=== PATIENT | female | born 1945 | race Caucasian/White ===

== ENCOUNTER 2024-11-23 13:07 | Emergency (ER) | payer MEDICARE, OTHER, SELFPAY ==
--- NOTE | ~2024-11-23 | XR_ITS ---
EXAMINATION: XR CHEST CLINICAL INFORMATION: altered, r/o PNA COMPARISON: Altered mental status TECHNIQUE: 2 views of the chest were obtained. FINDINGS: No significant abnormality is noted involving the heart, lungs, mediastinum, bony thorax or soft tissues. XR/XR chest 2V IMPRESSION: Unremarkable chest examination. Electronically signed by: Yash Dueñas MD 11/23/2024 02:58 PM [facility]
--- NOTE | ~2024-11-23 | CT_ITS ---
EXAMINATION: CT HEAD WITHOUT CONTRAST CLINICAL INFORMATION: Altered mental status. COMPARISON: None available. TECHNIQUE: Contiguous axial imaging was performed from the skull base to vertex without intravenous administration of contrast. This CT examination was performed using dose optimization techniques as appropriate, variously including the following: *Automated exposure control *Adjustment of mA and/or kV according to patient size (this includes techniques or standardized protocols for targeted exams where dose is matched to indication/reason for exam; i.e. extremities or head) *Use of iterative reconstruction technique DLP: 627. 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 There is no acute intra-axial, extra-axial bleed, masses or midline shift. There is no acute infarction evolution. The lateral ventricles are enlarged especially the right lateral ventricle is asymmetrically enlarged likely from ex vacuo phenomena bone windows reveal no calvarial abnormality. There is no scalp soft tissue abnormality. Bilateral paranasal sinuses and mastoid air cells are well-aerated. There is benign hyperostosis frontalis interna. CT/CT head/brain wo IV con IMPRESSION: No acute infarct or bleed. 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 Dilated lateral ventricles likely from cerebral volume loss. Asymmetric enlargement right lateral ventricle from ex vacule phenomena. Electronically signed by: Yash Dueñas MD 11/24/2024 09:37 AM EST
[2024-11-23 13:28] VITALS: BP 147/61; BP 147/72; PULSE 68; RESP 16; TEMP 37; O2SAT 100; BMI 21.1
--- NOTE | 2024-11-23 13:35 | ED.GENADULT ---
HPI - General Adult General Chief complaint: Altered Mental Status Stated complaint: AGGRESIVE W/STAFF & RESIDENTS @ [facility] X5D PER EMS Time Seen by Provider: 11/23/24 13:15 Source: EMS Mode of arrival: EMS Limitations: other (dementia) History of Present Illness ED Provider: VERONICA NAVA PA-C HPI narrative: 79-year-old female with pmhx significant for Alzheimer's dementia, MDD, T2DM, chronic atrial fibrillation on Eliquis, HTN, CKD, GERD, Parkinson's presents to the ED today via EMS from [facility] due to increased verbal aggression towards staff. Per facility, patient has been yelling/ swearing at staff. Additionally has been urinating and defecating on the floor outside of the bathroom at the facility. This is not her baseline. no falls/ injuries per facility. Patient is pleasantly confused. She has no complaints at present. Related Data Home Medications ?Medication ?Instructions ?Recorded ?Confirmed acetaminophen 500 mg tablet 500 mg PO BID 11/24/24 11/24/24 apixaban 2.5 mg tablet (Eliquis) 2.5 mg PO BID 11/24/24 11/24/24 atorvastatin 40 mg tablet 40 mg PO BEDTIME 11/24/24 11/24/24 carbidopa 25 mg-levodopa 100 mg 1 tab PO TID 11/24/24 11/24/24 tablet (Sinemet) docusate sodium 100 mg capsule 100 mg PO DAILY 11/24/24 11/24/24 (Colace) fluticasone propionate 50 1 spray intranasal BID 11/24/24 11/24/24 mcg/actuation nasal spray,suspension gabapentin 100 mg capsule 100 mg PO BID 11/24/24 11/24/24 glipizide 5 mg tablet, extended 5 mg PO DAILY 11/24/24 11/24/24 release 24 hr loratadine 10 mg tablet 10 mg PO DAILY 11/24/24 11/24/24 metformin 500 mg tablet 500 mg PO BID 11/24/24 11/24/24 metoprolol succinate 25 mg 25 mg PO DAILY 11/24/24 11/24/24 tablet,extended release 24 hr mirtazapine 15 mg tablet 15 mg PO BEDTIME 11/24/24 11/24/24 omeprazole 20 mg capsule,delayed 20 mg PO BID@0630,1430 11/24/24 11/24/24 release trazodone 50 mg tablet 25 mg PO BID 11/24/24 11/24/24 Allergies Allergy/AdvReac Type Severity Reaction Status Date / Time atorvastatin [From Lipitor] Allergy Unknown Verified 11/23/24 13:33 divalproex sodium Allergy Unknown Verified 11/23/24 13:33 [From Depakote] Iodinated Contrast Media Allergy Unknown Verified 11/23/24 13:33 [IV Contrast Dye] mushroom Allergy Unknown Verified 11/23/24 13:33 neomycin Allergy Unknown Verified 11/23/24 13:33 peanut Allergy Unknown Verified 11/23/24 13:33 polymyxin B Allergy Unknown Verified 11/23/24 13:33 Review of Systems Review of Systems: Yes Unobtainable due to mental status (dementia) [facility] Past Medical History Attestation statement: The following information was validated with the patient. Source: old records reviewed and nursing notes reviewed Social History Social History Advance Directives: Yes Advance Directives on File: Yes Advance Directives Date on File: 11/23/24 Physical Exam ED Vital Signs: Vital Signs - 24 hr 11/23/24 21:56 11/23/24 21:57 11/24/24 05:38 Temperature 97.8 F 98.3 F Pulse Rate 79 95 61 Respiratory Rate 18 14 12 Blood Pressure 181/79 H 91/45 L 175/70 H Pulse Oximetry 99 95 100 Oxygen Delivery Method Room Air Room Air 11/24/24 08:22 11/24/24 16:24 Temperature 98.5 F Pulse Rate 66 78 Respiratory Rate 16 18 Blood Pressure 151/69 H 148/92 H Pulse Oximetry 100 100 Oxygen Delivery Method Room Air Room Air BMI result Body Mass Index 21.1 hypertensive, vitals are otherwise wnl General: well appearing, pleasantly confused Skin: Warm, dry, intact. No rashes or lesions. Head: Normocephalic, atraumatic. EENT: Hearing is intact b/l. Conjunctiva clear. PERRLA. EOM intact. Moist mucous membranes.? Cardiac: Chest wall symmetric. RRR Lungs: Normal respiratory effort without accessory muscle use. CTA bilaterally Abdomen: Soft, non-tender, non-distended. No rebound tenderness or guarding. Positive BS x4. no cvat. Ext: Upper and lower extremities atraumatic, without tenderness, deformity, swelling or erythema. No pitting edema. Neuro: alert, not oriented to place, time, person which is patient's baseline. Normal speech. No facial droop. 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 Sensation intact to light touch. NV intact distally. Course Course Course Narrative: 1644 -- CBC without leukocytosis. normocytic anemia, h&h above transfusion threshold. no priors to compare to. vbg qnl. chemistry without acute electrolyte abnormality requiring intervention. BUN 34, creatinine 1.47. Patient has history of CKD. I do not have any priors to compare to. Will treat with IV fluids. liver function at baseline. tsh wnl. ammonia wnl. negative covid, flu, rsv. cxr without infiltrate or consolidation to suggest pneumonia. > patient placed in physician observation pending UA 0801 11/24/24 -- urine without infection. psych consult pending for med recs. CM following. patient is hypertensive to 175/70 this morning. alert and responsive, denying any chest pain, sob, headache, vision changes. will have nursing/ pharmacy staff perform med rec. will continue monitoring vitals. no acute overnight events per nursing staff. physician observation continued. Medications Administered Generic Name Dose Route Start Last Admin Trade Name Freq PRN Reason Stop Dose Admin Carbidopa/Levodopa 1 tab 11/24/24 16:00 11/24/24 16:31 Carbidopa/Levodopa 25/100 Tablet PO 1 tab TID ISMAEL Administration Docusate Sodium 100 mg 11/24/24 16:00 11/24/24 16:31 Docusate Sodium 100 Mg Capsule PO 100 mg DAILY ISMAEL Administration Glipizide 5 mg 11/24/24 16:00 11/24/24 16:30 Glipizide Xl 5 Mg Tab.Er.24 PO 5 mg DAILY ISMAEL Administration Loratadine 10 mg 11/24/24 16:11/24/24 16:31 Loratadine 10 Mg Tablet PO 10 mg DAILY ISMAEL Administration Metoprolol Succinate 25 mg 11/24/24 16:00 11/24/24 16:30 Metoprolol Succinate Er 25 Mg Tab.Er.24h PO 25 mg DAILY ISMAEL Administration Protocol Discontinued Medications Generic Name Dose Route Start Last Admin Trade Name Freq PRN Reason Stop Dose Admin Sodium Chloride 1,000 mls @ 999 mls/hr 11/23/24 16:00 11/23/24 17:36 Ns IV 11/23/24 17:00 Infused .Q1H1M ISMAEL Infusion Medical Decision Making Medical Decision Making [facility] Narrative: 79-year-old female with pmhx significant for Alzheimer's dementia, MDD, T2DM, chronic atrial fibrillation on Eliquis, HTN, CKD, GERD, Parkinson's presents to the ED today via EMS from [facility] due to increased verbal aggression towards staff. hypertensive, vitals are otherwise wnl. she is nontoxic appearing and in NAD. she is pleasantly confused. exam is benign. Differential diagnosis includes anemia, electrolyte abnormality, dehydration, hypoglycemia, thyrotoxicosis, UTI, pneumonia, encephalopathy, acute intracranial bleed, dementia, delirium Plan for lab, ekg, viral swabs, CXR, CT head, re-evaluation. Differential Diagnosis Differential Diagnoses: The differential diagnosis associated with the presentation includes as above. Admission/Observation Consideration of admission/observation: Escalation of care including admission/observation considered Admission considered Lab Data [facility] Lab Attestation statement: I reviewed the patient's lab results. as above. 11/23/24 14:04 11/24/24 16:12 Labs: Lab Results 11/23/24 11/23/24 11/23/24 Range/Units 13:44 14:04 14:09 WBC 5.2 (4.8-10.8) X10*3/uL RBC 3.64 L (4.20-5.50) X10*6/uL Hgb 10.6 L (12.0-16.0) g/dl Hct 32.6 L (37.0-47.0) % MCV 89.6 (80.0-98.0) fL MCH 29.1 (27.0-33.0) pg MCHC 32.5 (31.0-35.0) g/dl RDW 13.4 (11.0-16.0) % Plt Count 144 L (160-400) X10*3/uL MPV 10.0 (9.4-12.3) fL Immature Gran % (Auto) 0.2 (0.0-0.4) % Neut % (Auto) 64.6 (45-73) % Lymph % (Auto) 24.3 (20-40) % Grayson % (Auto) 8.4 (2-11) % Eos % (Auto) 2.1 (0-4) % Baso % (Auto) 0.4 (0-2) % Lymph # (Auto) 1.3 (1.2-4.9) X10*3/uL Grayson # (Auto) 0.4 (0.1-1.2) X10*3/uL Eos # (Auto) 0.1 (0.0-0.4) X10*3/uL Baso # (Auto) 0.0 (0.0-0.2) X10*3/uL Abs Immat Gran (auto) 0.01 (0.00-0.03) X10*3/uL Absolute Neuts (auto) 3.4 (2.0-8.3) x10*3/uL Absolute Nucleated RBC 0.000 (0.0-0.012) X10*3/uL Nucleated RBC % (auto) 0.0 (0.0-0.2) /100WBC VBG pH 7.35 (7.32-7.43) VBG pCO2 40 mmHg VBG pO2 41 mmHg VBG HCO3 22 (22-26) mmol/L VBG O2 Saturation 65.0 % VBG Base Excess -2.7 mmol/L Sodium 142 (135-145) mmol/L Potassium 3.6 (3.3-5.1) mmol/L Chloride 109 H (96-108) mmol/L Carbon Dioxide 23 (22-29) mmol/L Anion Gap 14 (12-20) BUN 34 H (9-16) mg/dL Creatinine 1.47 H (0.5-1.4) mg/dL Estim Creat Clear Calc 21.5 Estimated GFR 34 POC Glucose 153 H (60-115) mg/dL Random Glucose 152 H (60-115) mg/dL Calcium 9.0 (8.4-10.2) mg/dL Magnesium 2.0 (1.6-2.6) mg/dL Total Bilirubin 0.3 (0.0-1.0) mg/dL AST 26 (5-31) U/L ALT 8 (0-31) U/L Alkaline Phosphatase 82 (39-117) U/L Ammonia 27 (13-55) umol/L Total Protein 7.0 (6.5-8.0) g/dL Albumin 3.4 L (3.5-5.0) g/dL Lipase 46 (8-78) U/L TSH 1.07 (0.32-4.0) uIU/mL Urine Color Urine Appearance Urine pH (5.0-9.0) Ur Specific Ogilvie (1.005-1.025) Urine Protein (Neg-Trace) mg/dL Urine Glucose (UA) (Negative) mg/dL Urine Ketones (Negative) mg/dL Urine Blood (Negative) Urine Nitrite (Negative) Ur Leukocyte Esterase (Negative) Urine RBC (0-2) /HPF Urine WBC (0-5) /HPF Ur Squamous Epith Cells (0-2) /HPF Urine Bacteria (None Seen) Hyaline Casts (0-2) /LPF Influenza Type A (PCR) NEGATIVE (Negative) Influenza Type B (PCR) NEGATIVE (Negative) RSV RNA Qual (PCR) NEGATIVE (Negative) SARS-CoV-2 RNA (RT-PCR) NEGATIVE (Negative) 11/23/24 11/24/24 Range/Units 16:38 16:12 WBC (4.8-10.8) X10*3/uL RBC (4.20-5.50) X10*6/uL Hgb (12.0-16.0) g/dl Hct (37.0-47.0) % MCV (80.0-98.0) fL MCH (27.0-33.0) pg MCHC (31.0-35.0) g/dl RDW (11.0-16.0) % Plt Count (160-400) X10*3/uL MPV (9.4-12.3) fL Immature Gran % (Auto) (0.0-0.4) % Neut % (Auto) (45-73) % Lymph % (Auto) (20-40) % Grayson % (Auto) (2-11) % Eos % (Auto) (0-4) % Baso % (Auto) (0-2) % Lymph # (Auto) (1.2-4.9) X10*3/uL Grayson # (Auto) (0.1-1.2) X10*3/uL Eos # (Auto) (0.0-0.4) X10*3/uL Baso # (Auto) (0.0-0.2) X10*3/uL Abs Immat Gran (auto) (0.00-0.03) X10*3/uL Absolute Neuts (auto) (2.0-8.3) x10*3/uL Absolute Nucleated RBC (0.0-0.012) X10*3/uL Nucleated RBC % (auto) (0.0-0.2) /100WBC VBG pH (7.32-7.43) VBG pCO2 mmHg VBG pO2 mmHg VBG HCO3 (22-26) mmol/L VBG O2 Saturation % VBG Base Excess mmol/L Sodium 145 (135-145) mmol/L Potassium 3.8 (3.3-5.1) mmol/L Chloride 109 H (96-108) mmol/L Carbon Dioxide 24 (22-29) mmol/L Anion Gap 16 (12-20) BUN 19 H (9-16) mg/dL Creatinine 1.21 (0.5-1.4) mg/dL Estim Creat Clear Calc 26.2 Estimated GFR 43 POC Glucose (60-115) mg/dL Random Glucose 220 H (60-115) mg/dL Calcium 10.1 D (8.4-10.2) mg/dL Magnesium (1.6-2.6) mg/dL Total Bilirubin 0.2 (0.0-1.0) mg/dL AST 31 (5-31) U/L ALT 32 H (0-31) U/L Alkaline Phosphatase 85 (39-117) U/L Ammonia (13-55) umol/L Total Protein 8.5 H (6.5-8.0) g/dL Albumin 3.9 (3.5-5.0) g/dL Lipase (8-78) U/L TSH (0.32-4.0) uIU/mL Urine Color Yellow Urine Appearance Clear Urine pH 6.5 (5.0-9.0) Ur Specific Ogilvie <= 1.005 (1.005-1.025) Urine Protein 30 (1+) H (Neg-Trace) mg/dL Urine Glucose (UA) Negative (Negative) mg/dL Urine Ketones Negative (Negative) mg/dL Urine Blood Negative (Negative) Urine Nitrite Negative (Negative) Ur Leukocyte Esterase Trace H (Negative) Urine RBC 0-2 (0-2) /HPF Urine WBC 0-5 (0-5) /HPF Ur Squamous Epith Cells 0-2 (0-2) /HPF Urine Bacteria None Seen (None Seen) Hyaline Casts 0-2 (0-2) /LPF Influenza Type A (PCR) (Negative) Influenza Type B (PCR) (Negative) RSV RNA Qual (PCR) (Negative) SARS-CoV-2 RNA (RT-PCR) (Negative) Independent Interpretation I performed an independent interpretation of an: EKG, Plain X-Ray and CT Scan Interpretation: EKG showing normal sinus rhythm, rate of 74 beats per minute, QT 4 6, QTC 450, no acute ischemic changes or ST elevations Chest xr without infiltrate or consolidation to suggest pneumonia CT head without acute bleed or mass Radiology Impression Discussion of test interpretation with radiology: I have reviewed the radiologist's reading. Radiologist Impression: Date of Service: 11/23/24 Procedure(s): XR chest 2V Accession Number(s): [id number] cc: GIGI MOROCHO MD; Veronica Nava~ EXAMINATION: XR CHEST CLINICAL INFORMATION: altered, r/o PNA COMPARISON: Altered mental status TECHNIQUE: 2 views of the chest were obtained. FINDINGS: No significant abnormality is noted involving the heart, lungs, mediastinum, bony thorax or soft tissues. XR/XR chest 2V IMPRESSION: Unremarkable chest examination. Electronically signed by: Yash Dueñas MD 11/23/2024 02:58 PM [facility] [place] [place] Date of Service: 11/24/24 Procedure(s): CT head/brain wo IV con Accession Number(s): [id number] cc: GIGI MOROCHO MD; Veronica Nava~ Report Number: [id number]: Total DLP = 627.00 mGy-cm EXAMINATION: CT HEAD WITHOUT CONTRAST CLINICAL INFORMATION: Altered mental status. COMPARISON: None available. TECHNIQUE: Contiguous axial imaging was performed from the skull base to vertex without intravenous administration of contrast. This CT examination was performed using dose optimization techniques as appropriate, variously including the following: *Automated exposure control *Adjustment of mA and/or kV according to patient size (this includes techniques or standardized protocols for targeted exams where dose is matched to indication/reason for exam; i.e. extremities or head) *Use of iterative reconstruction technique DLP: 627. 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 There is no acute intra-axial, extra-axial bleed, masses or midline shift. There is no acute infarction evolution. The lateral ventricles are enlarged especially the right lateral ventricle is asymmetrically enlarged likely from ex vacuo phenomena bone windows reveal no calvarial abnormality. There is no scalp soft tissue abnormality. Bilateral paranasal sinuses and mastoid air cells are well-aerated. There is benign hyperostosis frontalis interna. CT/CT head/brain wo IV con IMPRESSION: No acute infarct or bleed. 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 Dilated lateral ventricles likely from cerebral volume loss. Asymmetric enlargement right lateral ventricle from ex vacule phenomena. Electronically signed by: Yash Dueñas MD 11/24/2024 09:37 AM [facility] [place] [place] Independent Historian Clinical information obtained from an independent historian. History obtained from or confirmed by: EMS Chronic Conditions Patient?s care impacted by: Other (dementia) Social Determinants Patient?s care significantly limited by Social Determinants of Health including: Other Social Determinant of Health Critical Care Time Critical Care Time Critical Care Time: No Discharge Plan Discharge Clinical Impression: Dementia Patient Disposition: Still a Patient Prescriptions: No Action atorvastatin 40 mg Tablet 40 mg PO BEDTIME acetaminophen 500 mg Tablet 500 mg PO BID docusate sodium [Colace] 100 mg Capsule 100 mg PO DAILY gabapentin 100 mg Capsule 100 mg PO BID carbidopa-levodopa [Sinemet] 25-100 mg Tablet 1 tab PO TID fluticasone propionate [Flonase] 50 mcg/actuation Dike,Suspension 1 spray INTRANASAL BID Rx Instructions: administer into each nostril Eliquis 2.5 mg Tablet 2.5 mg PO BID metformin 500 mg Tablet 500 mg PO BID trazodone 50 mg Tablet 25 mg PO BID glipizide 5 mg Tablet Extended Release 24hr 5 mg PO DAILY omeprazole 20 mg Capsule,Delayed Release(Dr/Ec) 20 mg PO BID@0630,1430 mirtazapine 15 mg Tablet 15 mg PO BEDTIME metoprolol succinate 25 mg Tablet Extended Release 24 Hr 25 mg PO DAILY loratadine 10 mg Tablet 10 mg PO DAILY Print Language: Belarusian
--- NOTE | 2024-11-23 13:36 | ECG_ITS ---
Test Reason : ALTERED Blood Pressure : */* mmHG Vent. Rate : 74 BPM Atrial Rate : 74 BPM P-R Int : 164 ms QRS Dur : 82 ms QT Int : 406 ms P-R-T Axes : 92 43 61 degrees QTcB Int : 450 ms Normal sinus rhythm Normal ECG No previous ECGs available Referred By: Veronica Nava Electronically Signed By: CRUZ PORTILLO MD
[2024-11-23 13:48] LABS: Glucose, Whole Blood 153 mg/dL (60-115)
[2024-11-23 14:09] LABS: MANUAL DIFF FLAG NO
[2024-11-23 14:11] LABS: Basophils Percent Auto 0.4 % (0-2); Eosinophils Absolute Auto 0.1 X10*3/uL (0.0-0.4); Eosinophils Percent Auto 2.1 % (0-4); Hematocrit 32.6 % (37.0-47.0); Hemoglobin 10.6 g/dl (12.0-16.0); Imm Gran Abs Auto 0.01 X10*3/uL (0.00-0.03); Imm Gran Pct Auto 0.2 % (0.0-0.4); Lymphocytes Absolute Auto 1.3 X10*3/uL (1.2-4.9); Lymphocytes Percent Auto 24.3 % (20-40); Mean Corpuscular HGB Conc 32.5 g/dl (31.0-35.0); Mean Corpuscular Hemoglobin 29.1 pg (27.0-33.0); Mean Corpuscular Volume 89.6 fL (80.0-98.0); Monocytes Absolute Auto 0.4 X10*3/uL (0.1-1.2); Monocytes Percent Auto 8.4 % (2-11); Neutrophils Absolute Auto 3.4 x10*3/uL (2.0-8.3); Neutrophils Percent Auto 64.6 % (45-73); Platelet Count 144 X10*3/uL (160-400); Red Blood Count 3.64 X10*6/uL (4.20-5.50); Red Cell Distribution Width 13.4 % (11.0-16.0); White Blood Count 5.2 X10*3/uL (4.8-10.8)
[2024-11-23 14:12] LABS: Venous Blood Gas Refer to POC result
[2024-11-23 14:13] LABS: VBG Base Excess -2.7 mmol/L; VBG HCO3 22 mmol/L (22-26); VBG pCO2 40 mmHg; VBG pH 7.35 (7.32-7.43); VBG pO2 41 mmHg
[2024-11-23 14:27] LABS: Ammonia 27 umol/L (13-55)
[2024-11-23 14:33] LABS: Alanine Aminotransferase 8 U/L (0-31); Albumin Level 3.4 g/dL (3.5-5.0); Alkaline Phosphatase 82 U/L (39-117); Anion Gap 14 (12-20); Aspartate Amino Transferase 26 U/L (5-31); Bilirubin Total 0.3 mg/dL (0.0-1.0); Blood Urea Nitrogen 34 mg/dL (9-16); Carbon Dioxide 23 mmol/L (22-29); Chloride 109 mmol/L (96-108); Creatinine Clr Calc Pharmacy 21.5; Estimated Glomerular Filt Rate 34; Glucose Random 152 mg/dL (60-115); Lipase 46 U/L (8-78); Potassium 3.6 mmol/L (3.3-5.1); Sodium 142 mmol/L (135-145)
[2024-11-23 14:47] LABS: TSH reflex Free T4 1.07 uIU/mL (0.32-4.0)
[2024-11-23 14:59] LABS: Influenza A PCR NEGATIVE (Negative); Influenza B PCR NEGATIVE (Negative); Resp Syncy Virus RNA Qual PCR NEGATIVE (Negative); SARS COV2 PCR INHOUSE NEGATIVE (Negative)
--- OUTSIDE RECORDS SUMMARY | 2024-11-23 16:32 | XMS_ITS | Clinical Summary ---
Author Organization [facility] Address [address] [place] [address] Care Team Providers Care Sorter U[employer]olstery [employer] Name Role Phone Unavailable Primary Care Provider Unavailabl e Source Comments PLEASE NOTE, if this patient is a minor, it may be UNLAWFUL to discuss sensitive information that is contained in these records (such as FAMILY PLANNING, MENTAL HEALTH or SUBSTANCE ABUSE) with the minor patient's parent or other person without the patient's specific authorization.[facility] Medications amoxicillin (AMOXIL) 500 mg capsuleIndicatio ns:Tooth infection Take 1 Cap by mouth 3 (three) times daily 21 Cap 01/19/2020 Active acetaminophen (TYLENOL) 500 mg tabletIndication s:Tooth infection Take 1 Tab by mouth every 4 (four) hours as needed for pain 30 Tab 01/19/2020 Active Social History Tobacco Use Types Packs/Day Years Used Date Smoking Tobacco: Never Assessed Social Connections Answer Date Recorded Social Connections and Isolation 0 04/06/2020 Financial Resource Strain Answer Date R ecorded Financial Resource Strain 0 2019 Stress Answer Date Recorded Stress 0 04/06/2020 Physical Activity Answer Date Recorded Physical Activity 0 04/06/2020 Food Insecurity Answer Date Recorded Food 0 04/06/2020 Transportation Needs Answer Date Record ed Transportation 0 04/06/2020 Housing Stability Answer Date Recorded Housing 0 04/06/2020 Safety and Environment Answer Date Medardo rded Safety 0 04/06/2020 Utilities Answer Date Recorded Utilities 0 04/06/2020 Employment Answer Date Recorded Employment 0 04/06/2020 Comments Unknown Sex and Gender Information Value Date Recorded Sex Assigned at Not on file Legal Sex Female 8:38 AM PDT Gender Identity Not on file Sexual Orientation Not on file Plan of Treatment Not on file [place] [address]
--- OUTSIDE RECORDS SUMMARY | 2024-11-23 16:32 | XMS_ITS ---
Author Organization [facility] Address [address] [place] [address] Care Team Providers Care Therapy Tech Name Role Phone Michelle BATEMAN, [facility] Primary Care Provider U Aamir Saldivar Unavailable [phone] REASON FOR VISIT rs appt 08/17/24 Encounters Encounter Location Date Provider Diagnosis [address] [address] 08/06/2024 Aamir Shelley Plan Of Treatment Next Appt Details Provider Name:Aamir Shelley , 02/04/2025 09:00:00 AM, [facility], [address], [address], Progress Notes * MIHAIRojas OCONNELLpaulyDOB:1945 (78 yo F)Acc No.[id number]:08/06/2024 Patient:?Gillian HOLM :1945???Age:78 Y???Sex:Female Address:[address] [place] [address], [address] * true * Date:? Generated for Mooi ross/Siddharth/eTransmitting on:?11/23/2024 04:32 PM EST
--- OUTSIDE RECORDS SUMMARY | 2024-11-23 16:32 | XMS_ITS | Patient Health Record ---
[facility] Address [address] [place] [address] Care Team Providers Care Military Technology Specialist Name Role Phone Michelle BATEMAN, [facility] Primary Care Provider U priya PinedaunAamir christensen Unavailable [phone] Allergies Allergen (clinical drug ingredient) Drug/Non Drug Allergy documented on EMR Reaction Allergy Type Onset Date Status valproate Depakote Unknown Drug Allergy Active Iodinated contrast media (substance) Iodinated Diagnostic Agents Unknown Drug Allergy Active Results Component Value Reference Range Notes HEMOGLOBIN A1C (GLYCOHEMOGLO BIN) Reviewed date:11/05/2024 09:53:49 AM Interpretation: Performing Lab: Notes/Report: HEMOGLOBIN A1C % (HH) 6.1 HEMOGLOBIN A1C (GLYCOHEMOGLO BIN) Reviewed date:11/06/2024 10:44:59 AM Interpretation: Performing Lab: Notes/Report: HEMOGLOBIN A1C % (HH) 6.1 Reason For Referral No Information Medications Medication SIG (Take, Route, Frequency, Duration) Notes Start Date End Date Status Flonase 50 MCG/ACT 1 spray in each nost ril Nasally Once a day 05/27/2018 Not-Taking Colace 100 MG 1 capsule as needed Orally Once a day 05/27/2018 Not-Taking Extra Depth Orthopedic Shoes (1 Pair) with Customized Heat Molded Multidensity Innersoles (3 Pair) as directed Dx: IDDM/Polyneuropathy (E10.42), Hammertoe Foot Deformity (M20.41,M20.42), Preulcerative Skin Lesion(s) (L85.1) 05/21/2024 Active Ammonium Lactate 12 % 1 application to affected area Externally to feet Twice a day for 30 days Active Drysol 20 % 1 application to affected area at bedtime Externally qd hs to both feet for 30 days Active ZyrTEC Allergy Activ e Omeprazole 40 MG 1 capsule Orally Onc e a day 05/27/2018 Not-Taking MiraLax Not-Taking Losartan Potassium 50 MG 1 tablet Orally Once a day 05/27/2018 Not-Taking hydrOXYzine HCl 25 MG 1 tablet as needed Orally prn 05/27/2018 Not-Taking Eliquis 5 MG Orally 05/27/2018 Active Lancets 30G Not-Taki ng Coreg 12.5 MG Orally 05/27/2018 Activ e Freestyle Test Strips Not-Taking Atorvastatin Calcium 40 MG 1 tablet Orally Once a day 05/27/2018 Active Alcohol Pads Not-Moises ing Acetaminophen prn Active Loratadine Not-Takin g Chlorhexidine Gluconate Not-Taking PARoxetine HCl Not-T aking Triamcinolone Acetonide prn Not-Taking Carvedilol Active Melatonin 3 MG 1 tablet at bedtime as needed with food Orally Once a day 05/27/2018 Active Lantus Active HumaLOG KwikPen Acti ve Gabapentin 100 MG 1 capsule Orally Thr ee times a day 05/27/2018 Active PenTips Not-Taking Immunizations Vaccine Route Administration Date Status Comme nts Influenza Unknown 06/27/2020 Administered Social History Tobacco Use: Social History Observation Description Date Details (start date - stop date) Never Smoker NA - NA Tobacco use other than smoking: Question Answer Notes Are you an other tobacco user? No Tobacco Control (Standard) Question Answer Notes Tobacco use: Nonsmoker Additional Findings: Tobacco non-user Current no nsmoker AUDIT-C (Standard) Question Answer Notes Did you have a drink containing alcohol in the p ast year? No Points 0 Interpretation Negative Problems Problem Type SNOMED Code ICD Code Onset Dates Problem Status W/U Status Risk Notes Problem Acquired hammer toe of right foot (8535359725409563 ) Other hammer toe(s) (acquired), right foot (M20.41) Active confirmed Response to treatment, Improvemen t Problem Acquired hammer toe of left foot (6258947802194871 ) Other hammer toe(s) (acquired), left foot (M20.42) Active confirmed Response to treatment, Improvemen t Problem Polyneuropathy due to diabetes mellitus type I (080264172) Type 1 diabetes mellitus with diabetic polyneuropathy (E10.42) Active confirmed Vital Signs Height 4 ft 11 in in 11/05/2024 Weight 110 lbs 11/05/2024 BMI 22.21 kg/m2 11/05/2024 Procedures Procedure Date Ordered Date Performed Result Body Sit e 90474-NRIYBOE NAIL, 6 OR MORE 11/28/2023 N/A 50130-FAQV SKIN LESIONS, OVER 4 11/28/2023 N/A 74510-DLTDLXN NAIL, 6 OR MORE 05/21/2024 N/A 35639-ZLYG SKIN LESIONS, OVER 4 05/21/2024 N/A 52118-ESPUWTU NAIL, 6 OR MORE 11/05/2024 N/A 85929-DPHP SKIN LESIONS, 2 TO 4 11/05/2024 N/A 07244-Ptox. Subungual Hematoma 11/05/2024 N/A Encounters Encounter Location Date Provider Diagnosis [address] [address] 11/28/2023 Aamir Shelley Type 1 diabetes mellitus with diabetic polyneuropathy E10.42 and Tinea unguium B35.[address] [address] 05/21/2024 Aamir Daphney Type 1 diabetes mellitus with diabetic polyneuropathy E10.42 ; Tinea unguium B35.1 ; Other hammer toe(s) (acquired), right foot M20.41 and Other hammer toe(s) (acquired), left foot M20.[address] [address] 11/05/2024 Aamir Shelley Type 1 diabetes mellitus with diabetic polyneuropathy E10.42 ; Tinea unguium B35.1 ; Other hammer toe(s) (acquired), right foot M20.41 ; Other hammer toe(s) (acquired), left foot M20.42 and Subungual hematoma of left foot, initial encounter S90.222A [address] [address] 04/08/2024 Aamir Shelley [address] [address] 08/06/2024 Aamir Shelley Assessments Encounter Date Diagnosis (ICD Code) Assessment Notes Treatment Notes Treatment Clinical Notes Section Notes 11/28/2023 Type 1 diabetes mellitus with diabetic polyneuropathy (ICD-10 - E10.42) 11/28/2023 Tinea unguium (ICD-10 - B35.1) 05/21/2024 Type 1 diabetes mellitus with diabetic polyneuropathy (ICD-10 - E10.42) 05/21/2024 Tinea unguium (ICD-10 - B35.1) 11/05/2024 Type 1 diabetes mellitus with diabetic polyneuropathy (ICD-10 - E10.42) 11/05/2024 Tinea unguium (ICD-10 - B35.1) 11/05/2024 Other hammer toe(s) (acquired), right foot (ICD-10 - M20.41) Response to treatment,Impro vement 05/21/2024 Other hammer toe(s) (acquired), right foot (ICD-10 - M20.41) Patient Educated with: DIABETIC FOOT CARE INSTRUCTIONS. pdf (DIABETIC FOOT CARE INSTRUCTIONS. pdf) 11/05/2024 Other hammer toe(s) (acquired), left foot (ICD-10 - M20.42) Response to treatment,Impro vement 11/05/2024 Subungual hematoma of left foot, initial encounter (ICD-10 - S90.222A) 05/21/2024 Other hammer toe(s) (acquired), left foot (ICD-10 - M20.42) Plan Of Treatment Pending Test Test Name Order Date 41075-EAZTOCC NAIL, 6 OR MORE 08/26/2018 14430-ECQBQCQ NAIL, 6 OR MORE 05/27/2018 41894-UZIAINA NAIL, 6 OR MORE 04/18/2022 62911-RHMDCUD NAIL, 6 OR MORE 06/27/2022 50992-HIPOHKE NAIL, 6 OR MORE 09/10/2022 42427-KAGYEBX NAIL, 6 OR MORE 11/21/2022 83074-SFLUEVS NAIL, 6 OR MORE 02/20/2023 61002-TMODYPJ NAIL, 6 OR MORE 05/01/2023 70142-RTULWQL NAIL, 6 OR MORE 07/10/2023 85235-GUCZPHL NAIL, 6 OR MORE 09/11/2023 15256-ZNXYEEB NAIL, 6 OR MORE 11/28/2023 92659-QNWVPQH NAIL, 6 OR MORE 05/21/2024 32989-DHMHASR NAIL, 6 OR MORE 11/05/2024 06722-Kbvwqsfo Plate 08/26/2018 73043-Xxxzhxhn Plate 07/10/2023 06760-Phjxeion Plate 05/01/2023 90287-Gofkmkjo Plate 02/20/2023 17358-Wpjdotjz Plate 11/21/2022 31780-Ahtsoxth Plate 09/10/2022 74209-Hfmyhuny Plate 06/27/2022 80624-Hrghpavy Plate 04/18/2022 39650-Fijolkuh Plate 07/01/2018 34974-JLYU SKIN LESIONS, OVER 4 04/18/20 22 09079-ZQMC SKIN LESIONS, OVER 4 06/27/20 08285-FXOP SKIN LESIONS, OVER 4 12/31/19 19 94252-SXFW SKIN LESIONS, OVER 4 04/14/20 19 90958-ARIS SKIN LESIONS, OVER 4 06/23/20 19 12015-OEBY SKIN LESIONS, OVER 4 09/25/19 20 79046-ZTNP SKIN LESIONS, OVER 4 02/05/20 20 28018-FYZG SKIN LESIONS, OVER 4 06/17/20 20 03268-KVNE SKIN LESIONS, OVER 4 10/21/19 21 71637-UGKU SKIN LESIONS, OVER 4 02/18/20 21 88956-QKRY SKIN LESIONS, OVER 4 06/02/20 21 11567-CCYA SKIN LESIONS, OVER 4 09/29/19 22 16697-SBLD SKIN LESIONS, OVER 4 09/10/20 22 79085-CBZB SKIN LESIONS, OVER 4 11/22/19 23 31727-FDCU SKIN LESIONS, OVER 4 02/21/20 23 63768-USGM SKIN LESIONS, OVER 4 05/01/20 23 43801-CAZF SKIN LESIONS, OVER 4 07/10/20 23 83113-WGKW SKIN LESIONS, OVER 4 09/11/20 23 32497-QSZB SKIN LESIONS, OVER 4 05/21/20 24 00207-VBWL SKIN LESIONS, OVER 4 11/28/19 24 44872-ACLP SKIN LESIONS, 2 TO 4 08/26/20 18 68436-PQLX SKIN LESIONS, 2 TO 4 05/27/20 18 60736-VDJD SKIN LESIONS, 2 TO 4 11/05/19 25 11470-Xssi. Subungual Hematoma 5 76390- Nail Unit Biopsy 05/27/2018 Next Appt Details Provider Name:Aamir Shelley , 02/04/2025 09:00:00 AM, [address] [facility], [address], [place], [address], Insurance Providers Payer Name Payer Address Payer Phone Subscriber Number Group Number Insured Name Patient Relationship to Insured Coverage Start Date Coverage End Date [employer] [place] [address] [id number] Gillian Ash Self - patient is the insured Medical (General) History Medical History History ICD Code Alzheimers disease Angina Anxiety disorder Arthritis Back,Hip,and Knee pain Cholesterol Gout Heart disease Hypertension Kidney disease Neuropathy Osteoporosis Paralysis Poor circulation Psoriasis/eczema chronic sinusitis Stroke A fib Allergic rhinitis asthma Bipolar disorder chronic kidney disease stage 3 Constipation type II diabetes chronic renal failure Herpes Zoster Acute Otitis Media Alcohol abuse Sciatica Surgical History Surgery Date(Month/Year) appendectomy cataract surgery hysterectomy PRETTY thrombectomy Temporal artery biopsy removed of toe nails endoscopy Hospitalization History Reason Date(Month/Year) [facility]2022 [facility] difficulty 09[facility]2022 [facility]- high blood pressure hit head 05/2020 [facility] - HTN/Chest pain 08/2019 [facility] Heart issues/high blood pressure 03/24
--- OUTSIDE RECORDS SUMMARY | 2024-11-23 16:32 | XMS_ITS ---
Author Organization [facility] Address [address] [place] [address] Care Team Providers Care Radio Control Crane Operator Name Role Phone Michelle BATEMAN, [facility] Primary Care Provider U leannachrisAamir Banks Unavailable [phone] Allergies Allergen (clinical drug ingredient) Drug/Non Drug Allergy documented on EMR Reaction Allergy Type Onset Date Status valproate Depakote Unknown Drug Allergy Active Iodinated contrast media (substance) Iodinated Diagnostic Agents Unknown Drug Allergy Active REASON FOR VISIT At Risk Footcare, Toe Irritation, Painful Toe/Nail(s) Medications Medication SIG (Take, Route, Frequency, Duration) Notes Start Date End Date Status Lancets 30G Not-Taki ng Freestyle Test Strips Not-Taking Alcohol Pads Not-Moises ing Loratadine Not-Takin g PenTips Not-Taking Chlorhexidine Gluconate Not-Taking PARoxetine HCl Not-T aking Triamcinolone Acetonide prn Not-Taking Omeprazole 40 MG 1 capsule Orally Onc e a day 05/27/2018 Not-Taking MiraLax Not-Taking Flonase 50 MCG/ACT 1 spray in each nost ril Nasally Once a day 05/27/2018 Not-Taking Colace 100 MG 1 capsule as needed Orally Once a day 05/27/2018 Not-Taking Extra Depth Orthopedic Shoes (1 Pair) with Customized Heat Molded Multidensity Innersoles (3 Pair) as directed Dx: IDDM/Polyneuropathy (E10.42), Hammertoe Foot Deformity (M20.41,M20.42), Preulcerative Skin Lesion(s) (L85.1) 05/21/2024 Active Losartan Potassium 50 MG 1 tablet Orally Once a day 05/27/2018 Not-Taking hydrOXYzine HCl 25 MG 1 tablet as needed Orally prn 05/27/2018 Not-Taking Ammonium Lactate 12 % 1 application to affected area Externally to feet Twice a day for 30 days Active Drysol 20 % 1 application to affected area at bedtime Externally qd hs to both feet for 30 days Active ZyrTEC Allergy Activ e Carvedilol Active Melatonin 3 MG 1 tablet at bedtime as needed with food Orally Once a day 05/27/2018 Active Eliquis 5 MG Orally 05/27/2018 Active Coreg 12.5 MG Orally 05/27/2018 Activ e Lantus Active HumaLOG KwikPen Acti ve Gabapentin 100 MG 1 capsule Orally Thr ee times a day 05/27/2018 Active Atorvastatin Calcium 40 MG 1 tablet Orally Once a day 05/27/2018 Active Acetaminophen prn Active Social History Tobacco Use: Social History Observation [...] ast year? No Points 0 Interpretation Negative Vital Signs Height 4 ft 11 in in 11/05/2024 Weight 110 lbs 11/05/2024 BMI 22.21 kg/m2 11/05/2024 Procedures Procedure Date Ordered Date Performed Result Body Sit e 85482-IQDZUTK NAIL, 6 OR MORE 11/05/2024 N/A 51750-EHZW SKIN LESIONS, 2 TO 4 11/05/2024 N/A 91251-Dmcy. Subungual Hematoma 11/05/2024 N/A Encounters Encounter Location Date Provider Diagnosis [facility] [address] [place] [id number] 11/05/2024 Aamir Shelley Type 1 diabetes mellitus with diabetic polyneuropathy E10.42 ; Tinea unguium B35.1 ; Other hammer toe(s) (acquired), right foot M20.41 ; Other hammer toe(s) (acquired), left foot M20.42 and Subungual hematoma of left foot, initial encounter S90.222A Assessments Encounter Date Diagnosis (ICD Code) Assessment Notes Treatment Notes Treatment Clinical Notes Section Notes 11/05/2024 Type 1 diabetes mellitus with diabetic polyneuropathy (ICD-10 - E10.42) 11/05/2024 Tinea unguium (ICD-10 - B35.1) 11/05/2024 Other hammer toe(s) (acquired), right foot (ICD-10 - M20.41) Response to treatment,Impro vement 11/05/2024 Other hammer toe(s) (acquired), left foot (ICD-10 - M20.42) Response to treatment,Impro vement 11/05/2024 Subungual hematoma of left foot, initial encounter (ICD-10 - S90.222A) Plan Of Treatment Pending Test Test Name Order Date [id number] NAIL, 6 OR MORE 11/05/2024 52846-WXNA SKIN LESIONS, 2 TO 4 11/05/19 47131-Aesd. Subungual Hematoma Next Appt Details Follow Up: 3 Months, Reason: Provider Name:Aamir Pinedaunier , 02/04/2025 09:00:00 AM, [address] [facility], [address], [place], [address], Procedure Notes * Category Sub-Category Detail Notes Debride Nail 6-10 Nail debridement Due to the cl inical pathology outlined in the exam findings, performance of this nail treatment is medically necessary as its management by an unskilled/untrained nonprofessional would put this patients foot and overall health at risk. Therefore, debridement to affected nail(s), as described in exam ( TA, T1, T2, T3, T4, T5, T6, T7, T8, T9 ), was performed exclusively by the physician of record to reduce/remove overall nail length, girth, thickness, subungual debris, and necrotic tissue, by manual and/or electrical means through the use of a nail nipper and/or dremel-type grinder set up operator jig, to a more viable healthy nail plate or bed tissue 6-10 nails in total. Silver nitrate was used for any petechial bleeding as necessary. Definitive antifungal treatment options, both pharmaceutical and surgical, have been reviewed and discussed with the patient. The patient solely prefers the use of intermittent/as needed professional debridement services for their nail condition and understands the need for additional periodic treatments to maintain effectiveness in symptomatic relief - 03151 I&D subungual hematoma: Location T2, As p er exam Procedure: Performed incision a nd drainage of subungual hematoma with use of sterile power dontrell and/or nail nipper. Approximately ( 0.1 ) cc of hemorrhagic fluid material was drained. No underlying bone was visualized. An application of sterile Bacitracin dressing was performed. Local wound care instructions were discussed and dispensed , Pt was advised of the possibilty for nail auto-avulsion (08858), DIABETES: Pt was advised as to the risk of delayed or nonhealing due to diabetes. Pt is to call the office with any questions, concerns, or complications Anesthesia was deferred - NEURO COOPER: patient has medically documented neuropathic condition affecting sensation Keratoma Treatment Parring or Cutting o f Benign Hyperkeratotic Lesion(s) (-56) 2-4 Lesions - Due to the at risk nature of the patients medical condition as documented in the exam findings, performance of this keratoderma treatment is medically necessary as its management by an unskilled/untrained nonprofessional would put this patients foot and overall health at risk. Therefore, the benign hyperkeratotic lesions, ( 3 ) in total, locations as stated and described in the exam ( SUB MTH (s), 1, Left , Plantar, Heel(s), B/L ), were pared, and/or cut utilizing a sterile 15 blade, tissue nippers, and/or power dremel instrumentation by the physician of record - 01808 Progress Notes * Gillian HOLMDOB:1945 (78 yo F)Acc No.[id number]:11/05/2024 Progress Note Patient:?Gillian HOLM Provider:?Aamir Shelley DPM :1945???Age:78 Y???Sex:Female D ate:11/05/2024 Address:[address] [place] [address] Pcp:Bill Martinez MD Subjective: * Chief Complaints: * ???At Risk FootcareToe Irrit ationPainful Toe/Nail(s) * HPI: ???At Risk footcare:?Pt States Last PCP Visit:?Date?09/10/2024 ???Toe pain:?Treatments:?Rx shoes .?Painful Nails:?Duration:?States Possible Date Of Injury - 11/02/24,No fall( May have dropped something on it ).? * ROS:?General/Constitutional:?Nausea?denies.?Vomiting?denies.?Hunger Thirst?denies.?Loss appetite?denies.?Chills?denies.?Fatigue?denies.?Fever?denies.?Night Sweats?denies.?Unexplained weight loss?denies.?Unexplained weight gain?admits.?HEENTM:?Dentures?admits.?Dizziness?denies.?Glasses/contacts?denies.?Retinopathy?den ies.?Blurred/double vision?denies.?TMJ?denies.?Discharge/drainage?denies.?Implants?denies.?Sore throat?admits.?Dental implants?denies.?Hard of hearing ?admits.?Difficulty chewing/swallowing/speaking?denies.?Nose bleeds?denies.?Sore mouth?admits.?Respiratory:?On O xygen?denies.?Pneumonia/pleurisy?denies.?Bronchitis?denies.?Emphysema?denies.?Co ughing?denies.?Cough blood?denies.?Shortness of breath?admits.?Wheezing?denies.?Cardiovascular:?Pacemaker?denies.?MVP?denies.?WPW?denies.?CHF?denies.?Heart attack?denies.?Septal defect?denies.?Rapid beat?admits.?Chest pain ?admits.?Atrial Fib.?denies.?Murmur/Palpitations?denies.?Gastrointestinal:?Hemorrhoids?denies.?Stomach/Abdominal pain?admits.?Dark blood stool?denies.?Irritable bowel ?denies.?Constipation?admits.?Diarrhea?admits.?Hematology:?Swelling?denies.?Clots?denies.?Varicose Veins?denies.?Bruising?admits, on anticoagulants.?Bleeding problem?admits, on anticoagulants.?Genitourinary:?Blood urine?denies.?Frequent/Painfu/urination/bladder control?denies.?Kidney stones?denies.?Infection (UTI)?denies.?Nephropathy?admits.?sex trans dis (STD)?denies.?Prostate?denies.?Musculoskeletal:?Hammertoes?admits.?Bunions?admits.?Back Pain?admits.?Muscle Cramps/ Resting?admits.?Muscle cramps / walking?denies.?Generalized aches and pains?denies.?Weakness?denies.?Integ.:?Cespedes?denies.?Scars?denies.?Corns/calluses?admits.?Ingrown nails?admits.?Painful nails?denies.?Open Sores?denies.?Rashes?denies.?Neurologic:?Difficulty sleeping?denies.?Brain disorder?denies.?Numbness?admits.?Balance t rouble?denies.?Confusion?denies.?Fainting/blackouts?denies.?Tingling?admits.?Aidan mors?denies.? * Medical History:? * Surgical History:?appendecto my cataract surgery hysterectomy PRETTY thrombectomy Temporal artery biopsy removed of toe nails endoscopy * Hospitalization/Major Diagno stic Procedure:?[facility] Heart issues/high blood pressure 03/2019[facility] - HTN/Chest pain 08/2019[facility]- high blood pressure hit head 05/2020[facility]- breathing difficulty - fell 12/2022 * Family History:?Mother: dece ased, heart attack, diagnosed with Unspecified essential hypertension, Unspecified heart disease, Family history of arthritis, Diabetic - NIDDM.?Father: , heart attack, diagnosed with Unspecified essential hypertension, Unspecified heart disease.?Spouse: .?Maternal Grand Mother: diagnosed with Diabetic - NIDDM.?Siblings: diagnosed with Other malignant neoplasm of unspecified site.? * Social History:?Tobacco Use:?Tobacco use other than smoking?Are you an other tobacco user??No ?Tobacco Control (Standard)?Tobacco use:?Nonsmoker ?Additional Findings: Tobacco non-user?Current nonsmoker ???Drugs/Alcohol:?Drugs?Have you used drugs other than those for medical reasons in the past 12 months??No ???Miscellaneous:?Caffeine: no, none. ?Children: yes, 2. ?Exercise: yes, walking, yoga, exercise. ?Marital status: . ?Occupation: retired, Patient Access Manager. ???Drug/Alcohol:?AUDIT-C (Standard)?Did you have a drink containing alcohol in the past year??No ?Points?0 ?Interpretation?Negative * Medications:?TakingAcetamino phen prn Atorvastatin Calcium 40 MG Tablet 1 tablet Orally Once a day Coreg 12.5 MG Tablet Orally Eliquis 5 MG Tablet Orally Gabapentin 100 MG Capsule 1 capsule Orally Three times a day HumaLOG KwikPen Lantus Melatonin 3 MG Tablet 1 tablet at bedtime as needed with food Orally Once a day Carvedilol ZyrTEC Allergy Drysol 20 % Solution 1 application to affected area at bedtime Externally qd hs to both feet Ammonium Lactate 12 % Cream 1 application to affected area Externally to feet Twice a day Extra Depth Orthopedic Shoes (1 Pair) with Customized Heat Molded Multidensity Innersoles (3 Pair) as directed Dx: IDDM/Polyneuropathy (E10.42), Hammertoe Foot Deformity (M20.41,M20.42), Preulcerative Skin Lesion(s) (L85.1) Taking Acetaminophen prn Taking Atorvastatin Calcium 40 MG Tablet 1 tablet Orally Once a day Taking Coreg 12.5 MG Tablet Orally Taking Eliquis 5 MG Tablet Orally Taking Gabapentin 100 MG Capsule 1 capsule Orally Three times a day Taking HumaLOG KwikPen Taking Lantus Taking Melatonin 3 MG Tablet 1 tablet at bedtime as needed with food Orally Once a day Taking Carvedilol Taking ZyrTEC Allergy Taking Drysol 20 % Solution 1 application to affected area at bedtime Externally qd hs to both feet Taking Ammonium Lactate 12 % Cream 1 application to affected area Externally to feet Twice a day Taking Extra Depth Orthopedic Shoes (1 Pair) with Customized Heat Molded Multidensity Innersoles (3 Pair) as directed Dx: IDDM/Polyneuropathy (E10.42), Hammertoe Foot Deformity (M20.41,M20.42), Preulcerative Skin Lesion(s) (L85.1) Not-Taking/PRNColace 100 MG Capsule 1 capsule as needed Orally Once a day Flonase 50 MCG/ACT Suspension 1 spray in each nostril Nasally Once a day hydrOXYzine HCl 25 MG Tablet 1 tablet as needed Orally prn Losartan Potassium 50 MG Tablet 1 tablet Orally Once a day MiraLax Omeprazole 40 MG Capsule Delayed Release 1 capsule Orally Once a day Triamcinolone Acetonide prn PARoxetine HCl Chlorhexidine Gluconate Loratadine Alcohol Pads Freestyle Test Strips Lancets 30G PenTips Medication List reviewed and reconciled with the patientNot-Taking/PRN Colace 100 MG Capsule 1 capsule as needed Orally Once a day Not-Taking/PRN Flonase 50 MCG/ACT Suspension 1 spray in each nostril Nasally Once a day Not-Taking/PRN hydrOXYzine HCl 25 MG Tablet 1 tablet as needed Orally prn Not-Taking/PRN Losartan Potassium 50 MG Tablet 1 tablet Orally Once a day Not-Taking/PRN MiraLax Not-Taking/PRN Omeprazole 40 MG Capsule Delayed Release 1 capsule Orally Once a day Not-Taking/PRN Triamcinolone Acetonide prn Not- Taking/PRN PARoxetine HCl Not-Taking/PRN Chlorhexidine Gluconate Not-Taking/PRN Loratadine Not-Taking/PRN Alcohol Pads Not-Taking/PRN Freestyle Test Strips Not-Taking/PRN Lancets 30G Not-Taking/PRN PenTips Medication List reviewed and reconciled with the patient * Allergies:?DepakoteIodinated Diagnostic Agentsyes[Allergies Verified] Objective: * Vitals:?Ht: 4 ft 11 in, Wt:1 10, BMI: 22.21, Shoe size:7.5, BS:not taken, Wt-k.9 kg. * ???Past Orders: ???Lab:HEMOGLOBIN A1C (GLYCO HEMOGLOBIN) (Order Date - 08/24/2024) (Collection Date & Time - 11/05/2024 09:53 AM) ? Value Reference Range ?HEMOGLOBIN A1C % (HH) 6.1 * Examination: ???Ophthalmology Referral: ?DIABETES EYE EXAM?Procedure Performed:?Yes ?Date of Exam Performed?10/29/2024 ?Diabetic Retinopathy Screening:?Yes ?Retinal Screening Performed:?Yes ?Findings of Diabetic Eye Exam:?retinopathy?Neurological: ?SENSORY:?Neurological exam demonstrates, reduced light touch sensation, reduced sharp/dull pin prick discrimination , B/L, 5.07 monofilament test performed at plantar aspects of 5 varied sites per foot shows sensation, reduced , B/L.?Nails: ?NAILS are:?Elongated, overgrown, dystrophic, lytic, greater than 3mm thick, discolored and friable with crumbly malodorous subungual debris, TA, T1, T2, T3, T4, T5, T6, T7, T8, T9 , There is evidence of with dull to no pain on palpation due to neuropathy, and an area of SUBUNGUAL HEMORRHAGIC fluid with a pre-operative size measuring approximately ( 1-2 ) mm square, T2.?Dermatologic: ?SKIN FINDINGS:?Skin exam reveals Keratotic lesion(s) located at, SUB MTH (s), 1, Left , Plantar, Heel(s), B/L.?Orthopedic: ?DIGITAL DEFORMITIES:? Digital contracture, PIPJ, 2-5 B/L, incompl- reducible to push-up test, medial over lapping - T1, MPJ Contracture/Dorsal subluxation, 2-5 B/L, incompl-reducible with WB or to push-up test,no longer,?with evidence of shoe producing skin irritation.?FOOTWEAR:?good condition, exhibit proper fit and accommodation for pedal deformities. OT were inspected and noted to be worn, but in good condition giving proper support at the present time.?Vascular: ?DP PULSES (B):? 09/26, B/L.?PT PULSES (B):? 10/27, B/L.?CAPILLARY FILL TIME:? 3 secs. per digit, B/L.?TROPHIC CONDITION-TEXTURE/ELASTICITY/TURGOR/HAIR GROWTH (B):? decreased, B/L.?TEMPERTURE GRADIENT (C):? decreased, cool to cool, proximal to distal, B/L.?PIGMENTATION:?normal, B/L.?EDEMA (C):?absent, B/L.?General Examination: ?GENERAL APPEARANCE:?Reveals a pleasant, alert, well nourished, well- developed, well hydrated individual, who demonstrates proper attention to hygiene/body habitus, and is in no acute distress , Pt serves as own historian for office visit today , Pt accompanied by , Female , ELECTROCHEMIST , and/who is physically present in exam room at time of visit.?ORIENTED:?person, place, and time.?FOOT EXAM:?Lower Extremity Neurological Exam performed:?Yes ?Visual exam of foot performed:?Yes ?Date?11/05/2024 ?Footwear Evaluation?Footwear Evaluation performed:?Yes??? Assessment: * Assessment: 1.?Type 1 diabetes mellitus with diabetic polyneuropathy - E10.42 (Primary)???2.?Tinea unguium - B35.1???3.?Other hammer toe(s) (acquired), right foot - M20.41???Specify :Chronic problem, Stable (1=3,2=4)???Notes :Response to treatment,Improvement???4.?Other hammer toe(s) (acquired), left foot - M20.42???Specify :Chronic problem, Stable (1=3,2=4)???Notes :Response to treatment,Improvement???5.?Subungual hematoma of left foot, initial encounter - S90.222A??? Plan: * Treatment: 2.?Subungual hematoma of lef t foot, initial encounter?Procedure: 35410-Jszf. Subungual Hematoma * Procedures:?Debride Nail 6-10:?Nail debridement?Due to the clinical pathology outlined in the exam findings, performance of this nail treatment is medically necessary as its management by an unskilled/untrained nonprofessional would put this patients foot and overall health at risk. Therefore, debridement to affected nail(s), as described in exam ( TA, T1, T2, T3, T4, T5, T6, T7, T8, T9 ), was performed exclusively by the physician of record to reduce/remove overall nail length, girth, thickness, subungual debris, and necrotic tissue, by manual and/or electrical means through the use of a nail nipper and/or dremel-type grinder set up operator jig, to a more viable healthy nail plate or bed tissue 6- 10 nails in total. Silver nitrate was used for any petechial bleeding as necessary. Definitive antifungal treatment options, both pharmaceutical and surgical, have been reviewed and discussed with the patient. The patient solely prefers the use of intermittent/as needed professional debridement services for their nail condition and understands the need for additional periodic treatments to maintain effectiveness in symptomatic relief - 37098.?I&D subungual hematoma::?Location?T2, As per exam.?Anesthesia?was deferred - NEUROPATHY: patient has medically documented neuropathic condition affecting sensation.?Procedure:?Performed incision and drainage of subungual hematoma with use of sterile power dontrell and/or nail nipper. Approximately ( 0.1 ) cc of hemorrhagic fluid material was drained. No underlying bone was visualized. An application of sterile Bacitracin dressing was performed. Local wound care instructions were discussed and dispensed , Pt was advised of the possibilty for nail auto-avulsion (41833), DIABETES: Pt was advised as to the risk of delayed or nonhealing due to diabetes. Pt is to call the office with any questions, concerns, or complications.?Keratoma Treatment:?Parring or Cutting of Benign Hyperkeratotic Lesion(s)?(-56) 2-4 Lesions - Due to the at risk nature of the patients medical condition as documented in the exam findings, performance of this keratoderma treatment is medically necessary as its management by an unskilled/untrained nonprofessional would put this patients foot and overall health at risk. Therefore, the benign hyperkeratotic lesions, ( 3 ) in total, locations as stated and described in the exam (?SUB MTH (s),?1,?Left?,?Plantar,?Heel(s),?B/L?), were pared, and/or cut utilizing a sterile 15 blade, tissue nippers, and/or power dremel instrumentation by the physician of record - 68821.? * Procedure Codes:?29431 DEBRI DE NAIL, 6 OR MORE, Modifiers: XS 99530 DRAIN BLOOD FROM UNDER NAIL, Modifiers: XS , [id number] TRIM SKIN LESIONS, 2 TO 4, Modifiers: XS * Preventive Medicine:? ??Counseling:?Discussion:?-13: Office or other outpatient visit for the evaluation and management of an established patient, which required a medically appropriate history and/or examination and LOW level of DECISION MAKING for: 1 STABLE ACUTE UNCOMPLICATED PROBLEM, 2 OR MORE MINOR PROBLEMS, OR 1 STABLE CHRONIC PROBLEM, THAT POSE(S) A LOW RISK FOR MORBIDITY/MORTALITY. The visit on the day of the encounter encompassed interpreting the data and educating the patient as to the nature of their condition, treatment options available according to their individual PMH, meds, allergies, and overall health/living conditions, as well as any potential risks or complications that may occur from a failure to adhere to, and participate in, the recommended course of therapy. The discussion included a complete verbal, and/or written explanation of the examination results, any x-rays taken, the proposed diagnosis, and outline of the treatment plan. A schedule for future care needs was also explained. The patient verbalized an understanding of the instructions at this time and agreed to be an active participant in their treatment. If the patient should think of any questions or concerns after the visit, I have encouraged the patient to call the office.?Shoe Gear Counseling:?A thorough inspection of the patients Rxed shoegear and inserts was performed and findings communicated. We reviewed the many important medical advantages for adhering to regularly wearing these shoe and insert accomidative devices daily as well as reviewed the fact that a failure in accepting these recommedations may be deleterious, unable to prevent, and disadvantagely result in, many pedal complications such as skin irritation, skin ulceration, infection, and even loss of toe/foot/leg/or even their life. Time was also spent reviewing the proper footcare techniques including daily skin moisturization, daily foot inspection for any interruption in skin integrity, open lesions, or sign of infection such as redness/malodor/drainage/swelling as well as daily shoe inspection for the presence of internal foreign bodies and shoe as well as insert wear. Patient questions re: shoes, inserts, and self foot inspections were answered to their satisfaction as the patient verbally confirmed a full understanding of the above information.? ??Screening/Special Tests:?Fall Risk?Screening:?No falls in the past year ?FALLS: Screening for Future Fall Risk?Have you had any falls with injury in the past year??No * Follow Up:?3 Months * Images: * Sign off status: Completed true * Provider:?Aamir Shelley DPM Date:?2024 Generated for Severino hawkins/Siddharth/Noris on:?11/23/2024 04:32 PM EST History and Physical Notes * HPI (History of Present Illness) Category Sub-Category Detail Notes Category Not es Toe pain Treatments: Rx shoes Painful Nails Duration: States Possible Date Of Injury - 11/02/24, No fall ( May have dropped something on it ) At Risk footcare Pt States Last PCP Visit: Date: 4 Examination Category Sub-Category Detail Notes Category Not es Neurological SENSORY: Neurological exa m demonstrates, reduced light touch sensation, reduced sharp/dull pin prick discrimination , B/L, 5.07 monofilament test performed at plantar aspects of 5 varied sites per foot shows sensation, reduced , B/L Dermatologic SKIN FINDINGS: Skin exam reveal s Keratotic lesion(s) located at, SUB MTH (s), 1, Left , Plantar, Heel(s), B/L Orthopedic FOOTWEAR: good condition, exhibit proper fit and accommodation for pedal deformities. OT were inspected and noted to be worn, but in good condition giving proper support at the present time DIGITAL DEFORMITIES: Digital contracture , PIPJ, 2-5 B/L, incompl-reducible to push-up test, medial over lapping - T1, MPJ Contracture/Dorsal subluxation, 2-5 B/L, incompl-reducible with WB or to push-up test, no longer, with evidence of shoe producing skin irritation General Examination GENERAL APPEARANCE: Reveals a pleasant, alert, well nourished, well-developed, well hydrated individual, who demonstrates proper attention to hygiene/body habitus, and is in no acute distress , Pt serves as own historian for office visit today , Pt accompanied by , Female , ELECTROCHEMIST , and/who is physically present in exam room at time of visit FOOT EXAM: Lower Extremity Neurological Exa m performed:: Yes Visual exam of foot performed:: Yes Date: 11/05/2024 ORIENTED: person, place, and t keiry Footwear Evaluation Footwear Evaluation performe d:: Yes Ophthalmology Referral DIABETES EYE EXAM Procedure Perform ed:: Yes ?Date of Exam Performed: 10/29/2024 Diabetic Retinopathy Screening:: Yes Retinal Screening Performed:: Yes Findings of Diabetic Eye Exam:: retinopa thy Vascular DP PULSES (B): 1/4, B/L PT PULSES (B): 2/4, B/L CAPILLARY FILL TIME: 3 secs. per digit, B/L TEMPERTURE GRADIENT (C): decreased, cool to cool, proximal to distal, B/L TROPHIC CONDITION-TEXTURE/ELASTICITY/TURGOR/HAIR GROWTH (B): decreased, B/L EDEMA (C): absent, B/L PIGMENTATION: normal, B/L Nails NAILS are: Elongated, overg rown, dystrophic, lytic, greater than 3mm thick, discolored and friable with crumbly malodorous subungual debris, TA, T1, T2, T3, T4, T5, T6, T7, T8, T9 , There is evidence of with dull to no pain on palpation due to neuropathy, and an area of SUBUNGUAL HEMORRHAGIC fluid with a pre-operative size measuring approximately ( 1-2 ) mm square, T2
--- OUTSIDE RECORDS SUMMARY | 2024-11-23 16:32 | XMS_ITS | Encounter Summary ---
Author Organization [employer] Address [address] [place] [address] Care Team Providers Care Tracer Lathe Set Up Operator Name Role Phone Unavailable Primary Care Provider Unavailabl e Reason for Visit * Reason Comments Dentures Denture adjustment Encounter Details Date Type Department Care Team ([facility] st Contact Info) Description 11/17/2024 11:00 AM EST Office Visit [facility] [address] [place] [phone] Genaro Blakely, KJ [address] [place] [address] Social History Tobacco Use Types Packs/Day Years Used Date Smoking Tobacco: Never Smokeless Tobacco: Never Comments Unknown Sex and Gender Information Value Date Recorded Sex Assigned at Female 07/23/2022 10:24 AM EDT Legal Sex Female 10:24 AM EDT Gender Identity Female 08/30/2023 10:02 AM EST Sexual Orientation Straight 08/30/2023 10 :02 AM EST documented as of this encounter Last Filed Vital Signs Vital Sign Reading Time Taken Comments Blood Pressure 118/68 11/17/2024 11:09 AM EST Pulse 58 11/17/2024 11:09 AM EST Temperature - - Respiratory Rate - - Oxygen Saturation - - Inhaled Oxygen Concentration - - Weight - - Height - - Body Mass Index - - documented in this encounter Progress Notes * Genaro Blakely DMD - 11/17/2024 11:00 AM EST F/: shorten and thin the UR and UL premolar area of F/. Pt feels better /P: show pt how to insert the /P properly because she lives [place]: adjustment if needed Gem documented in this encounter Plan of Treatment Upcoming Encounters Date Type Department Care Team ([facility] st Contact Info) Description 12/08/2024 9:00 AM EDT Office Visit [facility] [address] [place] [phone] Genaro Blakely DMD [address] [place] [address] documented as of this encounter Procedures Procedure Name Priority Date/Time Associated Diagnosis Comments DENTURE ADJUSTMENT Routine 11/17/2024 11:00 AM EST documented in this encounter Visit Diagnoses Not on filedocumented in this encounter
--- OUTSIDE RECORDS SUMMARY | 2024-11-23 16:32 | XMS_ITS ---
Author Organization [facility] Address [address] [place] [id number] Care Team Providers Care Budget Controller Name Role Phone Michelle BATEMAN, Bill Primary Care Provider U Aamir Saldivar Unavailable [phone] Encounters Encounter Location Date Provider Diagnosis [address] [phone] 08/17/2024 Aamir Shelley Plan Of Treatment Next Appt Details Provider Name:Aamir Shelley , 02/04/2025 09:00:00 AM, [address] [place] [address], [phone], Progress Notes * Gillian HOLMDOB:1945 (79 yo F)Acc No.[id number]:08/17/2024 Progress Note Patient:?Gillian HOLM Provider:?Aamir Shelley DPM :1945???Age:78 Y???Sex:Female D ate:08/17/2024 Address:[address] [place] [address] Pcp:Bill Martinez MD Subjective: * Chief Complaints: * ??? * Medical History:? Objective: * Vitals:? Assessment: Plan: * Treatment: * Images: * The named appointment provid er may or may not be the originator of this progress note, and it is not deemed complete until electronically signed by the appointment provider. Sign off status: Pending * Provider:Ana Shelley DPM Date:?2023 Generated for Severino hawkins/Siddharth/Noris on:?11/23/2024 04:32 PM EST
--- OUTSIDE RECORDS SUMMARY | 2024-11-23 16:32 | XMS_ITS | Clinical Summary ---
Author Organization [employer] Address [address] [facility] [address] [place] [address] Care Team Providers Care Glaze Handler Name Role Phone Unavailable Primary Care Provider Unavailabl e Allergies Active Allergy Reactions Criticality Noted Date Comments Acetaminophen Other 01/30/2021 Atorvastatin Other 01/30/2021 Medications acetaminophen (Tylenol) 500 MG tablet Take by mouth. Activ e ammonium lactate (Amlactin) 12 % cream Apply topically if needed for dry skin. Active atorvastatin (Lipitor) 40 MG tablet Take 40 mg by mouth in the morning. Active carbidopa-levod opa (Sinemet) 25-100 MG tablet Take 1 tablet by mouth 3 times daily. Active apixaban (Eliquis) 5 MG tablet Take 5 mg by mouth 2 times daily. Active fluticasone (Flonase) 50 MCG/ACT nasal spray Administer 1 spray into each nostril in the morning. Shake gently. Before first use, prime pump. After use, clean tip and replace cap. Active gabapentin (Neurontin) 100 MG capsule Take by mouth. Acti ve glipiZIDE (Glucotrol) 5 MG tablet Take 5 mg by mouth before breakfast and before evening meal. Active losartan (Cozaar) 25 MG tablet Take by mouth. Activ e metoprolol succinate XL (Toprol-XL) 25 MG 24 hr tablet Take by mouth. Do not crush or chew. Active mirtazapine (Remeron) 15 MG tablet Take 15 mg by mouth at bedtime. Active omeprazole (PriLOSEC) [address] capsule Take 20 mg by mouth before breakfast. Do not crush or chew. Active dulaglutide (Trulicity) 1.5 MG/0.5ML solution pen-injector Inject 1.5 mg under the skin 1 (one) time per week. Active Active Problems No known active problems Encounters Date Type Department Care Team Description 11/17/2024 11:00 AM EST Office Visit [address] [address] Genaor Blakely DMD 10/15/2024 9:00 AM EST Office Visit [address] [address] Genaro Blakely DMD 10/06/2024 10:00 AM EST Office Visit [address] [address] Genaro Blakely DMD 09/29/2024 11:00 AM EST Office Visit [address] [address] Genaro Blakely DMD 09/01/2024 8:00 AM EST Office Visit [address] [address] Genaro Blakely DMD 08/27/[address] [address] Genaro Blakely DMD from Last 3 Months Social History Tobacco Use Types Packs/Day Years Used Date Smoking Tobacco: Never Smokeless Tobacco: Never Tobacco Cessation:Counseling Given: Not Answered Comments Unknown Sex and Gender Information Value Date Recorded Sex Assigned at Female 07/23/2022 10:24 AM EDT Legal Sex Female 10:24 AM EDT Gender Identity Female 08/30/2023 10:02 AM EST Sexual Orientation Straight 08/30/2023 10 :02 AM EST Last Filed Vital Signs Vital Sign Reading Time Taken Comments Blood Pressure 118/68 11/17/2024 11:09 AM EST Pulse 58 11/17/2024 11:09 AM EST Temperature - - Respiratory Rate - - Oxygen Saturation - - Inhaled Oxygen Concentration - - Weight - - Height - - Body Mass Index - - Plan of Treatment Upcoming Encounters Date Type Department Care Team (Late st Contact Info) Description 12/08/2024 9:00 AM EDT Office Visit [address] [phone] Genaro Blakely, DMD [address] [place], [place] [phone] Health Maintenance Due Date Last Done Comments Depression Screening 1945 Lipid Panel 1945 SDOH Screening 1945 Alcohol/Substance Use Screening 1955 Zoster Vaccines (1 of 2) 1993 Dental Oral Exam 03/27/2010 09/26/2009 Pneumococcal Vaccine: 50+ Years (2 of 2 - PPSV23) 06/21/2018 06/21/2017, 11/04/2015 RSV Patients and Patients Aged 60 years or older (1 - 1-dose 75+ series) 2018 COVID-19 Vaccine (4 - season) 2024 07/19/2021, 10/24/2020, 10/03/2020 Influenza Vaccine (#1) 2024 , 07/05/2021, 07/08/2020, Additional history exists Dental Prophylaxis 01/20/2025 07/21/2024, 1 10/20/2022, 05/09/2011, Additional history exists Dental X-Ray: Bitewings 06/17/2025 06/16/2024 Tobacco Screening 11/17/2025 11/17/2024 Dental X-Ray: Full Mouth 06/17/2027 024, 03/06/2023, 08/26/2009 DTaP/Tdap/Td Vaccines (2 - Td or Tdap) 05/13/2030 05/13/2020 HIB Vaccines Aged Out No longer eligi ble based on patient's age to complete this topic HPV Vaccines Aged Out No longer eligi ble based on patient's age to complete this topic Hepatitis A Vaccines Aged Out No long er eligible based on patient's age to complete this topic Hepatitis B Vaccines Aged Out No long er eligible based on patient's age to complete this topic IPV Vaccines Aged Out No longer eligi ble based on patient's age to complete this topic Meningococcal Vaccine Aged Out No therese juan antonio eligible based on patient's age to complete this topic RSV under 20 months Aged Out No longe r eligible based on patient's age to complete this topic Rotavirus Vaccines Aged Out No longer eligible based on patient's age to complete this topic Procedures Procedure Name Priority Date/Time Associated Diagnosis Comments DENTURE ADJUSTMENT Routine 11/17/2024 11 :00 AM EST 31,18,19 PARTIAL DENTURE - FLEXIBLE Routine 10/15/2024 9:00 AM EST Max COMPLETE DENTURE - MAXILLARY Routine 10/15/2024 9:00 AM EST WAX TRY IN Routine 10/06/2024 10:00 AM EST BITE REGISTRATION Routine 09/29/2024 11: 00 AM EST DENTURE IMPRESSION Routine 09/29/2024 11 :00 AM EST DENTURE IMPRESSION Routine 09/01/2024 8: 00 AM EST PROPHYLAXIS - ADULT Routine 07/21/2024 9 :00 AM EDT INTRAORAL - COMPLETE SERIES OF RADIOGRAPHIC IMAGES Routine 06/16/2024 2:00 PM EDT COMPREHENSIVE ORAL EVALUATION - NEW OR ESTABLISHED PATIENT Routine 09/26/2009 12:00 AM EST from Last 3 Months or Most Recently Relevant to Health Maintenance Insurance [place] [facility] [phone]
--- OUTSIDE RECORDS SUMMARY | 2024-11-23 16:33 | XMS_ITS | Encounter Summary ---
Author Organization [employer] Address [address] [place] [address] Care Team Providers Care Tire Maintenance Technician Name Role Phone Rhonda Naranjo MD Primary Care Provider [phone] Encounter Details Date Type Department Care Team (Latest Contact Info) Description 08/11/2024 Lab Requisition [facility] - Main Lab [address] [facility] [place] [phone] Simeon Ornelas MD [address] [place] [address] Type 2 diabetes mellitus without complications (CMS/HCC) Social History Tobacco Use Types Packs/Day Years Used Date Smoking Tobacco: Never Assessed Comments Unknown Sex and Gender Information Value Date Recorded Sex Assigned at Not on file Legal Sex Female 5:15 PM EST Gender Identity Not on file Sexual Orientation Not on file documented as of this encounter Plan of Treatment Not on file documented as of this encounter Procedures Procedure Name Priority Date/Time Associated Diagnosis Comments LIPID PANEL WITH REFLEX TO DIRECT LDL Routine 08/11/2024 4:42 AM EST Type 2 diabetes mellitus without complications (CMS/HCC) COMPLETE BLOOD COUNT Routine 08/11/2024 4:42 AM EST Type 2 diabetes mellitus without complications (CMS/HCC) HEMOGLOBIN A1C Routine 08/11/2024 4:42 AM EST Type 2 diabetes mellitus without complications (CMS/HCC) BASIC METABOLIC PANEL Routine 08/11/2024 4:42 AM EST Type 2 diabetes mellitus without complications (CMS/HCC) documented in this encounter Results * (ABNORMAL) Lipid panel with reflex to direct LDL (08/11/2024 4:42 AM EST) Cholesterol 127 0 - 200 mg/dL LAB CHEMISTRY METHOD 08/11/2024 10:22 AM EST [facility] Triglycerides 240(H) 0 - 150 mg/dL LAB CHEMISTRY METHOD 08/11/2024 10:22 AM EST [facility] HDL 44 >=40 mg/dL LAB CHEMISTRY METHOD 08/11/2024 10:22 AM EST [facility] LDL Calculated 35 0 - 100 mg/dL LAB CHEMISTRY METHOD 08/11/2024 10:22 AM [facility] VLDL Cholesterol Raghav 48 mg/dL LAB CHEMISTRY METHOD 08/11/2024 10:22 AM EST [facility] Non HDL Chol. (LDL+VLDL) 83 <145 mg/dL LAB CHEMISTRY METHOD 08/11/2024 10:22 AM [facility] Chol/HDL Ratio 2.9 0.0 - 4.4 LAB CHEMISTRY METHOD 08/11/2024 10:22 AM [facility] Blood Venous blood specimen / Unknown Venipuncture / Unknown 08/11/2024 4:42 AM EST 08/11/2024 8:36 AM EST us Simeon Ornelas MD LAB BLOOD ORDERABLES Final R esult [facility] [address] [place] [address], * Hemoglobin A1c (08/11/2024 4:42 AM EST) Hemoglobin A1C 6.1 <6.5 % LAB CHEMISTRY METHOD 08/11/2024 9:54 PM EST [facility] Mean Bld Glu Estim. 128 mg/dL LAB CHEMISTRY METHOD 08/11/2024 9:54 PM [facility] Blood Venous blood specimen / Unknown Venipuncture / Unknown 08/11/2024 4:42 AM EST 08/11/2024 8:36 AM EST us Simeon Ornelas MD LAB BLOOD ORDERABLES Final R esult [facility] [address] [place] [address], [place] [phone] * (ABNORMAL) Basic metabolic panel (08/11/2024 4:42 AM EST) Sodium 141 133 - 145 mmol/L LAB CHEMISTRY METHOD 08/11/2024 10:19 AM [facility] Potassium 3.8 3.5 - 5.5 mmol/L LAB CHEMISTRY METHOD 08/11/2024 10:19 AM [facility] Chloride 107 96 - 110 mmol/L LAB CHEMISTRY METHOD 08/11/2024 10:19 AM [facility] CO2 28 21 - 32 mmol/L LAB CHEMISTRY METHOD 08/11/2024 10:19 AM [facility] Anion Gap 6 3 - 11 LAB CHEMISTRY METHOD 08/11/2024 10:19 AM [facility] Glucose 224(H) 70 - 100 mg/dL LAB CHEMISTRY METHOD 08/11/2024 10:19 AM [facility] BUN 18 5 - 25 mg/dL LAB CHEMISTRY METHOD 08/11/2024 10:19 AM [facility] Creatinine 1.02 0.50 - 1.10 mg/dL LAB CHEMISTRY METHOD 08/11/2024 10:19 AM [facility] eGFR 56(L) >=60 mL/min/1. 73m2 LAB CHEMISTRY METHOD 08/11/2024 10:19 AM [facility] Comment:Calculation based on the??Chronic Kidney Disease Epidemiology Collaboration (CKD-EPI) equation refit??without adjustment for race. BUN/Creatinine Ratio 17.6 LAB CHEMISTRY METHOD 08/11/2024 10:19 AM [facility] Calcium 9.1 8.5 - 10.5 mg/dL LAB CHEMISTRY METHOD 08/11/2024 10:19 AM [facility] Blood Venous blood specimen / Unknown Venipuncture / Unknown 08/11/2024 4:42 AM EST 08/11/2024 8:36 AM EST us Simeon Ornelas MD LAB BLOOD ORDERABLES Final R esult [facility] [address] [place] [address], * (ABNORMAL) Complete blood count (08/11/2024 4:42 AM EST) WBC 4.8 4.8 - 10.8 K/mcL LAB HEMETOLOGY METHOD 08/11/2024 9:52 AM [facility] RBC 3.20(L) 3.80 - 4.80 M/[facility] LAB HEMETOLOGY METHOD 08/11/2024 9:52 AM [facility] Hemoglobin 9.7(L) 11.5 - 16.0 g/dL LAB HEMETOLOGY METHOD 08/11/2024 9:52 AM [facility] Hematocrit 31.1(L) 35.0 - 47.0 % LAB HEMETOLOGY METHOD 08/11/2024 9:52 AM [facility] MCV 96.6 79.0 - 98.0 FL LAB HEMETOLOGY METHOD 08/11/2024 9:52 AM [facility] MCH 30.1 27.0 - 32.0 pcg LAB HEMETOLOGY METHOD 08/11/2024 9:52 AM [facility] MCHC 31.2(L) 32.0 - 37.0 g/dL LAB HEMETOLOGY METHOD 08/11/2024 9:52 AM EST [facility] RDW 14.4 11.0 - 15.0 % LAB HEMETOLOGY METHOD 08/11/2024 9:52 AM [facility] Platelets 176 130 - 400 K/mcL LAB HEMETOLOGY METHOD 08/11/2024 9:52 AM [facility] MPV 10.7 7.0 - 11.0 FL LAB HEMETOLOGY METHOD 08/11/2024 9:52 AM [facility] NRBC 0.0 <1.0 % LAB HEMETOLOGY METHOD 08/11/2024 9:52 AM [facility] NRBC Absolute 0.00 <0.10 K/mcL LAB HEMETOLOGY METHOD 08/11/2024 9:52 AM [facility] Blood Venous blood specimen / Unknown Venipuncture / Unknown 08/11/2024 4:42 AM EST 08/11/2024 8:36 AM EST us Simeon Ornelas MD LAB BLOOD ORDERABLES Final R esult [facility] [address] [place] [address], documented in this encounter Visit Diagnoses Diagnosis Type 2 diabetes mellitus without complications (CMS/HCC) documented in this encounter Care Teams Tire Maintenance Technician Relationship Specialty Start Date End Date Rhonda Naranjo MD [address] [address] PCP - General 07/10/17 documented as of this encounter
--- OUTSIDE RECORDS SUMMARY | 2024-11-23 16:33 | XMS_ITS | Encounter Summary ---
Author Organization [employer] Address [address] [place] [address] [address] [address] Care Team Providers Care Pet Training Instructor Name Role Phone Unavailable Primary Care Provider Unavailabl e Encounter Details Date Type Department Care Team (Late st Contact Info) Description 08/09/2023 Abstract [facility] [address] [place] [address] Zack Marino BDS [address] [place] [address] Social History Tobacco Use Types Packs/Day Years Used Date Smoking Tobacco: Never Smokeless Tobacco: Never Comments Unknown Sex and Gender Information Value Date Recorded Sex Assigned at Female 07/23/2022 10:24 AM EDT Legal Sex Female 10:24 AM EDT Gender Identity Female 08/30/2023 10:02 AM EST Sexual Orientation Straight 08/30/2023 10 :02 AM EST documented as of this encounter Plan of Treatment Upcoming Encounters Date Type Department Care Team (Late st Contact Info) Description 12/08/2024 9:00 AM EDT Office Visit [facility] [address] [place], [place] [phone] Genaro Blakely DMD [address] [place] [address] documented as of this encounter Visit Diagnoses Not on filedocumented in this encounter
--- OUTSIDE RECORDS SUMMARY | 2024-11-23 16:33 | XMS_ITS | Encounter Summary ---
Author Organization [employer] Address [address] [place] [address] [address] [address] Care Team Providers Care Supervisor Fish Bait Processing Name Role Phone Unavailable Primary Care Provider Unavailabl e Encounter Details Date Type Department Care Team (Late st Contact Info) Description 08/09/2023 Abstract [facility] [address] [place] [address] Zack Marino BDS [address] [place] [address] Social History Tobacco Use Types Packs/Day Years [...] Description 12/08/2024 9:00 AM EDT Office Visit [facility] [address] [place], [place] [phone] Genaro Blakely DMD [address] [place] [address] documented as of this encounter Visit Diagnoses Not on filedocumented in this encounter
--- OUTSIDE RECORDS SUMMARY | 2024-11-23 16:33 | XMS_ITS | Encounter Summary ---
Author Organization [employer] Address [address] [place] [address] [address] [address] Care Team Providers Care Knitting Machine Operator Name Role Phone Unavailable Primary Care Provider Unavailabl e Encounter Details Date Type Department Care Team (Late st Contact Info) Description 08/29/2023 Abstract [facility] [address] [place] [address] Zack Marino BDS [address] [place] [address] Social History Tobacco Use Types Packs/Day Years [...] Description 12/08/2024 9:00 AM EDT Office Visit [facility] [address] [place], [place] [phone] Genaro Blakely DMD [address] [place] [address] documented as of this encounter Visit Diagnoses Not on filedocumented in this encounter
--- OUTSIDE RECORDS SUMMARY | 2024-11-23 16:33 | XMS_ITS | Clinical Summary ---
Author Organization [facility] Address [address] [place] [address] Phone Care Team Providers Care Perioperative Assistant Name Role Phone Rhonda Naranjo MD Primary Care Provider [phone] Allergies Active Allergy Reactions Criticality Noted Date Comments Acetaminophen Other 01/30/2021 Atorvastatin Other 01/30/2021 Iodinated Contrast Media 03/25/2023 Latex 03/25/2023 Mushroom Rash Low 03/25/2023 Peanut Oil Rash Low 03/25/2023 rash Valproic Acid Other 03/25/2023 Medications apixaban (Eliquis) 2.5 mg tablet Take 1 tablet (2.5 mg total) by mouth 2 (two) times a day. 4 Active gabapentin (NEURONTIN) 100 mg capsule Take 1 capsule (100 mg total) by mouth 2 (two) times a day. 4 Active carbidopa-levodopa (PARCOPA) 25-100 mg per disintegrating tablet Take 1 tablet by mouth 3 (three) times a day. Active loratadine (CLARITIN) 10 mg tablet Take 1 tablet (10 mg total) by mouth 1 (one) time each day. Active losartan (COZAAR) 25 mg tablet Take 1 tablet (25 mg total) by mouth 1 (one) time each day. 4 Active metFORMIN (GLUCOPHAGE) 500 mg tablet Take 1 tablet (500 mg total) by mouth 2 (two) times a day with meals. 4 Active metoprolol succinate (Toprol XL) 25 mg 24 hr tablet Take 1 tablet (25 mg total) by mouth 1 (one) time each day. 4 Active omeprazole (PriLOSEC) [address] capsule Take 1 capsule (20 mg total) by mouth 2 (two) times a day if needed (heartburn). 4 Active traZODone (DESYREL) 50 mg tablet Take 0.5 tablets (25 mg total) by mouth 2 (two) times a day if needed for sleep (agitation). 4 Active Social History Tobacco Use Types Packs/Day Years Used Date Smoking Tobacco: Never Assessed Comments Unknown Sex and Gender Information Value Date Recorded Sex Assigned at Not on file Legal Sex Female 5:15 PM EST Gender Identity Not on file Sexual Orientation Not on file Obstetrics History Last Filed Vital Signs Vital Sign Reading Time Taken Comments Blood Pressure 115/69 08/16/2024 2:19 PM EST Pulse 74 08/16/2024 2:19 PM EST Temperature 36.8 ??C (98.2 ??F) 08/16/2024 2:19 PM ES T Respiratory Rate 16 08/16/2024 2:19 PM EST Oxygen Saturation 100% 08/16/2024 2:19 PM EST Inhaled Oxygen Concentration - - Weight 56.7 kg (125 lb) 08/16/2024 7:27 AM EST Height 152.4 cm (5') 08/16/2024 7:27 AM EST Body Mass Index 24.41 08/16/2024 7:27 AM EST Plan of Treatment Health Maintenance Due Date Last Done Comments Diabetes: Annual Foot Exam 1955 Diabetes: Annual Retina Eye Exam 1955 Zoster Vaccines (1 of 2) 1993 Pneumococcal Vaccine: 50+ Years (2 of 2 - PPSV23) 12/30/2015 11/04/2015 RSV Immunization Patients 60 + Years Old (1 - 1-dose 75+ series) 2018 COVID-19 Vaccine (4 2023-2 5 season) 2024 07/19/2021, 10/24/2020, 10/03/2020 Influenza Vaccine (#1) 2024 2, 07/05/2021, 05/08/2017 Depression Screening 07/10/2024 Falls Risk Assessment 07/10/2024 Medicare Annual Wellness Visit 07/10/2024 Osteoporosis Screening (Bone Density Screening) 07/10/2024 Social Influencers of Health Screening 07/10/2024 Diabetes: Annual Urine Albumin-Creatinine Ratio (uACR) 08/06/2024 Diabetes: Blood Sugar Contro l Test (HGBA1C) 02/08/2025 08/11/2024 Diabetes: Annual GFR (Glomerular Filtration Rate) 08/16/2025 08/16/2024, 08/14/2024, 08/11/2024 Hypertension/CHF/CAD Annual BMP Blood Test 08/16/2025 08/16/2024, 08/14/2024, 08/11/2024 Cholesterol Screening (Lipid Panel) 08/11/2029 08/11/2024 DTaP,Tdap,and Td Vaccines (2 - Td or Tdap) 05/13/2030 [...] on patient's age to complete this topic MMR Vaccines Aged Out No longer eligi ble based on patient's age to complete this topic Meningococcal ACWY Vaccine Aged Out N o longer eligible based on patient's age to complete this topic Meningococcal B Vacine Aged Out No lo nger eligible based on patient's age to complete this topic RSV Immunization Patients Under 20 months Aged Out No longer eligible b ased on patient's age to complete this topic Varicella Vaccines Aged Out No longer eligible based on patient's age to complete this topic Procedures Procedure Name Priority Date/Time Associated Diagnosis Comments BASIC METABOLIC PANEL STAT 08/16/2024 8:09 AM EST HEMOGLOBIN A1C Routine 08/11/2024 4:42 AM EST Type 2 diabetes mellitus without complications (CMS/HCC) LIPID PANEL WITH REFLEX TO DIRECT LDL Routine 08/11/2024 4:42 AM EST Type 2 diabetes mellitus without complications (CMS/HCC) from Last 3 Months or Most Recently Relevant to Health Maintenance Results * (ABNORMAL) Basic metabolic panel (08/16/2024 8:09 AM EST) Sodium 142 133 - 145 mmol/L LAB CHEMISTRY METHOD 08/16/2024 8:51 AM [facility] Potassium 4.2 3.5 - 5.5 mmol/L LAB CHEMISTRY METHOD 08/16/2024 8:51 AM [facility] Chloride 106 96 - 110 mmol/L LAB CHEMISTRY METHOD 08/16/2024 8:51 AM [facility] CO2 28 21 - 32 mmol/L LAB CHEMISTRY METHOD 08/16/2024 8:51 AM [facility] Anion Gap 8 3 - 11 LAB CHEMISTRY METHOD 08/16/2024 8:51 AM [facility] Glucose 318(H) 70 - 100 mg/dL LAB CHEMISTRY METHOD 08/16/2024 8:51 AM [facility] BUN 19 5 - 25 mg/dL LAB CHEMISTRY METHOD 08/16/2024 8:51 AM [facility] Creatinine 1.09 0.50 - 1.10 mg/dL LAB CHEMISTRY METHOD 08/16/2024 8:51 AM [facility] eGFR 51(L) >=60 mL/min/1. 73m2 LAB CHEMISTRY METHOD 08/16/2024 8:51 AM [facility] Comment:Calculation based on the??Chronic Kidney Disease Epidemiology Collaboration (CKD-EPI) equation refit??without adjustment for race. BUN/Creatinine Ratio 17.4 LAB CHEMISTRY METHOD 08/16/2024 8:51 AM [facility] Calcium 9.1 8.5 - 10.5 mg/dL LAB CHEMISTRY METHOD 08/16/2024 8:51 AM [facility] Blood Venous blood specimen / Unknown Venipuncture / Unknown 08/16/2024 8:09 AM EST 08/16/2024 8:14 AM EST Osiel Darling MD LAB BLOOD ORDERABLES Final Res ult [facility] [address] [place] [address], [place] [phone] * (ABNORMAL) Lipid panel with reflex to direct LDL (08/11/2024 4:42 AM EST) Cholesterol 127 0 - 200 mg/dL LAB CHEMISTRY METHOD 08/11/2024 10:22 AM [facility] Triglycerides 240(H) 0 - 150 mg/dL LAB CHEMISTRY METHOD 08/11/2024 10:22 AM [facility] HDL 44 >=40 mg/dL LAB CHEMISTRY METHOD 08/11/2024 10:22 AM [facility] LDL Calculated 35 0 - 100 mg/dL LAB CHEMISTRY METHOD 08/11/2024 10:22 AM [facility] VLDL Cholesterol Raghav 48 mg/dL LAB CHEMISTRY METHOD 08/11/2024 10:22 AM [facility] Non HDL Chol. (LDL+VLDL) 83 <145 mg/dL LAB CHEMISTRY METHOD 08/11/2024 10:22 AM [facility] Chol/HDL Ratio 2.9 0.0 - 4.4 LAB CHEMISTRY METHOD 08/11/2024 10:22 AM [facility] Blood Venous blood specimen / Unknown Venipuncture / Unknown 08/11/2024 4:42 AM EST 08/11/2024 8:36 AM EST Simeon Ornelas MD LAB BLOOD ORDERABLES Final R esult Performing Organization Address City/[facility]/ZIP Co de Phone Number [facility] [address] [place] [address], [place] [phone] * Hemoglobin A1c (08/11/2024 4:42 AM EST) Hemoglobin A1C 6.1 <6.5 % LAB CHEMISTRY METHOD 08/11/2024 9:54 PM EST [facility] Mean Bld Glu Estim. 128 mg/dL LAB CHEMISTRY METHOD 08/11/2024 9:54 PM EST [facility] Blood Venous blood specimen / Unknown Venipuncture / Unknown 08/11/2024 4:42 AM EST 08/11/2024 8:36 AM EST us Simeon Ornelas MD LAB BLOOD ORDERABLES Final R esult [facility] [address] [place] [address], from Last 3 Months or Most Recently Relevant to Health Maintenance Insurance MEDICAID - [place] [facility] SE[place] HERNANDEZ [id number] Advance Directives Documents on File Type Date Recorded Patient Manager Of Financial Planning Expl anation Advance Directives and Living Will 08/17/2024 9:44 AM Health Care Proxy Advance Directives and Living Will 08/17/2024 9:31 AM Advance Directives and Living Will 08/17/2024 9:30 AM Health Care Decision (hx) 07/22/2024 HE ALTH CARE PROXY Health Care Decision (hx) 07/20/2024 AD RODRIGUEZ DIRECTIVE Health Care Decision (hx) 07/15/2024 AD RODRIGUEZ DIRECTIVE Health Care Decision (hx) 07/15/2024 HE ALTH CARE PROXY Care Teams Perioperative Assistant Relationship Specialty Start Date End Date Rhonda Naranjo MD [address] [place] [address] PCP - General 07/10/17
--- OUTSIDE RECORDS SUMMARY | 2024-11-23 16:33 | XMS_ITS | Encounter Summary ---
Author Organization [employer] Address [address] [place] [address] [address] [address] Care Team Providers Care Usability Strategist Name Role Phone Unavailable Primary Care Provider Unavailabl e Encounter Details Date Type Department Care Team (Late st Contact Info) Description 08/09/2023 Abstract [facility] [address] [place] [address] Zack Marino BDS [address] [place] [address] Social History Tobacco Use Types Packs/Day Years [...] Description 12/08/2024 9:00 AM EDT Office Visit [facility] [address] [place], [place] [id number] Genaro Blakely DMD [address] [place] [address] documented as of this encounter Visit Diagnoses Not on filedocumented in this encounter
[2024-11-23] MEDS: 0.9 % Sodium Chloride 1,000 ML 999 ML IV (16:36)
[2024-11-23 16:50] LABS: Appearance Urine Clear; Color Urine Yellow; Glucose Urine UA Negative (Negative); Leukocyte Esterase Urine Trace (Negative); Nitrite Urine Negative (Negative); PH 6.5 (5.0-9.0); Specific Gravity - Urine <= 1.005 (1.005-1.025); UMIC TRIGGER UACC YES; Urine Blood Negative (Negative); Urine Ketones Negative (Negative); Urine Protein 30 (1+) mg/dL (Neg-Trace)
--- NOTE | 2024-11-23 16:54 | MHC.CM.ED ---
Pt from [facility] dementia unit for increased verbal aggression and behaviors. U/A pending. Psych consult and CM consult placed together. Will follow and reach out when U/A and psych consult completed.
[2024-11-23 17:43] LABS: Bacteria Urine None Seen (None Seen); Hyaline Casts Urine 0-2 /LPF (0-2); RBC Urine 0-2 /HPF (0-2); Squamous Epithelial Cell Urine 0-2 /HPF (0-2); WBC Urine 0-5 /HPF (0-5)
[2024-11-23 17:45] VITALS: BP 181/79; PULSE 72; RESP 13; TEMP 36.4; O2SAT 100
[2024-11-23 21:56] VITALS: BP 181/79; PULSE 79; RESP 18; TEMP 36.6; O2SAT 99
[2024-11-23 21:57] VITALS: BP 91/45; PULSE 95; RESP 14; O2SAT 95
[2024-11-24 05:38] VITALS: BP 175/70; PULSE 61; RESP 12; TEMP 36.8; O2SAT 100
[2024-11-24 08:22] VITALS: BP 151/69; PULSE 66; RESP 16; TEMP 36.9; O2SAT 100
--- NOTE | 2024-11-24 13:57 | PC.NURSE ---
Pt alert/confused at times but pleasant. To bathroom via wheelchair when requested. Ate 100% of breakfast but declines lunch. Awaiting psych consult and case management consult. Able to make needs known to staff. Keith called from [facility] and updated on plan and additional imaging done, contact [phone] Med rec faxed over and faxed to pharmacy who will complete med rec when able however will be later d/t high volume
--- NOTE | 2024-11-24 14:41 | PHA.MEDREC ---
Pharmacy Consult ? Medication Reconciliation Pharmacy has completed the medication reconciliation. Utilized list from SNF.
[2024-11-24 16:24] VITALS: BP 148/92; PULSE 78; RESP 18; O2SAT 100
[2024-11-24] MEDS: Metoprolol Succinate ER 25 MG TAB.ER.24H PO (16:30)
[2024-11-24] MEDS: glipiZIDE XL 5 MG TAB.ER.24 PO (16:30)
[2024-11-24] MEDS: Docusate Sodium 100 MG CAPSULE PO (16:31)
[2024-11-24] MEDS: Carbidopa/Levodopa 25/100 TABLET 1 TAB PO ×2 (16:31→20:37)
[2024-11-24] MEDS: Loratadine 10 MG TABLET PO (16:31)
[2024-11-24 16:45] LABS: Alanine Aminotransferase 32 U/L (0-31); Albumin Level 3.9 g/dL (3.5-5.0); Alkaline Phosphatase 85 U/L (39-117); Anion Gap 16 (12-20); Aspartate Amino Transferase 31 U/L (5-31); Bilirubin Total 0.2 mg/dL (0.0-1.0); Blood Urea Nitrogen 19 mg/dL (9-16); Carbon Dioxide 24 mmol/L (22-29); Chloride 109 mmol/L (96-108); Creatinine Clr Calc Pharmacy 26.2; Estimated Glomerular Filt Rate 43; Glucose Random 220 mg/dL (60-115); Potassium 3.8 mmol/L (3.3-5.1); Sodium 145 mmol/L (135-145); Total Protein 8.5 g/dL (6.5-8.0)
--- NOTE | 2024-11-24 16:47 | PM.PSYCN ---
History of Present Illness Date of Service: 11/24/2024 Chief Complaint: AGGRESIVE W/STAFF & RESIDENTS @ [facility] X5D PER EMS Reason for Consult: med management Requesting physician: Veronica Nava Discussed with referring provider: Yes Sources of Information: patient interviewed, chart reviewed and crisis/core team assessment reviewed Additional Sources of Information: HCP, Rose Mary [phone] HPI Narrative: Ms. Ash is an 79 year-old woman with hx of Parkinson's, dementia, lives in [facility]/Memory Care unit. She was brought via EMS due to increase verbal altercation, unusual behavior such as defecating and urinating on the floor and putting self on the floor. Pertinent labs include: cbc with normocytic anemia, Hgb>7. Plts 144. CMP elevated BUN 34, Cr 1.47, Creatinine clearance 21.5, ammonia 27. UA with + protein, trace of leukocyte. Head CT showed large right MCA territory encephalomalacia. No acute changes. Pt seen in the ED. Pt presents as calm. She is able to tell that she is in the hospital but does not know why. She is able to tell that she lives at [facility]. She has been able to go to the bathroom when she is brought and has not had episodes of incontinence. She denies SI/HI. There is no overt evidence of psychosis. She does report she is taoist and God guides her. At some point, pt made commend about God working through her when she is having a bowel movement. When asked to explained, pt was not able to provide more information about it. Collateral information from her HCP, Rose Mary who reports pt has always been very taoist. He reports patient was recently assessed for same concern at [facility] and return back to [facility] last Saturday. Past Psychiatric History: OP: Steven Mike at [facility] medication trials include: trazodone, depakote Medical Evaluation Reviewed: Yes Diagnostics Vital Signs (24Hr): Vital Signs - 24 hr 11/23/24 17:45 11/23/24 21:56 11/23/24 21:57 Temperature 97.6 F 97.8 F Pulse Rate 72 79 95 Respiratory Rate 13 18 14 Blood Pressure 181/79 H 181/79 H 91/45 L Pulse Oximetry 100 99 95 Oxygen Delivery Method Room Air Room Air 11/24/24 05:38 11/24/24 08:22 11/24/24 16:24 Temperature 98.3 F 98.5 F Pulse Rate 61 66 78 Respiratory Rate 12 16 18 Blood Pressure 175/70 H 151/69 H 148/92 H Pulse Oximetry 100 100 100 Oxygen Delivery Method Room Air Room Air Room Air BMI result Body Mass Index 21.1 Labs 11/23/24 14:04 11/24/24 16:12 Labs: Laboratory Results - last 48 hr 11/23/24 11/23/24 11/23/24 13:44 14:04 14:09 WBC 5.2 RBC 3.64 L Hgb 10.6 L Hct 32.6 L MCV 89.6 MCH 29.1 MCHC 32.5 RDW 13.4 Plt Count 144 L MPV 10.0 Immature Gran % (Auto) 0.2 Neut % (Auto) 64.6 Lymph % (Auto) 24.3 [place] % (Auto) 8.4 Eos % (Auto) 2.1 Baso % (Auto) 0.4 Lymph # (Auto) 1.3 [place] # (Auto) 0.4 Eos # (Auto) 0.1 Baso # (Auto) 0.0 Abs Immat Gran (auto) 0.01 Absolute Neuts (auto) 3.4 Absolute Nucleated RBC 0.000 Nucleated RBC % (auto) 0.0 VBG pH 7.35 VBG pCO2 40 VBG pO2 41 VBG HCO3 22 VBG O2 Saturation 65.0 VBG Base Excess -2.7 Sodium 142 Potassium 3.6 Chloride 109 H Carbon Dioxide 23 Anion Gap 14 BUN 34 H Creatinine 1.47 H Estim Creat Clear Calc 21.5 Estimated GFR 34 POC Glucose 153 H Random Glucose 152 H Calcium 9.0 Magnesium 2.0 Total Bilirubin 0.3 AST 26 ALT 8 Alkaline Phosphatase 82 Ammonia 27 Total Protein 7.0 Albumin 3.4 L Lipase 46 TSH 1.07 Urine Color Urine Appearance Urine pH Ur Specific [place] Urine Protein Urine Glucose (UA) Urine Ketones Urine Blood Urine Nitrite Ur Leukocyte Esterase Urine RBC Urine WBC Ur Squamous Epith Cells Urine Bacteria Hyaline Casts Influenza Type A (PCR) NEGATIVE Influenza Type B (PCR) NEGATIVE RSV RNA Qual (PCR) NEGATIVE SARS-CoV-2 RNA (RT-PCR) NEGATIVE 11/23/24 11/24/24 16:38 16:12 WBC RBC Hgb Hct MCV MCH MCHC RDW Plt Count MPV Immature Gran % (Auto) Neut % (Auto) Lymph % (Auto) [place] % (Auto) Eos % (Auto) Baso % (Auto) Lymph # (Auto) [place] # (Auto) Eos # (Auto) Baso # (Auto) Abs Immat Gran (auto) Absolute Neuts (auto) Absolute Nucleated RBC Nucleated RBC % (auto) VBG pH VBG pCO2 VBG pO2 VBG HCO3 VBG O2 Saturation VBG Base Excess Sodium 145 Potassium 3.8 Chloride 109 H Carbon Dioxide 24 Anion Gap 16 BUN 19 H Creatinine 1.21 Estim Creat Clear Calc 26.2 Estimated GFR 43 POC Glucose Random Glucose 220 H Calcium Magnesium Total Bilirubin 0.2 AST 31 ALT 32 H Alkaline Phosphatase 85 Ammonia Total Protein 8.5 H Albumin 3.9 Lipase TSH Urine Color Yellow Urine Appearance Clear Urine pH 6.5 Ur Specific [place] <= 1.005 Urine Protein 30 (1+) H Urine Glucose (UA) Negative Urine Ketones Negative Urine Blood Negative Urine Nitrite Negative Ur Leukocyte Esterase Trace H Urine RBC 0-2 Urine WBC 0-5 Ur Squamous Epith Cells 0-2 Urine Bacteria None Seen Hyaline Casts 0-2 Influenza Type A (PCR) Influenza Type B (PCR) RSV RNA Qual (PCR) SARS-CoV-2 RNA (RT-PCR) Imaging Radiology Impressions: ITS Impressions Chest X-Ray 11/23/24 13:36 IMPRESSION: Unremarkable chest examination. Electronically signed by: Yash Dueñas MD 11/23/2024 02:58 PM EST RP Head CT 11/24/24 08:43 IMPRESSION: No acute infarct or bleed. 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 Dilated lateral ventricles likely from cerebral volume loss. Asymmetric enlargement right lateral ventricle from ex vacule phenomena. Electronically signed by: Yash Dueñas MD 11/24/2024 09:37 AM EST RP Mental Status Exam Mental Status Exam Narrative: Appearance: wearing hospital gown, in bed, in ED, in NAD Behavior: calm, cooperative Psychomotor: no agitation or retardation noted Speech: clear, regular rate/rhythm/volume, spontaneous TP: derailment and loose associations TC: wanting to go home Mood: good Affect: congruent SI: denies HI: none VH/AH: no overt signs specially if religiosity has been always there Delusions: no overt Insight/judgment: impaired x 2. Memory/cog: alert, oriented to idea that she is in the hospital, but does not know name/city, month or year. advanced dementia. Medications Medications Current Medications Apixaban (Apixaban 2.5 Mg Tablet) 2.5 mg PO BID [facility] Atorvastatin Calcium (Atorvastatin Calcium 40 Mg Tablet) 40 mg PO BEDTIME [facility] Carbidopa/Levodopa (Carbidopa/Levodopa 25/100 Tablet) 1 tab PO TID [facility] Last Admin: 11/24/24 16:31 Dose: 1 tab Docusate Sodium (Docusate Sodium 100 Mg Capsule) 100 mg PO DAILY [facility] Last Admin: 11/24/24 16:31 Dose: 100 mg Gabapentin (Gabapentin 100 Mg Capsule) 100 mg PO BID [facility] Glipizide (Glipizide Xl 5 Mg Tab.Er.24) 5 mg PO DAILY [facility] Last Admin: 11/24/24 16:30 Dose: 5 mg Loratadine (Loratadine 10 Mg Tablet) 10 mg PO DAILY [facility] Last Admin: 11/24/24 16:31 Dose: 10 mg Metformin HCl (Metformin Hcl 500 Mg Tablet) 500 mg PO BID [facility] Metoprolol Succinate (Metoprolol Succinate Er 25 Mg Tab.Er.24h) 25 mg PO DAILY [facility]; Protocol Last Admin: 11/24/24 16:30 Dose: 25 mg Mirtazapine (Mirtazapine 15 Mg Tablet) 15 mg PO BEDTIME [facility] Omeprazole (Omeprazole 20 Mg Capsule.Dr) 20 mg PO BID@0630,1430 [facility] Trazodone HCl (Trazodone Hcl 25 Mg Halftab) 25 mg PO BID [facility] Allergies Allergies Allergy/AdvReac Type Severity Reaction Status Date / Time atorvastatin [From Lipitor] Allergy Unknown Verified 11/23/24 13:33 divalproex sodium Allergy Unknown Verified 11/23/24 13:33 [From Depakote] Iodinated Contrast Media Allergy Unknown Verified 11/23/24 13:33 [IV Contrast Dye] mushroom Allergy Unknown Verified 11/23/24 13:33 neomycin Allergy Unknown Verified 11/23/24 13:33 peanut Allergy Unknown Verified 11/23/24 13:33 polymyxin B Allergy Unknown Verified 11/23/24 13:33 Assessment & Plan Assessment & Plan (1) Major neurocognitive disorder: Status: Acute Code(s): F03.90 - Unspecified dementia, unspecified severity, without behavioral disturbance, psychotic disturbance, mood disturbance, and anxiety Plan Ms. Ash is an 79 year-old woman with hx of dementia, who resides at [facility]. She was sent via EMS due to verbal aggression, putting self on floor, incontinent of urine and feces. Initially there was a report that incontinence was new, but copy sent from facility shows documentation of incidents of fecal and urine incontinence 08/19/24. there is no imminent safety concern to admit to psychiatric unit, but she continues to benefit to work closely with OP psych provider, Steven Mike. I would recommend addition of low potency antipsychotic, given hx of Parkinson's like rexulti, as it may help with behaviors. PLAN 1. No imminent safety concern to require inpt level of care to receive treatment. Pt can safely continue to receive psych treatement outpaitient with [facility] Steven Mike. This information was communicated with pt's HCP, who is in agreement with plan. Pt to return to facility. Total time managing care of this patient today ____ minutes.
[2024-11-24 17:13] LABS: Calcium 10.1 mg/dL (8.4-10.2)
--- NOTE | 2024-11-24 20:22 | PC.NURSE ---
1 assist to the bathroom, pt ambulated well
[2024-11-24] MEDS: Atorvastatin Calcium 40 MG TABLET PO (20:37)
[2024-11-24] MEDS: Gabapentin 100 MG CAPSULE PO (20:37)
[2024-11-24] MEDS: Mirtazapine 15 MG TABLET PO (20:37)
[2024-11-24] MEDS: metFORMIN HCl 500 MG TABLET PO (20:37)
[2024-11-24] MEDS: Apixaban 2.5 MG TABLET PO (20:37)
[2024-11-24 23:55] VITALS: BP 167/84; PULSE 73; RESP 16; TEMP 36.9; O2SAT 97
--- NOTE | 2024-11-25 05:42 | PC.NURSE ---
pt resting comfortably throughout the night with eyes closed, breathing even and unlabored. no apparent distress noted.
[2024-11-25] MEDS: Omeprazole 20 MG CAPSULE.DR PO ×2 (06:11→14:36)
[2024-11-25 06:44] VITALS: BP 148/68; PULSE 57; RESP 17; O2SAT 99
[2024-11-25 09:05] VITALS: BP 134/77; PULSE 75
[2024-11-25] MEDS: metFORMIN HCl 500 MG TABLET PO ×2 (09:05→21:25)
[2024-11-25] MEDS: Metoprolol Succinate ER 25 MG TAB.ER.24H PO (09:05)
[2024-11-25] MEDS: Gabapentin 100 MG CAPSULE PO ×2 (09:05→21:27)
[2024-11-25] MEDS: Loratadine 10 MG TABLET PO (09:05)
[2024-11-25] MEDS: Docusate Sodium 100 MG CAPSULE PO (09:05)
[2024-11-25] MEDS: Apixaban 2.5 MG TABLET PO ×2 (09:05→21:28)
[2024-11-25] MEDS: Carbidopa/Levodopa 25/100 TABLET 1 TAB PO ×3 (09:05→21:26)
[2024-11-25] MEDS: glipiZIDE XL 5 MG TAB.ER.24 PO (11:33)
--- NOTE | 2024-11-25 13:18 | MHC.CM.ED ---
Addendum entered by Joselyn Pompa 11/25/24 15:58: Received return telephone call from David. David aware and agreeable to d/c. Addendum entered by Joselyn Pompa 11/25/24 14:52: Psych consult completed. Not inpatient psych appropriate. Spoke with Keith at [facility]. Patient will return via BLS tomorrow 11/26 at 10am. Attempted to notify family, David, via telephone at [phone]. Left message requesting return telephone call. Attempted to reach nephew, Simeon, via telephone at [phone]. Left message requesting return telephone call. Original Note: Patient remains in ER. Waiting for psych consult for med recommendations to be completed. Continue to monitor for d/c needs.
[2024-11-25 16:17] VITALS: BP 151/74; PULSE 64; RESP 16
--- NOTE | 2024-11-25 16:21 | PC.NURSE ---
Pt will be proceeding to ED overflow unit. Call placed to [facility] for nurse to nurse report. Pt awaiting transport
--- NOTE | 2024-11-25 19:05 | PC.NURSE ---
Pt to ED overflow at approx 1700. Pt alert, oriented to self. Forgetful, requiring frequent redirection. Respirations even and unlabored. Call enriquez within reach. Bed alarm on. Pt requests frequent ambulation. Ambulated to bathroom with aid to void. Pt had episode of incontinence after returning to room. Pt ambulates with shuffled gait, states she uses a cane at baseline. L wrist/hand is contracted with very limited ROM and moderate weakness. Pt stated L arm is broken . Pt reports no pain to the area.
--- NOTE | 2024-11-25 19:46 | PC.NURSE ---
this rn assumed care of pt, pt noted to be getting out of bed and confused, pt has left sided deficits and is a high fall risk. bed alarm in place. requested sitter from chargeback analyst for safety.
--- NOTE | 2024-11-25 19:53 | PC.NURSE ---
pt placed in recliner for comfort at this time.
--- NOTE | 2024-11-25 20:05 | PC.NURSE ---
pt ambulatory to bathroom with steady gait with 1A.
[2024-11-25 20:22] VITALS: BP 193/88; PULSE 65; RESP 16; TEMP 36.3; O2SAT 100
--- NOTE | 2024-11-25 20:26 | MHC.EDTECH ---
This pct assumed care of Patient at 1915 pm ,Patient very restless ,climbing out of bed constantly ,Patient was assisted to walk to bathroom ,void and had a bowel movement ,care given ,Patient was assisted to sit in recliner with chair alarm on ,This pct stay with Patient until sitter came ,Patient was assisted into bed ,sitter at bedside .Vital taken ,Patient drank 120 ml water .
[2024-11-25] MEDS: Atorvastatin Calcium 40 MG TABLET PO (21:27)
--- NOTE | 2024-11-25 21:31 | PC.NURSE ---
pt medicated per mar, tolerated whole one at a time with water. 1:1 sitter placed at bedside for safety.
[2024-11-25] MEDS: Mirtazapine 15 MG TABLET PO (22:59)
--- NOTE | 2024-11-26 00:53 | PC.NURSE ---
pt moved to more open area of overflow for safety. pt noted to attempt to get out of bed without assistance once left alone. 1:[address]
[2024-11-26 05:45] VITALS: BP 138/76; PULSE 63; RESP 16; TEMP 36.2; O2SAT 96
[2024-11-26] MEDS: Omeprazole 20 MG CAPSULE.DR PO (06:09)
[2024-11-26 08:35] VITALS: BP 144/63; PULSE 71
[2024-11-26] MEDS: Metoprolol Succinate ER 25 MG TAB.ER.24H PO (08:35)
[2024-11-26 08:38] VITALS: BP 144/63; PULSE 72; RESP 16; TEMP 36.8; O2SAT 100
[2024-11-26] MEDS: Loratadine 10 MG TABLET PO (08:39)
[2024-11-26] MEDS: Gabapentin 100 MG CAPSULE PO (08:39)
[2024-11-26] MEDS: Docusate Sodium 100 MG CAPSULE PO (08:39)
[2024-11-26] MEDS: metFORMIN HCl 500 MG TABLET PO (08:40)
[2024-11-26] MEDS: Apixaban 2.5 MG TABLET PO (09:20)
[2024-11-26] MEDS: glipiZIDE XL 5 MG TAB.ER.24 PO (09:20)
[2024-11-26] MEDS: Carbidopa/Levodopa 25/100 TABLET 1 TAB PO (09:20)
--- NOTE | 2024-11-26 09:40 | PC.NURSE ---
Called [facility] to give report RN was in the middle of an emergency left telephone number and name for a call back.
[2024-11-26 09:42] VITALS: BP 144/63; PULSE 72; RESP 16; TEMP 36.8; O2SAT 100
--- NOTE | 2024-11-26 14:29 | MHC.CM.ED ---
Received notification from [employer] that patient is active with their agency. ER d/c summary faxed to agency at [phone].
== END 2024-11-26 10:45 | disposition skilled nursing facility (03) ==
PROVIDERS: Physician Assistant Medical; Social Worker; Emergency Provider Emergency Medicine; PCP Internal Medicine
DX: G30.9 Alzheimer's disease, unspecified (principal); F02.811 Dementia in other diseases classified elsewhere, unspecified severity, with agitation; I12.9 Hypertensive chronic kidney disease with stage 1 through stage 4 chronic kidney disease, or unspecified chronic kidney disease; E11.22 Type 2 diabetes mellitus with diabetic chronic kidney disease; N18.9 Chronic kidney disease, unspecified; I48.20 Chronic atrial fibrillation, unspecified; G20.A1 Parkinson's disease without dyskinesia, without mention of fluctuations; Z79.01 Long term (current) use of anticoagulants; Z79.84 Long term (current) use of oral hypoglycemic drugs; Z79.899 Other long term (current) drug therapy; Z03.818 Encounter for observation for suspected exposure to other biological agents ruled out
CPT/HCPCS: 0241U; 36415; 70450; 71046; 80053; 81001; 81003; 82140; 82803; 82947; 83690; 83735; 84443; 85025; 93005; 96360; 99284; 99285

== ENCOUNTER → 2024-11-23 13:36 | Outpatient (BNV) | payer MEDICARE, OTHER, SELFPAY | PROVIDERS: Emergency Provider Emergency Medicine; PCP Internal Medicine; Visit Provider Internal Medicine Cardiovascular Disease | DX: R41.82 Altered mental status, unspecified (principal) | CPT/HCPCS: 93010 ==

== ENCOUNTER → 2024-11-23 13:36 | Outpatient (BNV) | payer MEDICARE, OTHER, SELFPAY | PROVIDERS: Emergency Provider Emergency Medicine; PCP Internal Medicine; Visit Provider Radiology Diagnostic Radiology | DX: R41.82 Altered mental status, unspecified (principal) | CPT/HCPCS: 71046 ==

== ENCOUNTER → 2024-11-23 13:56 | Outpatient (BNV) | payer MEDICARE, OTHER, SELFPAY | PROVIDERS: Emergency Provider Emergency Medicine; PCP Internal Medicine; Visit Provider Social Worker | DX: F03.90 Unspecified dementia, unspecified severity, without behavioral disturbance, psychotic disturbance, mood disturbance, and anxiety (principal) | CPT/HCPCS: 99222 ==

== ENCOUNTER → 2024-11-24 08:05 | Outpatient (BNV) | payer MEDICARE, OTHER, SELFPAY | PROVIDERS: Emergency Provider Emergency Medicine; PCP Internal Medicine; Visit Provider Radiology Diagnostic Radiology | DX: R41.82 Altered mental status, unspecified (principal) | CPT/HCPCS: 70450 ==

== ENCOUNTER 2024-11-26 18:53 | Inpatient (IN) | payer MEDICARE, SELFPAY ==
--- NOTE | ~2024-11-26 | XR_ITS ---
CLINICAL HISTORY: fall, pain 3 view left shoulder Comparison: None Findings: Fracture and impaction of the proximal humerus is predominately of the humerus neck appears old/chronic. Moderate to severe osteoarthritis of the left glenohumeral joint without dislocation. Small effusion present. Moderate osteoarthritis of the left AC joint without dislocation. Mild atelectasis in the [id number] IMPRESSION: 1. Impacted humerus neck fracture; likely old. 2. Degenerative changes of the left glenohumeral joint and AC joint. This document has been electronically signed by: Dwight Billy MD on 11/26/2024 22:38:28
--- NOTE | ~2024-11-26 | XR_ITS ---
CLINICAL HISTORY: fall 1 view chest x-ray Comparison: Chest x-ray from 11/23/2024 Findings: Fracture of the proximal humerus is age indeterminate by chest x-ray and likely old. Degenerative changes include both shoulders and both AC joints. No consolidation, pneumothorax, or pleural effusion. Low lung volumes with mild elevation of the left hemidiaphragm with minimal atelectasis. Mild emphysematous changes. Mild cardiomegaly, accentuated by AP magnification. IMPRESSION: No consolidation. This document has been electronically signed by: Dwight Billy MD on 11/26/2024 22:41:58
--- NOTE | ~2024-11-26 | CT_ITS ---
CLINICAL HISTORY: fall, head injury CT head without contrast Comparison: Head CT from 11/24/2024. 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 No acute intracranial hemorrhage basal ganglia, vascular, and dural calcifications are redemonstrated. Mucosal thickening and fluid of the paranasal sinuses imaged mastoid air cells are well aerated. No acute skull fracture. Dermal calcifications are redemonstrated, including of the frontal convexity. Previous cataract procedure changes again noted. IMPRESSION: No acute intracranial abnormality by CT and no significant change compared to 11/24/2024. This document has been electronically signed by: Dwight Billy MD on 11/26/2024 21:17:40
--- NOTE | ~2024-11-26 | XR_ITS ---
CLINICAL HISTORY: fall, pain 5 view, pelvis and bilateral hips Comparison: None Findings: Multiple fragments about bilateral trochanters appear old/chronic with sclerosis. No acute displaced fracture or dislocation involving either hip. 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 Sclerosis and deformities involve both hips, left worse than right. Portions of the pelvis obscured including sacrum and SI joints. Severe stool burden in the [id number]. Phleboliths are present in the imaged pelvis. Degenerative changes include imaged spine. IMPRESSION: 1. Severe osteoarthritis of the both hips, left worse than right. 2. Small fragments about the trochanters appear old by radiographs This document has been electronically signed by: Dwight Billy MD on 11/26/2024 20:55:14
--- NOTE | ~2024-11-26 | CT_ITS ---
CLINICAL HISTORY: fall, head injury CT cervical spine without contrast Comparison: None Findings: Old accessory ossicle with sclerosis and dorsal margin of the left C3 facet process. No acute fracture of the cervical spine. Nutrient vessel channels, including of the imaged craniocervical junction. Ligament calcifications are multifocal including imaged craniocervical junction with moderate osteoarthritis. Mild reversal cervical lordosis. Mild anterolisthesis at C3-C4. Disc osteophyte complexes with mild spinal canal stenosis from C3-C4 to C6-C7. Multifocal moderate foraminal narrowing, including C4-C5, C5-C6, and C6-C7. No paraspinal hematoma. Scarring of the imaged lung apices. Vascular calcifications noted. IMPRESSION: No acute fracture of the cervical spine. This document has been electronically signed by: Dwight Billy MD on 11/26/2024 21:15:15
[2024-11-26 19:12] VITALS: BP 154/67; BP 164/76; PULSE 75; PULSE 78; RESP 20; TEMP 37.9; O2SAT 97; O2SAT 98; BMI 20.6
--- NOTE | 2024-11-26 19:25 | ED_ITS ---
HPI - Fall General Chief Complaint: Fall Stated Complaint: FALL IN SHOWER HEAD STRIKE Time Seen by Provider: 11/26/24 19:00 Source: patient and EMS Mode of arrival: EMS Limitations: altered mental status History of Present Illness ED Provider: Octavia Escobar NP HPI Narrative: Patient is an 79-year-old female who presents emergency department via EMS [facility] dementia unit, not a assisted facility. presents for an unwitnessed fall. When asked patient why she is here she states that she fell from a chair into the tub but can not provide any more meaningful history outside of this. When asked whether she was attempting to take a shower she states that she has a caregiver who helps her but denies the caregiver being there this evening. Related Data Home Medications ?Medication ?Instructions ?Recorded ?Confirmed acetaminophen 500 mg tablet 500 mg PO BID 11/24/24 11/26/24 apixaban 2.5 mg tablet (Eliquis) 2.5 mg PO BID 11/24/24 11/24/24 atorvastatin 40 mg tablet 40 mg PO BEDTIME 11/24/24 11/24/24 carbidopa 25 mg-levodopa 100 mg 1 tab PO TID 11/24/24 11/24/24 tablet (Sinemet) docusate sodium 100 mg capsule 100 mg PO DAILY 11/24/24 11/24/24 (Colace) fluticasone propionate 50 1 spray intranasal BID 11/24/24 11/24/24 mcg/actuation nasal spray,suspension gabapentin 100 mg capsule 100 mg PO BID 11/24/24 11/24/24 glipizide 5 mg tablet, extended 5 mg PO DAILY 11/24/24 11/24/24 release 24 hr loratadine 10 mg tablet 10 mg PO DAILY 11/24/24 11/24/24 metformin 500 mg tablet 500 mg PO BID 11/24/24 11/24/24 metoprolol succinate 25 mg 25 mg PO DAILY 11/24/24 11/24/24 tablet,extended release 24 hr mirtazapine 15 mg tablet 15 mg PO BEDTIME 11/24/24 11/24/24 omeprazole 20 mg capsule,delayed 20 mg PO BID@0630,1430 11/24/24 11/24/24 release trazodone 50 mg tablet 25 mg PO BID 11/24/24 11/24/24 Allergies Allergy/AdvReac Type Severity Reaction Status Date / Time atorvastatin [From Lipitor] Allergy Unknown Verified 11/26/24 19:18 divalproex sodium Allergy Unknown Verified 11/26/24 19:18 [From Depakote] Iodinated Contrast Media Allergy Unknown Verified 11/26/24 19:18 [IV Contrast Dye] mushroom Allergy Unknown Verified 11/26/24 19:18 neomycin Allergy Unknown Verified 11/26/24 19:18 peanut Allergy Unknown Verified 11/26/24 19:18 polymyxin B Allergy Unknown Verified 11/26/24 19:18 Review of Systems 2 Review of Systems: Yes all other systems are reviewed and are negative PMFSH Past Medical History Attestation statement: The following information was validated with the patient. Source: old records reviewed Social History Social History Unable to assess alcohol history related to: Unable to respond Smoked in Last 30 Days: No Use of substances other than those prescribed or required for medical reasons: No Advance Directives: Yes Advance Directives on File: Yes Advance Directives Date on File: 11/23/24 Do you have a plan to hurt others: No Plan Physical Exam 2 Vital Signs: Vital Signs: Last Vital Signs Temp 100.3 F 11/26/24 19:42 Pulse 76 11/26/24 20:30 Resp 20 11/26/24 20:30 BP 192/78 H 11/26/24 20:30 Pulse Ox 99 11/26/24 20:30 O2 Del Method Room Air 11/26/24 20:30 BMI result Body Mass Index 20.6 Appearance: Alert. Not oriented to person, place and time at baseline. No acute distress.?Normal affect. Head: Normocephalic Eyes: Pupils equal, round and reactive to light. EOMI. Conjunctiva and sclera normal? No Jacobo sign noted. No raccoon eyes noted ENT: No septal hematoma, nares patent bilaterally. External auditory canal normal tympanic membrane pearly carrillo and intact bilaterally. Dentition normal, no fractured teeth. No lesions or lacerations of oropharynx. Uvula midline. Moist mucous membranes. Neck: Normal inspection.? Neck supple.??No palpable tenderness, step-off, deformities. CVS: Heart sounds normal. Normal heart rate and rhythm.? Pulses normal.?? Respiratory: No respiratory distress.? Lung sounds clear to auscultation bilaterally?? Abdomen: Soft and non-tender. Normoactive bowel sounds. ?? coccyx: stage I pressure ulcer Skin: Skin Hot to touch and dry.? Normal skin color.? Normal skin turgor.?? Extremities /Neuro : extremity and bilateral lower extremities spontaneously. Sensation intact bilaterally. No lower extremity edema.? left upper extremity appears to have deficit felt at her side with forearm across her belly and apparent contracture of the hand, does not follow command to raise the arm such as she does on the right. There is a superficial abrasion over the left shoulder/ deltoid region. There is a erythematous linear marking along the posterior of the left thigh she appears consistent with likely a pressure point. Pain upon palpation of the left lateral hip, able to flex to 45 degrees but painful with external rotation. Course Reevaluation(s) Reevaluation #1: Sepsis alert called at this time, received critical lab values including lactic acidosis of 3.1, patient received sepsis fluid bolus, will cover with Rocephin at this time. Critical magnesium at 1.4, will receive magnesium sulfate 2 g IV. CBC is without leukocytosis she does however have a left shift, normocytic anemia not meeting transfusion criteria, no thrombocytopenia. No derangement. No ULISES. Non-anion gap hyperglycemia with random glucose of 324. high sensitive troponin is elevated at 18.1, EKG revealing normal sinus rhythm with ventricular rate of 68, QTC 416, no ST elevation, no ST depression, will obtain delta troponin for comparison, when asked she denies having chest pain at this time. Time: 20:47 Reevaluation #2: Urinalysis with microscopic hematuria, 1+ leukocyte esterase, 6-10 WBC with WC BC clumps present 4+ urine bacteria no squamous epithelial cells concerning for UTI. lactic his downtrending to 2.2. Will admit to hospitalist service for UTI sepsis. XR of the shoulder revealing an impacted humeral neck fracture per radiologist impression likely old, however she has abrasion over this area acute tenderness upon palpation, therefore I will place her in a sling. delta troponin resulting at 30.9, which is greater than 50% increased from prior 18.1, when asked he denies having chest pain at this time, will obtain repeat EKG to assure no changes. Suspect likely secondary to demand ischemia from sepsis rather than ACS. -- Repeat EKG is unchanged anticipate admission to hospitalist service. Time: 23:03 Medications Administered Discontinued Medications Generic Name Dose Route Start Last Admin Trade Name Mynor PRN Reason Stop Dose Admin Acetaminophen 975 mg 11/26/24 19:41 11/26/24 20:28 Acetaminophen 325 Mg Tablet PO 11/26/24 19:42 975 mg ONCE ONE Administration Ceftriaxone Sodium 1 gm 11/26/24 20:48 11/26/24 21:06 Ceftriaxone Sodium 1 Gm Vial IVPUSH 11/26/24 20:49 1 gm ONCE ONE Administration Sodium Chloride 1,341 mls @ 1,341 mls/hr 11/26/24 20:48 11/26/24 21:00 Ns 30 ml/kg infuse over 1 hr (1341 ml) 11/26/24 21:47 1,341 mls/hr IV Administration .Q1H STA Magnesium Sulfate 2 gm in 50 mls @ 25 mls/hr 11/26/24 20:48 11/26/24 23:21 Magnesium Sulfate/H2o IV 11/26/24 22:47 Infused ONCE ONE Infusion Medical Decision Making Medical Decision Making MDM Narrative: Patient is an 79-year-old femaleWith past medical history of Alzheimer's dementia, major depressive disorder, type 2 diabetes, chronic atrial fibrillation on Eliquis, hypertension, CKD, GERD, Parkinson's who presents emergency department for evaluation after an unwitnessed fall, per EMS report she has a left-sided deficit at baseline, typically uses a walker for ambulation. obtaining CT head and cervical spine to exclude ICH, SDH, fracture, subluxation, XR of the left shoulder to exclude fracture, XR bilateral hip and pelvis to exclude fracture/dislocation On evaluation she is hot to touch, has a rectal temp of 100.3 degrees, below SIRS criteria, not tachycardic, no hypoxia or tachypnea, no clear source of infection at this time. currently she does not meet sepsis measure however Obtaining blood cultures and lactic acid in addition Will obtain CBC to evaluate for leukocytosis/ anemia, CMP and lipase to evaluate for abnormal electrolytes /abnormal renal function/ abnormal hepatic/biliary function, EKG and troponin to evaluate for ischemia/ACS. Chest x-ray to evaluate for consolidation/ infiltrate/ mass/ pulmonary congestion and Urinalysis. she was discharged from [facility] this morning back to [facility] locked dementia unit with [employer] [facility] agency, she initially presented here on 11/23/2024 coming from facility as she had been verbally aggressive towards staff yelling and swearing as well as urinating and defecating on the floor outside of the bathroom at the facility. Differential Diagnosis Differential Diagnoses: The differential diagnosis associated with the presentation includes (See narrative above) Admission/Observation Consideration of admission/observation: Escalation of care including admission/observation considered (See narrative above) Consult Healthcare Provider Management of the patient was discussed with: Hospitalist Lab Data MDM Lab Attestation statement: I reviewed the patient's lab results. ( see course narrative) 11/26/24 20:12 11/26/24 20:13 Labs: Lab Results 11/26/24 11/26/24 11/26/24 Range/Units 20:12 20:13 21:46 WBC 9.1 (4.8-10.8) X10*3/uL RBC 4.01 L (4.20-5.50) X10*6/uL Hgb 11.6 L (12.0-16.0) g/dl Hct 34.5 L (37.0-47.0) % MCV 86.0 (80.0-98.0) fL MCH 28.9 (27.0-33.0) pg MCHC 33.6 (31.0-35.0) g/dl RDW 13.2 (11.0-16.0) % Plt Count 178 (160-400) X10*3/uL MPV 10.2 (9.4-12.3) fL Immature Gran % (Auto) 0.5 H (0.0-0.4) % Neut % (Auto) 89.0 H (45-73) % Lymph % (Auto) 5.6 L (20-40) % [place] % (Auto) 4.6 (2-11) % Eos % (Auto) 0.1 (0-4) % Baso % (Auto) 0.2 (0-2) % Lymph # (Auto) 0.5 L (1.2-4.9) X10*3/uL [place] # (Auto) 0.4 (0.1-1.2) X10*3/uL Eos # (Auto) 0.0 (0.0-0.4) X10*3/uL Baso # (Auto) 0.0 (0.0-0.2) X10*3/uL Abs Immat Gran (auto) 0.05 H (0.00-0.03) X10*3/uL Absolute Neuts (auto) 8.1 (2.0-8.3) x10*3/uL Absolute Nucleated RBC 0.000 (0.0-0.012) X10*3/uL Nucleated RBC % (auto) 0.0 (0.0-0.2) /100WBC Sodium 136 (135-145) mmol/L Potassium 3.6 (3.3-5.1) mmol/L Chloride 104 (96-108) mmol/L Carbon Dioxide 21 L (22-29) mmol/L Anion Gap 15 (12-20) BUN 20 H (9-16) mg/dL Creatinine 1.24 (0.5-1.4) mg/dL Estim Creat Clear Calc 23.0 Estimated GFR 42 Random Glucose 324 H (60-115) mg/dL Lactic Acid 3.1 H* (0.5-2.0) mmol/L Lactic Acid F/U @ 2Hr (0.5-2.0) mmol/L Calcium 9.2 D (8.4-10.2) mg/dL Magnesium 1.4 L* (1.6-2.6) mg/dL Total Bilirubin 0.4 (0.0-1.0) mg/dL AST 36 H (5-31) U/L ALT 19 (0-31) U/L Alkaline Phosphatase 81 (39-117) U/L Troponin I High Sens 18.1 H (<3.5-17.0) ng/L B-Natriuretic Peptide 72 (<100) pg/mL Total Protein 7.3 (6.5-8.0) g/dL Albumin 3.3 L (3.5-5.0) g/dL Lipase 34 (8-78) U/L Urine Color Yellow Urine Appearance Cloudy Urine pH 6.5 (5.0-9.0) Ur Specific Tie [place]iding 1.015 (1.005-1.025) Urine Protein 300 (3+) H (Neg-Trace) mg/dL Urine Glucose (UA) >=1000 H (Negative) mg/dL Urine Ketones Negative (Negative) mg/dL Urine Blood Moderate (2+) H (Negative) Urine Nitrite Negative (Negative) Ur Leukocyte Esterase Small (1+) H (Negative) Urine RBC 3-5 H (0-2) /HPF Urine WBC 6-10 H (0-5) /HPF Urine WBC Clumps Present Ur Squamous Epith Cells 0-2 (0-2) /HPF Urine Bacteria 4+ (None Seen) Hyaline Casts 0-2 (0-2) /LPF Influenza Type A (PCR) NEGATIVE (Negative) Influenza Type B (PCR) NEGATIVE (Negative) RSV RNA Qual (PCR) NEGATIVE (Negative) SARS-CoV-2 RNA (RT-PCR) NEGATIVE (Negative) 11/26/24 Range/Units 22:35 WBC (4.8-10.8) X10*3/uL RBC (4.20-5.50) X10*6/uL Hgb (12.0-16.0) g/dl Hct (37.0-47.0) % MCV (80.0-98.0) fL MCH (27.0-33.0) pg MCHC (31.0-35.0) g/dl RDW (11.0-16.0) % Plt Count (160-400) X10*3/uL MPV (9.4-12.3) fL Immature Gran % (Auto) (0.0-0.4) % Neut % (Auto) (45-73) % Lymph % (Auto) (20-40) % [place] % (Auto) (2-11) % Eos % (Auto) (0-4) % Baso % (Auto) (0-2) % Lymph # (Auto) (1.2-4.9) X10*3/uL [place] # (Auto) (0.1-1.2) X10*3/uL Eos # (Auto) (0.0-0.4) X10*3/uL Baso # (Auto) (0.0-0.2) X10*3/uL Abs Immat Gran (auto) (0.00-0.03) X10*3/uL Absolute Neuts (auto) (2.0-8.3) x10*3/uL Absolute Nucleated RBC (0.0-0.012) X10*3/uL Nucleated RBC % (auto) (0.0-0.2) /100WBC Sodium (135-145) mmol/L Potassium (3.3-5.1) mmol/L Chloride (96-108) mmol/L Carbon Dioxide (22-29) mmol/L Anion Gap (12-20) BUN (9-16) mg/dL Creatinine (0.5-1.4) mg/dL Estim Creat Clear Calc Estimated GFR Random Glucose (60-115) mg/dL Lactic Acid (0.5-2.0) mmol/L Lactic Acid F/U @ 2Hr 2.2 H* (0.5-2.0) mmol/L Calcium (8.4-10.2) mg/dL Magnesium (1.6-2.6) mg/dL Total Bilirubin (0.0-1.0) mg/dL AST (5-31) U/L ALT (0-31) U/L Alkaline Phosphatase (39-117) U/L Troponin I High Sens 30.9 H D (<3.5-17.0) ng/L B-Natriuretic Peptide (<100) pg/mL Total Protein (6.5-8.0) g/dL Albumin (3.5-5.0) g/dL Lipase (8-78) U/L Urine Color Urine Appearance Urine pH (5.0-9.0) Ur Specific T[place] (1.005-1.025) Urine Protein (Neg-Trace) mg/dL Urine Glucose (UA) (Negative) mg/dL Urine Ketones (Negative) mg/dL Urine Blood (Negative) Urine Nitrite (Negative) Ur Leukocyte Esterase (Negative) Urine RBC (0-2) /HPF Urine WBC (0-5) /HPF Urine WBC Clumps Ur Squamous Epith Cells (0-2) /HPF Urine Bacteria (None Seen) Hyaline Casts (0-2) /LPF Influenza Type A (PCR) (Negative) Influenza Type B (PCR) (Negative) RSV RNA Qual (PCR) (Negative) SARS-CoV-2 RNA (RT-PCR) (Negative) Independent Interpretation I performed an independent interpretation of an: Plain X-Ray ( no acute fracture of the bilateral hips) Radiology Impression Discussion of test interpretation with radiology: I have reviewed the radiologist's reading. Radiologist Impression: IMPRESSION: XR bilateral hips/pelvis 1. Severe osteoarthritis of the both hips, left worse than right. 2. Small fragments about the trochanters appear old by radiographs IMPRESSION: three-view XR shoulder 1. Impacted humerus neck fracture; likely old. 2. Degenerative changes of the left glenohumeral joint and AC joint. 1 view chest x-ray Comparison: Chest x-ray from 11/23/2024 Findings: Fracture of the proximal humerus is age indeterminate by chest x-ray and likely old. Degenerative changes include both shoulders and both AC joints. No consolidation, pneumothorax, or pleural effusion. Low lung volumes with mild elevation of the left hemidiaphragm with minimal atelectasis. Mild emphysematous changes. Mild cardiomegaly, accentuated by AP magnification. IMPRESSION: No consolidation. Discharge Plan Discharge Clinical Impression: Acute UTI, Sepsis, Fracture of head of humerus Prescriptions: No Action atorvastatin 40 mg Tablet 40 mg PO BEDTIME acetaminophen 500 mg Tablet 500 mg PO BID docusate sodium [Colace] 100 mg Capsule 100 mg PO DAILY gabapentin 100 mg Capsule 100 mg PO BID carbidopa-levodopa [Sinemet] 25-100 mg Tablet 1 tab PO TID fluticasone propionate [Flonase] 50 mcg/actuation Canones,Suspension 1 spray INTRANASAL BID Rx Instructions: administer into each nostril Eliquis 2.5 mg Tablet 2.5 mg PO BID metformin 500 mg Tablet 500 mg PO BID trazodone 50 mg Tablet 25 mg PO BID glipizide 5 mg Tablet Extended Release 24hr 5 mg PO DAILY omeprazole 20 mg Capsule,Delayed Release(Dr/Ec) 20 mg PO BID@0630,1430 mirtazapine 15 mg Tablet 15 mg PO BEDTIME metoprolol succinate 25 mg Tablet Extended Release 24 Hr 25 mg PO DAILY loratadine 10 mg Tablet 10 mg PO DAILY Print Language: Amharic
--- NOTE | 2024-11-26 19:31 | ECG_ITS ---
Test Reason : FALL Blood Pressure : */* mmHG Vent. Rate : 68 BPM Atrial Rate : 68 BPM P-R Int : 148 ms QRS Dur : 86 ms QT Int : 392 ms P-R-T Axes : 48 34 50 degrees QTcB Int : 416 ms Normal sinus rhythm with sinus arrhythmia Normal ECG When compared with ECG of 23-Nov-2024 17:35, No significant change was found Referred By: Octavia Escobar Electronically Signed By: CRUZ PORTILLO MD
[2024-11-26 19:42] VITALS: BP 164/76; PULSE 75; RESP 20; TEMP 37.9; O2SAT 95
[2024-11-26 20:22] LABS: MANUAL DIFF FLAG NO
[2024-11-26 20:24] LABS: Basophils Percent Auto 0.2 % (0-2); Eosinophils Percent Auto 0.1 % (0-4); Hematocrit 34.5 % (37.0-47.0); Hemoglobin 11.6 g/dl (12.0-16.0); Imm Gran Abs Auto 0.05 X10*3/uL (0.00-0.03); Imm Gran Pct Auto 0.5 % (0.0-0.4); Lymphocytes Absolute Auto 0.5 X10*3/uL (1.2-4.9); Lymphocytes Percent Auto 5.6 % (20-40); Mean Corpuscular HGB Conc 33.6 g/dl (31.0-35.0); Mean Corpuscular Hemoglobin 28.9 pg (27.0-33.0); Mean Platelet Volume 10.2 fL (9.4-12.3); Monocytes Absolute Auto 0.4 X10*3/uL (0.1-1.2); Monocytes Percent Auto 4.6 % (2-11); Neutrophils Absolute Auto 8.1 x10*3/uL (2.0-8.3); Platelet Count 178 X10*3/uL (160-400); Red Blood Count 4.01 X10*6/uL (4.20-5.50); Red Cell Distribution Width 13.2 % (11.0-16.0); White Blood Count 9.1 X10*3/uL (4.8-10.8)
[2024-11-26] MEDS: Acetaminophen 325 MG TABLET 975 MG PO (20:28)
[2024-11-26 20:30] VITALS: BP 192/78; PULSE 76; RESP 20; O2SAT 99
--- OUTSIDE RECORDS SUMMARY | 2024-11-26 20:45 | XMS_ITS | Encounter Summary ---
Author Organization [facility] Address [address] [place] [address] Care Team Providers Care Ordnance Engineering Technician Name Role Phone Rhonda Naranjo MD Primary Care Provider [phone] Encounter Details Date Type Department Care Team (Latest Contact Info) Description 08/11/[address] [facility] - Main Lab [address] [facility] [place] [id number] Simeon Ornelas MD [address] [place] [address] Type 2 diabetes mellitus without complications (CMS/HCC) [...] LAB CHEMISTRY METHOD 08/11/2024 10:22 AM EST [facility] Triglycerides 240(H) 0 - 150 mg/dL LAB CHEMISTRY METHOD 08/11/2024 10:22 AM EST [facility] HDL 44 >=40 mg/dL LAB CHEMISTRY METHOD 08/11/2024 10:22 AM EST [facility] LDL Calculated 35 0 - 100 mg/dL LAB CHEMISTRY METHOD 08/11/2024 10:22 AM [facility] VLDL Cholesterol Raghav 48 mg/dL LAB CHEMISTRY METHOD 08/11/2024 10:22 AM EST [facility] Non HDL Chol. (LDL+VLDL) 83 <145 mg/dL LAB CHEMISTRY METHOD 08/11/2024 10:22 AM [facility] Chol/HDL Ratio 2.9 0.0 - 4.4 LAB CHEMISTRY METHOD 08/11/2024 10:22 AM [facility] Blood Venous blood specimen / Unknown Venipuncture / Unknown 08/11/2024 4:42 AM EST 08/11/2024 8:36 AM EST us Simeon Ornelas MD LAB BLOOD ORDERABLES Final R esult [facility] [address] [place] [address], * Hemoglobin A1c (08/11/2024 4:42 AM EST) Hemoglobin A1C 6.1 <6.5 % LAB CHEMISTRY METHOD 08/11/2024 9:54 PM EST [facility] Mean Bld Glu Estim. 128 mg/dL LAB CHEMISTRY METHOD 08/11/2024 9:54 PM [facility] Blood Venous blood specimen / Unknown Venipuncture / Unknown 08/11/2024 4:42 AM EST 08/11/2024 8:36 AM EST us Simeon Ornelas MD LAB BLOOD ORDERABLES Final R esult [facility] [address] [place] [address], [place] [phone] * (ABNORMAL) Basic metabolic panel (08/11/2024 4:42 AM EST) Sodium 141 133 - 145 mmol/L LAB CHEMISTRY METHOD 08/11/2024 10:19 AM [facility] Potassium 3.8 3.5 - 5.5 mmol/L LAB CHEMISTRY METHOD 08/11/2024 10:19 AM [facility] Chloride 107 96 - 110 mmol/L LAB CHEMISTRY METHOD 08/11/2024 10:19 AM [facility] CO2 28 21 - 32 mmol/L LAB CHEMISTRY METHOD 08/11/2024 10:19 AM [facility] Anion Gap 6 3 - 11 LAB CHEMISTRY METHOD 08/11/2024 10:19 AM [facility] Glucose 224(H) 70 - 100 mg/dL LAB CHEMISTRY METHOD 08/11/2024 10:19 AM [facility] BUN 18 5 - 25 mg/dL LAB CHEMISTRY METHOD 08/11/2024 10:19 AM [facility] Creatinine 1.02 0.50 - 1.10 mg/dL LAB CHEMISTRY METHOD 08/11/2024 10:19 AM [facility] eGFR 56(L) >=60 mL/min/1. 73m2 LAB CHEMISTRY METHOD 08/11/2024 10:19 AM [facility] Comment:Calculation based on the??Chronic Kidney Disease Epidemiology Collaboration (CKD-EPI) equation refit??without adjustment for race. BUN/Creatinine Ratio 17.6 LAB CHEMISTRY METHOD 08/11/2024 10:19 AM [facility] Calcium 9.1 8.5 - 10.5 mg/dL LAB CHEMISTRY METHOD 08/11/2024 10:19 AM [facility] Blood Venous blood specimen / Unknown Venipuncture / Unknown 08/11/2024 4:42 AM EST 08/11/2024 8:36 AM EST us Simeon Ornelas MD LAB BLOOD ORDERABLES Final R esult [facility] [address] [place] [address], * (ABNORMAL) Complete blood count (08/11/2024 4:42 AM EST) WBC 4.8 4.8 - 10.8 K/mcL LAB HEMETOLOGY METHOD 08/11/2024 9:52 AM [facility] RBC 3.20(L) 3.80 - 4.80 M/[facility] LAB HEMETOLOGY METHOD 08/11/2024 9:52 AM [facility] Hemoglobin 9.7(L) 11.5 - 16.0 g/dL LAB HEMETOLOGY METHOD 08/11/2024 9:52 AM [facility] Hematocrit 31.1(L) 35.0 - 47.0 % LAB HEMETOLOGY METHOD 08/11/2024 9:52 AM [facility] MCV 96.6 79.0 - 98.0 FL LAB HEMETOLOGY METHOD 08/11/2024 9:52 AM [facility] MCH 30.1 27.0 - 32.0 pcg LAB HEMETOLOGY METHOD 08/11/2024 9:52 AM [facility] MCHC 31.2(L) 32.0 - 37.0 g/dL LAB HEMETOLOGY METHOD 08/11/2024 9:52 AM EST [facility] RDW 14.4 11.0 - 15.0 % LAB HEMETOLOGY METHOD 08/11/2024 9:52 AM [facility] Platelets 176 130 - 400 K/mcL LAB HEMETOLOGY METHOD 08/11/2024 9:52 AM [facility] MPV 10.7 7.0 - 11.0 FL LAB HEMETOLOGY METHOD 08/11/2024 9:52 AM [facility] NRBC 0.0 <1.0 % LAB HEMETOLOGY METHOD 08/11/2024 9:52 AM [facility] NRBC Absolute 0.00 <0.10 K/mcL LAB HEMETOLOGY METHOD 08/11/2024 9:52 AM [facility] Blood Venous blood specimen / Unknown Venipuncture / Unknown 08/11/2024 4:42 AM EST 08/11/2024 8:36 AM EST us Simeon Ornelas MD LAB BLOOD ORDERABLES Final R esult [facility] [address] [place] [address], documented in this encounter Visit Diagnoses Diagnosis Type 2 diabetes mellitus without complications (CMS/HCC) documented in this encounter Care Teams Ordnance Engineering Technician Relationship Specialty Start Date End Date Rhonda Naranjo MD [address] [id number] PCP - General 07/10/17 documented as of this encounter
--- OUTSIDE RECORDS SUMMARY | 2024-11-26 20:45 | XMS_ITS ---
Author Organization [facility] Address [address] [place] [id number] Care Team Providers Care Global President Name Role Phone Michelle BATEMAN, Bill Primary Care Provider U Aamir Saldivar Unavailable [phone] Encounters Encounter Location Date Provider Diagnosis [address] [phone] 08/17/2024 Aamir Shelley Plan Of Treatment Next Appt Details Provider Name:Aamir Shelley , 02/04/2025 09:00:00 AM, [address] [place] [address], [phone], Progress Notes * Gillian HOLMDOB:1945 (79 yo F)Acc No.[id number]:08/17/2024 Progress Note Patient:?Gillian HOLM Provider:?Aamir Shelley DPM :1945???Age:78 Y???Sex:Female D ate:08/17/2024 Address:[address] [place] [address] Pcp:Bill Martinez MD Subjective: * Chief Complaints: [...] Shelley DPM Date:?2023 Generated for Severino hawkins/Siddharth/Noris on:?11/26/2024 08:45 PM EST
[2024-11-26 20:46] LABS: Alanine Aminotransferase 19 U/L (0-31); Albumin Level 3.3 g/dL (3.5-5.0); Alkaline Phosphatase 81 U/L (39-117); Anion Gap 15 (12-20); Aspartate Amino Transferase 36 U/L (5-31); Bilirubin Total 0.4 mg/dL (0.0-1.0); Blood Urea Nitrogen 20 mg/dL (9-16); Calcium 9.2 mg/dL (8.4-10.2); Carbon Dioxide 21 mmol/L (22-29); Chloride 104 mmol/L (96-108); Estimated Glomerular Filt Rate 42; Glucose Random 324 mg/dL (60-115); Lactic Acid 3.1 mmol/L (0.5-2.0); Lipase 34 U/L (8-78); Magnesium 1.4 mg/dL (1.6-2.6); Potassium 3.6 mmol/L (3.3-5.1); Sodium 136 mmol/L (135-145); Total Protein 7.3 g/dL (6.5-8.0); Troponin-I High Sensitivity 18.1 ng/L (<3.5-17.0)
--- OUTSIDE RECORDS SUMMARY | 2024-11-26 20:46 | XMS_ITS | Patient Health Record ---
[facility] Address [address] [place] [address] Care Team Providers Care Millwright Apprentice Name Role Phone Michelle BATEMAN, [facility] Primary Care Provider U priya PinedaunAamir christensen Unavailable [phone] Allergies Allergen (clinical drug ingredient) Drug/Non Drug Allergy documented on EMR Reaction Allergy Type Onset Date Status valproate Depakote Unknown Drug Allergy Active Iodinated contrast media (substance) Iodinated Diagnostic Agents Unknown Drug Allergy Active Results Component Value Reference Range Notes HEMOGLOBIN A1C (GLYCOHEMOGLO BIN) Reviewed date:11/06/2024 10:44:59 AM Interpretation: Performing Lab: Notes/Report: HEMOGLOBIN A1C % (HH) 6.1 HEMOGLOBIN A1C (GLYCOHEMOGLO BIN) Reviewed date:11/05/2024 09:53:49 [...] Problem Acquired hammer toe of right foot (6229310346011038 ) Other hammer toe(s) (acquired), right foot (M20.41) Active confirmed Response to treatment, Improvemen t Problem Acquired hammer toe of left foot (2694896504290016 ) Other hammer toe(s) (acquired), left foot (M20.42) Active confirmed Response to treatment, Improvemen t Problem Polyneuropathy due to diabetes mellitus type I (864468570) Type 1 diabetes mellitus with diabetic polyneuropathy (E10.42) Active confirmed Vital Signs Height 4 ft 11 in in 11/05/2024 Weight 110 lbs 11/05/2024 BMI 22.21 kg/m2 11/05/2024 Procedures Procedure Date Ordered Date Performed Result Body Sit e 68799-RANKUJA NAIL, 6 OR MORE 11/28/2023 N/A 56294-PLUJ SKIN LESIONS, OVER 4 11/28/2023 N/A 26148-LCCRMBB NAIL, 6 OR MORE 05/21/2024 N/A 13512-ANGG SKIN LESIONS, OVER 4 05/21/2024 N/A 59441-YMQPHXV NAIL, 6 OR MORE 11/05/2024 N/A 35970-NGSK SKIN LESIONS, 2 TO 4 11/05/2024 N/A 47677-Gqys. Subungual Hematoma 11/05/2024 N/A Encounters Encounter Location Date Provider Diagnosis [address] [address] 11/28/2023 Aamir Shelley Type 1 diabetes mellitus with diabetic polyneuropathy E10.42 and Tinea unguium B35.[address] [address] 05/21/2024 Aamir Daphney Type 1 diabetes mellitus with diabetic polyneuropathy E10.42 ; Tinea unguium B35.1 ; Other hammer toe(s) (acquired), right foot M20.41 and Other hammer toe(s) (acquired), left foot M20.[address] [address] 11/05/2024 Aamir Shelley Type 1 diabetes mellitus with diabetic polyneuropathy E10.42 ; Tinea unguium B35.1 ; Other hammer toe(s) (acquired), right foot M20.41 ; Other hammer toe(s) (acquired), left foot M20.42 and Subungual hematoma of left foot, initial encounter S90.222A [address] [address] 04/08/2024 Aamir Shelley [address] [address] 08/06/2024 Aamir Shelley Assessments Encounter Date Diagnosis [...] Treatment Pending Test Test Name Order Date 63375-HSPNPNB NAIL, 6 OR MORE 08/26/2018 56942-TCUQUNS NAIL, 6 OR MORE 05/27/2018 78192-EJAIHZF NAIL, 6 OR MORE 04/18/2022 90900-LQNLAMH NAIL, 6 OR MORE 06/27/2022 57060-DNOYOEI NAIL, 6 OR MORE 09/10/2022 14485-VPJTZGW NAIL, 6 OR MORE 11/21/2022 01336-BHWIABU NAIL, 6 OR MORE 02/20/2023 73755-CRAGMAB NAIL, 6 OR MORE 05/01/2023 95962-IYLOXLS NAIL, 6 OR MORE 07/10/2023 43275-TKFLBBG NAIL, 6 OR MORE 09/11/2023 40725-IQFIOJD NAIL, 6 OR MORE 11/28/2023 36286-CRQGGDZ NAIL, 6 OR MORE 05/21/2024 26436-CZACPGT NAIL, 6 OR MORE 11/05/2024 76808-Mtouobay Plate 08/26/2018 69817-Vjxjwoyb Plate 07/10/2023 75067-Zjyfstvv Plate 05/01/2023 03571-Xizdasis Plate 02/20/2023 30864-Tugcubvj Plate 11/21/2022 72822-Waxxpxrz Plate 09/10/2022 18542-Pgpbstkw Plate 06/27/2022 34584-Aoigigcj Plate 04/18/2022 70033-Avawfhif Plate 07/01/2018 42387-JNPB SKIN LESIONS, OVER 4 04/18/20 22 96385-MNTY SKIN LESIONS, OVER 4 06/27/20 21785-AGSO SKIN LESIONS, OVER 4 12/31/19 19 95025-JREX SKIN LESIONS, OVER 4 04/14/20 19 41547-ILZX SKIN LESIONS, OVER 4 06/23/20 19 80837-FBKN SKIN LESIONS, OVER 4 09/25/19 20 51502-DSSC SKIN LESIONS, OVER 4 02/05/20 20 63276-MDWI SKIN LESIONS, OVER 4 06/17/20 20 42370-NTHS SKIN LESIONS, OVER 4 10/21/19 21 37393-ESWB SKIN LESIONS, OVER 4 02/18/20 21 35581-QBOT SKIN LESIONS, OVER 4 06/02/20 21 66847-BFQG SKIN LESIONS, OVER 4 09/29/19 22 89006-RSZN SKIN LESIONS, OVER 4 09/10/20 22 80174-FJES SKIN LESIONS, OVER 4 11/22/19 23 85524-WBJW SKIN LESIONS, OVER 4 02/21/20 23 35376-NMDA SKIN LESIONS, OVER 4 05/01/20 23 45793-FIGB SKIN LESIONS, OVER 4 07/10/20 23 72599-CMAD SKIN LESIONS, OVER 4 09/11/20 23 82955-FMPZ SKIN LESIONS, OVER 4 05/21/20 24 17021-OEWV SKIN LESIONS, OVER 4 11/28/19 24 97211-LUIH SKIN LESIONS, 2 TO 4 08/26/20 18 95299-LVBZ SKIN LESIONS, 2 TO 4 05/27/20 18 65395-BJVB SKIN LESIONS, 2 TO 4 11/05/19 25 63380-Axrf. Subungual Hematoma 5 06747- Nail Unit Biopsy 05/27/2018 Next Appt Details Provider Name:Aamir Shelley , 02/04/2025 09:00:00 AM, [address] [facility], [address], [place], [address], Insurance Providers Payer Name Payer Address Payer Phone Subscriber Number Group Number Insured Name Patient Relationship to Insured Coverage Start Date Coverage End Date [employer] [address] [place] [address] [id number] Gillian Ash Self - patient is the [...]
--- OUTSIDE RECORDS SUMMARY | 2024-11-26 20:46 | XMS_ITS ---
Author Organization [facility] Address [address] [place] [address] Care Team Providers Care Yarn Dumper Name Role Phone Michelle BATEMAN, [facility] Primary Care Provider U Aamir Saldivar Unavailable [phone] REASON FOR VISIT rs appt 08/17/24 Encounters Encounter Location Date Provider Diagnosis [address] [address] 08/06/2024 Aamir Shelley Plan Of Treatment Next Appt Details Provider Name:Aamir Shelley , 02/04/2025 09:00:00 AM, [address] [facility], [address], [address], Progress Notes * MIHAIRojas OCONNELLpaulyDOB:1945 (78 yo F)Acc No.[id number]:08/06/2024 Patient:?Gillian HOLM :1945???Age:78 Y???Sex:Female Address:[address] [place] [address], [address] * true * Date:? Generated for Mooi ross/Siddharth/eTransmitting on:?11/26/2024 08:45 PM EST
--- OUTSIDE RECORDS SUMMARY | 2024-11-26 20:46 | XMS_ITS | Clinical Summary ---
Author Organization [facility] Address [address] [place] [address] Phone Care Team Providers Care Chief Ii Dispatcher Name Role Phone Rhonda Naranjo MD Primary Care Provider [phone] Allergies Active Allergy Reactions Criticality Noted Date [...] mmol/L LAB CHEMISTRY METHOD 08/16/2024 8:51 AM [facility] Potassium 4.2 3.5 - 5.5 mmol/L LAB CHEMISTRY METHOD 08/16/2024 8:51 AM [facility] Chloride 106 96 - 110 mmol/L LAB CHEMISTRY METHOD 08/16/2024 8:51 AM [facility] CO2 28 21 - 32 mmol/L LAB CHEMISTRY METHOD 08/16/2024 8:51 AM [facility] Anion Gap 8 3 - 11 LAB CHEMISTRY METHOD 08/16/2024 8:51 AM [facility] Glucose 318(H) 70 - 100 mg/dL LAB CHEMISTRY METHOD 08/16/2024 8:51 AM [facility] BUN 19 5 - 25 mg/dL LAB CHEMISTRY METHOD 08/16/2024 8:51 AM [facility] Creatinine 1.09 0.50 - 1.10 mg/dL LAB CHEMISTRY METHOD 08/16/2024 8:51 AM [facility] eGFR 51(L) >=60 mL/min/1. 73m2 LAB CHEMISTRY METHOD 08/16/2024 8:51 AM [facility] Comment:Calculation based on the??Chronic Kidney Disease Epidemiology Collaboration (CKD-EPI) equation refit??without adjustment for race. BUN/Creatinine Ratio 17.4 LAB CHEMISTRY METHOD 08/16/2024 8:51 AM [facility] Calcium 9.1 8.5 - 10.5 mg/dL LAB CHEMISTRY METHOD 08/16/2024 8:51 AM [facility] Blood Venous blood specimen / Unknown Venipuncture / Unknown 08/16/2024 8:09 AM EST 08/16/2024 8:14 AM EST Osiel Darling MD LAB BLOOD ORDERABLES Final Res ult [facility] [address] [place] [address], [place] [phone] * (ABNORMAL) Lipid panel with reflex to direct LDL (08/11/2024 4:42 AM EST) Cholesterol 127 0 - 200 mg/dL LAB CHEMISTRY METHOD 08/11/2024 10:22 AM [facility] Triglycerides 240(H) 0 - 150 mg/dL LAB CHEMISTRY METHOD 08/11/2024 10:22 AM [facility] HDL 44 >=40 mg/dL LAB CHEMISTRY METHOD 08/11/2024 10:22 AM [facility] LDL Calculated 35 0 - 100 mg/dL LAB CHEMISTRY METHOD 08/11/2024 10:22 AM [facility] VLDL Cholesterol Raghav 48 mg/dL LAB CHEMISTRY METHOD 08/11/2024 10:22 AM [facility] Non HDL Chol. (LDL+VLDL) 83 <145 mg/dL LAB CHEMISTRY METHOD 08/11/2024 10:22 AM [facility] Chol/HDL Ratio 2.9 0.0 - 4.4 LAB CHEMISTRY METHOD 08/11/2024 10:22 AM [facility] Blood Venous blood specimen / Unknown Venipuncture / Unknown 08/11/2024 4:42 AM EST 08/11/2024 8:36 AM EST Simeon Ornelas MD LAB BLOOD ORDERABLES Final R esult Performing Organization Address City/[facility]/ZIP Co de Phone Number [facility] [address] [place] [address], [place] [phone] * Hemoglobin A1c (08/11/2024 4:42 AM EST) Hemoglobin A1C 6.1 <6.5 % LAB CHEMISTRY METHOD 08/11/2024 9:54 PM EST [facility] Mean Bld Glu Estim. 128 mg/dL LAB CHEMISTRY METHOD 08/11/2024 9:54 PM EST [facility] Blood Venous blood specimen / Unknown Venipuncture / Unknown 08/11/2024 4:42 AM EST 08/11/2024 8:36 AM EST us Simeon Ornelas MD LAB BLOOD ORDERABLES Final R esult [facility] [address] [place] [address], from Last 3 Months or Most Recently Relevant to Health Maintenance Insurance MEDICA[place] - [place] [facility] SEBAS HERNANDEZ [id number] Advance Directives Documents on File Type Date Recorded Patient Medical Records Specialist Expl anation Advance Directives and Living Will [...] 07/15/2024 [facility] Care Teams Chief Ii Dispatcher Relationship Specialty Start Date End Date Rhonda Naranjo MD [address] [place] [address] PCP - General 07/10/17
--- OUTSIDE RECORDS SUMMARY | 2024-11-26 20:46 | XMS_ITS | Clinical Summary ---
Author Organization [facility] Address [address] [place] [address] Care Team Providers Care Radioisotope Technician Name Role Phone Unavailable Primary Care Provider [...]
[2024-11-26] MEDS: SODIUM CHLORIDE 1341 ML IV (21:00)
[2024-11-26] MEDS: cefTRIAXone sodium 1 GM VIAL IVPUSH (21:06)
[2024-11-26 21:14] LABS: B Type Natriuretic Peptide 72 pg/mL (<100)
[2024-11-26] MEDS: Magnesium Sulfate/H2O 2 GM/50 ML PIGGYBACK IV (21:29)
[2024-11-26 21:33] LABS: Influenza A PCR NEGATIVE (Negative); Influenza B PCR NEGATIVE (Negative); Resp Syncy Virus RNA Qual PCR NEGATIVE (Negative); SARS COV2 PCR INHOUSE NEGATIVE (Negative)
[2024-11-26 21:59] LABS: Appearance Urine Cloudy; Color Urine Yellow; Glucose Urine UA >=1000 mg/dL (Negative); Leukocyte Esterase Urine Small (1+) (Negative); Nitrite Urine Negative (Negative); PH 6.5 (5.0-9.0); Specific Gravity - Urine 1.015 (1.005-1.025); UMIC TRIGGER UACC YES; Urine Blood Moderate (2+) (Negative); Urine Ketones Negative (Negative); Urine Protein 300 (3+) mg/dL (Neg-Trace)
[2024-11-26 22:20] LABS: Reflex Lactate? Lactic Acid Added
[2024-11-26 22:38] LABS: Bacteria Urine 4+ (None Seen); Hyaline Casts Urine 0-2 /LPF (0-2); Squamous Epithelial Cell Urine 0-2 /HPF (0-2); UACC Culture Trigger YES; WBC Clumps Urine Present
[2024-11-26 22:59] LABS: ~Lactic Acid-LAB USE ONLY 2.2 mmol/L (0.5-2.0)
[2024-11-26 23:04] LABS: Troponin-I High Sensitivity 30.9 ng/L (<3.5-17.0)
--- NOTE | 2024-11-26 23:09 | ECG_ITS ---
Test Reason : FALL Blood Pressure : */* mmHG Vent. Rate : 75 BPM Atrial Rate : 75 BPM P-R Int : 164 ms QRS Dur : 82 ms QT Int : 396 ms P-R-T Axes : 98 45 67 degrees QTcB Int : 442 ms Sinus rhythm with Premature atrial complexes Otherwise normal ECG When compared with ECG of 26-Nov-2024 19:49, Premature atrial complexes are now Present Referred By: Octavia Escobar Electronically Signed By: CRUZ PORTILLO MD
[2024-11-26 23:37] VITALS: BP 158/68; PULSE 73; RESP 12; TEMP 36.7; O2SAT 99
[2024-11-26 23:46] VITALS: BP 138/59; PULSE 67; RESP 13
--- NOTE | 2024-11-26 23:53 | P.HPHOSP_ITS ---
History of Present Illness Date of Service: 11/26/24 Attending physician on admission: Abe Srinivasan Chief Complaint: From SNF after suffering an unwitnessed fall 79-year-old female resident of [facility] with medical history of Alzheimer's dementia, depression, type 2 diabetes mellitus, atrial fibrillation (on Eliquis), essential hypertension, chronic kidney disease, GARY and Parkinson's disease who was brought to the emergency room from her SNF following an unwitnessed fall. She was reportedly found on the floor with her head on the bathroom floor and when asked stated that she fell from a chair into the tub but could not provide any meaningful history likely due to her underlying dementia. Initial blood work done was notable for elevated serum lactic acid (3.1), low magnesium (1.4), elevated high sensitivity troponin I (18.1 -> 30.9) and elevated blood sugars (324). Urinalysis was notable for glucosuria with a small leukocyte esterase, 6-10 WBCs/HPF and 4+ bacteria. Due to the fact that she suffered an unwitnessed fall, thus concern for possible syncope and so a decision was made to admit her for observation. She otherwise has no additional complaints. Review of Systems 2 Review of Systems: Twelve system review was attempted but was difficult to obtain any reliable information given underlying dementia. Yes Unobtainable due to mental condition [facility] Medical History (Updated 11/27/24 @ 03:26 by Abe Srinivasan MD) Fracture of head of humerus Dementia due to Alzheimer disease Essential hypertension Chronic kidney disease Parkinson disease GERD (gastroesophageal reflux disease) Atrial fibrillation Type 2 diabetes mellitus Depression Patient : No Pertinent family history: Unavailable at this time due to patient's dementia Social History Unable to assess alcohol history related to: Unable to respond Advance Directives Date on File: 11/23/24 Meds Allergies Allergy/AdvReac Type Severity Reaction Status Date / Time atorvastatin [From Lipitor] Allergy Unknown Verified 11/26/24 19:18 divalproex sodium Allergy Unknown Verified 11/26/24 19:18 [From Depakote] Iodinated Contrast Media Allergy Unknown Verified 11/26/24 19:18 [IV Contrast Dye] mushroom Allergy Unknown Verified 11/26/24 19:18 neomycin Allergy Unknown Verified 11/26/24 19:18 peanut Allergy Unknown Verified 11/26/24 19:18 polymyxin B Allergy Unknown Verified 11/26/24 19:18 Home Medications ?Medication ?Instructions ?Recorded ?Confirmed ?Last Taken ?Type acetaminophen 500 mg tablet 500 mg PO BID 11/24/24 11/26/24 Unknown History apixaban 2.5 mg tablet (Eliquis) 2.5 mg PO BID 11/24/24 11/24/24 Unknown History atorvastatin 40 mg tablet 40 mg PO BEDTIME 11/24/24 11/24/24 Unknown History carbidopa 25 mg-levodopa 100 mg 1 tab PO TID 11/24/24 11/24/24 Unknown History tablet (Sinemet) docusate sodium 100 mg capsule 100 mg PO DAILY 11/24/24 11/24/24 Unknown History (Colace) fluticasone propionate 50 1 spray intranasal BID 11/24/24 11/24/24 Unknown History mcg/actuation nasal spray,suspension gabapentin 100 mg capsule 100 mg PO BID 11/24/24 11/24/24 Unknown History glipizide 5 mg tablet, extended 5 mg PO DAILY 11/24/24 11/24/24 Unknown History release 24 hr loratadine 10 mg tablet 10 mg PO DAILY 11/24/24 11/24/24 Unknown History metformin 500 mg tablet 500 mg PO BID 11/24/24 11/24/24 Unknown History metoprolol succinate 25 mg 25 mg PO DAILY 11/24/24 11/24/24 Unknown History tablet,extended release 24 hr mirtazapine 15 mg tablet 15 mg PO BEDTIME 11/24/24 11/24/24 Unknown History omeprazole 20 mg capsule,delayed 20 mg PO BID@0630,1430 11/24/24 11/24/24 Unknown History release trazodone 50 mg tablet 25 mg PO BID 11/24/24 11/24/24 Unknown History Physical Exam 2 Vital Signs and Narrative: Vital Signs: Last Vital Signs Temp 98.1 F 11/26/24 23:37 Pulse 67 11/26/24 23:46 Resp 13 11/26/24 23:46 BP 138/59 L 11/26/24 23:46 Pulse Ox 99 11/26/24 23:37 O2 Del Method Room Air 11/26/24 23:37 BMI result Body Mass Index 20.6 General: Well nourished. Sleeping but easily awakened. Oriented to self only. In no apparent distress Eyes: No pallor or jaundice. PERRLA, EOMI HENT: Moist oral mucus membranes. No oropharyngeal lesions. Neck: Supple. No cervical adenopathy. No JVD Cardiovascular: Regular rate and rhythm. Normal heart sounds. No murmurs, rubs or gallops. No JVD. No peripheral edema. Respiratory: Normal respiratory effort with no accessory muscle use. CTAB. Gastrointestinal: Abdomen is soft, non-tender, non-distended. Normoactive bowel sounds in all quadrants. No hepatosplenomegaly Extremities: Left shoulder has an overlying bruise and is exquisitely tender to touch with limited ROM. Otherwise with no edema or calf tenderness. Good peripheral pulses Skin: Warm/Dry. No rashes. No mottling. Capillary refill is < 2 seconds Neurological: Awake & alert. Only oriented to self. Able to follow basic instructions. Gait & balance not assessed. CN II - XII grossly intact but not individually tested. No motor or sensory deficits Hematologic: No bleeding. No ecchymosis. No swollen or tender lymph nodes. Psychiatric: Cooperative. Appropriate mood and affect Results Labs 11/26/24 20:12 11/26/24 20:13 Labs: Laboratory Results - last 24 hr 11/26/24 11/26/24 11/26/24 20:12 20:13 21:46 MCV 86.0 MCH 28.9 MCHC 33.6 RDW 13.2 Plt Count 178 MPV 10.2 Immature Gran % (Auto) 0.5 H Neut % (Auto) 89.0 H Lymph % (Auto) 5.6 L Haakon % (Auto) 4.6 Eos % (Auto) 0.1 Baso % (Auto) 0.2 Lymph # (Auto) 0.5 L Haakon # (Auto) 0.4 Eos # (Auto) 0.0 Baso # (Auto) 0.0 Abs Immat Gran (auto) 0.05 H Absolute Neuts (auto) 8.1 Absolute Nucleated RBC 0.000 Nucleated RBC % (auto) 0.0 Anion Gap 15 Estim Creat Clear Calc 23.0 Estimated GFR 42 Random Glucose 324 H Lactic Acid 3.1 H* Lactic Acid F/U @ 2Hr Calcium 9.2 D Magnesium 1.4 L* Total Bilirubin 0.4 AST 36 H ALT 19 Alkaline Phosphatase 81 B-Natriuretic Peptide 72 Total Protein 7.3 Albumin 3.3 L Lipase 34 Urine Color Yellow Urine Appearance Cloudy Urine pH 6.5 Ur Specific [place] 1.015 Urine Protein 300 (3+) H Urine Glucose (UA) >=1000 H Urine Ketones Negative Urine Blood Moderate (2+) H Urine Nitrite Negative Ur Leukocyte Esterase Small (1+) H Urine RBC 3-5 H Urine WBC 6-10 H Urine WBC Clumps Present Ur Squamous Epith Cells 0-2 Urine Bacteria 4+ Hyaline Casts 0-2 Influenza Type A (PCR) NEGATIVE Influenza Type B (PCR) NEGATIVE RSV RNA Qual (PCR) NEGATIVE SARS-CoV-2 RNA (RT-PCR) NEGATIVE 11/26/24 22:35 MCV MCH MCHC RDW Plt Count MPV Immature Gran % (Auto) Neut % (Auto) Lymph % (Auto) Haakon % (Auto) Eos % (Auto) Baso % (Auto) Lymph # (Auto) Haakon # (Auto) Eos # (Auto) Baso # (Auto) Abs Immat Gran (auto) Absolute Neuts (auto) Absolute Nucleated RBC Nucleated RBC % (auto) Anion Gap Estim Creat Clear Calc Estimated GFR Random Glucose Lactic Acid Lactic Acid F/U @ 2Hr 2.2 H* Calcium Magnesium Total Bilirubin AST ALT Alkaline Phosphatase B-Natriuretic Peptide Total Protein Albumin Lipase Urine Color Urine Appearance Urine pH Ur Specific [place] Urine Protein Urine Glucose (UA) Urine Ketones Urine Blood Urine Nitrite Ur Leukocyte Esterase Urine RBC Urine WBC Urine WBC Clumps Ur Squamous Epith Cells Urine Bacteria Hyaline Casts Influenza Type A (PCR) Influenza Type B (PCR) RSV RNA Qual (PCR) SARS-CoV-2 RNA (RT-PCR) Imaging Radiologist's Impressions: Left shoulder x-ray 1. Impacted humerus neck fracture; likely old. 2. Degenerative changes of the left glenohumeral joint and AC joint. Bilateral Hip x-rays 1. Severe osteoarthritis of the both hips, left worse than right. 2. Small fragments about the trochanters appear old by radiographs Chest x-ray - No consolidation CT head - No acute pathology CT cervical spine - No acute pathology Assessment and Plan (1) Unwitnessed fall: Status: Acute (2) Acute UTI: Status: Acute (3) Fracture of neck of left humerus: Qualifiers: Encounter type: initial encounter Fracture type: closed Qualified Code(s): S42.212A - Unspecified displaced fracture of surgical neck of left humerus, initial encounter for closed fracture Status: Acute (4) Type 2 diabetes mellitus with hyperglycemia: Qualifiers: Diabetes mellitus terminal operations supervisor insulin use: without mcc use Q ualified Code(s): E11.65 - Type 2 diabetes mellitus with hyperglycemia Status: Acute (5) Hypomagnesemia: Status: Acute (6) Elevated lactic acid level: Status: Acute (7) Dementia due to Alzheimer disease: Status: Acute (8) Essential hypertension: Status: Acute (9) Atrial fibrillation: Qualifiers: Atrial fibrillation type: paroxysmal Qualified Code(s): I48.0 - Paroxysmal atrial fibrillation Status: Acute (10) Parkinson disease: Qualifiers: Dyskinesia presence: without dyskinesia Fluctuating manifestations: u nspecified whether manifestations fluctuate Qualified Code(s): G20.A1 - Parkinson's disease without dyskinesia, without mention of fluctuations Status: Acute (11) Chronic kidney disease: Qualifiers: Chronic kidney disease stage: unspecified stage Qualified Code(s): N 18.9 - Chronic kidney disease, unspecified Status: Acute Plan 79-year-old female resident of [facility] with medical history of Alzheimer's dementia, depression, type 2 diabetes mellitus, atrial fibrillation (on Eliquis), essential hypertension, chronic kidney disease, GARY and Parkinson's disease here with # unwitnessed fall -it is unclear how she fell but given her medical issues we will admit the and monitor for possible cardiac arrhythmias -admit to pvc monitor # urinary tract infection -urinalysis reveals glucosuria with small leukocyte esterase and 6-10 WBCs/HPF with a 4+ bacteria -she denies having any urinary symptoms -she was started on Rocephin while in the emergency department and I am going to continue this and follow up on the urine cultures. # fracture of the neck of the left humerus -likely due to a fall -continue p.r.n. analgesics -she will benefit from evaluation by Orthopedic surgery # type 2 diabetes mellitus with hyperglycemia -she has known history of type 2 diabetes mellitus and is on glipizide and metformin -when she was initially seen, her blood sugars were elevated at 324 mg/dL -we will admit and place on sliding scale insulin coverage -continue metformin and glipizide # hypomagnesemia -serum magnesium was low at 1.4 -she received IV magnesium replacement -we will recheck in the morning # elevated serum lactic acid -initial lactic acid was elevated at 3.1 but has normalized and is down to 1.6. -cause of this is unclear at this time -we will continue to closely monitor # elevated high sensitivity troponin I -her initial high sensitivity troponin I was 18.1 with a repeat of 30.9 -she however has no chest pain or shortness of breath -EKG does not show any acute ischemic changes -we will check 1 more troponin -in the meantime I would not start on Heparin but instead continue using Eliquis # atrial fibrillation -she is now in a normal sinus rhythm -we will continue oral metoprolol and Eliquis # Parkinson's disease -asymptomatic -resume Sinemet 1 tablet t.i.d. # Alzheimer's dementia -she appears to be at her baseline -closely monitor DVT: On Eliquis CODE STATUS: Full code Admission for at least 2 midnights for management of Unwitnessed fall with concern for Syncope This note is constructed using voice recognition software. While every effort has been made to ensure accuracy, chief clerk errors may have been included. Total time managing care of this patient today: 75 minutes. Quality Stroke Does the patient have a stroke diagnosis?: No VTE Prior VTE?: No VTE Risk Level:: Medical - moderate - high VTE Device Contraindication: Treatment Not Indicated VTE Drug Contraindication: Treatment Not Indicated
[2024-11-27] VITALS (9 sets, daily range): BP systolic 131–189; BP diastolic 53–86; PULSE 57–70; RESP 12–16; TEMP 36–37; O2SAT 98–100
[2024-11-27] MEDS: Dextrose 5 % and 0.45 % NaCl 1,000 ML 100 ML IVCONT (00:15)
[2024-11-27 00:39] LABS: Reflex Lactate? 2 Y
[2024-11-27 01:31] LABS: ~Lactic Acid-LAB USE ONLY 1.6 mmol/L (0.5-2.0)
[2024-11-27 04:57] LABS: MANUAL DIFF FLAG NO
[2024-11-27 05:06] LABS: Basophils Percent Auto 0.3 % (0-2); Eosinophils Percent Auto 0.6 % (0-4); Hematocrit 32.4 % (37.0-47.0); Hemoglobin 10.5 g/dl (12.0-16.0); Imm Gran Abs Auto 0.02 X10*3/uL (0.00-0.03); Imm Gran Pct Auto 0.3 % (0.0-0.4); Lymphocytes Absolute Auto 1.4 X10*3/uL (1.2-4.9); Lymphocytes Percent Auto 22.1 % (20-40); Mean Corpuscular HGB Conc 32.4 g/dl (31.0-35.0); Mean Corpuscular Hemoglobin 28.4 pg (27.0-33.0); Mean Corpuscular Volume 87.6 fL (80.0-98.0); Mean Platelet Volume 10.6 fL (9.4-12.3); Monocytes Absolute Auto 0.6 X10*3/uL (0.1-1.2); Monocytes Percent Auto 9.4 % (2-11); Neutrophils Absolute Auto 4.2 x10*3/uL (2.0-8.3); Neutrophils Percent Auto 67.3 % (45-73); Platelet Count 154 X10*3/uL (160-400); Red Cell Distribution Width 13.2 % (11.0-16.0); White Blood Count 6.3 X10*3/uL (4.8-10.8)
[2024-11-27 05:27] LABS: Alanine Aminotransferase 25 U/L (0-31); Anion Gap 10 (12-20); Aspartate Amino Transferase 63 U/L (5-31); Bilirubin Total 0.4 mg/dL (0.0-1.0); Blood Urea Nitrogen 16 mg/dL (9-16); Calcium 8.8 mg/dL (8.4-10.2); Carbon Dioxide 23 mmol/L (22-29); Chloride 111 mmol/L (96-108); Creatinine Clr Calc Pharmacy 33.1; Estimated Glomerular Filt Rate > 60; Glucose Random 169 mg/dL (60-115); Potassium 3.2 mmol/L (3.3-5.1); Sodium 141 mmol/L (135-145); Total Protein 6.5 g/dL (6.5-8.0)
[2024-11-27 05:37] LABS: Alkaline Phosphatase 67 U/L (39-117)
--- NOTE | 2024-11-27 08:53 | PC.NURSE ---
linens changed and patient repositioned in bed. patient continues to bend right arm preventing fluids from infusing.
--- NOTE | 2024-11-27 10:40 | PHA.MEDREC ---
Addendum entered by Ernestina Stacy RPh 11/27/24 11:08: reviewed by [facility]. Original Note: Pharmacy Consult ? Medication Reconciliation Pharmacy has completed the medication reconciliation. Utilized list from [facility] to confirm med list.
--- NOTE | 2024-11-27 11:41 | PM.EVENT ---
Event Note Date of Service: 11/27/24 Event Note: 79-year-old female admitted to the hospital after a fall Ecchymosis and significant tenderness to palpation of the left shoulder noted X-rays taken in the ED demonstrate age indeterminate fracture of the left proximal humerus Given patient's symptoms, should be treated like acute fracture Sling for comfort Can allow the arm to hang down while out of sling, no active range of motion away from the body at the left shoulder No acute orthopedic intervention indicated at this time Patient may follow-up in our office upon discharge for further management Time Spent With Patient Time: Total time managing care of this patient today ____ minutes.
[2024-11-27] MEDS: Potassium Chloride ER 20 MEQ TAB.ER.PRT 40 MEQ PO (11:45)
--- NOTE | 2024-11-27 12:03 | PC.NURSE ---
pure wick removed from patient, linens changed and pillow placed for patient comfort. repositioned onto side. patient educated on using call enriquez in order to use the bed pain. patient verbalizes understanding
--- NOTE | 2024-11-27 12:47 | MHC.CM.PN ---
SHELIA RECEIVED A CALL FROM TYRA AT [employer] [phone] SHE WAS REQUESTING AN UPDATE ON PTS DCP HOWEVER UNDERSTANDS THAT IT IS TOO EARLY TO DETERMINE SHE ASKS THAT THEY BE UPDATED ONCE THE DCP/DATE IS KNOWN IF PT IS READY TO DC OVER THE WEEKEND, SHIREEN CAN BE CONTACTED AT [phone]
--- NOTE | 2024-11-27 13:20 | HO.PM.IMPN ---
Subjective Subjective Date of Service: 11/27/24 Interval History: Pleasantly confused but able to provide some history, complaining of left shoulder and left knee pain, informed she fell down and no one could pick her up. Review of Systems Unable to obtain due to mental status. Physical Exam Vital Signs: Vital Signs: Last Vital Signs Temp 97.6 F 11/27/24 11:47 Pulse 68 11/27/24 11:47 Resp 14 11/27/24 11:47 BP 146/77 H 11/27/24 11:47 Pulse Ox 100 11/27/24 11:47 O2 Del Method Room Air 11/27/24 11:47 BMI result Body Mass Index 20.6 Const: Other: General in no acute distress. Neck no JVD. CVS regular rate rhythm, Respiratory lungs clear to auscultation, no respiratory distress Gastrointestinal abdomen soft, non tender, bowel sounds audible Extremities no edema. Left shoulder limited range of motion due to pain/ecchymosis Neuro speech clear. Skin left shoulder abrasion/ecchymosis Poor insight Objective Data Active Medications Acetaminophen (Acetaminophen 325 Mg Tablet) 650 mg PO Q6H PRN PRN Reason: Pain, Mild 1-3,fever,headache Al Hydroxide/Mg Hydroxide (Magnesium Hydrox/Alum Hydrox 30 Ml Oral.Susp) 30 ml PO Q4H PRN PRN Reason: Heartburn Calcium Carbonate (Calcium Carbonate 750 Mg Tab.Chew) 750 mg PO Q4H PRN PRN Reason: Heartburn Ceftriaxone Sodium (Ceftriaxone Sodium 1 Gm Vial) 1 gm IVPUSH Q24H ISMAEL Magnesium Hydroxide (Milk Of Magnesia 30 Ml Oral.Susp) 30 ml PO DAILY PRN PRN Reason: Constipation Melatonin (Melatonin 3 Mg Tablet) 6 mg PO BEDTIME PRN PRN Reason: Insomnia Morphine Sulfate (Morphine Sulfate 4 Mg/Ml Cartridge) 2 mg IVPUSH Q4H PRN; Protocol PRN Reason: Pain, Severe (Pain Scale 7-10) Nitroglycerin (Nitroglycerin 0.4 Mg Tab.Subl) 0.4 mg SUBLINGUAL Q5MX3 PRN PRN Reason: Chest Pain Ondansetron HCl (Ondansetron Hcl 4 Mg/2 Ml Vial) 4 mg IVPUSH Q8H PRN PRN Reason: Nausea and Vomiting Oxycodone HCl (Oxycodone Hcl Immed Release 5 Mg Tablet) 5 mg PO Q6H PRN PRN Reason: Pain, Moderate(Pain Scale 4-6) Senna (Sennosides 8.6 Mg Tablet) 17.2 mg PO BEDTIME PRN PRN Reason: Constipation Sodium Chloride (0.9 % Sodium Chloride Flush 3 Ml Syringe) 3 ml IVFLUSH QSHIFT ISMAEL Last Admin: 11/27/24 07:04 Dose: Not Given Documented By: CRYSTAL Non-Admin Reason: IV Running Labs 11/27/24 04:26 11/27/24 04:26 Labs: Laboratory Results - last 24 hr 11/26/24 11/26/24 11/26/24 20:12 20:13 21:46 MCV 86.0 MCH 28.9 MCHC 33.6 RDW 13.2 Plt Count 178 MPV 10.2 Immature Gran % (Auto) 0.5 H Neut % (Auto) 89.0 H Lymph % (Auto) 5.6 L [place] % (Auto) 4.6 Eos % (Auto) 0.1 Baso % (Auto) 0.2 Lymph # (Auto) 0.5 L [place] # (Auto) 0.4 Eos # (Auto) 0.0 Baso # (Auto) 0.0 Abs Immat Gran (auto) 0.05 H Absolute Neuts (auto) 8.1 Absolute Nucleated RBC 0.000 Nucleated RBC % (auto) 0.0 Anion Gap 15 Estim Creat Clear Calc 23.0 Estimated GFR 42 Random Glucose 324 H Lactic Acid 3.1 H* Lactic Acid F/U @ 2Hr Lactic Acid F/U @ 4Hr Calcium 9.2 D Magnesium 1.4 L* Total Bilirubin 0.4 AST 36 H ALT 19 Alkaline Phosphatase 81 B-Natriuretic Peptide 72 Total Protein 7.3 Albumin 3.3 L Lipase 34 Urine Color Yellow Urine Appearance Cloudy Urine pH 6.5 Ur Specific [place] 1.015 Urine Protein 300 (3+) H Urine Glucose (UA) >=1000 H Urine Ketones Negative Urine Blood Moderate (2+) H Urine Nitrite Negative Ur Leukocyte Esterase Small (1+) H Urine RBC 3-5 H Urine WBC 6-10 H Urine WBC Clumps Present Ur Squamous Epith Cells 0-2 Urine Bacteria 4+ Hyaline Casts 0-2 Influenza Type A (PCR) NEGATIVE Influenza Type B (PCR) NEGATIVE RSV RNA Qual (PCR) NEGATIVE SARS-CoV-2 RNA (RT-PCR) NEGATIVE 11/26/24 11/27/24 11/27/24 22:35 01:09 04:26 MCV 87.6 MCH 28.4 MCHC 32.4 RDW 13.2 Plt Count 154 L MPV 10.6 Immature Gran % (Auto) 0.3 Neut % (Auto) 67.3 Lymph % (Auto) 22.1 [place] % (Auto) 9.4 Eos % (Auto) 0.6 Baso % (Auto) 0.3 Lymph # (Auto) 1.4 [place] # (Auto) 0.6 Eos # (Auto) 0.0 Baso # (Auto) 0.0 Abs Immat Gran (auto) 0.02 Absolute Neuts (auto) 4.2 Absolute Nucleated RBC 0.000 Nucleated RBC % (auto) 0.0 Anion Gap 10 L Estim Creat Clear Calc 33.1 Estimated GFR > 60 Random Glucose 169 H Lactic Acid Lactic Acid F/U @ 2Hr 2.2 H* Lactic Acid F/U @ 4Hr 1.6 Calcium 8.8 Magnesium Total Bilirubin 0.4 AST 63 H ALT 25 Alkaline Phosphatase 67 B-Natriuretic Peptide Total Protein 6.5 Albumin 3.0 L Lipase Urine Color Urine Appearance Urine pH Ur Specific [place] Urine Protein Urine Glucose (UA) Urine Ketones Urine Blood Urine Nitrite Ur Leukocyte Esterase Urine RBC Urine WBC Urine WBC Clumps Ur Squamous Epith Cells Urine Bacteria Hyaline Casts Influenza Type A (PCR) Influenza Type B (PCR) RSV RNA Qual (PCR) SARS-CoV-2 RNA (RT-PCR) Microbiology Microbiology Results: Microbiology 11/26/24 Unknown Urine Culture - Preliminary Urine clean catch - Clean Catch Midstream Culture too young to evaluate. Assessment and Plan (1) Elevated lactic acid level: Status: Acute (2) Type 2 diabetes mellitus with hyperglycemia: Status: Acute (3) Fracture of neck of left humerus: Status: Acute (4) Hypomagnesemia: Status: Acute (5) Unwitnessed fall: Status: Acute Plan 79-year-old female resident of [facility] [place] with medical history of Alzheimer's dementia, depression, type 2 diabetes mellitus, atrial fibrillation (on Eliquis), essential hypertension, chronic kidney disease, GARY and Parkinson's disease here with # unwitnessed fall Tele monitor showing no arrhythmia, EKG showed no acute ischemic changes, stable blood pressure, likely mechanical fall. # elevated high sensitivity troponin I -her initial high sensitivity troponin I was 18.1 > 30.9 > 44, remains flat, no chest pain,EKG does not show any acute ischemic changes, continue Eliquis, metoprolol. # urinary tract infection -urinalysis reveals glucosuria with small leukocyte esterase and 6-10 WBCs/HPF with a 4+ bacteria Continue IV ceftriaxone started on 11/26 # fracture of the neck of the left humerus -likely due to a fall, x-ray showed question old humeral fracture, but due to pain and limited range of motion will obtain orthopedic consult -continue p.r.n. analgesics # type 2 diabetes mellitus with hyperglycemia -resume glipizide and hold metformin, continue insulin sliding scale and monitor point of care. # hypomagnesemia -serum magnesium was low at 1.4, IV magnesium given will follow labs # acute hypokalemia will replete and follow labs # elevated serum lactic acid -initial lactic acid was elevated at 3.1 but has normalized and is down to 1.6, likely due to metformin and dehydration. # atrial fibrillation -in normal sinus rhythm -continue oral metoprolol and Eliquis # Parkinson's disease -asymptomatic,resume Sinemet 1 tablet t.i.d. # Alzheimer's dementia appears to be at her baseline DVT: On Eliquis CODE STATUS: Full code Patient will require continued inpatient hospitalization for management of acute UTI/unwitnessed fall and monitoring of electrolytes. Quality Stroke Does the patient have a stroke diagnosis?: No VTE Prior VTE?: No VTE Risk Level:: Medical - moderate - high VTE Device Contraindication: Treatment Not Indicated VTE Drug Contraindication: Treatment Not Indicated
[2024-11-27] MEDS: Omeprazole 20 MG CAPSULE.DR PO (14:32)
[2024-11-27] MEDS: Carbidopa/Levodopa 25/100 TABLET 1 TAB PO ×2 (14:32→20:17)
[2024-11-27] MEDS: oxyCODONE HCl Immed Release 5 MG TABLET PO (14:33)
--- NOTE | 2024-11-27 15:08 | MHC.CM.PN ---
PT WITH DEMENTIA, CM CALLED HCP SAVANAH BLAS, HCP REPORTS PT LIVES IN [facility] IN [facility] HCP REPORTS PT USES [facility] HCP REPORTS AMBIKA ZAMARRIPA IS PTS PCP DCP- RETURN TO [facility]
[2024-11-27] MEDS: Gabapentin 100 MG CAPSULE PO (20:17)
[2024-11-27] MEDS: traZODone HCL 25 MG HALFTAB PO (20:17)
[2024-11-27] MEDS: Atorvastatin Calcium 40 MG TABLET PO (20:18)
[2024-11-27] MEDS: Apixaban 2.5 MG TABLET PO (20:18)
[2024-11-27] MEDS: cefTRIAXone sodium 1 GM VIAL IVPUSH (20:18)
[2024-11-27] MEDS: 0.9 % Sodium Chloride Flush 3 ML SYRINGE IVFLUSH (20:18)
[2024-11-27] MEDS: Mirtazapine 15 MG TABLET PO (20:18)
[2024-11-27] MEDS: OLANZapine 10 MG VIAL 5 MG IM (20:32)
[2024-11-28 03:41] VITALS: BP 147/80; PULSE 70; RESP 14; TEMP 35.9; O2SAT 98
[2024-11-28] MEDS: Omeprazole 20 MG CAPSULE.DR PO ×2 (06:18→14:37)
[2024-11-28 07:12] VITALS: BP 151/65; PULSE 72; RESP 16; TEMP 36.7; O2SAT 100
[2024-11-28 08:03] LABS: Anion Gap 12 (12-20); Blood Urea Nitrogen 13 mg/dL (9-16); Calcium 9.1 mg/dL (8.4-10.2); Carbon Dioxide 21 mmol/L (22-29); Chloride 111 mmol/L (96-108); Estimated Glomerular Filt Rate > 60; Glucose Random 160 mg/dL (60-115); Magnesium 1.7 mg/dL (1.6-2.6); Potassium 3.8 mmol/L (3.3-5.1); Sodium 140 mmol/L (135-145)
[2024-11-28] MEDS: Apixaban 2.5 MG TABLET PO ×2 (09:14→21:55)
[2024-11-28] MEDS: Loratadine 10 MG TABLET PO (09:14)
[2024-11-28] MEDS: traZODone HCL 25 MG HALFTAB PO ×2 (09:14→21:55)
[2024-11-28] MEDS: Gabapentin 100 MG CAPSULE PO ×2 (09:14→21:55)
[2024-11-28] MEDS: Docusate Sodium 100 MG CAPSULE PO (09:14)
[2024-11-28] MEDS: Carbidopa/Levodopa 25/100 TABLET 1 TAB PO ×3 (09:14→21:55)
[2024-11-28] MEDS: Metoprolol Succinate ER 25 MG TAB.ER.24H PO (09:14)
[2024-11-28] MEDS: glipiZIDE XL 5 MG TAB.ER.24 PO (09:20)
[2024-11-28] MEDS: 0.9 % Sodium Chloride Flush 3 ML SYRINGE IVFLUSH ×2 (09:25→21:55)
[2024-11-28 11:05] VITALS: BP 151/67; PULSE 71; RESP 16; TEMP 37.2; O2SAT 100
--- NOTE | 2024-11-28 12:40 | HO.PM.IMPN ---
Subjective Subjective Date of Service: 11/28/24 Interval History: Able to communicate, wishes to use bathroom, pain left shoulder with movement, no acute events overnight. Review of Systems Unable to obtain due to mental status Physical Exam Vital Signs: Vital Signs: Last Vital Signs Temp 98.9 F 11/28/24 11:05 Pulse 71 11/28/24 11:05 Resp 16 11/28/24 11:05 BP 151/67 H 11/28/24 11:05 Pulse Ox 100 11/28/24 11:05 O2 Del Method Room Air 11/28/24 11:05 BMI result Body Mass Index 20.6 Const: Other: General in no acute distress. Neck no JVD. CVS regular rate rhythm, Respiratory lungs clear to auscultation, no respiratory distress Gastrointestinal abdomen soft, non tender, bowel sounds audible Extremities no edema. Left shoulder limited range of motion due to pain/ecchymosis/left hand flexion deformity Neuro speech clear. Skin left shoulder abrasion/ecchymosis Poor insight Objective Data Active Medications Acetaminophen (Acetaminophen 325 Mg Tablet) 650 mg PO Q6H PRN PRN Reason: Pain, Mild 1-3,fever,headache Al Hydroxide/Mg Hydroxide (Magnesium Hydrox/Alum Hydrox 30 Ml Oral.Susp) 30 ml PO Q4H PRN PRN Reason: Heartburn Apixaban (Apixaban 2.5 Mg Tablet) 2.5 mg PO BID [facility] Last Admin: 11/28/24 09:14 Dose: 2.5 mg Documented By: LAZARO Atorvastatin Calcium (Atorvastatin Calcium 40 Mg Tablet) 40 mg PO BEDTIME [facility] Last Admin: 11/27/24 20:18 Dose: 40 mg Documented By: KAISER Calcium Carbonate (Calcium Carbonate 750 Mg Tab.Chew) 750 mg PO Q4H PRN PRN Reason: Heartburn Carbidopa/Levodopa (Carbidopa/Levodopa 25/100 Tablet) 1 tab PO TID [facility] Last Admin: 11/28/24 09:14 Dose: 1 tab Documented By: LAZARO Ceftriaxone Sodium (Ceftriaxone Sodium 1 Gm Vial) 1 gm IVPUSH Q24H [facility] Last Admin: 11/27/24 20:18 Dose: 1 gm Documented By: KAISER Docusate Sodium (Docusate Sodium 100 Mg Capsule) 100 mg PO DAILY [facility] Last Admin: 11/28/24 09:14 Dose: 100 mg Documented By: LAZARO Fluticasone Propionate (Fluticasone Propionate Nasal 16 Gm [place]) 1 spray NOSTRIL-B BID [facility] Last Admin: 11/28/24 09:53 Dose: Not Given Documented By: LAZARO Non-Admin Reason: Patient Refused Gabapentin (Gabapentin 100 Mg Capsule) 100 mg PO BID [facility] Last Admin: 11/28/24 09:14 Dose: 100 mg Documented By: LAZARO Glipizide (Glipizide Xl 5 Mg Tab.Er.24) 5 mg PO DAILY [facility] Last Admin: 11/28/24 09:20 Dose: 5 mg Documented By: LAZARO Loratadine (Loratadine 10 Mg Tablet) 10 mg PO DAILY [facility] Magnesium Hydroxide (Milk Of Magnesia 30 Ml Oral.Susp) 30 ml PO DAILY PRN PRN Reason: Constipation Melatonin (Melatonin 3 Mg Tablet) 6 mg PO BEDTIME PRN PRN Reason: Insomnia Metoprolol Succinate (Metoprolol Succinate Er 25 Mg Tab.Er.24h) 25 mg PO DAILY [facility]; Protocol Last Admin: 11/28/24 09:14 Dose: 25 mg Documented By: LAZARO Mirtazapine (Mirtazapine 15 Mg Tablet) 15 mg PO BEDTIME [facility] Last Admin: 11/27/24 20:18 Dose: 15 mg Documented By: KAISER Morphine Sulfate (Morphine Sulfate 4 Mg/Ml Cartridge) 2 mg IVPUSH Q4H PRN; Protocol PRN Reason: Pain, Severe (Pain Scale 7-10) Nitroglycerin (Nitroglycerin 0.4 Mg Tab.Subl) 0.4 mg SUBLINGUAL Q5MX3 PRN PRN Reason: Chest Pain Omeprazole (Omeprazole 20 Mg Capsule.Dr) 20 mg PO BID@0630,1430 [facility] Last Admin: 11/28/24 06:18 Dose: 20 mg Documented By: LURDES Ondansetron HCl (Ondansetron Hcl 4 Mg/2 Ml Vial) 4 mg IVPUSH Q8H PRN PRN Reason: Nausea and Vomiting Oxycodone HCl (Oxycodone Hcl Immed Release 5 Mg Tablet) 5 mg PO Q6H PRN PRN Reason: Pain, Moderate(Pain Scale 4-6) Last Admin: 11/27/24 14:33 Dose: 5 mg Documented By: CRYSTAL Senna (Sennosides 8.6 Mg Tablet) 17.2 mg PO BEDTIME PRN PRN Reason: Constipation Sodium Chloride (0.9 % Sodium Chloride Flush 3 Ml Syringe) 3 ml IVFLUSH QSHIFT [facility] Last Admin: 11/28/24 09:25 Dose: 3 ml Documented By: LAZARO Trazodone HCl (Trazodone Hcl 25 Mg Halftab) 25 mg PO BID [facility] Last Admin: 11/28/24 09:14 Dose: 25 mg Documented By: LAZARO Labs 11/27/24 04:26 11/28/24 07:02 Labs: Laboratory Results - last 24 hr 11/28/24 07:02 Hold Purple Top SEE NOTE Anion Gap 12 Estim Creat Clear Calc 32.0 Estimated GFR > 60 Random Glucose 160 H Calcium 9.1 Magnesium 1.7 Microbiology Microbiology Results: Microbiology 11/26/24 20:14 Blood Culture - Preliminary Blood - Venous No growth after 24 hours. 11/26/24 20:13 Blood Culture - Preliminary Blood - Venous No growth after 24 hours. 11/26/24 Unknown Urine Culture - Preliminary Urine clean catch - Clean Catch Midstream Culture too young to evaluate. Assessment and Plan (1) Elevated lactic acid level: Status: Acute (2) Type 2 diabetes mellitus with hyperglycemia: Status: Acute (3) Fracture of neck of left humerus: Status: Acute (4) Hypomagnesemia: Status: Acute (5) Unwitnessed fall: Status: Acute Plan 79-year-old female resident of [facility] [place] with medical history of Alzheimer's dementia, depression, type 2 diabetes mellitus, atrial fibrillation (on Eliquis), essential hypertension, chronic kidney disease, GARY and Parkinson's disease here with # unwitnessed fall Tele monitor showing no arrhythmia, EKG showed no acute ischemic changes, stable blood pressure, CT head showed no acute intracranial abnormality, likely mechanical fall. # elevated high sensitivity troponin I - initial high sensitivity troponin I was 18.1 > 30.9 > 44, remains flat, no chest pain,EKG does not show any acute ischemic changes, continue Eliquis, metoprolol. # urinary tract infection -urinalysis reveals glucosuria with small leukocyte esterase and 6-10 WBCs/HPF with a 4+ bacteria Continue IV ceftriaxone started on 3/6, urine culture and blood culture pending # likely acute fracture of the neck of the left humerus -likely due to a fall, x-ray showed question old humeral fracture, due to pain and limited range of motion will treat as acute fracture -seen by orthopedic they recommend sling and allow the arm to hang down while out of sling, no active range of motion away from body of the left shoulder, they recommend no acute orthopedic intervention, outpatient follow-up in office, continue p.r.n. analgesics # type 2 diabetes mellitus with hyperglycemia -stable blood sugar, continue glipizide and hold metformin, continue insulin sliding scale and monitor point of care. # hypomagnesemia -serum magnesium was low at 1.4, repleted and improved to 1.7 # acute hypokalemia repleted and improved to 3.8 # elevated serum lactic acid -initial lactic acid was elevated at 3.1 but has normalized and is down to 1.6, likely due to metformin and dehydration. # atrial fibrillation -in normal sinus rhythm -continue oral metoprolol and Eliquis # Parkinson's disease -asymptomatic,resume Sinemet 1 tablet t.i.d. # Alzheimer's dementia appears to be at her baseline/ambulates with a cane DVT: On Eliquis CODE STATUS: Full code Patient will require continued inpatient hospitalization for management of acute UTI/unwitnessed fall on IV antibiotics Quality Stroke Does the patient have a stroke diagnosis?: No VTE Prior VTE?: No VTE Risk Level:: Medical - moderate - high VTE Device Contraindication: Treatment Not Indicated VTE Drug Contraindication: Treatment Not Indicated
[2024-11-28 15:46] VITALS: BP 142/62; PULSE 81; RESP 18; TEMP 36.8; O2SAT 99
[2024-11-28] MEDS: Acetaminophen 325 MG TABLET 650 MG PO (17:56)
[2024-11-28 19:34] VITALS: BP 141/66; PULSE 83; RESP 18; TEMP 36.8; O2SAT 99
[2024-11-28] MEDS: Mirtazapine 15 MG TABLET PO (21:55)
[2024-11-28] MEDS: Atorvastatin Calcium 40 MG TABLET PO (21:55)
[2024-11-28] MEDS: cefTRIAXone sodium 1 GM VIAL IVPUSH (21:55)
[2024-11-29] VITALS: BP 149/82; PULSE 82; RESP 18; TEMP 36.8; O2SAT 96
[2024-11-29 04:00] VITALS: BP 158/62; PULSE 65; RESP 18; TEMP 36.6; O2SAT 97
[2024-11-29] MEDS: Omeprazole 20 MG CAPSULE.DR PO ×2 (07:30→14:51)
[2024-11-29] MEDS: 0.9 % Sodium Chloride Flush 3 ML SYRINGE IVFLUSH ×3 (07:31→20:35)
[2024-11-29 08:00] VITALS: BP 156/74; PULSE 79; RESP 16; TEMP 36.6; O2SAT 99
[2024-11-29] MEDS: Metoprolol Succinate ER 25 MG TAB.ER.24H PO (08:09)
[2024-11-29] MEDS: Docusate Sodium 100 MG CAPSULE PO (08:09)
[2024-11-29] MEDS: Apixaban 2.5 MG TABLET PO ×2 (08:09→20:36)
[2024-11-29] MEDS: Piperacillin Sodium/Tazobactam 2.25 GM in 0.9 % Sodium Chloride 50 ML IV ×2 (08:10→14:51)
[2024-11-29] MEDS: Gabapentin 100 MG CAPSULE PO ×2 (08:10→20:36)
[2024-11-29] MEDS: Carbidopa/Levodopa 25/100 TABLET 1 TAB PO ×3 (08:10→20:36)
[2024-11-29] MEDS: traZODone HCL 25 MG HALFTAB PO ×2 (08:10→20:36)
[2024-11-29] MEDS: glipiZIDE XL 5 MG TAB.ER.24 PO (08:10)
[2024-11-29] MEDS: Loratadine 10 MG TABLET PO (08:10)
[2024-11-29 11:41] VITALS: BP 138/65; PULSE 68; RESP 18; TEMP 36.8; O2SAT 100
[2024-11-29] MEDS: Acetaminophen 325 MG TABLET 650 MG PO ×2 (11:49→23:07)
--- NOTE | 2024-11-29 15:59 | HO.PM.IMPN ---
Subjective Subjective Date of Service: 11/29/24 Interval History: Resting comfortably resting comfortably complaining of feet burning, no other acute issues overnight, refusing to wear sling. Review of Systems Unable to obtain due to mental status Physical Exam Vital Signs: Vital Signs: Last Vital Signs Temp 98.3 F 11/29/24 11:41 Pulse 68 11/29/24 11:41 Resp 18 11/29/24 11:41 BP 138/65 11/29/24 11:41 Pulse Ox 100 11/29/24 11:41 O2 Del Method Room Air 11/29/24 11:41 BMI result Body Mass Index 20.6 Const: Other: General in no acute distress. Neck no JVD. CVS regular rate rhythm, Respiratory lungs clear to auscultation, no respiratory distress. Gastrointestinal abdomen soft, non tender, bowel sounds audible Extremities no edema. Left shoulder limited range of motion due to pain/ecchymosis/left hand flexion deformity Neuro speech clear. Skin left shoulder abrasion/ecchymosis Poor insight Objective Data Active Medications Acetaminophen (Acetaminophen 325 Mg Tablet) 650 mg PO Q6H PRN PRN Reason: Pain, Mild 1-3,fever,headache Last Admin: 11/29/24 11:49 Dose: 650 mg Documented By: LAZARO Al Hydroxide/Mg Hydroxide (Magnesium Hydrox/Alum Hydrox 30 Ml Oral.Susp) 30 ml PO Q4H PRN PRN Reason: Heartburn Apixaban (Apixaban 2.5 Mg Tablet) 2.5 mg PO BID [facility] Last Admin: 11/29/24 08:09 Dose: 2.5 mg Documented By: LAZARO Atorvastatin Calcium (Atorvastatin Calcium 40 Mg Tablet) 40 mg PO BEDTIME [facility] Last Admin: 11/28/24 21:55 Dose: 40 mg Documented By: LURDES Calcium Carbonate (Calcium Carbonate 750 Mg Tab.Chew) 750 mg PO Q4H PRN PRN Reason: Heartburn Carbidopa/Levodopa (Carbidopa/Levodopa 25/100 Tablet) 1 tab PO TID [facility] Last Admin: 11/29/24 14:51 Dose: 1 tab Documented By: LAZARO Ceftriaxone Sodium (Ceftriaxone Sodium 1 Gm Vial) 1 gm IVPUSH Q24H [facility] Last Admin: 11/28/24 21:55 Dose: 1 gm Documented By: LURDES Docusate Sodium (Docusate Sodium 100 Mg Capsule) 100 mg PO DAILY [facility] Last Admin: 11/29/24 08:09 Dose: 100 mg Documented By: LAZARO Fluticasone Propionate (Fluticasone Propionate Nasal 16 Gm [place]) 1 spray NOSTRIL-B BID [facility] Last Admin: 11/29/24 10:56 Dose: Not Given Documented By: LAZARO Non-Admin Reason: Patient Refused Gabapentin (Gabapentin 100 Mg Capsule) 100 mg PO BID [facility] Last Admin: 11/29/24 08:10 Dose: 100 mg Documented By: LAZARO Glipizide (Glipizide Xl 5 Mg Tab.Er.24) 5 mg PO DAILY [facility] Last Admin: 11/29/24 08:10 Dose: 5 mg Documented By: LAZARO Piperacillin Sod/Tazobactam (Sod 2.25 gm/ Sodium Chloride) 50 mls @ 100 mls/hr IV Q6H [facility] Last Infusion: 11/29/24 15:21 Dose: Infused Documented By: LAZARO Loratadine (Loratadine 10 Mg Tablet) 10 mg PO DAILY [facility] Last Admin: 11/29/24 08:10 Dose: 10 mg Documented By: LAZARO Magnesium Hydroxide (Milk Of Magnesia 30 Ml Oral.Susp) 30 ml PO DAILY PRN PRN Reason: Constipation Melatonin (Melatonin 3 Mg Tablet) 6 mg PO BEDTIME PRN PRN Reason: Insomnia Metoprolol Succinate (Metoprolol Succinate Er 25 Mg Tab.Er.24h) 25 mg PO DAILY [facility]; Protocol Last Admin: 11/29/24 08:09 Dose: 25 mg Documented By: LAZARO Mirtazapine (Mirtazapine 15 Mg Tablet) 15 mg PO BEDTIME [facility] Last Admin: 11/28/24 21:55 Dose: 15 mg Documented By: LURDES Morphine Sulfate (Morphine Sulfate 4 Mg/Ml Cartridge) 2 mg IVPUSH Q4H PRN; Protocol PRN Reason: Pain, Severe (Pain Scale 7-10) Nitroglycerin (Nitroglycerin 0.4 Mg Tab.Subl) 0.4 mg SUBLINGUAL Q5MX3 PRN PRN Reason: Chest Pain Omeprazole (Omeprazole 20 Mg Capsule.Dr) 20 mg PO BID@0630,1430 [facility] Last Admin: 11/29/24 14:51 Dose: 20 mg Documented By: LAZARO Ondansetron HCl (Ondansetron Hcl 4 Mg/2 Ml Vial) 4 mg IVPUSH Q8H PRN PRN Reason: Nausea and Vomiting Oxycodone HCl (Oxycodone Hcl Immed Release 5 Mg Tablet) 5 mg PO Q6H PRN PRN Reason: Pain, Moderate(Pain Scale 4-6) Last Admin: 11/27/24 14:33 Dose: 5 mg Documented By: ANAYELIMA Senna (Sennosides 8.6 Mg Tablet) 17.2 mg PO BEDTIME PRN PRN Reason: Constipation Sodium Chloride (0.9 % Sodium Chloride Flush 3 Ml Syringe) 3 ml IVFLUSH QSHIFT [facility] Last Admin: 11/29/24 14:52 Dose: 3 ml Documented By: LAZARO Trazodone HCl (Trazodone Hcl 25 Mg Halftab) 25 mg PO BID [facility] Last Admin: 11/29/24 08:10 Dose: 25 mg Documented By: LAZARO Labs 11/27/24 04:26 11/28/24 07:02 Microbiology Microbiology Results: Microbiology 11/26/24 Unknown Urine Culture - Final Urine clean catch - Clean Catch Midstream Aerococcus urinae 11/26/24 20:14 Blood Culture - Preliminary Blood - Venous No growth after 48 hours. 11/26/24 20:13 Blood Culture - Preliminary Blood - Venous No growth after 48 hours. Assessment and Plan (1) Elevated lactic acid level: Status: Acute (2) Type 2 diabetes mellitus with hyperglycemia: Status: Acute (3) Fracture of neck of left humerus: Status: Acute (4) Hypomagnesemia: Status: Acute (5) Unwitnessed fall: Status: Acute Plan 79-year-old female resident of [facility] with medical history of Alzheimer's dementia, depression, type 2 diabetes mellitus, atrial fibrillation (on Eliquis), essential hypertension, chronic kidney disease, GARY and Parkinson's disease here with # unwitnessed fall Tele monitor showing no arrhythmia, EKG showed no acute ischemic changes, stable blood pressure, CT head showed no acute intracranial abnormality, likely mechanical fall. # elevated high sensitivity troponin I - initial high sensitivity troponin I was 18.1 > 30.9 > 44, remains flat, no chest pain,EKG does not show any acute ischemic changes, continue Eliquis, metoprolol. # urinary tract infection -urinalysis reveals glucosuria with small leukocyte esterase and 6-10 WBCs/HPF with a 4+ bacteria Blood cultures x2 negative, urine culture grew aerococcus urinae Continue IV ceftriaxone started on 11/26, will transition to oral antibiotic for total 7-10 days, DC IV Zosyn started due to Gram-positive cocci in urine # likely acute fracture of the neck of the left humerus -likely due to a fall, x-ray showed question old humeral fracture, due to pain and limited range of motion will treat as acute fracture -seen by orthopedic they recommend sling and allow the arm to hang down while out of sling, no active range of motion away from body of the left shoulder, they recommend no acute orthopedic intervention, outpatient follow-up in office, continue p.r.n. analgesics # type 2 diabetes mellitus with hyperglycemia -stable blood sugar, continue glipizide and hold metformin, monitor blood sugar daily # hypomagnesemia -serum magnesium was low at 1.4, repleted and improved to 1.7 # acute hypokalemia repleted and improved to 3.8 # elevated serum lactic acid -initial lactic acid was elevated at 3.1 but has normalized and is down to 1.6, likely due to metformin and dehydration. # atrial fibrillation -in normal sinus rhythm -continue oral metoprolol and Eliquis # Parkinson's disease -asymptomatic,resume Sinemet 1 tablet t.i.d. # Alzheimer's dementia appears to be at her baseline/ambulates with a cane # bilateral foot burning likely due to neuropathy on gabapentin DVT: On Eliquis CODE STATUS: Full code Disposition resident [facility], will discuss with CM. regarding safe disposition Patient will require continued inpatient hospitalization for management of acute UTI/unwitnessed fall on IV antibiotics Quality Stroke Does the patient have a stroke diagnosis?: No VTE Prior VTE?: No VTE Risk Level:: Medical - moderate - high VTE Device Contraindication: Treatment Not Indicated VTE Drug Contraindication: Treatment Not Indicated
[2024-11-29 16:00] VITALS: BP 104/52; PULSE 75; RESP 19; TEMP 36.5; O2SAT 99
[2024-11-29 19:51] VITALS: BP 135/66; PULSE 76; RESP 20; TEMP 36.4; O2SAT 100
[2024-11-29] MEDS: cefTRIAXone sodium 1 GM VIAL IVPUSH (20:32)
[2024-11-29] MEDS: Atorvastatin Calcium 40 MG TABLET PO (20:36)
[2024-11-29] MEDS: Mirtazapine 15 MG TABLET PO (20:36)
[2024-11-29] MEDS: Melatonin 3 MG TABLET 6 MG PO (23:07)
[2024-11-30] VITALS (7 sets, daily range): BP systolic 121–149; BP diastolic 68–86; PULSE 85–128; RESP 17–20; TEMP 36.7–37; O2SAT 95–99
--- NOTE | 2024-11-30 05:37 | ECG_ITS ---
Test Reason : a flutter on monitor Blood Pressure : */* mmHG Vent. Rate : 105 BPM Atrial Rate : * BPM P-R Int : * ms QRS Dur : 88 ms QT Int : 288 ms P-R-T Axes : * 37 31 degrees QTcB Int : 380 ms Atrial fibrillation with rapid ventricular response Nonspecific ST abnormality Abnormal ECG When compared to the previous EKG of 26 november 2024, rhythm change Referred By: Lew Mcconnell Electronically Signed By: ORESTES GREGORY
[2024-11-30] MEDS: Omeprazole 20 MG CAPSULE.DR PO ×2 (05:53→14:10)
[2024-11-30] MEDS: Metoprolol Succinate ER 25 MG TAB.ER.24H PO ×2 (06:11→06:17)
[2024-11-30] MEDS: Gabapentin 100 MG CAPSULE PO ×2 (10:53→20:08)
[2024-11-30] MEDS: Carbidopa/Levodopa 25/100 TABLET 1 TAB PO ×3 (10:53→20:08)
[2024-11-30] MEDS: Loratadine 10 MG TABLET PO (10:54)
[2024-11-30] MEDS: Apixaban 2.5 MG TABLET PO ×2 (10:54→20:08)
[2024-11-30] MEDS: traZODone HCL 25 MG HALFTAB PO ×2 (10:55→20:08)
[2024-11-30] MEDS: glipiZIDE XL 5 MG TAB.ER.24 PO (10:55)
[2024-11-30] MEDS: Docusate Sodium 100 MG CAPSULE PO (10:55)
[2024-11-30] MEDS: 0.9 % Sodium Chloride Flush 3 ML SYRINGE IVFLUSH ×3 (11:04→20:08)
--- NOTE | 2024-11-30 14:22 | MHC.CM.PN ---
EMR REVIEWED, PT W/FALL AT [facility], CM CONTACTED ONI NURSE AT [facility], ONI REPORTS THAT PT USES A CANE W/LEFT HAND AND HAS RIGHT SIDED WEAKNESS FROM OLD STROKE, PT IS ABLE TO UNDRESS SELF AND SIT ON TOILET AT BASELINE HOWEVER DOES USE CANE W/LEFT SIDE, PT IS INCONTINENT AND DOES HAVE ASSISTANCE IN BR. PT DOES RECEIVE CARE FOR SHOWERS/ADLS HOWEVER ONI CONCERNED PT MAY NEED STR D/T NOT HAVING A GOOD ARM TO USE WHILE AMBULATING. CM AWAITING P.T. EVAL.
--- NOTE | 2024-11-30 15:47 | HO.PM.IMPN ---
Subjective Subjective Date of Service: 11/30/24 Interval History: Able to answer simple questions, complaining of left shoulder pain, lower extremity/foot pain, at times difficult to understand speech, refusing sling due to neck discomfort. Review of Systems All other system reviewed and negative although patient has underlying Alzheimer's dementia. Physical Exam Vital Signs: Vital Signs: Last Vital Signs Temp 98.2 F 11/30/24 11:52 Pulse 95 11/30/24 11:52 Resp 18 11/30/24 11:52 BP 128/70 11/30/24 11:52 Pulse Ox 96 11/30/24 11:52 O2 Del Method Room Air 11/30/24 11:52 BMI result Body Mass Index 20.6 Const: Other: General in no acute distress. Neck no JVD. CVS regular rate rhythm, Respiratory lungs clear to auscultation, no respiratory distress. Gastrointestinal abdomen soft, non tender, bowel sounds audible Extremities no edema. Left shoulder limited range of motion due to pain/ecchymosis/left hand flexion deformity Lower extremity no swelling, no redness Neuro speech clear. Skin left shoulder abrasion/ecchymosis Poor insight Objective Data Active Medications Acetaminophen (Acetaminophen 325 Mg Tablet) 650 mg PO Q6H PRN PRN Reason: Pain, Mild 1-3,fever,headache Last Admin: 11/29/24 23:07 Dose: 650 mg Documented By: DAGMAR Al Hydroxide/Mg Hydroxide (Magnesium Hydrox/Alum Hydrox 30 Ml Oral.Susp) 30 ml PO Q4H PRN PRN Reason: Heartburn Apixaban (Apixaban 2.5 Mg Tablet) 2.5 mg PO BID [facility] Last Admin: 11/30/24 10:54 Dose: 2.5 mg Documented By: MARY LOU Atorvastatin Calcium (Atorvastatin Calcium 40 Mg Tablet) 40 mg PO BEDTIME [facility] Last Admin: 11/29/24 20:36 Dose: 40 mg Documented By: DAGMAR Calcium Carbonate (Calcium Carbonate 750 Mg Tab.Chew) 750 mg PO Q4H PRN PRN Reason: Heartburn Carbidopa/Levodopa (Carbidopa/Levodopa 25/100 Tablet) 1 tab PO TID [facility] Last Admin: 11/30/24 14:10 Dose: 1 tab Documented By: MARY LOU Ceftriaxone Sodium (Ceftriaxone Sodium 1 Gm Vial) 1 gm IVPUSH Q24H [facility] Last Admin: 11/29/24 20:32 Dose: 1 gm Documented By: DAGMAR Docusate Sodium (Docusate Sodium 100 Mg Capsule) 100 mg PO DAILY [facility] Last Admin: 11/30/24 10:55 Dose: 100 mg Documented By: MARY LOU Fluticasone Propionate (Fluticasone Propionate Nasal 16 Gm [place]) 1 spray NOSTRIL-B BID [facility] Last Admin: 11/30/24 10:56 Dose: Not Given Documented By: MARY LOU Non-Admin Reason: Patient Refused Gabapentin (Gabapentin 100 Mg Capsule) 100 mg PO BID [facility] Last Admin: 11/30/24 10:53 Dose: 100 mg Documented By: MARY LOU Glipizide (Glipizide Xl 5 Mg Tab.Er.24) 5 mg PO DAILY [facility] Last Admin: 11/30/24 10:55 Dose: 5 mg Documented By: MARY LOU Loratadine (Loratadine 10 Mg Tablet) 10 mg PO DAILY [facility] Last Admin: 11/30/24 10:54 Dose: 10 mg Documented By: MARY LOU Magnesium Hydroxide (Milk Of Magnesia 30 Ml Oral.Susp) 30 ml PO DAILY PRN PRN Reason: Constipation Melatonin (Melatonin 3 Mg Tablet) 6 mg PO BEDTIME PRN PRN Reason: Insomnia Last Admin: 11/29/24 23:07 Dose: 6 mg Documented By: DAGMAR Metoprolol Succinate (Metoprolol Succinate Er 25 Mg Tab.Er.24h) 25 mg PO DAILY [facility]; Protocol Last Admin: 11/30/24 06:17 Dose: 25 mg Documented By: DAGMAR Comments: MD lin ok/d to give early Mirtazapine (Mirtazapine 15 Mg Tablet) 15 mg PO BEDTIME [facility] Last Admin: 11/29/24 20:36 Dose: 15 mg Documented By: DAGMAR Morphine Sulfate (Morphine Sulfate 4 Mg/Ml Cartridge) 2 mg IVPUSH Q4H PRN; Protocol PRN Reason: Pain, Severe (Pain Scale 7-10) Nitroglycerin (Nitroglycerin 0.4 Mg Tab.Subl) 0.4 mg SUBLINGUAL Q5MX3 PRN PRN Reason: Chest Pain Omeprazole (Omeprazole 20 Mg Capsule.) 20 mg PO BID@0630,1430 [facility] Last Admin: 11/30/24 14:10 Dose: 20 mg Documented By: MARY LOU Ondansetron HCl (Ondansetron Hcl 4 Mg/2 Ml Vial) 4 mg IVPUSH Q8H PRN PRN Reason: Nausea and Vomiting Oxycodone HCl (Oxycodone Hcl Immed Release 5 Mg Tablet) 5 mg PO Q6H PRN PRN Reason: Pain, Moderate(Pain Scale 4-6) Last Admin: 11/27/24 14:33 Dose: 5 mg Documented By: CRYSTAL Senna (Sennosides 8.6 Mg Tablet) 17.2 mg PO BEDTIME PRN PRN Reason: Constipation Sodium Chloride (0.9 % Sodium Chloride Flush 3 Ml Syringe) 3 ml IVFLUSH QSHIFT [facility] Last Admin: 11/30/24 11:04 Dose: 3 ml Documented By: MARY LOU Trazodone HCl (Trazodone Hcl 25 Mg Halftab) 25 mg PO BID [facility] Last Admin: 11/30/24 10:55 Dose: 25 mg Documented By: MARY LOU Labs 11/27/24 04:26 11/28/24 07:02 Assessment and Plan (1) Elevated lactic acid level: Status: Acute (2) Type 2 diabetes mellitus with hyperglycemia: Status: Acute (3) Fracture of neck of left humerus: Status: Acute (4) Hypomagnesemia: Status: Acute (5) Unwitnessed fall: Status: Acute Plan 79-year-old female resident of [facility] with medical history of Alzheimer's dementia, depression, type 2 diabetes mellitus, atrial fibrillation (on Eliquis), essential hypertension, chronic kidney disease, GARY and Parkinson's disease here with # unwitnessed fall Tele monitor no arrhythmia, EKG showed no acute ischemic changes, stable blood pressure, CT head showed no acute intracranial abnormality, likely mechanical fall. # elevated high sensitivity troponin I - initial high sensitivity troponin I was 18.1 > 30.9 > 44, remains flat, no chest pain,EKG does not show any acute ischemic changes, continue Eliquis, metoprolol. # urinary tract infection -urinalysis reveals glucosuria with small leukocyte esterase and 6-10 WBCs/HPF with a 4+ bacteria Blood cultures x2 negative, urine culture grew aerococcus urinae on IV ceftriaxone started on 11/26, will transition to po ceftin for total 7-10 days, # likely acute fracture of the neck of the left humerus -due to a fall, x-ray showed question old humeral fracture, due to pain and limited range of motion will treat as acute fracture -seen by orthopedic they recommend sling and allow the arm to hang down while out of sling, no active range of motion away from body of the left shoulder, they recommend no acute orthopedic intervention, outpatient follow-up in office, continue p.r.n. analgesics # type 2 diabetes mellitus with hyperglycemia -stable blood sugar, continue glipizide and hold metformin, monitor blood sugar daily, hold ISS # hypomagnesemia -serum magnesium was low at 1.4, repleted and improved to 1.7 # acute hypokalemia repleted and improved to 3.8 # elevated serum lactic acid -initial lactic acid was elevated at 3.1 but has normalized and is down to 1.6, likely due to metformin and dehydration. # atrial fibrillation -in normal sinus rhythm,continue oral metoprolol and Eliquis # Parkinson's disease -asymptomatic,resume Sinemet 1 tablet t.i.d. # Alzheimer's dementia appears to be at her baseline/ambulates with a cane, lives at [facility] # bilateral foot burning/pain likely due to neuropathy on gabapentin DVT: On Eliquis CODE STATUS: Full code Disposition resident of [facility], seen by Physical therapy they recommend short-term rehab patient unable to ambulate due to pain and rigidity Patient will require continued inpatient hospitalization for management of acute UTI/unwitnessed fall and safe disposition Quality Stroke Does the patient have a stroke diagnosis?: No VTE Prior VTE?: No VTE Risk Level:: Medical - moderate - high VTE Device Contraindication: Treatment Not Indicated VTE Drug Contraindication: Treatment Not Indicated
--- NOTE | 2024-11-30 16:23 | P.CDIM_ITS ---
PROVIDER RESPONSE TEXT: To clarify, the appropriate diagnosis supported by the clinical indicators: CKD stage 3 QUERY TEXT: PHYSICIAN'S DOCUMENTATION REQUEST Date of Query: 11/30/2024 01:10 PM EDT Patient Name: Gillian Ash Admit Date: 11/27/2024 Dear Laure Rojas MD, A review of the medical record indicates additional documentation may be needed. Please review below and update the documentation accordingly. Clinical Indicators: 11/28/24 Creatinine .89 11/26/24 GFR: 42.0 Per progress note 11/29/24: CKD Please clarify which of the following accurately represents the patient's renal status: CKD stage 1 CKD stage 2 CKD stage 3 CKD stage 4 CKD stage 5 ESRD - CKD V now requiring permanent dialysis and/or transplant Other (explain) Clinically unable to determine (explain) Thank you, Leslie Garza RN Use of terms such as suspected, likely, concern for, or probable (associated with a specific diagnosi s that is being evaluated, monitored, or treated as if it exists) are acceptable and can be coded in the inpatient se tting, when documented at the time of discharge. Please use your independent medical judgment in providing your response. THIS QUERY IS PART OF THE PERMANENT MEDICAL RECORD
[2024-11-30] MEDS: cefuroxime axetiL 250 MG TABLET PO (18:03)
[2024-11-30] MEDS: Mirtazapine 15 MG TABLET PO (20:08)
[2024-11-30] MEDS: Atorvastatin Calcium 40 MG TABLET PO (20:08)
[2024-12-01] VITALS: BP 129/71; PULSE 81; RESP 20; TEMP 37.4; O2SAT 99
[2024-12-01 04:00] VITALS: BP 133/67; PULSE 90; RESP 20; TEMP 37.1; O2SAT 99
[2024-12-01] MEDS: Omeprazole 20 MG CAPSULE.DR PO ×2 (06:24→17:16)
[2024-12-01] MEDS: cefuroxime axetiL 250 MG TABLET PO ×2 (06:24→17:16)
[2024-12-01 08:00] VITALS: BP 139/73; PULSE 98; RESP 16; TEMP 36.3; O2SAT 98
[2024-12-01 08:03] LABS: Glucose, Whole Blood 237 mg/dL (60-115)
[2024-12-01] MEDS: Apixaban 2.5 MG TABLET PO ×2 (09:02→22:05)
[2024-12-01] MEDS: glipiZIDE XL 5 MG TAB.ER.24 PO (09:02)
[2024-12-01] MEDS: Docusate Sodium 100 MG CAPSULE PO (09:02)
[2024-12-01] MEDS: traZODone HCL 25 MG HALFTAB PO ×2 (09:02→22:05)
[2024-12-01] MEDS: Carbidopa/Levodopa 25/100 TABLET 1 TAB PO ×3 (09:02→22:05)
[2024-12-01] MEDS: Loratadine 10 MG TABLET PO (09:02)
[2024-12-01] MEDS: Gabapentin 100 MG CAPSULE PO ×2 (09:02→22:05)
[2024-12-01] MEDS: Metoprolol Succinate ER 25 MG TAB.ER.24H PO (09:02)
--- NOTE | 2024-12-01 10:45 | HO.PM.IMPN ---
Subjective Subjective Date of Service: 12/01/24 Interval History: Able to answer simple questions, complaining of left shoulder pain, refusing sling due to neck discomfort. No acute events overnight Review of Systems All other system reviewed and negative although patient has underlying Alzheimer's dementia. Physical Exam Vital Signs: Vital Signs: Last Vital Signs Temp 97.3 F 12/01/24 08:00 Pulse 98 12/01/24 08:00 Resp 16 12/01/24 08:00 BP 139/73 12/01/24 08:00 Pulse Ox 98 12/01/24 08:00 O2 Del Method Room Air 12/01/24 08:00 BMI result Body Mass Index 20.6 Const: Other: General in no acute distress. Neck no JVD. CVS regular rate rhythm, Respiratory lungs clear to auscultation, no respiratory distress. Gastrointestinal abdomen soft, non tender, bowel sounds audible Extremities no edema. Left shoulder limited range of motion due to pain/ecchymosis/left hand flexion deformity Lower extremity no swelling, no redness Neuro speech clear. Skin left shoulder abrasion/ecchymosis Poor insight Objective Data Active Medications Acetaminophen (Acetaminophen 325 Mg Tablet) 650 mg PO Q6H PRN PRN Reason: Pain, Mild 1-3,fever,headache Last Admin: 11/29/24 23:07 Dose: 650 mg Documented By: DAGMAR Al Hydroxide/Mg Hydroxide (Magnesium Hydrox/Alum Hydrox 30 Ml Oral.Susp) 30 ml PO Q4H PRN PRN Reason: Heartburn Apixaban (Apixaban 2.5 Mg Tablet) 2.5 mg PO BID [facility] Last Admin: 12/01/24 09:02 Dose: 2.5 mg Documented By: RAMAKRISHNA Atorvastatin Calcium (Atorvastatin Calcium 40 Mg Tablet) 40 mg PO BEDTIME [facility] Last Admin: 11/30/24 20:08 Dose: 40 mg Documented By: DAGMAR Calcium Carbonate (Calcium Carbonate 750 Mg Tab.Chew) 750 mg PO Q4H PRN PRN Reason: Heartburn Carbidopa/Levodopa (Carbidopa/Levodopa 25/100 Tablet) 1 tab PO TID [facility] Last Admin: 12/01/24 09:02 Dose: 1 tab Documented By: RAMAKRISHNA Cefuroxime Axetil (Cefuroxime Axetil 250 Mg Tablet) 250 mg PO Q12H [facility] Last Admin: 12/01/24 06:24 Dose: 250 mg Documented By: DAGMAR Docusate Sodium (Docusate Sodium 100 Mg Capsule) 100 mg PO DAILY [facility] Last Admin: 12/01/24 09:02 Dose: 100 mg Documented By: RAMAKRISHNA Fluticasone Propionate (Fluticasone Propionate Nasal 16 Gm [place]) 1 spray NOSTRIL-B BID [facility] Last Admin: 12/01/24 10:25 Dose: Not Given Documented By: RAMAKRISHNA Non-Admin Reason: Patient Refused Gabapentin (Gabapentin 100 Mg Capsule) 100 mg PO BID [facility] Last Admin: 12/01/24 09:02 Dose: 100 mg Documented By: RAMAKRISHNA Glipizide (Glipizide Xl 5 Mg Tab.Er.24) 5 mg PO DAILY [facility] Last Admin: 12/01/24 09:02 Dose: 5 mg Documented By: RAMARKISHNA Loratadine (Loratadine 10 Mg Tablet) 10 mg PO DAILY [facility] Last Admin: 12/01/24 09:02 Dose: 10 mg Documented By: RAMAKRISHNA Magnesium Hydroxide (Milk Of Magnesia 30 Ml Oral.Susp) 30 ml PO DAILY PRN PRN Reason: Constipation Melatonin (Melatonin 3 Mg Tablet) 6 mg PO BEDTIME PRN PRN Reason: Insomnia Last Admin: 11/29/24 23:07 Dose: 6 mg Documented By: DAGMAR Metoprolol Succinate (Metoprolol Succinate Er 25 Mg Tab.Er.24h) 25 mg PO DAILY [facility]; Protocol Last Admin: 12/01/24 09:02 Dose: 25 mg Documented By: RAMAKRISHNA Mirtazapine (Mirtazapine 15 Mg Tablet) 15 mg PO BEDTIME [facility] Last Admin: 11/30/24 20:08 Dose: 15 mg Documented By: DAGMAR Morphine Sulfate (Morphine Sulfate 4 Mg/Ml Cartridge) 2 mg IVPUSH Q4H PRN; Protocol PRN Reason: Pain, Severe (Pain Scale 7-10) Nitroglycerin (Nitroglycerin 0.4 Mg Tab.Subl) 0.4 mg SUBLINGUAL Q5MX3 PRN PRN Reason: Chest Pain Omeprazole (Omeprazole 20 Mg Capsule.Dr) 20 mg PO BID@0630,1430 [facility] Last Admin: 12/01/24 06:24 Dose: 20 mg Documented By: DAGMAR Ondansetron HCl (Ondansetron Hcl 4 Mg/2 Ml Vial) 4 mg IVPUSH Q8H PRN PRN Reason: Nausea and Vomiting Oxycodone HCl (Oxycodone Hcl Immed Release 5 Mg Tablet) 5 mg PO Q6H PRN PRN Reason: Pain, Moderate(Pain Scale 4-6) Last Admin: 11/27/24 14:33 Dose: 5 mg Documented By: CRYSTAL Senna (Sennosides 8.6 Mg Tablet) 17.2 mg PO BEDTIME PRN PRN Reason: Constipation Sodium Chloride (0.9 % Sodium Chloride Flush 3 Ml Syringe) 3 ml IVFLUSH QSHIFT [facility] Last Admin: 12/01/24 10:25 Dose: Not Given Documented By: RAMAKRISHNA Non-Admin Reason: Previously Administered Trazodone HCl (Trazodone Hcl 25 Mg Halftab) 25 mg PO BID [facility] Last Admin: 12/01/24 09:02 Dose: 25 mg Documented By: RAMAKRISHNA Labs 11/27/24 04:26 11/28/24 07:02 Labs: Laboratory Results - last 24 hr 12/01/24 07:59 POC Glucose 237 H Assessment and Plan (1) Unwitnessed fall: Status: Acute Plan 79-year-old female resident of [facility] with medical history of Alzheimer's dementia, depression, type 2 diabetes mellitus, atrial fibrillation (on Eliquis), essential hypertension, chronic kidney disease, GARY and Parkinson's disease here with # unwitnessed fall Tele monitor no arrhythmia, EKG showed no acute ischemic changes, stable blood pressure, CT head showed no acute intracranial abnormality, likely mechanical fall. # elevated high sensitivity troponin I - initial high sensitivity troponin I was 18.1 > 30.9 > 44, remains flat, no chest pain,EKG does not show any acute ischemic changes, continue Eliquis, metoprolol. # urinary tract infection -urinalysis reveals glucosuria with small leukocyte esterase and 6-10 WBCs/HPF with a 4+ bacteria Blood cultures x2 negative, urine culture grew aerococcus urinae on IV ceftriaxone started on 11/26, will transition to po ceftin for total 7-10 days, # likely acute fracture of the neck of the left humerus -due to a fall, x-ray showed question old humeral fracture, due to pain and limited range of motion will treat as acute fracture -seen by orthopedic they recommend sling and allow the arm to hang down while out of sling, no active range of motion away from body of the left shoulder, they recommend no acute orthopedic intervention, outpatient follow-up in office, continue p.r.n. analgesics # type 2 diabetes mellitus with hyperglycemia -stable blood sugar, continue glipizide and hold metformin, monitor blood sugar daily, ISS # hypomagnesemia -serum magnesium was low at 1.4, repleted and improved to 1.7 # acute hypokalemia repleted and improved to 3.8 # elevated serum lactic acid -initial lactic acid was elevated at 3.1 but has normalized and is down to 1.6, likely due to metformin and dehydration. # atrial fibrillation -in normal sinus rhythm,continue oral metoprolol and Eliquis # Parkinson's disease -asymptomatic,resume Sinemet 1 tablet t.i.d. # Alzheimer's dementia appears to be at her baseline/ambulates with a cane, lives at [facility] # bilateral foot burning/pain likely due to neuropathy on gabapentin DVT: On Eliquis CODE STATUS: Full code Disposition resident [facility], seen by Physical therapy they recommend short-term rehab patient unable to ambulate due to pain and rigidity Patient will require continued inpatient hospitalization for management of unwitnessed fall and safe disposition Quality Stroke Does the patient have a stroke diagnosis?: No VTE Prior VTE?: No VTE Risk Level:: Medical - moderate - high VTE Device Contraindication: Treatment Not Indicated VTE Drug Contraindication: Treatment Not Indicated
[2024-12-01 11:55] VITALS: BP 126/59; PULSE 83; RESP 16; TEMP 37.1; O2SAT 100
[2024-12-01 11:58] LABS: Glucose, Whole Blood 389 mg/dL (60-115)
[2024-12-01] MEDS: Insulin Lispro 100 UNIT/ML 3 ML VIAL SUBCUT ×2 (12:06→17:16)
--- NOTE | 2024-12-01 13:36 | MHC.CM.PN ---
EMR REVIEWED, P.T. RECOMMENDING STR, CM RECEIVED CALL FROM [employer] FOR UPDATE AND THEY WERE ABLE TO GIVE CM 7 ADDITIONAL FACILITIES TO ADD TO REFERRAL PT HAS A FEW FACILITIES FOLLOWING HOWEVER NO BE OFFERS AT THIS TIME, CM ALSO CONTACTED PT'S HCP SAVANAH AT 1:30PM AT NUMBER ON FILE, SAVANAH AGREEABLE TO BROAD REFERRAL AND HAD NO PREFERENCES HOWEVER DOES NOT WANT PT TO GO BACK TO [facility] WHERE SHE WAS PRIOR TO GOING TO [facility], CM WILL CONT TO REFERRAL AND DC NEEDS.
[2024-12-01 15:17] VITALS: BP 130/62; PULSE 79; RESP 18; TEMP 36.7; O2SAT 99
[2024-12-01 16:50] LABS: Glucose, Whole Blood 247 mg/dL (60-115)
[2024-12-01] MEDS: 0.9 % Sodium Chloride Flush 3 ML SYRINGE IVFLUSH ×2 (17:17→22:06)
[2024-12-01 20:00] VITALS: BP 132/69; PULSE 87; RESP 20; TEMP 36.2; O2SAT 99
[2024-12-01 21:32] LABS: Glucose, Whole Blood 133 mg/dL (60-115)
[2024-12-01] MEDS: Acetaminophen 325 MG TABLET 650 MG PO (22:05)
[2024-12-01] MEDS: Mirtazapine 15 MG TABLET PO (22:05)
[2024-12-01] MEDS: Atorvastatin Calcium 40 MG TABLET PO (22:05)
[2024-12-01] MEDS: Fluticasone Propionate Nasal 16 GM SPRAY 1 SPRAY NOSTRIL-B (22:20)
[2024-12-02] VITALS: BP 126/60; PULSE 64; RESP 20; TEMP 36.6; O2SAT 98
[2024-12-02 03:43] VITALS: BP 156/72; PULSE 80; RESP 20; TEMP 36.2; O2SAT 100
[2024-12-02] MEDS: cefuroxime axetiL 250 MG TABLET PO ×2 (05:00→17:35)
[2024-12-02] MEDS: Omeprazole 20 MG CAPSULE.DR PO ×2 (05:00→17:35)
[2024-12-02] MEDS: Milk of Magnesia 30 ML ORAL.SUSP PO (05:20)
[2024-12-02 07:36] VITALS: BP 160/73; PULSE 72; RESP 16; TEMP 36.2; O2SAT 100
[2024-12-02 07:38] LABS: Glucose, Whole Blood 145 mg/dL (60-115)
[2024-12-02] MEDS: Carbidopa/Levodopa 25/100 TABLET 1 TAB PO ×3 (09:09→21:40)
[2024-12-02] MEDS: glipiZIDE XL 5 MG TAB.ER.24 PO (09:10)
[2024-12-02] MEDS: Loratadine 10 MG TABLET PO (09:10)
[2024-12-02] MEDS: Metoprolol Succinate ER 25 MG TAB.ER.24H PO (09:10)
[2024-12-02] MEDS: Docusate Sodium 100 MG CAPSULE PO (09:10)
[2024-12-02] MEDS: traZODone HCL 25 MG HALFTAB PO ×2 (09:10→21:40)
[2024-12-02] MEDS: Gabapentin 100 MG CAPSULE PO ×2 (09:10→21:40)
[2024-12-02] MEDS: Apixaban 2.5 MG TABLET PO ×2 (09:10→21:40)
[2024-12-02] MEDS: Fluticasone Propionate Nasal 16 GM SPRAY 1 SPRAY NOSTRIL-B (09:18)
--- NOTE | 2024-12-02 10:40 | MHC.CM.PN ---
EMR REVIEWED, PT COULD BE MEDICALLY CLEARED FOR DC TO [facility], PT HAS NO BED OFFERS, ESSIE LONDON REQUESTING ADDITIONAL PT NOTES, OTHER FACILITIES INTERESTED HOWEVER CONCERNED PT RESIDES IN LOCKED DEMENTIA UNIT AT [facility] AND THEY DO NOT HAVE APPROPRIATE BED, PT UNABLE TO RETURN TO [facility] PRIOR TO STR, CMW ILL CONT TO FOLLOW.
--- NOTE | 2024-12-02 10:54 | HO.PM.IMPN ---
Subjective Subjective Date of Service: 12/02/24 Interval History: Able to answer simple questions, complaining of left shoulder pain, refusing sling due to neck discomfort. No acute events overnight Review of Systems All other system reviewed and negative although patient has underlying Alzheimer's dementia Physical Exam Vital Signs: Vital Signs: Last Vital Signs Temp 97.2 F 12/02/24 07:36 Pulse 72 12/02/24 07:36 Resp 16 12/02/24 07:36 BP 160/73 H 12/02/24 07:36 Pulse Ox 100 12/02/24 07:36 O2 Del Method Room Air 12/02/24 07:36 BMI result Body Mass Index 20.6 Const: Other: General in no acute distress. Neck no JVD. CVS regular rate rhythm, Respiratory lungs clear to auscultation, no respiratory distress. Gastrointestinal abdomen soft, non tender, bowel sounds audible Extremities no edema. Left shoulder limited range of motion due to pain/ecchymosis/left hand flexion deformity Lower extremity no swelling, no redness Neuro speech clear. Skin left shoulder abrasion/ecchymosis Poor insight. Objective Data Active Medications Acetaminophen (Acetaminophen 325 Mg Tablet) 650 mg PO Q6H PRN PRN Reason: Pain, Mild 1-3,fever,headache Last Admin: 12/01/24 22:05 Dose: 650 mg Documented By: SHAHAB Al Hydroxide/Mg Hydroxide (Magnesium Hydrox/Alum Hydrox 30 Ml Oral.Susp) 30 ml PO Q4H PRN PRN Reason: Heartburn Apixaban (Apixaban 2.5 Mg Tablet) 2.5 mg PO BID [facility] Last Admin: 12/02/24 09:10 Dose: 2.5 mg Documented By: RAMAKRISHNA Atorvastatin Calcium (Atorvastatin Calcium 40 Mg Tablet) 40 mg PO BEDTIME [facility] Last Admin: 12/01/24 22:05 Dose: 40 mg Documented By: SHAHAB Calcium Carbonate (Calcium Carbonate 750 Mg Tab.Chew) 750 mg PO Q4H PRN PRN Reason: Heartburn Carbidopa/Levodopa (Carbidopa/Levodopa 25/100 Tablet) 1 tab PO TID [facility] Last Admin: 12/02/24 09:09 Dose: 1 tab Documented By: RAMAKRISHNA Cefuroxime Axetil (Cefuroxime Axetil 250 Mg Tablet) 250 mg PO Q12H [facility] Last Admin: 12/02/24 05:00 Dose: 250 mg Documented By: SHAHAB Dextrose (Dextrose 50 % 25 Gm/50 Ml Syringe) 25 gm IVPUSH Q15M PRN; Protocol PRN Reason: per Hypoglycemia Standing Ord. Docusate Sodium (Docusate Sodium 100 Mg Capsule) 100 mg PO DAILY [facility] Last Admin: 12/02/24 09:10 Dose: 100 mg Documented By: RAMAKRISHNA Fluticasone Propionate (Fluticasone Propionate Nasal 16 Gm [place]) 1 spray NOSTRIL-B BID [facility] Last Admin: 12/02/24 09:18 Dose: 1 spray Documented By: RAMAKRISHNA Gabapentin (Gabapentin 100 Mg Capsule) 100 mg PO BID [facility] Last Admin: 12/02/24 09:10 Dose: 100 mg Documented By: RAMAKRISHNA Glipizide (Glipizide Xl 5 Mg Tab.Er.24) 5 mg PO DAILY [facility] Last Admin: 12/02/24 09:10 Dose: 5 mg Documented By: RAAMKRISHNA Glucose (Glucose Gel 15 Gm Gel..Gram.) 15 gm PO Q15M PRN; Protocol PRN Reason: per Hypoglycemia Standing Ord. Insulin Human Lispro (Insulin Lispro 100 Unit/Ml 3 Ml Vial) 0 unit SUBCUT QIDACHS [facility]; Protocol Last Admin: 12/02/24 07:41 Dose: Not Given Documented By: RAMAKRISHNA Non-Admin Reason: No Insulin Coverage Loratadine (Loratadine 10 Mg Tablet) 10 mg PO DAILY [facility] Last Admin: 12/02/24 09:10 Dose: 10 mg Documented By: RAMAKRISHNA Magnesium Hydroxide (Milk Of Magnesia 30 Ml Oral.Susp) 30 ml PO DAILY PRN PRN Reason: Constipation Last Admin: 12/02/24 05:20 Dose: 30 ml Documented By: SHAHAB Melatonin (Melatonin 3 Mg Tablet) 6 mg PO BEDTIME PRN PRN Reason: Insomnia Last Admin: 11/29/24 23:07 Dose: 6 mg Documented By: DAGMAR Metoprolol Succinate (Metoprolol Succinate Er 25 Mg Tab.Er.24h) 25 mg PO DAILY [facility]; Protocol Last Admin: 12/02/24 09:10 Dose: 25 mg Documented By: RAMAKRISHNA Mirtazapine (Mirtazapine 15 Mg Tablet) 15 mg PO BEDTIME [facility] Last Admin: 12/01/24 22:05 Dose: 15 mg Documented By: SHAHAB Nitroglycerin (Nitroglycerin 0.4 Mg Tab.Subl) 0.4 mg SUBLINGUAL Q5MX3 PRN PRN Reason: Chest Pain Omeprazole (Omeprazole 20 Mg Capsule.Dr) 20 mg PO BID@0630,1430 [facility] Last Admin: 12/02/24 05:00 Dose: 20 mg Documented By: SHAHAB Ondansetron HCl (Ondansetron Hcl 4 Mg/2 Ml Vial) 4 mg IVPUSH Q8H PRN PRN Reason: Nausea and Vomiting Senna (Sennosides 8.6 Mg Tablet) 17.2 mg PO BEDTIME PRN PRN Reason: Constipation Sodium Chloride (0.9 % Sodium Chloride Flush 3 Ml Syringe) 3 ml IVFLUSH QSHIFT [facility] Last Admin: 12/01/24 22:06 Dose: 3 ml Documented By: SHAHAB Trazodone HCl (Trazodone Hcl 25 Mg Halftab) 25 mg PO BID [facility] Last Admin: 12/02/24 09:10 Dose: 25 mg Documented By: FOSTEKR Labs 11/27/24 04:26 11/28/24 07:02 Labs: Laboratory Results - last 24 hr 12/01/24 12/01/24 12/01/24 11:52 16:46 21:28 POC Glucose 389 H* 247 H 133 H 12/02/24 07:35 POC Glucose 145 H Microbiology Microbiology Results: Microbiology 11/26/24 20:14 Blood Culture - Final Blood - Venous No growth after 5 days. 11/26/24 20:13 Blood Culture - Final Blood - Venous No growth after 5 days. Assessment and Plan (1) Unwitnessed fall: Status: Acute Plan 79-year-old female resident of [facility] [place] with medical history of Alzheimer's dementia, depression, type 2 diabetes mellitus, atrial fibrillation (on Eliquis), essential hypertension, chronic kidney disease, GARY and Parkinson's disease here with # unwitnessed fall Tele monitor no arrhythmia, EKG showed no acute ischemic changes, stable blood pressure, CT head showed no acute intracranial abnormality, likely mechanical fall. # elevated high sensitivity troponin I - initial high sensitivity troponin I was 18.1 > 30.9 > 44, remains flat, no chest pain,EKG does not show any acute ischemic changes, continue Eliquis, metoprolol. # urinary tract infection -urinalysis reveals glucosuria with small leukocyte esterase and 6-10 WBCs/HPF with a 4+ bacteria Blood cultures x2 negative, urine culture grew aerococcus urinae on IV ceftriaxone started on 11/26, transitioned to po ceftin. Stop abx 12/03 # likely acute fracture of the neck of the left humerus -due to a fall, x-ray showed question old humeral fracture, due to pain and limited range of motion will treat as acute fracture -seen by orthopedic they recommend sling and allow the arm to hang down while out of sling, no active range of motion away from body of the left shoulder, they recommend no acute orthopedic intervention, outpatient follow-up in office, continue p.r.n. analgesics # type 2 diabetes mellitus with hyperglycemia -stable blood sugar, continue glipizide and hold metformin, monitor blood sugar daily, ISS # hypomagnesemia -serum magnesium was low at 1.4, repleted and improved to 1.7 # acute hypokalemia repleted and improved to 3.8 # elevated serum lactic acid -initial lactic acid was elevated at 3.1 but has normalized and is down to 1.6, likely due to metformin and dehydration. # atrial fibrillation -in normal sinus rhythm,continue oral metoprolol and Eliquis # Parkinson's disease -asymptomatic,resume Sinemet 1 tablet t.i.d. # Alzheimer's dementia appears to be at her baseline/ambulates with a cane, lives at [facility] # bilateral foot burning/pain likely due to neuropathy on gabapentin DVT: On Eliquis CODE STATUS: Full code Disposition resident of [facility], seen by Physical therapy they recommend short-term rehab patient unable to ambulate due to pain and rigidity Patient will require continued inpatient hospitalization for safe disposition Quality Stroke Does the patient have a stroke diagnosis?: No VTE Prior VTE?: No VTE Risk Level:: Medical - moderate - high VTE Device Contraindication: Treatment Not Indicated VTE Drug Contraindication: Treatment Not Indicated
[2024-12-02 11:00] VITALS: BP 136/85; PULSE 76; RESP 18; TEMP 36.8; O2SAT 100
[2024-12-02 11:11] LABS: Glucose, Whole Blood 380 mg/dL (60-115)
[2024-12-02] MEDS: Insulin Lispro 100 UNIT/ML 3 ML VIAL SUBCUT ×3 (11:29→21:41)
[2024-12-02] MEDS: 0.9 % Sodium Chloride Flush 3 ML SYRINGE IVFLUSH ×2 (11:29→21:45)
--- NOTE | 2024-12-02 15:01 | HO.WOUND ---
Wound Consult: Initial 79yr old female admitted to [facility] on 11/26/24 - See progress notes and H&P for detailed history.? Wound consult placed for Sacrum and Coccyx.? Patient agreeable to assessment and photo documentation.? Photo review and chart review completed. Sacrum / coccyx Etiology: ??Redness and hyperigmentation noted Present on Admission Wound Bed: intact pink hyperpigmented tissue blanchable Drainage / Odor: None Edges: ? irregular Radha wound: ?Intact scar tissue observed No Induration, Fluctuance or Warmth noted Pain: denies Goals of Treatment: ? Foam dressing to protect and aid in pressure redistribution Recommendations: 1. Turn and Reposition every 2 hours and as needed for patient comfort.? Use pillows or wedges to support off loading positions. 2. Off Load all bony prominences with use of pillows and heel boots if needed.? Apply Preventative foams where needed. ? 3. Monitor for incontinence and moisture control, use barrier creams when needed for prevention and treatment. 4. Provide adequate and supplemental nutrition.? 5. Order low air loss mattress. 6. When applicable maintain blood glucose levels per Providers order. 7. Sacrum and Coccyx - Off Load Pressure with Q2 hr turns and use of pillows - Cleanse with PH balance spray or wipes, pat dry. ?Apply skin prep allow to dry. Cover with foam dressing to aid in off loading and protection from friction. Change every 5 days and PRN. Use waffle cushion when up to recliner chair. Re-consult wound care Nurse for wound deterioration or wound changes.
[2024-12-02 16:00] VITALS: BP 160/74; PULSE 76; RESP 20; TEMP 35.8; O2SAT 99
[2024-12-02 16:04] LABS: Glucose, Whole Blood 345 mg/dL (60-115)
[2024-12-02] MEDS: metFORMIN HCl 500 MG TABLET PO (17:35)
[2024-12-02 19:32] VITALS: BP 150/75; PULSE 73; RESP 21; TEMP 36; O2SAT 99
[2024-12-02 20:00] LABS: Glucose, Whole Blood 153 mg/dL (60-115)
[2024-12-02] MEDS: Mirtazapine 15 MG TABLET PO (21:40)
[2024-12-03] VITALS (8 sets, daily range): BP systolic 127–178; BP diastolic 66–85; PULSE 75–81; RESP 18–20; TEMP 36.2–37.3; O2SAT 94–100
[2024-12-03] MEDS: Omeprazole 20 MG CAPSULE.DR PO ×2 (05:11→15:54)
[2024-12-03] MEDS: cefuroxime axetiL 250 MG TABLET PO ×2 (05:11→18:18)
[2024-12-03 07:15] LABS: Glucose, Whole Blood 127 mg/dL (60-115)
[2024-12-03] MEDS: Loratadine 10 MG TABLET PO (09:26)
[2024-12-03] MEDS: traZODone HCL 25 MG HALFTAB PO ×2 (09:26→21:25)
[2024-12-03] MEDS: Carbidopa/Levodopa 25/100 TABLET 1 TAB PO ×3 (09:26→21:25)
[2024-12-03] MEDS: Docusate Sodium 100 MG CAPSULE PO (09:26)
[2024-12-03] MEDS: Apixaban 2.5 MG TABLET PO ×2 (09:26→21:25)
[2024-12-03] MEDS: glipiZIDE XL 5 MG TAB.ER.24 PO (09:26)
[2024-12-03] MEDS: metFORMIN HCl 500 MG TABLET PO ×2 (09:27→15:54)
[2024-12-03] MEDS: Gabapentin 100 MG CAPSULE PO ×2 (09:27→21:25)
[2024-12-03] MEDS: 0.9 % Sodium Chloride Flush 3 ML SYRINGE IVFLUSH ×3 (09:29→21:32)
--- NOTE | 2024-12-03 11:08 | HO.PM.IMPN ---
Subjective Subjective Date of Service: 12/03/24 Interval History: Able to answer simple questions. No acute events overnight Review of Systems All other system reviewed and negative although patient has underlying Alzheimer's dementia Physical Exam Vital Signs: Vital Signs: Last Vital Signs Temp 98.4 F 12/03/24 07:03 Pulse 78 12/03/24 07:03 Resp 18 12/03/24 07:03 BP 139/81 12/03/24 07:03 Pulse Ox 99 12/03/24 07:03 O2 Del Method Room Air 12/03/24 07:03 BMI result Body Mass Index 20.6 Const: Other: General in no acute distress. Neck no JVD. CVS regular rate rhythm, Respiratory lungs clear to auscultation, no respiratory distress. Gastrointestinal abdomen soft, non tender, bowel sounds audible Extremities no edema. Left shoulder limited range of motion due to pain/ecchymosis/left hand flexion deformity Lower extremity no swelling, no redness Neuro speech clear. Skin left shoulder abrasion/ecchymosis Poor insight Objective Data Active Medications Acetaminophen (Acetaminophen 325 Mg Tablet) 650 mg PO Q6H PRN PRN Reason: Pain, Mild 1-3,fever,headache Last Admin: 12/01/24 22:05 Dose: 650 mg Documented By: SHAHAB Al Hydroxide/Mg Hydroxide (Magnesium Hydrox/Alum Hydrox 30 Ml Oral.Susp) 30 ml PO Q4H PRN PRN Reason: Heartburn Apixaban (Apixaban 2.5 Mg Tablet) 2.5 mg PO BID [facility] Last Admin: 12/03/24 09:26 Dose: 2.5 mg Documented By: CARMEN Atorvastatin Calcium (Atorvastatin Calcium 40 Mg Tablet) 40 mg PO BEDTIME [facility] Last Admin: 12/02/24 21:41 Dose: Not Given Documented By: SWAPNA Non-Admin Reason: per pt allergy list Calcium Carbonate (Calcium Carbonate 750 Mg Tab.Chew) 750 mg PO Q4H PRN PRN Reason: Heartburn Carbidopa/Levodopa (Carbidopa/Levodopa 25/100 Tablet) 1 tab PO TID [facility] Last Admin: 12/03/24 09:26 Dose: 1 tab Documented By: CARMEN Cefuroxime Axetil (Cefuroxime Axetil 250 Mg Tablet) 250 mg PO Q12H [facility] Last Admin: 12/03/24 05:11 Dose: 250 mg Documented By: SWAPNA Dextrose (Dextrose 50 % 25 Gm/50 Ml Syringe) 25 gm IVPUSH Q15M PRN; Protocol PRN Reason: per Hypoglycemia Standing Ord. Docusate Sodium (Docusate Sodium 100 Mg Capsule) 100 mg PO DAILY [facility] Last Admin: 12/03/24 09:26 Dose: 100 mg Documented By: CARMEN Fluticasone Propionate (Fluticasone Propionate Nasal 16 Gm [place]) 1 spray NOSTRIL-B BID [facility] Last Admin: 12/03/24 09:36 Dose: Not Given Documented By: CARMEN Non-Admin Reason: Patient Refused Gabapentin (Gabapentin 100 Mg Capsule) 100 mg PO BID [facility] Last Admin: 12/03/24 09:27 Dose: 100 mg Documented By: CARMEN Glipizide (Glipizide Xl 5 Mg Tab.Er.24) 5 mg PO DAILY [facility] Last Admin: 12/03/24 09:26 Dose: 5 mg Documented By: CARMEN Glucose (Glucose Gel 15 Gm Gel..Gram.) 15 gm PO Q15M PRN; Protocol PRN Reason: per Hypoglycemia Standing Ord. Insulin Human Lispro (Insulin Lispro 100 Unit/Ml 3 Ml Vial) 0 unit SUBCUT QIDACHS [facility]; Protocol Last Admin: 12/03/24 07:35 Dose: Not Given Documented By: CARMEN Non-Admin Reason: No Insulin Coverage Loratadine (Loratadine 10 Mg Tablet) 10 mg PO DAILY [facility] Last Admin: 12/03/24 09:26 Dose: 10 mg Documented By: CARMEN Magnesium Hydroxide (Milk Of Magnesia 30 Ml Oral.Susp) 30 ml PO DAILY PRN PRN Reason: Constipation Last Admin: 12/02/24 05:20 Dose: 30 ml Documented By: SHAHAB Melatonin (Melatonin 3 Mg Tablet) 6 mg PO BEDTIME PRN PRN Reason: Insomnia Last Admin: 11/29/24 23:07 Dose: 6 mg Documented By: DAGMAR Metformin HCl (Metformin Hcl 500 Mg Tablet) 500 mg PO BIDWM [facility] Last Admin: 12/03/24 09:27 Dose: 500 mg Documented By: CARMEN Metoprolol Succinate (Metoprolol Succinate Er 25 Mg Tab.Er.24h) 25 mg PO DAILY [facility]; Protocol Last Admin: 12/02/24 09:10 Dose: 25 mg Documented By: RAMAKRISHNA Mirtazapine (Mirtazapine 15 Mg Tablet) 15 mg PO BEDTIME [facility] Last Admin: 12/02/24 21:40 Dose: 15 mg Documented By: SWAPNA Nitroglycerin (Nitroglycerin 0.4 Mg Tab.Subl) 0.4 mg SUBLINGUAL Q5MX3 PRN PRN Reason: Chest Pain Omeprazole (Omeprazole 20 Mg Capsule.Dr) 20 mg PO BID@0630,1430 [facility] Last Admin: 12/03/24 05:11 Dose: 20 mg Documented By: SWAPNA Ondansetron HCl (Ondansetron Hcl 4 Mg/2 Ml Vial) 4 mg IVPUSH Q8H PRN PRN Reason: Nausea and Vomiting Senna (Sennosides 8.6 Mg Tablet) 17.2 mg PO BEDTIME PRN PRN Reason: Constipation Sodium Chloride (0.9 % Sodium Chloride Flush 3 Ml Syringe) 3 ml IVFLUSH QSHIFT [facility] Last Admin: 12/03/24 09:29 Dose: 3 ml Documented By: CARMEN Trazodone HCl (Trazodone Hcl 25 Mg Halftab) 25 mg PO BID [facility] Last Admin: 12/03/24 09:26 Dose: 25 mg Documented By: CARMEN Labs 11/27/24 04:26 11/28/24 07:02 Labs: Laboratory Results - last 24 hr 12/02/24 12/02/24 12/02/24 11:07 16:00 19:57 POC Glucose 380 H* 345 H 153 H 12/03/24 07:06 POC Glucose 127 H Assessment and Plan (1) Unwitnessed fall: Status: Acute Plan 79-year-old female resident of [facility] with medical history of Alzheimer's dementia, depression, type 2 diabetes mellitus, atrial fibrillation (on Eliquis), essential hypertension, chronic kidney disease, GARY and Parkinson's disease here with # unwitnessed fall Tele monitor no arrhythmia, EKG showed no acute ischemic changes, stable blood pressure, CT head showed no acute intracranial abnormality, likely mechanical fall. # elevated high sensitivity troponin I - initial high sensitivity troponin I was 18.1 > 30.9 > 44, remains flat, no chest pain,EKG does not show any acute ischemic changes, continue Eliquis, metoprolol. # urinary tract infection -urinalysis reveals glucosuria with small leukocyte esterase and 6-10 WBCs/HPF with a 4+ bacteria Blood cultures x2 negative, urine culture grew aerococcus urinae on IV ceftriaxone started on 11/26, transitioned to po ceftin. Stop abx 12/03 # likely acute fracture of the neck of the left humerus -due to a fall, x-ray showed question old humeral fracture, due to pain and limited range of motion will treat as acute fracture -seen by orthopedic they recommend sling and allow the arm to hang down while out of sling, no active range of motion away from body of the left shoulder, they recommend no acute orthopedic intervention, outpatient follow-up in office, continue p.r.n. analgesics # type 2 diabetes mellitus with hyperglycemia -stable blood sugar, continue glipizide and hold metformin, monitor blood sugar daily, ISS # hypomagnesemia -serum magnesium was low at 1.4, repleted and improved to 1.7 # acute hypokalemia repleted and improved to 3.8 # elevated serum lactic acid -initial lactic acid was elevated at 3.1 but has normalized and is down to 1.6, likely due to metformin and dehydration. # atrial fibrillation -in normal sinus rhythm,continue oral metoprolol and Eliquis # Parkinson's disease -asymptomatic,resume Sinemet 1 tablet t.i.d. # Alzheimer's dementia appears to be at her baseline/ambulates with a cane, lives at [facility] # bilateral foot burning/pain likely due to neuropathy on gabapentin DVT: On Eliquis CODE STATUS: Full code Disposition resident of [facility], seen by Physical therapy they recommend short-term rehab patient unable to ambulate due to pain and rigidity Patient will require continued inpatient hospitalization for safe disposition Quality Stroke Does the patient have a stroke diagnosis?: No VTE Prior VTE?: No VTE Risk Level:: Medical - moderate - high VTE Device Contraindication: Treatment Not Indicated VTE Drug Contraindication: Treatment Not Indicated
[2024-12-03 11:33] LABS: Glucose, Whole Blood 250 mg/dL (60-115)
[2024-12-03] MEDS: Insulin Lispro 100 UNIT/ML 3 ML VIAL SUBCUT ×2 (12:33→15:54)
--- NOTE | 2024-12-03 15:45 | MHC.CM.PN ---
Addendum entered by Elida Vang RN 12/03/24 16:04: [facility]. Original Note: EMR REVIEWED, PT STR BED SEARCH LIMITED TO FACILITIES CONTRACTED BY [facility] REQUESTING UPDATES, SNF REFERRAL UPDATED, PT'S HCP DID NOT WANT [facility], CM WILL CONT TO FOLLOW DC NEEDS.
[2024-12-03 16:04] LABS: Glucose, Whole Blood 260 mg/dL (60-115)
[2024-12-03 19:34] LABS: Glucose, Whole Blood 120 mg/dL (60-115)
[2024-12-03] MEDS: Mirtazapine 15 MG TABLET PO (21:25)
[2024-12-04] VITALS (7 sets, daily range): BP systolic 110–156; BP diastolic 57–91; PULSE 65–78; RESP 16–20; TEMP 36.3–36.8; O2SAT 94–99
[2024-12-04] MEDS: Acetaminophen 325 MG TABLET 650 MG PO (00:18)
[2024-12-04] MEDS: cefuroxime axetiL 250 MG TABLET PO (04:54)
[2024-12-04] MEDS: Omeprazole 20 MG CAPSULE.DR PO ×2 (04:54→15:06)
[2024-12-04 07:22] LABS: Glucose, Whole Blood 121 mg/dL (60-115)
[2024-12-04] MEDS: Metoprolol Succinate ER 25 MG TAB.ER.24H PO (09:03)
[2024-12-04] MEDS: glipiZIDE XL 5 MG TAB.ER.24 PO (09:03)
[2024-12-04] MEDS: Docusate Sodium 100 MG CAPSULE PO (09:03)
[2024-12-04] MEDS: Loratadine 10 MG TABLET PO (09:03)
[2024-12-04] MEDS: Gabapentin 100 MG CAPSULE PO ×2 (09:03→21:39)
[2024-12-04] MEDS: Apixaban 2.5 MG TABLET PO ×2 (09:03→21:39)
[2024-12-04] MEDS: traZODone HCL 25 MG HALFTAB PO ×2 (09:04→21:39)
[2024-12-04] MEDS: Carbidopa/Levodopa 25/100 TABLET 1 TAB PO ×3 (09:04→21:39)
[2024-12-04] MEDS: metFORMIN HCl 500 MG TABLET PO ×2 (09:04→16:32)
[2024-12-04] MEDS: Milk of Magnesia 30 ML ORAL.SUSP PO (09:04)
[2024-12-04] MEDS: Fluticasone Propionate Nasal 16 GM SPRAY 1 SPRAY NOSTRIL-B ×2 (10:25→21:43)
[2024-12-04] MEDS: 0.9 % Sodium Chloride Flush 3 ML SYRINGE IVFLUSH ×2 (10:26→16:35)
[2024-12-04] MEDS: polyethylene glycoL 3350 17 GM POWD.PACK PO (10:28)
[2024-12-04 11:03] LABS: Glucose, Whole Blood 252 mg/dL (60-115)
[2024-12-04] MEDS: Insulin Lispro 100 UNIT/ML 3 ML VIAL SUBCUT ×3 (11:41→21:40)
--- NOTE | 2024-12-04 13:48 | HO.PM.IMPN ---
Subjective Subjective Date of Service: 12/04/24 Interval History: no compliants but ROS limited by dementia Review of Systems Review of Systems: Yes Unobtainable due to mental status Physical Exam Vital Signs: Vital Signs: Last Vital Signs Temp 97.6 F 12/04/24 10:54 Pulse 73 12/04/24 10:54 Resp 16 12/04/24 10:54 BP 120/58 L 12/04/24 10:54 Pulse Ox 98 12/04/24 10:54 O2 Del Method Room Air 12/04/24 10:54 BMI result Body Mass Index 20.6 Gen: in no acute distress HEENT: sclera anicteric, moist mucus membranes Neck: supple Lungs: clear to auscultation bilaterally Heart: regular rate and rhythm, no murmurs Abd: soft, non-tender, non-distended Ext: no edema, LUE in sling Skin: warm/well-perfused Neuro: alert, unable to assess orientation Psych: impaired insight Objective Data Active Medications Acetaminophen (Acetaminophen 325 Mg Tablet) 650 mg PO Q6H PRN PRN Reason: Pain, Mild 1-3,fever,headache Last Admin: 12/04/24 00:18 Dose: 650 mg Documented By: SWAPNA Al Hydroxide/Mg Hydroxide (Magnesium Hydrox/Alum Hydrox 30 Ml Oral.Susp) 30 ml PO Q4H PRN PRN Reason: Heartburn Apixaban (Apixaban 2.5 Mg Tablet) 2.5 mg PO BID [facility] Last Admin: 12/04/24 09:03 Dose: 2.5 mg Documented By: WOLF Atorvastatin Calcium (Atorvastatin Calcium 40 Mg Tablet) 40 mg PO BEDTIME [facility] Last Admin: 12/03/24 21:26 Dose: Not Given Documented By: SWAPNA Non-Admin Reason: per med allergy list Calcium Carbonate (Calcium Carbonate 750 Mg Tab.Chew) 750 mg PO Q4H PRN PRN Reason: Heartburn Carbidopa/Levodopa (Carbidopa/Levodopa 25/100 Tablet) 1 tab PO TID [facility] Last Admin: 12/04/24 09:04 Dose: 1 tab Documented By: WOLF Cefuroxime Axetil (Cefuroxime Axetil 250 Mg Tablet) 250 mg PO Q12H [facility] Last Admin: 12/04/24 04:54 Dose: 250 mg Documented By: SWAPNA Dextrose (Dextrose 50 % 25 Gm/50 Ml Syringe) 25 gm IVPUSH Q15M PRN; Protocol PRN Reason: per Hypoglycemia Standing Ord. Docusate Sodium (Docusate Sodium 100 Mg Capsule) 100 mg PO DAILY [facility] Last Admin: 12/04/24 09:03 Dose: 100 mg Documented By: WOLF Fluticasone Propionate (Fluticasone Propionate Nasal 16 Gm [place]) 1 spray NOSTRIL-B BID [facility] Last Admin: 12/04/24 10:25 Dose: 1 spray Documented By: WOLF Gabapentin (Gabapentin 100 Mg Capsule) 100 mg PO BID [facility] Last Admin: 12/04/24 09:03 Dose: 100 mg Documented By: WOLF Glipizide (Glipizide Xl 5 Mg Tab.Er.24) 5 mg PO DAILY [facility] Last Admin: 12/04/24 09:03 Dose: 5 mg Documented By: WOLF Glucose (Glucose Gel 15 Gm Gel..Gram.) 15 gm PO Q15M PRN; Protocol PRN Reason: per Hypoglycemia Standing Ord. Insulin Human Lispro (Insulin Lispro 100 Unit/Ml 3 Ml Vial) 0 unit SUBCUT QIDACHS [facility]; Protocol Last Admin: 12/04/24 11:41 Dose: 6 unit Documented By: JOHANA Loratadine (Loratadine 10 Mg Tablet) 10 mg PO DAILY [facility] Last Admin: 12/04/24 09:03 Dose: 10 mg Documented By: WOLF Magnesium Hydroxide (Milk Of Magnesia 30 Ml Oral.Susp) 30 ml PO DAILY PRN PRN Reason: Constipation Last Admin: 12/04/24 09:04 Dose: 30 ml Documented By: WOLF Melatonin (Melatonin 3 Mg Tablet) 6 mg PO BEDTIME PRN PRN Reason: Insomnia Last Admin: 11/29/24 23:07 Dose: 6 mg Documented By: DAGMAR Metformin HCl (Metformin Hcl 500 Mg Tablet) 500 mg PO BIDWM [facility] Last Admin: 12/04/24 09:04 Dose: 500 mg Documented By: WOLF Metoprolol Succinate (Metoprolol Succinate Er 25 Mg Tab.Er.24h) 25 mg PO DAILY [facility]; Protocol Last Admin: 12/04/24 09:03 Dose: 25 mg Documented By: WOLF Mirtazapine (Mirtazapine 15 Mg Tablet) 15 mg PO BEDTIME [facility] Last Admin: 12/03/24 21:25 Dose: 15 mg Documented By: SWAPNA Nitroglycerin (Nitroglycerin 0.4 Mg Tab.Subl) 0.4 mg SUBLINGUAL Q5MX3 PRN PRN Reason: Chest Pain Omeprazole (Omeprazole 20 Mg Capsule.Dr) 20 mg PO BID@0630,1430 [facility] Last Admin: 12/04/24 04:54 Dose: 20 mg Documented By: SWAPNA Ondansetron HCl (Ondansetron Hcl 4 Mg/2 Ml Vial) 4 mg IVPUSH Q8H PRN PRN Reason: Nausea and Vomiting Polyethylene Glycol (Polyethylene Glycol 3350 17 Gm Powd.Pack) 17 gm PO DAILY [facility] Last Admin: 12/04/24 10:28 Dose: 17 gm Documented By: WOLF Senna (Sennosides 8.6 Mg Tablet) 17.2 mg PO BEDTIME PRN PRN Reason: Constipation Sodium Chloride (0.9 % Sodium Chloride Flush 3 Ml Syringe) 3 ml IVFLUSH QSHIFT [facility] Last Admin: 12/04/24 10:26 Dose: 3 ml Documented By: WOLF Trazodone HCl (Trazodone Hcl 25 Mg Halftab) 25 mg PO BID [facility] Last Admin: 12/04/24 09:04 Dose: 25 mg Documented By: WOLF Labs 11/27/24 04:26 11/28/24 07:02 Labs: Laboratory Results - last 24 hr 12/03/24 12/03/24 12/04/24 15:55 19:29 07:18 POC Glucose 260 H 120 H 121 H 12/04/24 10:58 POC Glucose 252 H Assessment and Plan (1) Unwitnessed fall: Status: Acute Plan d9 for 79yo F resident of [facility] with Alzheimer dementia, depression, DM2, AF on apixaban, HTN, CKD, GARY, and Parkinsonism admitted after unwitnessed fall, found to have lactic acidosis, hypomagnesemia, elevated troponin, UTI, and left humeral neck fracture unwitnessed fall - no arrhythmia on telemetry [will d/c], EKG without ischemic changes, stable BP, CT with no acute intracranial abnormality; likely mechanical fall troponin elevation - went from 18.1 to 30.9 to 44; remains flat; no reported chest pain and no ischemic EKG changes Aerococcus urinae UTI - ceftriaxone 11/26-11/30, cefuroxime 11/30-12/03 likely acute fracture of neck of L humerus - X-ray showed question of old humeral fracture; due to pain and limited ROM will treat as acute fx. Seen by Orthopedics and recommended sling; allow arm to hang down when out of sling; no active ROM away from body of L shoulder; no acute intervention indicated; outpt f/u in office and prn analgesics in meanwhile paroxysmal AF - continue apixaban + metoprolol succinate DM2 with hyperglycemia - continue MTF + GPZ + kenji-dose lispro hypoMg hypoK - repleted acute lactic acidosis -initial lactic acid was elevated at 3.1 but has normalized and is down to 1.6; was likely due to metformin and dehydration. Parkinsons disaese - continue Sinemet Alzheimer dementia - appears to be at baseline; ambulates with cane - continue trazodone + mirtazapine neuropathy - gabapentin VTE ppx - apixaban dispo - PT recommends STR due to inbility to ambulate due to pain and rigidity In my clinical judgment, the patient requires continued inpatient hospitalization for the following reasons: placement Total time managing care of this patient today: 35 minutes. Quality Stroke Does the patient have a stroke diagnosis?: No VTE Prior VTE?: No VTE Risk Level:: Medical - moderate - high VTE Device Contraindication: Treatment Not Indicated VTE Drug Contraindication: Treatment Not Indicated
--- NOTE | 2024-12-04 15:20 | MHC.CM.PN ---
Addendum entered by Lis Baezerland 12/04/24 16:18: [facility], they provided additional contracted SNF's, referral updated, awaiting bed offer. Addendum entered by Lis Baezerland 12/04/24 15:31: This CM placed call to pts [facility], message left with director, re: attempting to inquire about additional contracted facilities with her. Original Note: EMR reviewed and per MD rounds, pt is medically cleared pending STR placement. Bed offer received from [facility] today. This CM called and spoke with pts [facility] to discuss discharge plans. Per [facility] was the one facility that he did not want her going to. IMM given 12/04, and [facility] has decided to appeal the discharge. After the appeal was filed this CM received notification from [facility] liaison Jaqueline, that they can no longer accept the pt due to an investigation taking place from the previous time the pt was there. Per Jaqueline she was not made aware of this sooner. STR referral expanded, awaiting bed offer. This CM placed a call to pts [facility] to attempt discussion of her returning there, message left with the nursing department, awaiting return call. May have to plan for pt to return to [facility] with [facility] services.
[2024-12-04 16:07] LABS: Glucose, Whole Blood 179 mg/dL (60-115)
[2024-12-04 21:06] LABS: Glucose, Whole Blood 156 mg/dL (60-115)
[2024-12-04] MEDS: Atorvastatin Calcium 40 MG TABLET PO (21:39)
[2024-12-04] MEDS: Mirtazapine 15 MG TABLET PO (21:39)
[2024-12-04] MEDS: Melatonin 3 MG TABLET 6 MG PO (22:36)
[2024-12-05 04:00] VITALS: BP 145/65; PULSE 60; RESP 20; TEMP 36.1; O2SAT 98
[2024-12-05] MEDS: Omeprazole 20 MG CAPSULE.DR PO ×2 (05:09→15:34)
[2024-12-05 07:40] VITALS: BP 159/68; PULSE 68; RESP 10; TEMP 36.5; O2SAT 98
[2024-12-05 07:49] LABS: Glucose, Whole Blood 141 mg/dL (60-115)
[2024-12-05] MEDS: polyethylene glycoL 3350 17 GM POWD.PACK PO (08:15)
[2024-12-05] MEDS: Carbidopa/Levodopa 25/100 TABLET 1 TAB PO ×3 (08:15→20:00)
[2024-12-05] MEDS: Metoprolol Succinate ER 25 MG TAB.ER.24H PO (08:15)
[2024-12-05] MEDS: Docusate Sodium 100 MG CAPSULE PO (08:15)
[2024-12-05] MEDS: Loratadine 10 MG TABLET PO (08:15)
[2024-12-05] MEDS: Apixaban 2.5 MG TABLET PO ×2 (08:15→20:00)
[2024-12-05] MEDS: Gabapentin 100 MG CAPSULE PO ×2 (08:15→20:00)
[2024-12-05] MEDS: glipiZIDE XL 5 MG TAB.ER.24 PO (08:15)
[2024-12-05] MEDS: metFORMIN HCl 500 MG TABLET PO ×2 (08:15→15:33)
[2024-12-05] MEDS: traZODone HCL 25 MG HALFTAB PO ×2 (08:15→20:00)
[2024-12-05] MEDS: Fluticasone Propionate Nasal 16 GM SPRAY 1 SPRAY NOSTRIL-B ×2 (08:24→21:56)
[2024-12-05] MEDS: 0.9 % Sodium Chloride Flush 3 ML SYRINGE IVFLUSH ×2 (08:30→15:34)
[2024-12-05 08:47] LABS: Creatinine Clr Calc Pharmacy 34.3; Estimated Glomerular Filt Rate > 60
[2024-12-05 11:36] LABS: Glucose, Whole Blood 223 mg/dL (60-115)
[2024-12-05 11:43] VITALS: BP 153/67; PULSE 69; RESP 12; TEMP 36.2; O2SAT 92
--- NOTE | 2024-12-05 11:48 | MHC.CM.PN ---
PER CM NOTES, REFERRALS ARE OUT FOR STR, HOWEVER THERE ARE NO BED OFFERS CM LEFT A MESSAGE FOR PTS [facility] DIRECTOR YESTERDAY TO DISCUSS PTS RETURN WITH [facility] CM REQUESTED PT BE SEEN BY PHYSICAL THERAPY TODAY TO DETERMINE IF SHE WAS NEAR BL PER PT, PT WAS MAX ASSIST X 2 TO GET TO CHAIR CM WILL CONTINUE TO UPDATE STR REFERRALS, HOWEVER PLAN MAY NEED TO BE DEVELOPED FOR INCREASED PT HERE TO GET HER BACK TO [facility]
[2024-12-05] MEDS: Insulin Lispro 100 UNIT/ML 3 ML VIAL SUBCUT ×2 (11:49→20:01)
--- NOTE | 2024-12-05 14:03 | P.PNIM_ITS ---
Subjective Subjective Date of Service: 12/05/24 Interval History: Complaining of heart pain and pointing towards left shoulder, no acute events overnight, tolerating diet no nausea, no vomiting or diarrhea. Review of Systems Limited review of system due to mental status. Physical Exam 2 Vital Signs: Vital Signs: Last Vital Signs Temp 97.1 F 12/05/24 11:43 Pulse 69 12/05/24 11:43 Resp 12 12/05/24 11:43 BP 153/67 H 12/05/24 11:43 Pulse Ox 92 12/05/24 11:43 O2 Del Method Room Air 12/05/24 11:43 BMI result Body Mass Index 20.6 Const: Other: General in no acute distress. Neck no JVD. CVS regular rate rhythm, Respiratory lungs clear to auscultation, no respiratory distress. Gastrointestinal abdomen soft, non tender, bowel sounds audible Extremities no edema. Left shoulder limited range of motion due to pain/in sling Lower extremity no swelling, no redness Neuro speech clear. Poor insight Objective Data Active Medications Acetaminophen (Acetaminophen 325 Mg Tablet) 650 mg PO Q6H PRN PRN Reason: Pain, Mild 1-3,fever,headache Last Admin: 12/04/24 00:18 Dose: 650 mg Documented By: SWAPNA Al Hydroxide/Mg Hydroxide (Magnesium Hydrox/Alum Hydrox 30 Ml Oral.Susp) 30 ml PO Q4H PRN PRN Reason: Heartburn Apixaban (Apixaban 2.5 Mg Tablet) 2.5 mg PO BID [facility] Last Admin: 12/05/24 08:15 Dose: 2.5 mg Documented By: SHREYAS Atorvastatin Calcium (Atorvastatin Calcium 40 Mg Tablet) 40 mg PO BEDTIME [facility] Last Admin: 12/04/24 21:39 Dose: 40 mg Documented By: STEVE Calcium Carbonate (Calcium Carbonate 750 Mg Tab.Chew) 750 mg PO Q4H PRN PRN Reason: Heartburn Carbidopa/Levodopa (Carbidopa/Levodopa 25/100 Tablet) 1 tab PO TID [facility] Last Admin: 12/05/24 08:15 Dose: 1 tab Documented By: SHREYAS Dextrose (Dextrose 50 % 25 Gm/50 Ml Syringe) 25 gm IVPUSH Q15M PRN; Protocol PRN Reason: per Hypoglycemia Standing Ord. Docusate Sodium (Docusate Sodium 100 Mg Capsule) 100 mg PO DAILY [facility] Last Admin: 12/05/24 08:15 Dose: 100 mg Documented By: SHREYAS Fluticasone Propionate (Fluticasone Propionate Nasal 16 Gm [place]) 1 spray NOSTRIL-B BID [facility] Last Admin: 12/05/24 08:24 Dose: 1 spray Documented By: SHREYAS Gabapentin (Gabapentin 100 Mg Capsule) 100 mg PO BID [facility] Last Admin: 12/05/24 08:15 Dose: 100 mg Documented By: SHREYAS Glipizide (Glipizide Xl 5 Mg Tab.Er.24) 5 mg PO DAILY [facility] Last Admin: 12/05/24 08:15 Dose: 5 mg Documented By: SHREYAS Glucose (Glucose Gel 15 Gm Gel..Gram.) 15 gm PO Q15M PRN; Protocol PRN Reason: per Hypoglycemia Standing Ord. Insulin Human Lispro (Insulin Lispro 100 Unit/Ml 3 Ml Vial) 0 unit SUBCUT QIDACHS [facility]; Protocol Last Admin: 12/05/24 11:49 Dose: 4 unit Documented By: SHREYAS Loratadine (Loratadine 10 Mg Tablet) 10 mg PO DAILY [facility] Last Admin: 12/05/24 08:15 Dose: 10 mg Documented By: SHREYAS Magnesium Hydroxide (Milk Of Magnesia 30 Ml Oral.Susp) 30 ml PO DAILY PRN PRN Reason: Constipation Last Admin: 12/04/24 09:04 Dose: 30 ml Documented By: WOLF Melatonin (Melatonin 3 Mg Tablet) 6 mg PO BEDTIME PRN PRN Reason: Insomnia Last Admin: 12/04/24 22:36 Dose: 6 mg Documented By: STEVE Metformin HCl (Metformin Hcl 500 Mg Tablet) 500 mg PO BIDWM [facility] Last Admin: 12/05/24 08:15 Dose: 500 mg Documented By: SHREYAS Metoprolol Succinate (Metoprolol Succinate Er 25 Mg Tab.Er.24h) 25 mg PO DAILY [facility]; Protocol Last Admin: 12/05/24 08:15 Dose: 25 mg Documented By: SHREYAS Mirtazapine (Mirtazapine 15 Mg Tablet) 15 mg PO BEDTIME [facility] Last Admin: 12/04/24 21:39 Dose: 15 mg Documented By: STEVE Nitroglycerin (Nitroglycerin 0.4 Mg Tab.Subl) 0.4 mg SUBLINGUAL Q5MX3 PRN PRN Reason: Chest Pain Omeprazole (Omeprazole 20 Mg Capsule.Dr) 20 mg PO BID@0630,1430 [facility] Last Admin: 12/05/24 05:09 Dose: 20 mg Documented By: STEVE Ondansetron HCl (Ondansetron Hcl 4 Mg/2 Ml Vial) 4 mg IVPUSH Q8H PRN PRN Reason: Nausea and Vomiting Polyethylene Glycol (Polyethylene Glycol 3350 17 Gm Powd.Pack) 17 gm PO DAILY [facility] Last Admin: 12/05/24 08:15 Dose: 17 gm Documented By: SHREYAS Senna (Sennosides 8.6 Mg Tablet) 17.2 mg PO BEDTIME PRN PRN Reason: Constipation Sodium Chloride (0.9 % Sodium Chloride Flush 3 Ml Syringe) 3 ml IVFLUSH QSHIFT [facility] Last Admin: 12/05/24 08:30 Dose: 3 ml Documented By: SHREYAS Trazodone HCl (Trazodone Hcl 25 Mg Halftab) 25 mg PO BID [facility] Last Admin: 12/05/24 08:15 Dose: 25 mg Documented By: SHREYAS Labs 11/27/24 04:26 12/05/24 07:30 Labs: Laboratory Results - last 24 hr 12/04/24 12/04/24 12/05/24 15:54 21:02 07:30 Estim Creat Clear Calc 34.3 Estimated GFR > 60 POC Glucose 179 H 156 H 12/05/24 12/05/24 07:38 11:32 Estim Creat Clear Calc Estimated GFR POC Glucose 141 H 223 H Assessment and Plan (1) Type 2 diabetes mellitus with hyperglycemia: Status: Acute (2) Fracture of neck of left humerus: Status: Acute Plan 79yo F resident of [facility] with Alzheimer dementia, depression, DM2, AF on apixaban, HTN, CKD, GARY, and Parkinsonism admitted after unwitnessed fall, found to have lactic acidosis, hypomagnesemia, elevated troponin, UTI, and left humeral neck fracture unwitnessed fall - no arrhythmia on telemetry , EKG without ischemic changes, stable BP, CT with no acute intracranial abnormality; likely mechanical fall troponin elevation - went from 18.1 to 30.9 to 44; remains flat; no reported chest pain and no ischemic EKG changes Aerococcus urinae UTI - finished course of antibiotic with ceftriaxone 11/26-11/30, cefuroxime 11/30-12/03 likely acute fracture of neck of L humerus X-ray showed question of old humeral fracture; due to pain and limited ROM will treat as acute fx. Seen by Orthopedics and recommended sling; allow arm to hang down when out of sling; no active ROM away from body of L shoulder; no acute intervention indicated; Will place on scheduled pain medication Ultram 25 mg and Tylenol 650 t.i.d. outpt f/u in office and prn analgesics in meanwhile paroxysmal AF - continue apixaban + metoprolol succinate DM2 with hyperglycemia - continue MTF + GPZ + kenji-dose lispro hypoMg hypoK - repleted acute lactic acidosis -initial lactic acid was elevated at 3.1 but has normalized and is down to 1.6; was likely due to metformin and dehydration. Parkinsons disaese - continue Sinemet Alzheimer dementia - appears to be at baseline; ambulates with cane - continue trazodone + mirtazapine neuropathy - gabapentin VTE ppx - apixaban dispo - PT recommends STR due to inbility to ambulate due to pain and rigidity In my clinical judgment, the patient requires continued inpatient hospitalization for the following reasons: placement Quality Stroke Does the patient have a stroke diagnosis?: No VTE Prior VTE?: No VTE Risk Level:: Medical - moderate - high VTE Device Contraindication: Treatment Not Indicated VTE Drug Contraindication: Treatment Not Indicated
[2024-12-05 15:03] VITALS: BP 119/54; PULSE 78; RESP 20; O2SAT 99
[2024-12-05] MEDS: traMADoL HCL 50 MG TABLET 25 MG PO ×2 (15:32→20:00)
[2024-12-05] MEDS: Acetaminophen 325 MG TABLET 650 MG PO ×2 (15:33→19:58)
[2024-12-05 17:04] LABS: Glucose, Whole Blood 140 mg/dL (60-115)
[2024-12-05 19:12] VITALS: BP 121/56; PULSE 68; RESP 18; TEMP 37; O2SAT 99
[2024-12-05 19:50] LABS: Glucose, Whole Blood 170 mg/dL (60-115)
[2024-12-05] MEDS: Atorvastatin Calcium 40 MG TABLET PO (19:58)
[2024-12-05] MEDS: Mirtazapine 15 MG TABLET PO (20:00)
[2024-12-05] MEDS: Melatonin 3 MG TABLET 6 MG PO (21:57)
[2024-12-05 23:11] VITALS: BP 109/56; PULSE 56; RESP 18; TEMP 36.4; O2SAT 97
[2024-12-06 03:14] VITALS: BP 150/67; PULSE 69; RESP 18; TEMP 35.9; O2SAT 99
[2024-12-06] MEDS: Omeprazole 20 MG CAPSULE.DR PO ×2 (05:12→14:30)
[2024-12-06] MEDS: Acetaminophen 325 MG TABLET 650 MG PO ×3 (05:38→20:03)
[2024-12-06 07:13] VITALS: BP 131/65; PULSE 64; RESP 18; TEMP 36.1; O2SAT 100
[2024-12-06 07:36] LABS: Glucose, Whole Blood 151 mg/dL (60-115)
[2024-12-06] MEDS: Insulin Lispro 100 UNIT/ML 3 ML VIAL SUBCUT ×3 (08:13→16:54)
[2024-12-06] MEDS: Fluticasone Propionate Nasal 16 GM SPRAY 1 SPRAY NOSTRIL-B ×2 (08:13→20:06)
[2024-12-06] MEDS: traMADoL HCL 50 MG TABLET 25 MG PO ×3 (08:14→20:02)
[2024-12-06] MEDS: Docusate Sodium 100 MG CAPSULE PO (08:16)
[2024-12-06] MEDS: Metoprolol Succinate ER 25 MG TAB.ER.24H PO (08:16)
[2024-12-06] MEDS: Gabapentin 100 MG CAPSULE PO ×2 (08:16→20:02)
[2024-12-06] MEDS: traZODone HCL 25 MG HALFTAB PO ×2 (08:16→20:03)
[2024-12-06] MEDS: Loratadine 10 MG TABLET PO (08:16)
[2024-12-06] MEDS: glipiZIDE XL 5 MG TAB.ER.24 PO (08:16)
[2024-12-06] MEDS: 0.9 % Sodium Chloride Flush 3 ML SYRINGE IVFLUSH ×2 (08:17→14:41)
[2024-12-06] MEDS: polyethylene glycoL 3350 17 GM POWD.PACK PO (08:17)
[2024-12-06] MEDS: Carbidopa/Levodopa 25/100 TABLET 1 TAB PO ×3 (08:17→20:04)
[2024-12-06] MEDS: Apixaban 2.5 MG TABLET PO ×2 (08:17→20:04)
[2024-12-06] MEDS: metFORMIN HCl 500 MG TABLET PO ×2 (08:17→16:54)
[2024-12-06 11:21] VITALS: BP 115/65; PULSE 61; RESP 20; TEMP 36.4; O2SAT 100
[2024-12-06 11:32] LABS: Glucose, Whole Blood 180 mg/dL (60-115)
--- NOTE | 2024-12-06 11:34 | HO.PM.IMPN ---
Subjective Subjective Date of Service: 12/06/24 Interval History: Being followed fall/left humeral fracture. Resident of [facility] and memory Care dementia facility Eating breakfast , offers no acute complaints. Review of Systems Limited ros due to dementia. Physical Exam Vital Signs: Vital Signs: Last Vital Signs Temp 97.5 F 12/06/24 11:21 Pulse 61 12/06/24 11:21 Resp 20 12/06/24 11:21 BP 115/65 12/06/24 11:21 Pulse Ox 100 12/06/24 11:21 O2 Del Method Room Air 12/06/24 11:21 BMI result Body Mass Index 20.6 Const: Other: General in no acute distress. Neck no JVD. CVS regular rate rhythm, Respiratory lungs clear to auscultation, no respiratory distress. Gastrointestinal abdomen soft, non tender, bowel sounds audible Extremities no edema. Left shoulder limited range of motion due to pain Lower extremity no swelling, no redness Neuro speech clear. Poor insight Objective Data Active Medications Acetaminophen (Acetaminophen 325 Mg Tablet) 650 mg PO Q6H PRN PRN Reason: Pain, Mild 1-3,fever,headache Last Admin: 12/04/24 00:18 Dose: 650 mg Documented By: SWAPNA Acetaminophen (Acetaminophen 325 Mg Tablet) 650 mg PO TID [facility] Last Admin: 12/06/24 05:38 Dose: 650 mg Documented By: STEVE Al Hydroxide/Mg Hydroxide (Magnesium Hydrox/Alum Hydrox 30 Ml Oral.Susp) 30 ml PO Q4H PRN PRN Reason: Heartburn Apixaban (Apixaban 2.5 Mg Tablet) 2.5 mg PO BID [facility] Last Admin: 12/06/24 08:17 Dose: 2.5 mg Documented By: SHREYAS Atorvastatin Calcium (Atorvastatin Calcium 40 Mg Tablet) 40 mg PO BEDTIME [facility] Last Admin: 12/05/24 19:58 Dose: 40 mg Documented By: STEVE Calcium Carbonate (Calcium Carbonate 750 Mg Tab.Chew) 750 mg PO Q4H PRN PRN Reason: Heartburn Carbidopa/Levodopa (Carbidopa/Levodopa 25/100 Tablet) 1 tab PO TID [facility] Last Admin: 12/06/24 08:17 Dose: 1 tab Documented By: SHREYAS Dextrose (Dextrose 50 % 25 Gm/50 Ml Syringe) 25 gm IVPUSH Q15M PRN; Protocol PRN Reason: per Hypoglycemia Standing Ord. Docusate Sodium (Docusate Sodium 100 Mg Capsule) 100 mg PO DAILY [facility] Last Admin: 12/06/24 08:16 Dose: 100 mg Documented By: SHREYAS Fluticasone Propionate (Fluticasone Propionate Nasal 16 Gm [place]) 1 spray NOSTRIL-B BID [facility] Last Admin: 12/06/24 08:13 Dose: 1 spray Documented By: SHREYAS Gabapentin (Gabapentin 100 Mg Capsule) 100 mg PO BID [facility] Last Admin: 12/06/24 08:16 Dose: 100 mg Documented By: SHREYAS Glipizide (Glipizide Xl 5 Mg Tab.Er.24) 5 mg PO DAILY [facility] Last Admin: 12/06/24 08:16 Dose: 5 mg Documented By: SHREYAS Glucose (Glucose Gel 15 Gm Gel..Gram.) 15 gm PO Q15M PRN; Protocol PRN Reason: per Hypoglycemia Standing Ord. Insulin Human Lispro (Insulin Lispro 100 Unit/Ml 3 Ml Vial) 0 unit SUBCUT QIDACHS [facility]; Protocol Last Admin: 12/06/24 08:13 Dose: 2 unit Documented By: SHREYAS Loratadine (Loratadine 10 Mg Tablet) 10 mg PO DAILY [facility] Last Admin: 12/06/24 08:16 Dose: 10 mg Documented By: SHREYAS Magnesium Hydroxide (Milk Of Magnesia 30 Ml Oral.Susp) 30 ml PO DAILY PRN PRN Reason: Constipation Last Admin: 12/04/24 09:04 Dose: 30 ml Documented By: WOLF Melatonin (Melatonin 3 Mg Tablet) 6 mg PO BEDTIME PRN PRN Reason: Insomnia Last Admin: 12/05/24 21:57 Dose: 6 mg Documented By: STEVE Metformin HCl (Metformin Hcl 500 Mg Tablet) 500 mg PO BIDWM [facility] Last Admin: 12/06/24 08:17 Dose: 500 mg Documented By: SHREYAS Metoprolol Succinate (Metoprolol Succinate Er 25 Mg Tab.Er.24h) 25 mg PO DAILY [facility]; Protocol Last Admin: 12/06/24 08:16 Dose: 25 mg Documented By: SHREYAS Mirtazapine (Mirtazapine 15 Mg Tablet) 15 mg PO BEDTIME [facility] Last Admin: 12/05/24 20:00 Dose: 15 mg Documented By: STEVE Nitroglycerin (Nitroglycerin 0.4 Mg Tab.Subl) 0.4 mg SUBLINGUAL Q5MX3 PRN PRN Reason: Chest Pain Omeprazole (Omeprazole 20 Mg Capsule.Dr) 20 mg PO BID@0630,1430 [facility] Last Admin: 12/06/24 05:12 Dose: 20 mg Documented By: STEVE Ondansetron HCl (Ondansetron Hcl 4 Mg/2 Ml Vial) 4 mg IVPUSH Q8H PRN PRN Reason: Nausea and Vomiting Polyethylene Glycol (Polyethylene Glycol 3350 17 Gm Powd.Pack) 17 gm PO DAILY [facility] Last Admin: 12/06/24 08:17 Dose: 17 gm Documented By: SHREYAS Senna (Sennosides 8.6 Mg Tablet) 17.2 mg PO BEDTIME PRN PRN Reason: Constipation Sodium Chloride (0.9 % Sodium Chloride Flush 3 Ml Syringe) 3 ml IVFLUSH QSHIFT [facility] Last Admin: 12/06/24 08:17 Dose: 3 ml Documented By: SHREYAS Tramadol HCl (Tramadol Hcl 50 Mg Tablet) 25 mg PO TID [facility] Last Admin: 12/06/24 08:14 Dose: 25 mg Documented By: SHREYAS Trazodone HCl (Trazodone Hcl 25 Mg Halftab) 25 mg PO BID [facility] Last Admin: 12/06/24 08:16 Dose: 25 mg Documented By: SHREYAS Labs 11/27/24 04:26 12/05/24 07:30 Labs: Laboratory Results - last 24 hr 12/05/24 12/05/24 12/05/24 11:32 16:59 19:42 POC Glucose 223 H 140 H 170 H 12/06/24 12/06/24 07:12 11:20 POC Glucose 151 H 180 H Assessment and Plan (1) Fracture of neck of left humerus: Status: Acute (2) Type 2 diabetes mellitus with hyperglycemia: Status: Acute (3) Elevated lactic acid level: Status: Acute (4) Hypomagnesemia: Status: Acute (5) Unwitnessed fall: Status: Acute Plan 79yo F resident of [facility] with Alzheimer dementia, depression, DM2, AF on apixaban, HTN, CKD, GARY, and Parkinsonism admitted after unwitnessed fall, found to have lactic acidosis, hypomagnesemia, elevated troponin, UTI, and left humeral neck fracture unwitnessed fall - no arrhythmia on telemetry , EKG without ischemic changes, stable BP, CT with no acute intracranial abnormality; likely mechanical fall, limited history by patient troponin elevation - went from 18.1 to 30.9 to 44; remains flat; no reported chest pain and no ischemic EKG changes Aerococcus urinae UTI - finished course of antibiotic with ceftriaxone 11/26-11/30, cefuroxime 11/30-12/03 likely acute fracture of neck of L humerus X-ray showed question of old humeral fracture; due to pain and limited ROM will treat as acute fx. Seen by Orthopedics 11/27 and recommended sling; allow arm to hang down when out of sling; no active ROM away from body of L shoulder; no acute intervention indicated; added scheduled pain medication Ultram 25 mg and Tylenol 650 t.i.d.on 12/05 outpt f/u with ortho paroxysmal AF - continue apixaban + metoprolol succinate DM2 with hyperglycemia - continue MTF + GPZ + kenji-dose lispro hypoMg hypoK - repleted acute lactic acidosis -initial lactic acid was elevated at 3.1 but has normalized and is down to 1.6; was likely due to metformin and dehydration. Parkinsons disaese - continue Sinemet Alzheimer dementia - appears to be at baseline; ambulates with cane - continue trazodone + mirtazapine neuropathy - gabapentin VTE ppx - apixaban dispo - PT recommends STR due to inbility to ambulate due to pain and rigidity In my clinical judgment, the patient requires continued inpatient hospitalization for the following reasons: placement Quality Stroke Does the patient have a stroke diagnosis?: No VTE Prior VTE?: No VTE Risk Level:: Medical - moderate - high VTE Device Contraindication: Treatment Not Indicated VTE Drug Contraindication: Treatment Not Indicated
[2024-12-06 15:03] VITALS: BP 126/70; PULSE 76; RESP 18; TEMP 36.6; O2SAT 99
[2024-12-06 16:07] LABS: Glucose, Whole Blood 153 mg/dL (60-115)
[2024-12-06 20:00] VITALS: BP 143/67; PULSE 76; RESP 16; TEMP 36.6; O2SAT 98
[2024-12-06] MEDS: Melatonin 3 MG TABLET 6 MG PO (20:02)
[2024-12-06] MEDS: Atorvastatin Calcium 40 MG TABLET PO (20:04)
[2024-12-06] MEDS: Mirtazapine 15 MG TABLET PO (20:04)
[2024-12-07] VITALS (7 sets, daily range): BP systolic 123–178; BP diastolic 57–88; PULSE 59–80; RESP 16–20; TEMP 36.1–36.6; O2SAT 94–100
[2024-12-07] MEDS: Acetaminophen 325 MG TABLET 650 MG PO ×3 (04:01→22:07)
[2024-12-07] MEDS: Omeprazole 20 MG CAPSULE.DR PO ×2 (05:50→16:00)
[2024-12-07 07:40] LABS: Glucose, Whole Blood 138 mg/dL (60-115)
[2024-12-07] MEDS: 0.9 % Sodium Chloride Flush 3 ML SYRINGE IVFLUSH ×2 (08:11→16:01)
[2024-12-07] MEDS: polyethylene glycoL 3350 17 GM POWD.PACK PO (08:12)
[2024-12-07] MEDS: Metoprolol Succinate ER 25 MG TAB.ER.24H PO (08:12)
[2024-12-07] MEDS: Carbidopa/Levodopa 25/100 TABLET 1 TAB PO ×3 (08:12→22:06)
[2024-12-07] MEDS: Gabapentin 100 MG CAPSULE PO ×2 (08:12→22:06)
[2024-12-07] MEDS: traZODone HCL 25 MG HALFTAB PO ×2 (08:12→22:06)
[2024-12-07] MEDS: metFORMIN HCl 500 MG TABLET PO ×2 (08:12→15:59)
[2024-12-07] MEDS: Docusate Sodium 100 MG CAPSULE PO (08:12)
[2024-12-07] MEDS: Loratadine 10 MG TABLET PO (08:13)
[2024-12-07] MEDS: traMADoL HCL 50 MG TABLET 25 MG PO ×3 (08:13→22:06)
[2024-12-07] MEDS: Apixaban 2.5 MG TABLET PO ×2 (08:13→22:07)
[2024-12-07] MEDS: glipiZIDE XL 5 MG TAB.ER.24 PO (08:13)
[2024-12-07] MEDS: Fluticasone Propionate Nasal 16 GM SPRAY 1 SPRAY NOSTRIL-B (08:14)
--- NOTE | 2024-12-07 09:35 | MHC.CM.PN ---
Addendum entered by Lis Mancilla 12/07/24 13:07: This CM placed another call to [facility], and spoke to their nurse Nate. Per Carin, pt was a 2 assist for weeks prior to being hospitalized, she states she believes this is the pts new baseline. Per Carin, the pt needs to be independent, able to make needs known/participate in care in order to return. Carin states she is not safe to return to their facility at this time, but if she improved with STR and returned to a more independent baseline she would be able to return there. There are currently 43 STR referrals out, with no bed offers. This CM received a call back from Dawson at [facility] Dawson was provided an update and is aware that finding a STR bed has not been successful for this pt. Dawson states he will try to work on things on his end . Original Note: This CM placed a call to pts insurance [facility], message left, awaiting return call. This CM placed a call to pts nurse Demarco at [facility], voicemail left, awaiting return call.
--- NOTE | 2024-12-07 10:22 | P.PNIM_ITS ---
Subjective Subjective Date of Service: 12/07/24 Interval History: no complaints per PT requires 2 person max assist Review of Systems Review of Systems: Yes all other systems are reviewed and are negative Physical Exam 2 Vital Signs: Vital Signs: Last Vital Signs Temp 97.0 F 12/07/24 07:44 Pulse 59 12/07/24 08:12 Resp 18 12/07/24 07:44 BP 135/64 12/07/24 08:12 Pulse Ox 100 12/07/24 07:44 O2 Del Method Room Air 12/07/24 07:44 BMI result Body Mass Index 20.6 Gen: in no acute distress HEENT: sclera anicteric, moist mucus membranes Neck: supple Lungs: clear to auscultation bilaterally Heart: regular rate and rhythm, no murmurs Abd: soft, non-tender, non-distended Ext: no edema, LUE in sling Skin: warm/well-perfused Neuro: alert, unable to assess orientation Psych: impaired insight Objective Data Active Medications Acetaminophen (Acetaminophen 325 Mg Tablet) 650 mg PO Q6H PRN PRN Reason: Pain, Mild 1-3,fever,headache Last Admin: 12/04/24 00:18 Dose: 650 mg Documented By: SWAPNA Acetaminophen (Acetaminophen 325 Mg Tablet) 650 mg PO TID [facility] Last Admin: 12/07/24 04:01 Dose: 650 mg Documented By: STEVE Al Hydroxide/Mg Hydroxide (Magnesium Hydrox/Alum Hydrox 30 Ml Oral.Susp) 30 ml PO Q4H PRN PRN Reason: Heartburn Apixaban (Apixaban 2.5 Mg Tablet) 2.5 mg PO BID [facility] Last Admin: 12/07/24 08:13 Dose: 2.5 mg Documented By: CARMEN Atorvastatin Calcium (Atorvastatin Calcium 40 Mg Tablet) 40 mg PO BEDTIME [facility] Last Admin: 12/06/24 20:04 Dose: 40 mg Documented By: STEVE Calcium Carbonate (Calcium Carbonate 750 Mg Tab.Chew) 750 mg PO Q4H PRN PRN Reason: Heartburn Carbidopa/Levodopa (Carbidopa/Levodopa 25/100 Tablet) 1 tab PO TID [facility] Last Admin: 12/07/24 08:12 Dose: 1 tab Documented By: CARMEN Dextrose (Dextrose 50 % 25 Gm/50 Ml Syringe) 25 gm IVPUSH Q15M PRN; Protocol PRN Reason: per Hypoglycemia Standing Ord. Docusate Sodium (Docusate Sodium 100 Mg Capsule) 100 mg PO DAILY [facility] Last Admin: 12/07/24 08:12 Dose: 100 mg Documented By: CARMEN Fluticasone Propionate (Fluticasone Propionate Nasal 16 Gm [place]) 1 spray NOSTRIL-B BID [facility] Last Admin: 12/07/24 08:14 Dose: 1 spray Documented By: CARMEN Gabapentin (Gabapentin 100 Mg Capsule) 100 mg PO BID [facility] Last Admin: 12/07/24 08:12 Dose: 100 mg Documented By: CARMEN Glipizide (Glipizide Xl 5 Mg Tab.Er.24) 5 mg PO DAILY [facility] Last Admin: 12/07/24 08:13 Dose: 5 mg Documented By: CARMEN Glucose (Glucose Gel 15 Gm Gel..Gram.) 15 gm PO Q15M PRN; Protocol PRN Reason: per Hypoglycemia Standing Ord. Insulin Human Lispro (Insulin Lispro 100 Unit/Ml 3 Ml Vial) 0 unit SUBCUT QIDACHS [facility]; Protocol Last Admin: 12/07/24 08:06 Dose: Not Given Documented By: CARMEN Non-Admin Reason: No Insulin Coverage Loratadine (Loratadine 10 Mg Tablet) 10 mg PO DAILY [facility] Last Admin: 12/07/24 08:13 Dose: 10 mg Documented By: CARMEN Magnesium Hydroxide (Milk Of Magnesia 30 Ml Oral.Susp) 30 ml PO DAILY PRN PRN Reason: Constipation Last Admin: 12/04/24 09:04 Dose: 30 ml Documented By: WOLF Melatonin (Melatonin 3 Mg Tablet) 6 mg PO BEDTIME PRN PRN Reason: Insomnia Last Admin: 12/06/24 20:02 Dose: 6 mg Documented By: STEVE Metformin HCl (Metformin Hcl 500 Mg Tablet) 500 mg PO BIDWM [facility] Last Admin: 12/07/24 08:12 Dose: 500 mg Documented By: CARMEN Metoprolol Succinate (Metoprolol Succinate Er 25 Mg Tab.Er.24h) 25 mg PO DAILY [facility]; Protocol Last Admin: 12/07/24 08:12 Dose: 25 mg Documented By: CARMEN Mirtazapine (Mirtazapine 15 Mg Tablet) 15 mg PO BEDTIME [facility] Last Admin: 12/06/24 20:04 Dose: 15 mg Documented By: STEVE Nitroglycerin (Nitroglycerin 0.4 Mg Tab.Subl) 0.4 mg SUBLINGUAL Q5MX3 PRN PRN Reason: Chest Pain Omeprazole (Omeprazole 20 Mg Capsule.Dr) 20 mg PO BID@0630,1430 [facility] Last Admin: 12/07/24 05:50 Dose: 20 mg Documented By: STEVE Ondansetron HCl (Ondansetron Hcl 4 Mg/2 Ml Vial) 4 mg IVPUSH Q8H PRN PRN Reason: Nausea and Vomiting Polyethylene Glycol (Polyethylene Glycol 3350 17 Gm Powd.Pack) 17 gm PO DAILY [facility] Last Admin: 12/07/24 08:12 Dose: 17 gm Documented By: CARMEN Senna (Sennosides 8.6 Mg Tablet) 17.2 mg PO BEDTIME PRN PRN Reason: Constipation Sodium Chloride (0.9 % Sodium Chloride Flush 3 Ml Syringe) 3 ml IVFLUSH QSHIFT [facility] Last Admin: 12/07/24 08:11 Dose: 3 ml Documented By: CARMEN Tramadol HCl (Tramadol Hcl 50 Mg Tablet) 25 mg PO TID [facility] Last Admin: 12/07/24 08:13 Dose: 25 mg Documented By: CARMEN Trazodone HCl (Trazodone Hcl 25 Mg Halftab) 25 mg PO BID [facility] Last Admin: 12/07/24 08:12 Dose: 25 mg Documented By: CARMEN Labs 11/27/24 04:26 12/05/24 07:30 Labs: Laboratory Results - last 24 hr 12/06/24 12/06/24 12/07/24 11:20 16:03 07:36 POC Glucose 180 H 153 H 138 H Assessment and Plan (1) Fracture of neck of left humerus: Status: Acute (2) Type 2 diabetes mellitus with hyperglycemia: Status: Acute (3) Elevated lactic acid level: Status: Acute (4) Hypomagnesemia: Status: Acute (5) Unwitnessed fall: Status: Acute Plan d12 for 79yo F resident of [facility] center with Alzheimer dementia, depression, DM2, AF on apixaban, HTN, CKD, GARY, and Parkinsonism admitted after unwitnessed fall, found to have lactic acidosis, hypomagnesemia, elevated troponin, UTI, and left humeral neck fracture unwitnessed fall - no arrhythmia on telemetry , EKG without ischemic changes, stable BP, CT with no acute intracranial abnormality; likely mechanical fall, limited history by patient troponin elevation - went from 18.1 to 30.9 to 44; remains flat; no reported chest pain and no ischemic EKG changes Aerococcus urinae UTI - finished course of antibiotic with ceftriaxone 11/26-11/30, cefuroxime 11/30-12/03 likely acute fracture of neck of L humerus - X-ray showed question of old humeral fracture; due to pain and limited ROM will treat as acute fx. Seen by Orthopedics 11/27 and recommended sling; allow arm to hang down when out of sling; no active ROM away from body of L shoulder; no acute intervention indicated; - added scheduled pain medication Ultram 25 mg and Tylenol 650 tid on 12/05 - outpt f/u with ortho paroxysmal AF - continue apixaban + metoprolol succinate DM2 with hyperglycemia - continue MTF + GPZ + kenji-dose lispro hypoMg hypoK - repleted acute lactic acidosis -initial lactic acid was elevated at 3.1 but has normalized and is down to 1.6; was likely due to metformin and dehydration. Parkinsons disaese - continue Sinemet Alzheimer dementia - appears to be at baseline; ambulates with cane - continue trazodone + mirtazapine neuropathy - gabapentin VTE ppx - apixaban dispo - PT recommends STR due to inability to ambulate due to pain and rigidity In my clinical judgment, the patient requires continued inpatient hospitalization for the following reasons: placement Total time managing care of this patient today: 35 minutes. Quality Stroke Does the patient have a stroke diagnosis?: No VTE Prior VTE?: No VTE Risk Level:: Medical - moderate - high VTE Device Contraindication: Treatment Not Indicated VTE Drug Contraindication: Treatment Not Indicated
[2024-12-07 11:10] LABS: Glucose, Whole Blood 152 mg/dL (60-115)
[2024-12-07] MEDS: Insulin Lispro 100 UNIT/ML 3 ML VIAL SUBCUT ×3 (11:27→22:07)
[2024-12-07 12:00] LABS: Glucose, Whole Blood 148 mg/dL (60-115)
[2024-12-07 16:03] LABS: Glucose, Whole Blood 168 mg/dL (60-115)
[2024-12-07 20:04] LABS: Glucose, Whole Blood 168 mg/dL (60-115)
[2024-12-07] MEDS: Atorvastatin Calcium 40 MG TABLET PO (22:06)
[2024-12-07] MEDS: Mirtazapine 15 MG TABLET PO (22:06)
[2024-12-07] MEDS: Melatonin 3 MG TABLET 6 MG PO (22:06)
[2024-12-08] MEDS: LORazepam 2 MG/ML VIAL 1 MG IVPUSH (01:06)
[2024-12-08] MEDS: 0.9 % Sodium Chloride Flush 3 ML SYRINGE IVFLUSH ×2 (01:07→09:00)
[2024-12-08 03:18] VITALS: BP 157/80; PULSE 60; RESP 18; TEMP 36.5; O2SAT 97
[2024-12-08 07:55] LABS: Glucose, Whole Blood 83 mg/dL (60-115)
[2024-12-08 08:00] VITALS: BP 143/70; PULSE 67; RESP 18; TEMP 36; O2SAT 99
[2024-12-08] MEDS: metFORMIN HCl 500 MG TABLET PO (08:28)
[2024-12-08] MEDS: glipiZIDE XL 5 MG TAB.ER.24 PO (08:28)
[2024-12-08] MEDS: Apixaban 2.5 MG TABLET PO (08:29)
[2024-12-08] MEDS: Loratadine 10 MG TABLET PO (08:29)
[2024-12-08] MEDS: traZODone HCL 25 MG HALFTAB PO (08:29)
[2024-12-08] MEDS: Carbidopa/Levodopa 25/100 TABLET 1 TAB PO ×2 (08:29→15:35)
[2024-12-08] MEDS: Metoprolol Succinate ER 25 MG TAB.ER.24H PO (08:30)
[2024-12-08] MEDS: Gabapentin 100 MG CAPSULE PO (08:30)
[2024-12-08] MEDS: Docusate Sodium 100 MG CAPSULE PO (08:30)
[2024-12-08] MEDS: Acetaminophen 325 MG TABLET 650 MG PO ×2 (08:36→15:35)
[2024-12-08] MEDS: traMADoL HCL 50 MG TABLET 25 MG PO ×2 (08:37→15:35)
[2024-12-08] MEDS: polyethylene glycoL 3350 17 GM POWD.PACK PO (09:01)
--- NOTE | 2024-12-08 11:15 | MHC.CM.PN ---
Addendum entered by Elida Vang RN 12/08/24 12:25: [facility] OFFERING PT A BED, CM CONTACTED PT'S BROTHER/HCP SAVANAH AT NUMBER ON FILE, SAVANAH AGREEABLE TO [facility] AND TRANSFER TODAY IF AUTH GRANTED. Original Note: EMR REVIEWED, PT STILL AWAITING STR BED OFFER, SNF REFERRAL UPDATED AND REBROADCASTED, PT IS LIMITED D/T NEEDING STR CONTRACTED W/[facility], CM WILL CONTACT [facility] TO DISCUSS ONE TIME CONTRACT IF NO BEDS ARE OFFERED, CM WILL CONT TO FOLLOW DC NEEDS.
[2024-12-08 11:40] LABS: Glucose, Whole Blood 125 mg/dL (60-115)
[2024-12-08 11:43] VITALS: BP 135/63; PULSE 63; RESP 16; TEMP 36.3; O2SAT 99
--- NOTE | 2024-12-08 11:51 | HO.PM.IMPN ---
Subjective Subjective Date of Service: 12/08/24 Interval History: no new complaints Review of Systems Review of Systems: Yes all other systems are reviewed and are negative Physical Exam Vital Signs: Vital Signs: Last Vital Signs Temp 97.3 F 12/08/24 11:43 Pulse 63 12/08/24 11:43 Resp 16 12/08/24 11:43 BP 135/63 12/08/24 11:43 Pulse Ox 99 12/08/24 11:43 O2 Del Method Room Air 12/08/24 11:43 BMI result Body Mass Index 20.6 Gen: in no acute distress HEENT: sclera anicteric, moist mucus membranes Neck: supple Lungs: clear to auscultation bilaterally Heart: regular rate and rhythm, no murmurs Abd: soft, non-tender, non-distended Ext: no edema, LUE in sling Skin: warm/well-perfused Neuro: alert, unable to assess orientation Psych: impaired insight Objective Data Active Medications Acetaminophen (Acetaminophen 325 Mg Tablet) 650 mg PO Q6H PRN PRN Reason: Pain, Mild 1-3,fever,headache Last Admin: 12/04/24 00:18 Dose: 650 mg Documented By: SWAPNA Acetaminophen (Acetaminophen 325 Mg Tablet) 650 mg PO TID [facility] Last Admin: 12/08/24 08:36 Dose: 650 mg Documented By: ASHA Al Hydroxide/Mg Hydroxide (Magnesium Hydrox/Alum Hydrox 30 Ml Oral.Susp) 30 ml PO Q4H PRN PRN Reason: Heartburn Apixaban (Apixaban 2.5 Mg Tablet) 2.5 mg PO BID [facility] Last Admin: 12/08/24 08:29 Dose: 2.5 mg Documented By: ASHA Atorvastatin Calcium (Atorvastatin Calcium 40 Mg Tablet) 40 mg PO BEDTIME [facility] Last Admin: 12/07/24 22:06 Dose: 40 mg Documented By: SINDHU Calcium Carbonate (Calcium Carbonate 750 Mg Tab.Chew) 750 mg PO Q4H PRN PRN Reason: Heartburn Carbidopa/Levodopa (Carbidopa/Levodopa 25/100 Tablet) 1 tab PO TID [facility] Last Admin: 12/08/24 08:29 Dose: 1 tab Documented By: ASHA Dextrose (Dextrose 50 % 25 Gm/50 Ml Syringe) 25 gm IVPUSH Q15M PRN; Protocol PRN Reason: per Hypoglycemia Standing Ord. Docusate Sodium (Docusate Sodium 100 Mg Capsule) 100 mg PO DAILY [facility] Last Admin: 12/08/24 08:30 Dose: 100 mg Documented By: ASHA Fluticasone Propionate (Fluticasone Propionate Nasal 16 Gm [place]) 1 spray NOSTRIL-B BID [facility] Last Admin: 12/08/24 09:00 Dose: Not Given Documented By: ASHA Non-Admin Reason: Patient Refused Gabapentin (Gabapentin 100 Mg Capsule) 100 mg PO BID [facility] Last Admin: 12/08/24 08:30 Dose: 100 mg Documented By: ASHA Glipizide (Glipizide Xl 5 Mg Tab.Er.24) 5 mg PO DAILY [facility] Last Admin: 12/08/24 08:28 Dose: 5 mg Documented By: ASHA Glucose (Glucose Gel 15 Gm Gel..Gram.) 15 gm PO Q15M PRN; Protocol PRN Reason: per Hypoglycemia Standing Ord. Insulin Human Lispro (Insulin Lispro 100 Unit/Ml 3 Ml Vial) 0 unit SUBCUT QIDACHS [facility]; Protocol Last Admin: 12/08/24 11:41 Dose: Not Given Documented By: ASHA Non-Admin Reason: No Insulin Coverage Loratadine (Loratadine 10 Mg Tablet) 10 mg PO DAILY [facility] Last Admin: 12/08/24 08:29 Dose: 10 mg Documented By: ASHA Magnesium Hydroxide (Milk Of Magnesia 30 Ml Oral.Susp) 30 ml PO DAILY PRN PRN Reason: Constipation Last Admin: 12/04/24 09:04 Dose: 30 ml Documented By: WOLF Melatonin (Melatonin 3 Mg Tablet) 6 mg PO BEDTIME PRN PRN Reason: Insomnia Last Admin: 12/07/24 22:06 Dose: 6 mg Documented By: BERNADETTE-MARVA Metformin HCl (Metformin Hcl 500 Mg Tablet) 500 mg PO BIDWM [facility] Last Admin: 12/08/24 08:28 Dose: 500 mg Documented By: ASHA Metoprolol Succinate (Metoprolol Succinate Er 25 Mg Tab.Er.24h) 25 mg PO DAILY [facility]; Protocol Last Admin: 12/08/24 08:30 Dose: 25 mg Documented By: ASHA Mirtazapine (Mirtazapine 15 Mg Tablet) 15 mg PO BEDTIME [facility] Last Admin: 12/07/24 22:06 Dose: 15 mg Documented By: DEBRAZEBraxton Nitroglycerin (Nitroglycerin 0.4 Mg Tab.Subl) 0.4 mg SUBLINGUAL Q5MX3 PRN PRN Reason: Chest Pain Omeprazole (Omeprazole 20 Mg Capsule.Dr) 20 mg PO BID@0630,1430 [facility] Last Admin: 12/08/24 05:56 Dose: Not Given Documented By: SINDHU Non-Admin Reason: Patient Asleep Ondansetron HCl (Ondansetron Hcl 4 Mg/2 Ml Vial) 4 mg IVPUSH Q8H PRN PRN Reason: Nausea and Vomiting Polyethylene Glycol (Polyethylene Glycol 3350 17 Gm Powd.Pack) 17 gm PO DAILY [facility] Last Admin: 12/08/24 09:01 Dose: 17 gm Documented By: ASHA Senna (Sennosides 8.6 Mg Tablet) 17.2 mg PO BEDTIME PRN PRN Reason: Constipation Sodium Chloride (0.9 % Sodium Chloride Flush 3 Ml Syringe) 3 ml IVFLUSH QSHIFT [facility] Last Admin: 12/08/24 09:00 Dose: 3 ml Documented By: ASHA Tramadol HCl (Tramadol Hcl 50 Mg Tablet) 25 mg PO TID [facility] Last Admin: 12/08/24 08:37 Dose: 25 mg Documented By: ASHA Trazodone HCl (Trazodone Hcl 25 Mg Halftab) 25 mg PO BID [facility] Last Admin: 12/08/24 08:29 Dose: 25 mg Documented By: ASHA Labs 11/27/24 04:26 12/05/24 07:30 Labs: Laboratory Results - last 24 hr 12/06/24 12/07/24 12/07/24 21:16 15:54 20:00 POC Glucose 148 H 168 H 168 H 12/08/24 12/08/24 07:50 11:37 POC Glucose 83 125 H Assessment and Plan (1) Fracture of neck of left humerus: Status: Acute (2) Type 2 diabetes mellitus with hyperglycemia: Status: Acute (3) Elevated lactic acid level: Status: Acute (4) Hypomagnesemia: Status: Acute (5) Unwitnessed fall: Status: Acute Plan d13 for 79yo F resident of [facility] with Alzheimer dementia, depression, DM2, AF on apixaban, HTN, CKD, GARY, and Parkinsonism admitted after unwitnessed fall, found to have lactic acidosis, hypomagnesemia, elevated troponin, UTI, and left humeral neck fracture unwitnessed fall - no arrhythmia on telemetry , EKG without ischemic changes, stable BP, CT with no acute intracranial abnormality; likely mechanical fall, limited history by patient's dementia troponin elevation - went from 18.1 to 30.9 to 44; remains flat; no reported chest pain and no ischemic EKG changes Aerococcus urinae UTI - finished course of antibiotic with ceftriaxone 11/26-11/30, cefuroxime 11/30-12/03 likely acute fracture of neck of L humerus - X-ray showed question of old humeral fracture; due to pain and limited ROM will treat as acute fx. Seen by Orthopedics 11/27 and recommended sling; allow arm to hang down when out of sling; no active ROM away from body of L shoulder; no acute intervention indicated; - added scheduled pain medication Ultram 25 mg and Tylenol 650 tid on 12/05 - outpt f/u with [facility] Ortho paroxysmal AF - continue apixaban + metoprolol succinate DM2 with hyperglycemia - continue MTF + GPZ + kenji-dose lispro hypoMg hypoK - repleted acute lactic acidosis -initial lactic acid was elevated at 3.1 but has normalized and is down to 1.6; was likely due to metformin and dehydration. Parkinsons disaese - continue Sinemet Alzheimer dementia - appears to be at baseline; ambulates with cane - continue trazodone + mirtazapine neuropathy - gabapentin VTE ppx - apixaban dispo - PT recommends STR due to inability to ambulate due to pain and rigidity + requiring 2-person max assist In my clinical judgment, the patient requires continued inpatient hospitalization for the following reasons: placement Total time managing care of this patient today: 35 minutes. Quality Stroke Does the patient have a stroke diagnosis?: No VTE Prior VTE?: No VTE Risk Level:: Medical - moderate - high VTE Device Contraindication: Treatment Not Indicated VTE Drug Contraindication: Treatment Not Indicated
--- NOTE | 2024-12-08 12:48 | P.DS_ITS ---
DS: Providers Provider Date of Service: 12/08/24 Date of admission: 11/26/24 23:55 Date of discharge: 12/08/24 Primary care physician: Unknown Physician Consults: 11/27/24 10:23 Consult to Orthopedics Routine Consulting Provider: [facility] Sur[facility] Reason for consultation: left shoulder fx ? new vs old pt in pain/limited ROM Has provider been notified: No DS: Diagnosis Discharge Diagnosis (1) Fracture of neck of left humerus: Status: Acute (2) Elevated lactic acid level: Status: Acute (3) Hypomagnesemia: Status: Acute (4) Unwitnessed fall: Status: Acute (5) Acute UTI: Status: Acute (6) Hypokalemia: Status: Acute DS: Summary Hospital Course Hospital Course: From the history and physical by the admitting hospitalist, Abe Srinivasan MD, 11/26/24: 79-year-old female resident of [facility] with medical history of Alzheimer's dementia, depression, type 2 diabetes mellitus, atrial fibrillation (on Eliquis), essential hypertension, chronic kidney disease, GARY and Parkinson's disease who was brought to the emergency room from her SNF following an unwitnessed fall. She was reportedly found on the floor with her head on the bathroom floor and when asked stated that she fell from a chair into the tub but could not provide any meaningful history likely due to her underlying dementia. Initial blood work done was notable for elevated serum lactic acid (3.1), low magnesium (1.4), elevated high sensitivity troponin I (18.1 -> 30.9) and elevated blood sugars (324). Urinalysis was notable for glucosuria with a small leukocyte esterase, 6-10 WBCs/HPF and 4+ bacteria. Due to the fact that she suffered an unwitnessed fall, thus concern for possible syncope and so a decision was made to admit her for observation. She otherwise has no additional complaints. 79yo F resident of [facility] with Alzheimer dementia, depression, DM2, AF on apixaban, HTN, CKD, GARY, and Parkinsonism admitted after unwitnessed fall, found to have lactic acidosis, hypomagnesemia, elevated troponin, UTI, and left humeral neck fracture. Hospital course by problem: unwitnessed fall - no arrhythmia on telemetry, EKG without ischemic changes, stable BP, CT with no acute intracranial abnormality; likely mechanical fall, limited history by patient's dementia troponin elevation - went from 18.1 to 30.9 to 44; remains flat; no reported chest pain and no ischemic EKG changes; not suspected to have acute coronary syndrome Aerococcus urinae UTI - finished 7-day of course of antibiotic with ceftriaxone 11/26-11/30, cefuroxime 11/30-12/03 likely acute fracture of neck of L humerus - X-ray showed question of old humeral fracture; due to pain and limited ROM will treat as acute fx. Seen by Orthopedics 11/27 and recommended sling; allow arm to hang down when out of sling; no active ROM away from body of L shoulder; no acute intervention indicated; added scheduled pain medication Ultram 25 mg and Tylenol 650 tid on 12/05; outpt f/u with [facility] Ortho in 2 weeks hypoMg hypoK - repleted acute lactic acidosis -initial lactic acid was elevated at 3.1 but has normalized and is down to 1.6; was likely due to metformin and dehydration. She was discharged to short-term rehabilitation due to the need for 2-person max assist. Time Attestation Discharge Coordination Time (in mins): 40 Quality: Safe Use of Opioids Does Pt have an Active Cancer Diagnosis on the Problem List?: No Quality: Stroke Does the patient have a stroke diagnosis?: No Physical Exam Vital Signs: Vital Signs: Last Vital Signs Temp 97.3 F 12/08/24 11:43 Pulse 63 12/08/24 11:43 Resp 16 12/08/24 11:43 BP 135/63 12/08/24 11:43 Pulse Ox 99 12/08/24 11:43 O2 Del Method Room Air 12/08/24 11:43 BMI result Body Mass Index 20.6 Gen: in no acute distress HEENT: sclera anicteric, moist mucus membranes Neck: supple Lungs: clear to auscultation bilaterally Heart: regular rate and rhythm, no murmurs Abd: soft, non-tender, non-distended Ext: no edema, LUE in sling Skin: warm/well-perfused Neuro: alert, unable to assess orientation Psych: impaired insight DS: Data Data Completed and Pending Completed studies during hospitalization [Text1]: Laboratory Results WBC 6.3 X10*3/uL (4.8-10.8) 11/27/24 04:26 RBC 3.70 X10*6/uL (4.20-5.50) L 11/27/24 04:26 Hgb 10.5 g/dl (12.0-16.0) L 11/27/24 04:26 Hct 32.4 % (37.0-47.0) L 11/27/24 04:26 MCV 87.6 fL (80.0-98.0) 11/27/24 04:26 MCH 28.4 pg (27.0-33.0) 11/27/24 04:26 MCHC 32.4 g/dl (31.0-35.0) 11/27/24 04:26 RDW 13.2 % (11.0-16.0) 11/27/24 04:26 Plt Count 154 X10*3/uL (160-400) L 11/27/24 04:26 MPV 10.6 fL (9.4-12.3) 11/27/24 04:26 Immature Gran % (Auto) 0.3 % (0.0-0.4) 11/27/24 04:26 Neut % (Auto) 67.3 % (45-73) 11/27/24 04:26 Lymph % (Auto) 22.1 % (20-40) 11/27/24 04:26 Henry % (Auto) 9.4 % (2-11) 11/27/24 04:26 Eos % (Auto) 0.6 % (0-4) 11/27/24 04:26 Baso % (Auto) 0.3 % (0-2) 11/27/24 04:26 Lymph # (Auto) 1.4 X10*3/uL (1.2-4.9) 11/27/24 04:26 Henry # (Auto) 0.6 X10*3/uL (0.1-1.2) 11/27/24 04:26 Eos # (Auto) 0.0 X10*3/uL (0.0-0.4) 11/27/24 04:26 Baso # (Auto) 0.0 X10*3/uL (0.0-0.2) 11/27/24 04:26 Abs Immat Gran (auto) 0.02 X10*3/uL (0.00-0.03) 11/27/24 04:26 Absolute Neuts (auto) 4.2 x10*3/uL (2.0-8.3) 11/27/24 04:26 Absolute Nucleated RBC 0.000 X10*3/uL (0.0-0.012) 11/27/24 04:26 Nucleated RBC % (auto) 0.0 /100WBC (0.0-0.2) 11/27/24 04:26 Hold Purple Top SEE NOTE 11/28/24 07:02 Sodium 140 mmol/L (135-145) 11/28/24 07:02 Potassium 3.8 mmol/L (3.3-5.1) 11/28/24 07:02 Chloride 111 mmol/L (96-108) H 11/28/24 07:02 Carbon Dioxide 21 mmol/L (22-29) L 11/28/24 07:02 Anion Gap 12 (12-20) 11/28/24 07:02 BUN 13 mg/dL (9-16) 11/28/24 07:02 Creatinine 0.83 mg/dL (0.5-1.4) 12/05/24 07:30 Estim Creat Clear Calc 34.3 12/05/24 07:30 Estimated GFR > 60 12/05/24 07:30 POC Glucose 125 mg/dL (60-115) H 12/08/24 11:37 Random Glucose 160 mg/dL (60-115) H 11/28/24 07:02 Lactic Acid 3.1 mmol/L (0.5-2.0) H* 11/26/24 20:13 Lactic Acid F/U @ 2Hr 2.2 mmol/L (0.5-2.0) H* 11/26/24 22:35 Lactic Acid F/U @ 4Hr 1.6 mmol/L (0.5-2.0) 11/27/24 01:09 Calcium 9.1 mg/dL (8.4-10.2) 11/28/24 07:02 Magnesium 1.7 mg/dL (1.6-2.6) 11/28/24 07:02 Total Bilirubin 0.4 mg/dL (0.0-1.0) 11/27/24 04:26 AST 63 U/L (5-31) H 11/27/24 04:26 ALT 25 U/L (0-31) 11/27/24 04:26 Alkaline Phosphatase 67 U/L (39-117) 11/27/24 04:26 Troponin I High Sens 44.0 ng/L (<3.5-17.0) H 11/27/24 04:26 B-Natriuretic Peptide 72 pg/mL (<100) 11/26/24 20:13 Total Protein 6.5 g/dL (6.5-8.0) 11/27/24 04:26 Albumin 3.0 g/dL (3.5-5.0) L 11/27/24 04:26 Lipase 34 U/L (8-78) 11/26/24 20:13 Urine Color Yellow 11/26/24 21:46 Urine Appearance Cloudy 11/26/24 21:46 Urine pH 6.5 (5.0-9.0) 11/26/24 21:46 Ur Specific [place] 1.015 (1.005-1.025) 11/26/24 21:46 Urine Protein 300 (3+) mg/dL (Neg-Trace) H 11/26/24 21:46 Urine Glucose (UA) >=1000 mg/dL (Negative) H 11/26/24 21:46 Urine Ketones Negative mg/dL (Negative) 11/26/24 21:46 Urine Blood Moderate (2+) (Negative) H 11/26/24 21:46 Urine Nitrite Negative (Negative) 11/26/24 21:46 Ur Leukocyte Esterase Small (1+) (Negative) H 11/26/24 21:46 Urine RBC 3-5 /HPF (0-2) H 11/26/24 21:46 Urine WBC 6-10 /HPF (0-5) H 11/26/24 21:46 Urine WBC Clumps Present 11/26/24 21:46 Ur Squamous Epith Cells 0-2 /HPF (0-2) 11/26/24 21:46 Urine Bacteria 4+ (None Seen) 11/26/24 21:46 Hyaline Casts 0-2 /LPF (0-2) 11/26/24 21:46 Influenza Type A (PCR) NEGATIVE (Negative) 11/26/24 20:12 Influenza Type B (PCR) NEGATIVE (Negative) 11/26/24 20:12 RSV RNA Qual (PCR) NEGATIVE (Negative) 11/26/24 20:12 SARS-CoV-2 RNA (RT-PCR) NEGATIVE (Negative) 11/26/24 20:12 Discharge Plan Discharge Anticipated Discharge Date/Time: 12/08/24 12:44 Patient Disposition: Xfer SNF Discharge Diagnosis: unwitnessed fall Aerococcus urinae UTI fracture of neck of L humerus hypomagnesemia and hypokalemia Referrals: [facility] [Other] - 1 Day (SHORT TERM REHAB) Dawson Campbell PA [Physician Physical Science Professor] - 2 Weeks Physician,Carla Skinner [Primary Care Provider] - 1 Week Discharge Medications: New tramadol 50 mg Tablet 25 mg PO TID Qty: 1 0RF Continued Glucerna Shake Liquid 1 ea PO DAILY Rx Instructions: 240 ML atorvastatin 40 mg Tablet 40 mg PO BEDTIME acetaminophen 500 mg Tablet 500 mg PO BID docusate sodium [Colace] 100 mg Capsule 100 mg PO DAILY gabapentin 100 mg Capsule 100 mg PO BID carbidopa-levodopa [Sinemet] 25-100 mg Tablet 1 tab PO TID fluticasone propionate 50 mcg/actuation [place],Suspension 1 spray INTRANASAL BID Rx Instructions: administer into each nostril Eliquis 2.5 mg Tablet 2.5 mg PO BID metformin 500 mg Tablet 500 mg PO BID trazodone 50 mg Tablet 25 mg PO BID glipizide 5 mg Tablet Extended Release 24hr 5 mg PO DAILY omeprazole 20 mg Capsule,Delayed Release(Dr/Ec) 20 mg PO BID@0630,1430 mirtazapine 15 mg Tablet 15 mg PO BEDTIME metoprolol succinate 25 mg Tablet Extended Release 24 Hr 25 mg PO DAILY loratadine 10 mg Tablet 10 mg PO DAILY Discharge Orders: Discharge Order (Routine); Ordered 12/08/24 Ordered By: Yolanda Orta Diet: Advance to usual diet Activity on Discharge: As tolerated Stand Alone Forms: Patient Portal Discharge page Print Language: Nepali Care Plan Goals: recovery from fracture + infection Health Concerns: unwitnessed fall Aerococcus urinae UTI fracture of neck of L humerus hypomagnesemia and hypokalemia Plan of Treatment: completed antibiotics physical therapy at rehab follow up with [facility] Orthopedics in 2 weeks Please follow up with your primary care doctor within 1 week of discharge from rehab. Return to the hospital if you experience recurrent or worsening symptoms. Assessment: See Discharge Summary.
[2024-12-08 15:24] VITALS: BP 142/60; PULSE 78; RESP 18; TEMP 37.2; O2SAT 97
[2024-12-08 15:59] LABS: Glucose, Whole Blood 136 mg/dL (60-115)
== END 2024-12-08 16:56 | disposition skilled nursing facility (03) | DRG 690 ==
LOC: HO.ED 23:43 → HO.EDOVER 11-27 00:02 → HO.IMC 11-27 16:05
PROVIDERS: Hospitalist; Nurse Practitioner Family; Student in an Organized Health Care Education/Training Program; Admitting Provider Internal Medicine; Emergency Provider Emergency Medicine; Visit Provider Family Medicine
DX: N39.0 Urinary tract infection, site not specified (principal); S42.212A Unspecified displaced fracture of surgical neck of left humerus, initial encounter for closed fracture; E87.21 Acute metabolic acidosis; G30.9 Alzheimer's disease, unspecified; F02.80 Dementia in other diseases classified elsewhere, unspecified severity, without behavioral disturbance, psychotic disturbance, mood disturbance, and anxiety; G20.A1 Parkinson's disease without dyskinesia, without mention of fluctuations; E83.42 Hypomagnesemia; W19.XXXA Unspecified fall, initial encounter; E11.65 Type 2 diabetes mellitus with hyperglycemia; I12.9 Hypertensive chronic kidney disease with stage 1 through stage 4 chronic kidney disease, or unspecified chronic kidney disease; N18.30 Chronic kidney disease, stage 3 unspecified; E87.6 Hypokalemia; E11.40 Type 2 diabetes mellitus with diabetic neuropathy, unspecified; E86.0 Dehydration; I48.0 Paroxysmal atrial fibrillation; B96.89 Other specified bacterial agents as the cause of diseases classified elsewhere; E11.22 Type 2 diabetes mellitus with diabetic chronic kidney disease; D63.1 Anemia in chronic kidney disease; Z20.822 Contact with and (suspected) exposure to COVID-19; Z79.01 Long term (current) use of anticoagulants; Z79.84 Long term (current) use of oral hypoglycemic drugs; Z79.899 Other long term (current) drug therapy
CPT/HCPCS: 0241U; 36415; 70450; 71045; 72125; 73030; 73521; 80048; 80053; 81001; 81003; 82565; 82947; 83605; 83690; 83735; 83880; 84484; 85025; 87040; 87086; 87088; 93005; 97162; 97530; 97535; 99285; J0696; J2060; J2359; J2543; J3475

== ENCOUNTER → 2024-11-26 19:31 | Outpatient (BNV) | payer MEDICARE, SELFPAY | PROVIDERS: Admitting Provider Internal Medicine; Emergency Provider Emergency Medicine; Visit Provider Internal Medicine Cardiovascular Disease | DX: I49.1 Atrial premature depolarization (principal); W19.XXXA Unspecified fall, initial encounter | CPT/HCPCS: 93010 ==

== ENCOUNTER → 2024-11-26 19:33 | Outpatient (BNV) | payer MEDICARE, OTHER, SELFPAY | PROVIDERS: Emergency Provider Emergency Medicine; Visit Provider Radiology Neuroradiology | DX: M19.012 Primary osteoarthritis, left shoulder (principal); S09.90XA Unspecified injury of head, initial encounter; W19.XXXA Unspecified fall, initial encounter | CPT/HCPCS: 70450; 71045; 72125; 73030; 73521 ==

== ENCOUNTER 2024-11-26 23:55 | Outpatient (BNV) | payer MEDICARE, SELFPAY | END 2024-11-30 05:37 | PROVIDERS: Admitting Provider Internal Medicine; Emergency Provider Emergency Medicine; Visit Provider Internal Medicine | DX: I48.91 Unspecified atrial fibrillation (principal) | CPT/HCPCS: 93010 ==

== ENCOUNTER → 2024-11-26 23:55 | Outpatient (BNV) | payer MEDICARE, OTHER, SELFPAY | PROVIDERS: Admitting Provider Internal Medicine; Emergency Provider Emergency Medicine; Visit Provider Internal Medicine | DX: S42.212A Unspecified displaced fracture of surgical neck of left humerus, initial encounter for closed fracture (principal); W19.XXXA Unspecified fall, initial encounter; N39.0 Urinary tract infection, site not specified; R79.89 Other specified abnormal findings of blood chemistry | CPT/HCPCS: 99223; 99231; 99232; 99233 ==

== ENCOUNTER 2025-09-11 17:28 | Inpatient (IN) | payer MEDICARE, SELFPAY ==
--- OUTSIDE RECORDS SUMMARY | 2024-04-08 05:00 | XMS_ITS ---
Author Organization [facility] Address [address] [place] [address] Care Team Providers Care Professor Of Sociology Name Role Phone Michelle BATEMAN, Bill Primary Care Provider U leannachrisAamir Banks Unavailable [phone] [facility]counters En[facility] [address] [facility] Aamir Shelley Plan Of Treatment No Information Progress Notes * Gillian HOLMDOB:1945 (79 yo F)Acc No.[id number]:04/08/2024 Progress Note Patient: Gillian YEBOAH Provider: Pedro Shelley DPM :1945 A ge:78 Y S ex:Female Date:04/08/2024 Address:[address] [place], [place] [id number] Pcp:Bill Martinez MD Subjective: * Chief Complaints: * * Medical History: Objective: * Vitals: Assessment: Plan: * Treatment: * Images: * The named appointment provid er may or may not be the originator of this progress note, and it is not deemed complete until electronically signed by the appointment provider. Sign off status: Pending * Provider: Pedro Shelley DPM Date: 0 04/08/2024 Generated for Mooi ng/Faaminahg/eTransmitting on: 1 11/12/2024 09:27 PM EST
--- OUTSIDE RECORDS SUMMARY | 2024-08-17 04:45 | XMS_ITS ---
Author Organization [facility] Address [address] [place] [address] Care Team Providers Care Rn Call Center Name Role Phone Michelle BATEMAN, Bill Primary Care Provider U leannachrisAamir Banks Unavailable [phone] Encounters En[facility] [address] [facility]/17[facility] Aamir Shelley Plan Of Treatment No Information Progress Notes * Gillian HOLMDOB:1945 (79 yo F)Acc No.[id number]:08/17/2024 Progress Note Patient: Gillian YEBOAH Provider: Pedro Shelley DPM :1945 A ge:78 Y S ex:Female Date:08/17/2024 Address:[address] [place], [place] [id number] Pcp:Bill Martinez MD Subjective: * Chief Complaints: * * Medical History: Objective: * Vitals: Assessment: Plan: * Treatment: * Images: * The named appointment provid er may or may not be the originator of this progress note, and it is not deemed complete until electronically signed by the appointment provider. Sign off status: Pending * Provider: Pedro Shelley DPM Date: 10/17/2023 Generated for Mooi ng/Faaminahg/eTransmitting on: 11/12/2024 09:26 PM EST
--- OUTSIDE RECORDS SUMMARY | 2025-02-04 04:00 | XMS_ITS ---
Author Organization [facility] Address [address] [place] [address] Care Team Providers Care Cipher Expert Name Role Phone Michelle BATEMAN, Bill Primary Care Provider U leannachrisAamir Banks Unavailable [phone] Encounters Encounter Location Date Provider Diagnosis [facility] [address] 02/04/2025 Aamir Shelley Plan Of Treatment No Information Progress Notes * Gillian HOLMDOB:1945 (79 yo F)Acc No.[id number]:02/04/2025 Progress Note Patient: Gillian YEBOAH Provider: Pedro Shelley DPM :1945 A ge:79 Y S ex:Female Date:02/04/2025 Address:[address] [place], [place] [id number] Pcp:Bill Martinez MD Subjective: * Chief Complaints: * * Medical History: Objective: * Vitals: Assessment: Plan: * Treatment: * Images: * The named appointment provid er may or may not be the originator of this progress note, and it is not deemed complete until electronically signed by the appointment provider. Sign off status: Pending * Provider: Pedro Shelley DPM Date: 0 02/04/2025 Generated for Mooi ng/Faaminahg/eTransmitting on: 1 11/12/2024 09:26 PM EST
--- OUTSIDE RECORDS SUMMARY | 2025-03-25 10:15 | XMS_ITS ---
Author Organization [facility] Address [address] [place] [address] Care Team Providers Care Stain Wiper Name Role Phone Michelle BATEMAN, Bill Primary Care Provider U leannachrisAamir Banks Unavailable [phone] Encounters Encounter [facility] Date [facility] [address] [facility]/25/[facility] Aamir Shelley Plan Of Treatment No Information Progress Notes * Gillian HOLMDOB:1945 (79 yo F)Acc No.[id number]:03/25/2025 Progress Note Patient: Gillian YEBOAH Provider: Pedro Shelley DPM :1945 A ge:79 Y S ex:Female Date:03/25/2025 Address:[address] [place], [place] [id number] Pcp:Bill Martinez MD Subjective: * Chief Complaints: * * Medical History: Objective: * Vitals: Assessment: Plan: * Treatment: * Images: * The named appointment provid er may or may not be the originator of this progress note, and it is not deemed complete until electronically signed by the appointment provider. Sign off status: Pending * Provider: Pedro Shelley DPM Date: 0 03/25/2025 Generated for Mooi ng/Faaminahg/eTransmitting on: 1 11/12/2024 09:26 PM EST
--- OUTSIDE RECORDS SUMMARY | 2025-06-16 06:15 | XMS_ITS ---
Author Organization [facility] Address [address] [place] [address] Care Team Providers Care Electrical Systems Designer Name Role Phone Michelle BATEMAN, Bill Primary Care Provider U leannachrisAamir Banks Unavailable [phone] [facility]counters En[facility] [address] [facility]/16/[facility] Aamir Shelley Plan Of Treatment No Information Progress Notes * Gillian HOLMDOB:1945 (79 yo F)Acc No.[id number]:06/16/2025 Progress Note Patient: Gillian YEBOAH Provider: Pedro Shelley DPM :1945 A ge:79 Y S ex:Female Date:06/16/2025 Address:[address] [place], [place] [id number] Pcp:Bill Martinez MD Subjective: * Chief Complaints: * * Medical History: Objective: * Vitals: Assessment: Plan: * Treatment: * Images: * The named appointment provid er may or may not be the originator of this progress note, and it is not deemed complete until electronically signed by the appointment provider. Sign off status: Pending * Provider: Pedro Shelley DPM Date: 0 06/16/2025 Generated for Printi ng/Faaminahg/eTransmitting on: 1 11/12/2024 09:26 PM EST
--- NOTE | ~2025-09-11 | CT_ITS ---
CLINICAL HISTORY: fall head injury CT Head without contrast Comparison: CT/SR - CT HEAD/BRAIN WO IV CON - 11/26/24 20:11 EST Findings: Limited evaluation due to motion artifact. Chronic right SHITAL/MCA territory infarct. Ex vacuo dilation of the right lateral ventricle. No acute intracranial hemorrhage. No mass effect, midline shift, or herniation. The pituitary gland and sella are unremarkable. The cerebellar tonsils are appropriately positioned. The mastoid air cells are well aerated. The soft tissues are unremarkable. Impression: Limited evaluation due to motion artifact. Within this limitation: No acute intracranial abnormality. Chronic right SHITAL/MCA territory infarct. This document has been electronically signed by: Brianne Yanez MD on 09/11/2025 21:23:39
--- NOTE | ~2025-09-11 | CT_ITS ---
CLINICAL HISTORY: fall trauma CT chest without contrast: Comparison: None provided Please note the lack of IV contrast limits evaluation of the vasculature and solid organs. Findings: No lymphadenopathy. Mediastinum and Heart: No cardiomegaly. Significant coronary artery calcifications. Severe atherosclerotic calcifications of the thoracic aorta. Lungs: No consolidation, pleural effusion, or pneumothorax. No suspicious lung nodule. Bones and soft tissues: Multilevel degenerative changes. No acute fracture. Impression: No acute CT findings of the chest. This document has been electronically signed by: Brianne Yanez MD on 09/11/2025 21:08:35
--- NOTE | ~2025-09-11 | CT_ITS ---
CLINICAL HISTORY: fall CT abdomen and pelvis without contrast Comparison: None provided Absence of IV contrast limits evaluation of the organs and vasculature. Findings: Liver: No focal lesions. No biliary ductal dilatation. Gallbladder: Noninflamed gallbladder. Spleen: Normal. Pancreas: Unremarkable. Adrenal glands: Thickening of the left adrenal gland. Normal right adrenal gland. Kidneys: No hydronephrosis. Punctate nonobstructing right renal stones. Pelvic organs: 1.3 cm hyperintensity adjacent to the vaginal cuff is nonspecific. Peritoneum and Gastrointestinal: No bowel obstruction, pneumoperitoneum, or ascites. Lymph nodes: No lymphadenopathy. Vessels: Severe calcified atherosclerotic disease. Bones and soft tissues: Severe multilevel degenerative changes. Erosive changes at the endplates of L4-L5 disc space. No prevertebral or epidural space collection. Sacral decubitus wound. No drainable fluid collection. IMPRESSION: Erosive changes at L4-L5. Differential includes erosive degenerative disc disease. Discitis osteomyelitis is also a consideration in the appropriate clinical setting. If there is clinical concern, a lumbar spine MRI is recommended. Sacral decubitus wound without extension to the bone or drainable fluid collection. 1.3 cm nonspecific hyperdensity adjacent to the vaginal cuff. Recommend pelvic nonurgent ultrasound. This document has been electronically signed by: Brianne Yanez MD on 09/11/2025 21:19:03
--- NOTE | ~2025-09-11 | CT_ITS ---
CLINICAL HISTORY: fall CT cervical spine without contrast Comparison: CT/SR - CT CERVICAL SPINE WO IV CON - 11/26/24 20:11 EST Findings: There is reversal of the cervical lordosis. Significant multilevel degenerative changes of the cervical spine characterized by large osteophyte formations, uncovertebral hypertrophy, and endplate sclerosis. Grade 1 anterolisthesis of C3 on C4. Multilevel mild spinal canal narrowing. Moderate osteoarthritis of the craniocervical junction. No acute fractures or dislocations. No cervical fluid collections or masses. IMPRESSION: No acute fracture or traumatic subluxation of the cervical spine. This document has been electronically signed by: Brianne Yanez MD on 09/11/2025 21:20:09
--- NOTE | ~2025-09-11 | CT_ITS ---
EXAMINATION: CT HEAD WITHOUT CONTRAST CLINICAL INFORMATION: Head trauma, altered mental status COMPARISON: 09/11/2025 TECHNIQUE: Contiguous axial imaging was performed from the skull base to vertex without intravenous administration of contrast. This CT examination was performed using dose optimization techniques as appropriate, variously including the following: *Automated exposure control *Adjustment of mA and/or kV according to patient size (this includes techniques or standardized protocols for targeted exams where dose is matched to indication/reason for exam; i.e. extremities or head) *Use of iterative reconstruction technique FINDINGS: There is no acute ischemic change. Again noted is encephalomalacia from a remote large right MCA/SHITAL territory infarct. There is no intracranial hemorrhage. There is no mass-effect or midline shift. There is moderate left temporal lobe atrophy. Basal cisterns and ventricles are within normal limits for age/cerebral volume. Orbits are symmetrical and unremarkable. Paranasal sinuses and mastoid air cells are pneumatized. There are no bony abnormalities. CT/CT head/brain wo IV con IMPRESSION: No acute intracranial abnormality. Chronic right MCA/SHITAL territory infarct. Electronically signed by: Chele Simmons MD 09/14/2025 03:22 PM GAGANDEEP
[2025-09-11 17:36] VITALS: BP 137/57; BP 150/82; PULSE 74; PULSE 78; RESP 16; TEMP 36.6; O2SAT 100; BMI 15.7
[2025-09-11 17:46] VITALS: BP 140/76; PULSE 75; RESP 16; O2SAT 100
--- NOTE | 2025-09-11 19:01 | ECG_ITS ---
Test Reason : FALL Blood Pressure : */* mmHG Vent. Rate : 72 BPM Atrial Rate : 72 BPM P-R Int : 148 ms QRS Dur : 78 ms QT Int : 402 ms P-R-T Axes : 55 41 70 degrees QTcB Int : 440 ms Normal sinus rhythm with sinus arrhythmia Normal ECG When compared with ECG of 30-Nov-2024 05:18, Sinus rhythm has replaced Atrial fibrillation ST no longer depressed in Inferior leads QT has lengthened Referred By: Nicki Strong Electronically Signed By: Brijesh Aguiar
--- NOTE | 2025-09-11 19:11 | ED.FALL ---
HPI - Fall General Chief Complaint: Fall Stated Complaint: unwitnessed fall, hematoma on head, +thinners Time Seen by Provider: 09/11/25 18:13 Related Data Home Medications ?Medication ?Instructions ?Recorded ?Confirmed acetaminophen 500 mg tablet 500 mg PO BID 11/24/24 11/27/24 apixaban 2.5 mg tablet (Eliquis) 2.5 mg PO BID 11/24/24 11/27/24 atorvastatin 40 mg tablet 40 mg PO BEDTIME 11/24/24 11/27/24 carbidopa 25 mg-levodopa 100 mg 1 tab PO TID 11/24/24 11/27/24 tablet (Sinemet) docusate sodium 100 mg capsule 100 mg PO DAILY 11/24/24 11/27/24 (Colace) fluticasone propionate 50 1 spray intranasal BID 11/24/24 11/27/24 mcg/actuation nasal spray,suspension gabapentin 100 mg capsule 100 mg PO BID 11/24/24 11/27/24 glipizide 5 mg tablet, extended 5 mg PO DAILY 11/24/24 11/27/24 release 24 hr loratadine 10 mg tablet 10 mg PO DAILY 11/24/24 11/27/24 metformin 500 mg tablet 500 mg PO BID 11/24/24 11/27/24 metoprolol succinate 25 mg 25 mg PO DAILY 11/24/24 11/27/24 tablet,extended release 24 hr mirtazapine 15 mg tablet 15 mg PO BEDTIME 11/24/24 11/27/24 omeprazole 20 mg capsule,delayed 20 mg PO BID@0630,1430 11/24/24 11/27/24 release trazodone 50 mg tablet 25 mg PO BID 11/24/24 11/27/24 nut.tx.gluc.intol,lac-free,soy 1 ea PO DAILY 11/27/24 11/27/24 (Glucerna Shake oral liquid) Previous Rx's ?Medication ?Instructions ?Recorded tramadol 50 mg tablet 25 mg (1/2 x 50 mg) PO TID #1 tab 12/08/24 Allergies Allergy/AdvReac Type Severity Reaction Status Date / Time atorvastatin (From Lipitor) Allergy Unknown Verified 09/11/25 17:39 divalproex sodium (From Allergy Unknown Verified 09/11/25 17:39 Depakote) Iodinated Contrast Media (IV Allergy Unknown Verified 09/11/25 17:39 Contrast Dye) mushroom Allergy Unknown Verified 09/11/25 17:39 neomycin Allergy Unknown Verified 09/11/25 17:39 peanut Allergy Unknown Verified 09/11/25 17:39 polymyxin B Allergy Unknown Verified 09/11/25 17:39 [facility] Past Medical History Medical History (Updated 09/11/25 @ 23:05 by Nicki Strong MD) Type 2 diabetes mellitus with hyperglycemia Unwitnessed fall Sepsis Acute UTI Fracture of head of humerus Dementia due to Alzheimer disease Essential hypertension Chronic kidney disease Parkinson disease GERD (gastroesophageal reflux disease) Atrial fibrillation Type 2 diabetes mellitus Depression Social History Social History Household Members: None Housing: Apartment Do you presently have visiting nurse or other home services: No Patient Tobacco Use Status: Never used Tobacco Second Hand Smoke Exposure: No Advance Directives: Yes Advance Directives on File: Yes Advance Directives Date on File: 11/23/24 service: No Physical Exam Vital Signs: Vital Signs: Last Vital Signs Temp 98.3 F 09/11/25 22:56 Pulse 64 09/11/25 22:56 Resp 12 09/11/25 22:56 BP 140/57 H 09/11/25 22:56 Pulse Ox 100 09/11/25 22:56 O2 Del Method Room Air 09/11/25 22:56 BMI result Body Mass Index 15.7 Medications Administered Generic Name Dose Route Start Last Admin Trade Name Freq PRN Reason Stop Dose Admin Sodium Chloride 1,000 mls @ 999 mls/hr 09/11/25 22:30 09/11/25 22:39 Ns IV 09/11/25 23:30 999 mls/hr .Q1H1M ISMAEL Administration Ceftriaxone Sodium 1 gm/ 50 mls @ 100 mls/hr 09/11/25 22:37 09/11/25 22:55 Sodium Chloride IV 09/11/25 23:06 100 mls/hr ONCE ONE Administration Discontinued Medications Generic Name Dose Route Start Last Admin Trade Name Freq PRN Reason Stop Dose Admin Sodium Chloride 500 mls @ 999 mls/hr 09/11/25 19:00 09/11/25 19:15 Ns IV 09/11/25 19:30 999 mls/hr .Q31M ISMAEL Administration Medical Decision Making Medical Decision Making MDM Narrative: patient has significant altered mental status. Discussed with patient's next of kin patient's baseline awake alert able to ambulate. Has a history of paroxysmal AFib is on blood thinners. CT scan of the head CT scan C-spine were grossly negative for fracture. No bleed. Patient's CT scan of the chest was grossly negative. CT scan of the abdomen pelvis showed a question diskitis versus just really bad degenerative joint disease. Sed rate CRP was elevated. Attempted to order a MRI but MRI is not available tonight. Patient's urine however was infected. Will start antibiotics. I reviewed patient's previous culture. Currently in stable condition. Differential Diagnosis Differential Diagnoses: The differential diagnosis associated with the presentation includes Diskitis, intracranial bleed, fracture, malalignment, traumatic injury, UTI, electrolyte disturbance Admission/Observation Consideration of admission/observation: Escalation of care including admission/observation considered Consult Healthcare Provider Management of the patient was discussed with: Hospitalist Lab Data [facility] Lab Attestation statement: I reviewed the patient's lab results. 09/11/25 19:14 09/11/25 19:14 Labs: Lab Results 09/11/25 09/11/25 09/11/25 Range/Units 19:14 19:20 22:24 WBC 6.8 (4.8-10.8) X10*3/uL RBC 3.90 L (4.20-5.50) X10*6/uL Hgb 11.1 L (12.0-16.0) g/dl Hct 34.3 L (37.0-47.0) % MCV 87.9 (80.0-98.0) fL MCH 28.5 (27.0-33.0) pg MCHC 32.4 (31.0-35.0) g/dl RDW 13.5 (11.0-16.0) % Plt Count 248 D (160-400) X10*3/uL MPV 9.9 (9.4-12.3) fL Immature Gran % (Auto) 0.3 (0.0-0.4) % Neut % (Auto) 72.6 (45-73) % Lymph % (Auto) 19.2 L (20-40) % [place] % (Auto) 5.1 (2-11) % Eos % (Auto) 2.5 (0-4) % Baso % (Auto) 0.3 (0-2) % Lymph # (Auto) 1.3 (1.2-4.9) X10*3/uL [place] # (Auto) 0.4 (0.1-1.2) X10*3/uL Eos # (Auto) 0.2 (0.0-0.4) X10*3/uL Baso # (Auto) 0.0 (0.0-0.2) X10*3/uL Abs Immat Gran (auto) 0.02 (0.00-0.03) X10*3/uL Absolute Neuts (auto) 5.0 (2.0-8.3) x10*3/uL Absolute Nucleated RBC 0.000 (0.0-0.012) X10*3/uL Nucleated RBC % (auto) 0.0 (0.0-0.2) /100WBC ESR 71 H (1-30) MM/HR Sodium 140 (135-145) mmol/L Potassium 3.7 (3.3-5.1) mmol/L Chloride 106 (96-108) mmol/L Carbon Dioxide 22 (22-29) mmol/L Anion Gap 16 (12-20) BUN 18 H (9-16) mg/dL Creatinine 1.02 (0.5-1.4) mg/dL Estim Creat Clear Calc 25.7 Estimated GFR 52 POC Glucose 200 H (60-115) mg/dL Random Glucose 201 H (60-115) mg/dL Calcium 9.7 D (8.4-10.2) mg/dL Total Creatine Kinase 67 (26-140) U/L Troponin I High Sens 20.2 H D (<3.5-17.0) ng/L C-Reactive Protein 2.39 H (< or = 0.50) mg/dL Urine Color Yellow Urine Appearance Turbid Urine pH 7.0 (5.0-9.0) Ur Specific [place] 1.020 (1.005-1.025) Urine Protein 300 (3+) H (Neg-Trace) mg/dL Urine Glucose (UA) Negative (Negative) mg/dL Urine Ketones Negative (Negative) mg/dL Urine Blood Small (1+) H (Negative) Urine Nitrite Negative (Negative) Ur Leukocyte Esterase Large (3+) H (Negative) Urine RBC 11-20 H (0-2) /HPF Urine WBC >50 H (0-5) /HPF Ur Squamous Epith Cells 0-2 (0-2) /HPF Urine Bacteria 2+ (None Seen) Hyaline Casts 0-2 (0-2) /LPF Independent Interpretation I performed an independent interpretation of an: CT Scan ( CT head was negative) Radiology Impression Discussion of test interpretation with radiology: I have reviewed the radiologist's reading. External Record Review External record reviewed: Outpatient record fdc record reviewed Chronic Conditions dementia, Parkinson, AFib on Eliquis Discharge Plan Discharge Clinical Impression: Urinary tract infection Patient Disposition: Admitted As Inpatient
[2025-09-11 19:21] LABS: MANUAL DIFF FLAG NO
[2025-09-11 19:23] LABS: Hematocrit 34.3 % (37.0-47.0); Hemoglobin 11.1 g/dl (12.0-16.0); Imm Gran Abs Auto 0.02 X10*3/uL (0.00-0.03); Imm Gran Pct Auto 0.3 % (0.0-0.4); Lymphocytes Absolute Auto 1.3 X10*3/uL (1.2-4.9); Mean Corpuscular HGB Conc 32.4 g/dl (31.0-35.0); Mean Corpuscular Hemoglobin 28.5 pg (27.0-33.0); Mean Corpuscular Volume 87.9 fL (80.0-98.0); NRBC Abs Auto 0.000 X10*3/uL (0.0-0.012); NRBC Pct Auto 0.0 /100WBC (0.0-0.2); Platelet Count 248 X10*3/uL (160-400); Red Blood Count 3.90 X10*6/uL (4.20-5.50); White Blood Count 6.8 X10*3/uL (4.8-10.8)
[2025-09-11 19:37] LABS: Anion Gap 16 (12-20); Blood Urea Nitrogen 18 mg/dL (9-16); Calcium 9.7 mg/dL (8.4-10.2); Carbon Dioxide 22 mmol/L (22-29); Chloride 106 mmol/L (96-108); Creatinine Clr Calc Pharmacy 25.7; Estimated Glomerular Filt Rate 52; Potassium 3.7 mmol/L (3.3-5.1); Sodium 140 mmol/L (135-145)
[2025-09-11 19:45] LABS: Troponin-I High Sensitivity 20.2 ng/L (<3.5-17.0)
[2025-09-11 19:45] LABS: Glucose, Whole Blood 200 mg/dL (60-115)
--- OUTSIDE RECORDS SUMMARY | 2025-09-11 21:26 | XMS_ITS | Clinical Summary ---
Author Organization [employer] Address [address] [place] [address] Care Team Providers Care Black Off Worker Name Role Phone Unavailable Primary Care Provider [...] (one) time per week. Active Active Problems Problem Noted Date Diagnosed Date Chronic GERD 02/09/2025 Non-toxic nodular goiter 02/09/2025 Cerebrovascular accident ([facility]) 03/25/2023 Type 2 diabetes mellitus 03/25/2023 Pruritus 03/25/2023 Chronic kidney disease, stage 2 (mild) Hypertensive renal disease 01/30/2021 Polyuria 01/30/2021 Proteinuria 01/30/2021 Shoulder joint pain 12/31/2017 Atrial fibrillation ([facility]) 07/05/2017 Acute kidney injury 07/05/2017 Oropharyngeal dysphagia 07/05/2017 Encounters Date Type Department Care Team Description 09/10/2025 Telephone [facility] ADULT D[facility] [address] [place] [address] Shaw Bee rs appt [facility] Patient ; rs appt [facility] patient from Last 3 Months Social History Tobacco [...] Sign Reading Time Taken Comments Blood Pressure 160/86 03/02/2025 2:17 PM EDT Pulse 76 03/02/2025 2:17 PM EDT Temperature - - Respiratory Rate - - Oxygen Saturation - - Inhaled Oxygen Concentration - - Weight - - Height - - Body Mass Index - - Plan of Treatment Upcoming Encounters Date Type Department Care Team (Late st Contact Info) Description 12/28/2025 12:45 PM EDT Office Visit [facility]ULT [facility] [address] [place] [address] Shaw Bee Health Maintenance Due Date Last Done Comments Depression Screening 1943 Lipid Panel 1943 SDOH Screening 1943 Diabetes: Foot Exam 1953 Eye Exam 1953 Alcohol/Substance Use Screening 1955 Diabetes: Urine Protein Screening 1962 Zoster Vaccines (1 of 2) 1993 Pneumococcal Vaccine: 50+ Years (2 of 2 - PPSV23, PCV20, or PCV21) 08/16/2017 06/21/2017, 11/04/2015 RSV Patients and Patients Aged 60 years or older (1 - 1-dose 75+ series) 2018 COVID-19 Vaccine ( - season) 2025 07/19/2021, 10/24/2020, 10/03/2020 Influenza Vaccine (#1) 2025 , 07/05/2021, 07/08/2020, Additional history exists Dental X-Ray: Bitewings 06/17/2025 06/16/2024 Dental Oral Exam 09/02/2025 03/02/2025, 09/26/2009 Dental Prophylaxis 09/02/2025 03/02/2025, 1 , 08/20/2023, Additional history exists Diabetes: Hemoglobin A1C 09/10/2025 025, 12/09/2024, 08/11/2024 Tobacco Screening 03/23/2026 03/23/2025 Dental X-Ray: Full Mouth 06/17/2027 024, 03/06/2023, [...] age to complete this topic Meningococcal B Vaccine Aged Out No l onger eligible based on patient's age to complete this topic Meningococcal Vaccine Aged Out No therese juan antonio eligible based on patient's age to complete this topic RSV under 20 months Aged Out No longe r eligible based on patient's age to complete this topic Rotavirus Vaccines Aged Out No longer eligible based on patient's age to complete this topic Goals Goal Patient Goal Type Associated Problems Recent Progress Patient-Stated? Author Help patients manage their type 2 diabetes Care Plan Help patients manage their type 2 diabetes No CrenshawTeofiloEwelina Weekly blood pressure task Care Plan Weekly blood pressure task No Crenshaw, Ewelina Help patients manage their type 2 diabetes Care Plan Help patients manage their type 2 diabetes No Crenshaw, Ewelina Patient has chronic kidney disease Care Plan Patient has chronic kidney disease No Crenshaw, Ewelina Weekly blood pressure task Care Plan Weekly blood pressure task No Crenshaw, Ewelina Patient has chronic kidney disease Care Plan Patient has chronic kidney disease No Crenshaw, Ewelina Procedures Procedure Name Priority Date/Time Associated Diagnosis Comments PROPHYLAXIS - ADULT Routine 03/02/2025 2 :00 PM EDT PERIODIC ORAL EVALUATION - ESTABLISHED PATIENT Routine 03/02/2025 2:00 PM EDT INTRAORAL - COMPLETE SERIES OF RADIOGRAPHIC IMAGES Routine 06/16/2024 2:00 PM EDT from Last 3 Months or Most Recently Relevant to Health Maintenance Additional Health Concerns Active Problems Noted Date Diagnosed Date Help patients manage their type 2 diabetes 09/10 Weekly blood pressure task 09/10/2025 Help patients manage their type 2 diabetes 09/10 Patient has chronic kidney disease 09/10/2025 Weekly blood pressure task 09/10/2025 Patient has chronic kidney disease 09/10/2025 Insurance [address] [place] [address] [facility] - [facility] SEBAS HERNANDEZ [phone]
--- OUTSIDE RECORDS SUMMARY | 2025-09-11 21:27 | XMS_ITS | Patient Health Record ---
Author Organization [facility] Address [address] [place] [address] Care Team Providers Care Surgical Coordinator Name Role Phone Michelle BATEMAN, [facility] Primary Care Provider U priya Aamir Shelley Unavailable [phone] Allergies Allergen (clinical drug ingredient) Drug/Non Drug [...] affected area Externally to feet Twice a day; Duration: 30 days Active Drysol 20 % 1 application to affected area at bedtime Externally qd hs to both feet; Duration: 30 days Active ZyrTEC Allergy Activ e [...] Problem Acquired hammer toe of right foot (2020173565078085 ) Other hammer toe(s) (acquired), right foot (M20.41) Active confirmed Response to treatment, Improvemen t Problem Acquired hammer toe of left foot (0236783890877670 ) Other hammer toe(s) (acquired), left foot (M20.42) Active confirmed Response to treatment, Improvemen t Problem Polyneuropathy due to diabetes mellitus type I (932883898) Type 1 diabetes mellitus with diabetic polyneuropathy (E10.42) Active confirmed Vital Signs Height 4 ft 11 in in 11/05/2024 Weight 110 lbs 11/05/2024 BMI 22.21 kg/m2 11/05/2024 Procedures Procedure Date Ordered Date Performed Result Body Sit e 74712-UOTSWSI NAIL, 6 OR MORE 11/05/2024 N/A 20070-GCOK SKIN LESIONS, 2 TO 4 11/05/2024 N/A 54191-Vdgq. Subungual Hematoma 11/05/2024 N/A Encounters Encounter Location Date Provider Diagnosis [address] [address] 11/05/2024 Aamir Shelley Type 1 diabetes mellitus with diabetic polyneuropathy E10.42 ; Tinea unguium B35.1 ; Other hammer toe(s) (acquired), right foot M20.41 ; Other hammer toe(s) (acquired), left foot M20.42 and Subungual hematoma of left foot, initial encounter S90.222A [address] [address] 12/30/2024 [facility] [place] [address] [address] 03/24/2025 Aamir Daphney [address] [address] 03/25/2025 [facility] [address] [address] 05/27/2025 Aamir Shelley Assessments Encounter Date Diagnosis (ICD [...] Treatment Pending Test Test Name Order Date 92260-JEUWDMI NAIL, 6 OR MORE 08/26/2018 22199-IZJVLIG NAIL, 6 OR MORE 05/27/2018 00118-FPOZZPK NAIL, 6 OR MORE 04/18/2022 31170-WGLYOTW NAIL, 6 OR MORE 06/27/2022 48283-SKZZPSB NAIL, 6 OR MORE 09/10/2022 67014-OYRCLUB NAIL, 6 OR MORE 11/21/2022 39649-FASUGYV NAIL, 6 OR MORE 02/20/2023 94803-KQVWWJH NAIL, 6 OR MORE 05/01/2023 63144-JKFZMOS NAIL, 6 OR MORE 07/10/2023 74177-PLALBFX NAIL, 6 OR MORE 09/11/2023 18321-HBQVTWB NAIL, 6 OR MORE 11/28/2023 39934-TLXTBIP NAIL, 6 OR MORE 05/21/2024 17303-QYTIAAM NAIL, 6 OR MORE 11/05/2024 04628-Kofhsowu Plate 08/26/2018 57374-Viliortp Plate 07/10/2023 30322-Fqehdbpp Plate 05/01/2023 30395-Rturqpib Plate 02/20/2023 16223-Scsyerot Plate 11/21/2022 57865-Ezjphukj Plate 09/10/2022 14208-Pcjbbeoa Plate 06/27/2022 48709-Etmdqrni Plate 04/18/2022 22551-Ndbpekfp Plate 07/01/2018 64038-AJMY SKIN LESIONS, OVER 4 04/18/20 50202-ZQAP SKIN LESIONS, OVER 4 06/27/20 92102-HROK SKIN LESIONS, OVER 4 12/31/19 19 18058-OQCS SKIN LESIONS, OVER 4 04/14/20 19 34879-XEIS SKIN LESIONS, OVER 4 06/23/20 19 55909-CZMS SKIN LESIONS, OVER 4 09/25/19 20 77764-NVRT SKIN LESIONS, OVER 4 02/05/20 20 35579-GRTK SKIN LESIONS, OVER 4 06/17/20 20 11607-RDCF SKIN LESIONS, OVER 4 10/21/19 21 61856-USLO SKIN LESIONS, OVER 4 02/18/20 21 97346-CAWB SKIN LESIONS, OVER 4 06/02/20 21 91673-UXCD SKIN LESIONS, OVER 4 09/29/19 22 29882-WSRL SKIN LESIONS, OVER 4 12/19/20 22 92545-PKYC SKIN LESIONS, OVER 4 11/22/19 23 30039-JTPR SKIN LESIONS, OVER 4 02/21/20 23 78198-DLOQ SKIN LESIONS, OVER 4 05/01/20 23 02580-GNKL SKIN LESIONS, OVER 4 07/10/20 23 39867-FUVY SKIN LESIONS, OVER 4 09/11/20 23 88742-YXWY SKIN LESIONS, OVER 4 05/21/20 24 57012-AOVT SKIN LESIONS, OVER 4 11/28/19 24 51782-SZTS SKIN LESIONS, 2 TO 4 08/26/20 18 54154-ETDZ SKIN LESIONS, 2 TO 4 05/27/20 18 50156-MRQF SKIN LESIONS, 2 TO 4 11/05/19 25 47488-Lfbr. Subungual Hematoma 5 17203- Nail Unit Biopsy 05/27/2018 Insurance Providers Payer Name Payer Address Payer Phone Subscriber Number Group Number Insured Name Patient Relationship to Insured Coverage Start Date Coverage End Date [facility] [employer] [address] [address] [place] [address] [phone] [id number] Gillian Ash Self - patient is the [...]
--- OUTSIDE RECORDS SUMMARY | 2025-09-11 21:27 | XMS_ITS | Encounter Summary ---
Author Organization [employer] Address [address] [place] [address] [address] [place] [address] Care Team Providers Care Supervisor Rework Name Role Phone Unavailable Primary Care Provider Unavailabl e Encounter Details Date Type Department Care Team (Late st Contact Info) Description 08/09/2023 Abstract [facility] [address] [place] [address] Zack Marino BDS [address] [place] [address] Social History Tobacco Use Types Packs/Day Years [...] Description 12/28/2025 12:45 PM EDT Office Visit [facility] ADULT [facility] [address] [place] [address] Shaw Bee documented as of this encounter Visit Diagnoses Not on filedocumented in this encounter
--- OUTSIDE RECORDS SUMMARY | 2025-09-11 21:27 | XMS_ITS | Encounter Summary ---
Author Organization [employer] Address [address] [place] [address] [address] [place] [address] Care Team Providers Care Ship Laborer Name Role Phone Unavailable Primary Care Provider Unavailabl e Encounter Details Date Type Department Care Team (Late st Contact Info) Description 08/29/2023 Abstract [facility] [address] [place] [address] Zack Marino BDS [address] [place] [address] Social History Tobacco Use Types Packs/Day Years [...] Description 12/28/2025 12:45 PM EDT Office Visit [facility] ADULT DENT[facility] [address] [place] [address] Shaw Bee documented as of this encounter Visit Diagnoses Not on filedocumented in this encounter
--- OUTSIDE RECORDS SUMMARY | 2025-09-11 21:27 | XMS_ITS | Patient Health Record ---
[facility] Organization [facility] Address [address] [place] [id number] Support Name Relationship Address Phone CHELSEY HOLM Guarantor Unknown [phone] Reason For Referral No Information Plan Of Treatment No Information
--- OUTSIDE RECORDS SUMMARY | 2025-09-11 21:27 | XMS_ITS | Encounter Summary ---
Author Organization [employer] Address [address] [place] [address] [address] [address] Care Team Providers Care Chief Business Officer Name Role Phone Unavailable Primary Care Provider Unavailabl e Encounter Details Date Type Department Care Team (Late st Contact Info) Description 08/09/2023 Abstract [facility] [address] [place] [address] Zack Marino BDS [address] [place] [address] Social History Tobacco Use Types Packs/Day Years [...] Description 12/28/2025 12:45 PM EDT Office Visit [facility] ADULT D[facility] [address] [place] [address] Shaw Bee documented as of this encounter Visit Diagnoses Not on filedocumented in this encounter
--- OUTSIDE RECORDS SUMMARY | 2025-09-11 21:27 | XMS_ITS | Encounter Summary ---
Author Organization [employer] Address [address] [place] [address] [address] [place] [address] Care Team Providers Care Senior Label Specialist Name Role Phone Unavailable Primary Care Provider Unavailabl e Encounter Details Date Type Department Care Team (Late st Contact Info) Description 08/09/2023 Abstract [facility] [address] [place] [address] Zack Marino BDS [address] [place] [address] Social History Tobacco Use Types Packs/Day Years [...] 12:45 PM EDT Office Visit [facility]ULT [facility] [address] [place] [address] Shaw Bee documented as of this encounter Visit Diagnoses Not on filedocumented in this encounter
--- OUTSIDE RECORDS SUMMARY | 2025-09-11 21:27 | XMS_ITS | Encounter Summary ---
Author Organization [employer] Address [address] [place] [address] [address] [place] [address] Care Team Providers Care Marketing Systems Analyst Name Role Phone Unavailable Primary Care Provider Unavailabl e Reason for Visit * Reason Onset Date Comments rs appt [facility] Patient 09/10/2025 rs appt [facility] patient 09/10/2025 Encounter Details Date Type Department Care Team ([facility] st Contact Info) Description 09/10/2025 Telephone [facility] ADULT D[facility] [address] [place] [phone] Shaw Bee rs appt [facility] Patient ; rs appt [facility] patient Social History Tobacco Use Types Packs/Day Years Used Date Smoking Tobacco: Never Smokeless Tobacco: Never Comments Unknown Sex and Gender Information Value Date Recorded Sex Assigned at Female 07/23/2022 10:24 AM EDT Legal Sex Female 10:24 AM EDT Gender Identity Female 08/30/2023 10:02 AM EST Sexual Orientation Straight 08/30/2023 10 :02 AM EST documented as of this encounter Miscellaneous Notes * Telephone Encounter - Ewelina Crenshaw - 09/10/2025 11:59 AM EST Appointment rescheduled again for warmer weather. [facility] patient DR * Telephone Encounter - Ewelina Crenshaw - 09/10/2025 10:11 AM EST Appointment was rescheduled for a Saturday seeing that relative of patient is coming in with estee toappointment and coming in from [place]. Patient is [facility] Patient DR documented in this encounter Plan of Treatment Upcoming Encounters Date Type Department Care Team (Late st Contact Info) Description 12/28/2025 12:45 PM EDT Office Visit [facility] [address] [place] [address] Shaw Bee documented as of this encounter Goals Goal Patient Goal Type Associated Problems Recent Progress Patient-Stated? Author Help patients manage their type 2 diabetes Care Plan Help patients manage their type 2 diabetes Ewelina Jaime Weekly blood pressure task Care Plan Weekly blood pressure task Ewelina Jaime Help patients manage their type 2 diabetes Care Plan Help patients manage their type 2 diabetes Ewelina Jaime Patient has chronic kidney disease Care Plan Patient has chronic kidney disease Ewelina Jaime Weekly blood pressure task Care Plan Weekly blood pressure task No Ewelina Crenshaw Patient has chronic kidney disease Care Plan Patient has chronic kidney disease Ewelina Jaime documented as of this encounter Visit Diagnoses Not on filedocumented in this encounter Additional Health Concerns Active Problems Noted Date Diagnosed Date Help patients manage their type 2 diabetes 09/10 Weekly blood pressure task 09/10/2025 Help patients manage their type 2 diabetes 09/10 Patient has chronic kidney disease 09/10/2025 Weekly blood pressure task 09/10/2025 Patient has chronic kidney disease 09/10/2025 documented as of this encounter
--- NOTE | 2025-09-11 22:06 | MHC.EDTECH ---
If can't get in contact with Emergency contact, Sister Mamie said she can be reached at [phone]
--- NOTE | 2025-09-11 22:26 | PC.NURSE ---
UA collected and sent Plan of care ongoing.
[2025-09-11 22:32] LABS: Appearance Urine Turbid; Glucose Urine UA Negative (Negative); PH 7.0 (5.0-9.0); Specific Gravity - Urine 1.020 (1.005-1.025); UMIC TRIGGER UACC YES
[2025-09-11 22:36] LABS: UACC Culture Trigger YES
--- NOTE | 2025-09-11 22:55 | PC.NURSE ---
1st set of cultures sent Pt medicated per mar Collar removed per provider ROGERS Plan of care ongoing
[2025-09-11 22:56] VITALS: BP 140/57; PULSE 64; RESP 12; TEMP 36.8; O2SAT 100
--- NOTE | 2025-09-11 23:23 | PC.NURSE ---
multiple attempts bu RN, explosive operator bomb and phelbotomy for second set of cultures and lactic acid. unable to obtain.
--- NOTE | 2025-09-11 23:55 | PM.IMHP ---
History of Present Illness Date of Service: 09/11/25 Chief Complaint: unwitnessed fall from bed 79 year old female with comorbid conditions significant for major neurocognitive disorder due to Alzheimer's disease, depression, anxiety, oral phase dysphagia, gait disorder, paroxysmal atrial fibrillation on apixaban, Parkinson's disease, chronic kidney disease, diabetes, and hypertension The patient was transferred to the emergency department from [facility] for further evaluation following an unwitnessed fall from bed with head trauma, including a scalp hematoma and laceration. She was reportedly found on the floor by facility staff. The patient is unable to provide a history due to underlying neurocognitive disorder. Treatment in the ED included IV fluids and IV ceftriaxone. Vitals: BP 140/57, HR 64, RR 12, Temp 98.3F, O2 100% RA. BMI 15.7. DIAGNOSTIC STUDIES: CT head and C-spine (09/11/25): no acute bleed or fracture. CT chest (09/11/25): no acute findings. CT abdomen/pelvis (09/11/25): Severe multilevel degenerative changes. Erosive changes at the endplates of L4-L5 disc space. No prevertebral or epidural space collection. Discitis osteomyelitis is also a consideration in the appropriate clinical setting. Sacral decubitus wound. No drainable fluid collection. Labs (09/11/25): Hgb 11.1, ESR 71, CRP 2.39, troponin I 20.2, glucose 200, UA abnormal with turbid urine, protein 3+, blood 1+, leukocyte esterase 3+, WBC >50/hpf, bacteria 2+. WBC count normal. ECG: sinus at 72 bpm, no acute ischemic changes History obtained from records and from [facility] and the electronic medical records. The patient is unable to provide history secondary to neurocognitive disorder. [facility] Medical History (Updated 09/11/25 @ 23:05 by Nicki Strong MD) Type 2 diabetes mellitus with hyperglycemia Unwitnessed fall Sepsis Acute UTI Fracture of head of humerus Dementia due to Alzheimer disease Essential hypertension Chronic kidney disease Parkinson disease GERD (gastroesophageal reflux disease) Atrial fibrillation Type 2 diabetes mellitus Depression Social History Household Members: Unknown / Unable to assess Housing: Unknown / Unable to assess Do you presently have visiting nurse or other home services: No Patient Tobacco Use Status: Never used Tobacco Second Hand Smoke Exposure: No Advance Directives: Yes Advance Directives on File: Yes Advance Directives Date on File: 11/23/24 Recently lost weight without trying: Unsure Nutrition Risks: Poor intake 0-25% >4 days Patient : No service: No Meds Allergies Allergy/AdvReac Type Severity Reaction Status Date / Time atorvastatin (From Lipitor) Allergy Unknown Verified 09/11/25 17:39 divalproex sodium (From Allergy Unknown Verified 09/11/25 17:39 Depakote) Iodinated Contrast Media (IV Allergy Unknown Verified 09/11/25 17:39 Contrast Dye) mushroom Allergy Unknown Verified 09/11/25 17:39 neomycin Allergy Unknown Verified 09/11/25 17:39 peanut Allergy Unknown Verified 09/11/25 17:39 polymyxin B Allergy Unknown Verified 09/11/25 17:39 Home Medications ?Medication ?Instructions ?Recorded ?Confirmed ?Last Taken ?Type acetaminophen 500 mg tablet 500 mg PO BID 11/24/24 11/27/24 Unknown History apixaban 2.5 mg tablet (Eliquis) 2.5 mg PO BID 11/24/24 11/27/24 Unknown History atorvastatin 40 mg tablet 40 mg PO BEDTIME 11/24/24 11/27/24 Unknown History carbidopa 25 mg-levodopa 100 mg 1 tab PO TID 11/24/24 11/27/24 Unknown History tablet (Sinemet) docusate sodium 100 mg capsule 100 mg PO DAILY 11/24/24 11/27/24 Unknown History (Colace) fluticasone propionate 50 1 spray intranasal BID 11/24/24 11/27/24 Unknown History mcg/actuation nasal spray,suspension gabapentin 100 mg capsule 100 mg PO BID 11/24/24 11/27/24 Unknown History glipizide 5 mg tablet, extended 5 mg PO DAILY 11/24/24 11/27/24 Unknown History release 24 hr loratadine 10 mg tablet 10 mg PO DAILY 11/24/24 11/27/24 Unknown History metformin 500 mg tablet 500 mg PO BID 11/24/24 11/27/24 Unknown History metoprolol succinate 25 mg 25 mg PO DAILY 11/24/24 11/27/24 Unknown History tablet,extended release 24 hr mirtazapine 15 mg tablet 15 mg PO BEDTIME 11/24/24 11/27/24 Unknown History omeprazole 20 mg capsule,delayed 20 mg PO BID@0630,1430 11/24/24 11/27/24 Unknown History release trazodone 50 mg tablet 25 mg PO BID 11/24/24 11/27/24 Unknown History nut.tx.gluc.intol,lac-free,soy 1 ea PO DAILY 11/27/24 11/27/24 Unknown History (Glucerna Shake oral liquid) Physical Exam Vital Signs and Narrative: Vital Signs: Last Vital Signs Temp 98.3 F 09/11/25 22:56 Pulse 64 09/11/25 22:56 Resp 12 09/11/25 22:56 BP 140/57 H 09/11/25 22:56 Pulse Ox 100 09/11/25 22:56 O2 Del Method Room Air 09/11/25 22:56 BMI result Body Mass Index 15.7 General: No acute distress Head: Laceration and hematoma Cardiovascular: ?RRR, no murmurs, rubbing, gallops Respiratory: CTABL, no wheeze, rales, rhonchi Gastrointestinal: Soft, non distended, non tender, non guarding Extremities: No edema, upper and lower extremities contractures Neuro: Moves all extremities spontaneously, no dysarthria, speech is nonsensical Skin: Sacral decubitus wound. Results Labs 09/11/25 19:14 09/11/25 19:14 Labs: Laboratory Results - last 24 hr 09/11/25 09/11/25 09/11/25 19:14 19:20 22:24 MCV 87.9 MCH 28.5 MCHC 32.4 RDW 13.5 Plt Count 248 D MPV 9.9 Immature Gran % (Auto) 0.3 Neut % (Auto) 72.6 Lymph % (Auto) 19.2 L [place] % (Auto) 5.1 Eos % (Auto) 2.5 Baso % (Auto) 0.3 Lymph # (Auto) 1.3 [place] # (Auto) 0.4 Eos # (Auto) 0.2 Baso # (Auto) 0.0 Abs Immat Gran (auto) 0.02 Absolute Neuts (auto) 5.0 Absolute Nucleated RBC 0.000 Nucleated RBC % (auto) 0.0 ESR 71 H Anion Gap 16 Estim Creat Clear Calc 25.7 Estimated GFR 52 POC Glucose 200 H Random Glucose 201 H Calcium 9.7 D Total Creatine Kinase 67 Troponin I High Sens 20.2 H D C-Reactive Protein 2.39 H Urine Color Yellow Urine Appearance Turbid Urine pH 7.0 Ur Specific [place] 1.020 Urine Protein 300 (3+) H Urine Glucose (UA) Negative Urine Ketones Negative Urine Blood Small (1+) H Urine Nitrite Negative Ur Leukocyte Esterase Large (3+) H Urine RBC 11-20 H Urine WBC >50 H Ur Squamous Epith Cells 0-2 Urine Bacteria 2+ Hyaline Casts 0-2 Assessment and Plan (1) Major neurocognitive disorder: Status: Acute Plan Unwitnessed fall out of bed resulting in a head laceration and hematoma on anticoagulation likely multifactorial -Admit to: Observation -neuro checks -standard for precaution -acetaminophen IV for pain -reassess anticoagulation risk/benefit -consider obtaining therapy evaluation Possible urinary tract infection, sepsis criteria not met on admission -continue ceftriaxone, dual antibiotics accordingly -urine culture pending -blood cultures x1 (informed by primary RN, multiple attempts to obtain 2nd set of blood cultures and lactic acid unsuccessful-see Nursing documented report) Severe multilevel degenerative changes of the lumbar spine with low clinical suspicion for discitis or osteomyelitis, as the patient is afebrile, no observed behaviors suggestive of discomfort when palpating the vertebra. -If clinical concern persists, MRI of the lumbar spine may be considered -Inflammatory markers show ESR 71 mm/hr, which is only mildly elevated when age-adjusted (expected ?45.5), and CRP 2.39 mg/L, which is well below levels typically associated with bacterial infection in older adults; studies suggest CRP >=0 mg/L is a more reasonable threshold for bacterial infection in this population, Major neurocognitive disorder due to Alzheimer's disease Chronic oral phase dysphagia -please obtain pre-hospital cognition from the patient's care partners to establish a baseline -aspiration precaution -NPO, pending a speech and language pathologist evaluation. Reassess the need for continuing fingersticks q.6 hours with the initiation of a diet -supportive care -IV fluids Chronic medical conditions: atrial fibrillation, chronic kidney disease, Parkinson disease, hypertension, GERD, depression -Medication reconciliation pending Incidental finds on imagin.3 cm nonspecific hyperdensity adjacent to the vaginal cuff, pelvic nonurgent ultrasound was recommend. Kidneys: No hydronephrosis. Punctate nonobstructing right renal stones. Goals of Care Healthcare proxy/inside technical sales representative: Piotr Barros paul Life sustaining treatment preference: DNR, invasive intubation and ventilation Advanced directives: [facility] order of life-sustaining treatment-copy obtained if detention Quality Metrics VTE prophylaxis: Mechanical: SCD Chemoprophylaxis: Holding Eliquis secondary to unwitnessed fall with a head trauma resulting in a head laceration and hematoma Quality Stroke Does the patient have a stroke diagnosis?: No VTE Prior VTE?: No VTE Risk Level:: Medical - moderate - high VTE Device Contraindication: N/A - Device Ordered VTE Drug Contraindication: Treatment Not Tolerated
[2025-09-12] VITALS (7 sets, daily range): BP systolic 134–169; BP diastolic 72–87; PULSE 66–100; RESP 16–18; TEMP 36.4–37.1; O2SAT 95–100
[2025-09-12] MEDS: Lactated Ringers 1,000 ML 75 ML IVCONT (01:44)
[2025-09-12 06:45] LABS: Glucose, Whole Blood 145 mg/dL (60-115)
[2025-09-12 06:53] LABS: MANUAL DIFF FLAG NO
[2025-09-12 07:09] LABS: Hematocrit 33.9 % (37.0-47.0); Hemoglobin 11.1 g/dl (12.0-16.0); Imm Gran Abs Auto 0.02 X10*3/uL (0.00-0.03); Imm Gran Pct Auto 0.4 % (0.0-0.4); Lymphocytes Absolute Auto 0.8 X10*3/uL (1.2-4.9); Mean Corpuscular HGB Conc 32.7 g/dl (31.0-35.0); Mean Corpuscular Hemoglobin 28.9 pg (27.0-33.0); Mean Corpuscular Volume 88.3 fL (80.0-98.0); NRBC Abs Auto 0.000 X10*3/uL (0.0-0.012); NRBC Pct Auto 0.0 /100WBC (0.0-0.2); Platelet Count 220 X10*3/uL (160-400); Red Blood Count 3.84 X10*6/uL (4.20-5.50); White Blood Count 5.4 X10*3/uL (4.8-10.8)
[2025-09-12 07:31] LABS: Anion Gap 12 (12-20); Blood Urea Nitrogen 12 mg/dL (9-16); Calcium 8.8 mg/dL (8.4-10.2); Carbon Dioxide 22 mmol/L (22-29); Chloride 110 mmol/L (96-108); Creatinine Clr Calc Pharmacy 34.5; Estimated Glomerular Filt Rate > 60; Potassium 3.1 mmol/L (3.3-5.1); Sodium 141 mmol/L (135-145)
[2025-09-12 07:38] LABS: Glucose, Whole Blood 135 mg/dL (60-115)
--- NOTE | 2025-09-12 09:27 | MHC.CM.PN ---
CM assessment completed w/ brother in law/HCP [facility] ([phone]). CRUZ delivered. Patient comes from [facility]. [facility] reports she ambualtes w/ a cane at baseline and staff assists w/ all care. PCP Evens Stubbs MD HCP on file and verified DP: Return to [facility] via BLS. CM will continue to follow.
--- NOTE | 2025-09-12 09:32 | P.PNIM_ITS ---
Subjective Subjective Date of Service: 09/12/25 Interval History: f/u on unwitness fall, she's very demented and not able to offer any meaningful story Physical Exam 2 Vital Signs: Vital Signs: Last Vital Signs Temp 98.5 F 09/12/25 07:49 Pulse 69 09/12/25 07:49 Resp 18 09/12/25 07:49 BP 167/87 H 09/12/25 07:49 Pulse Ox 99 09/12/25 07:49 O2 Del Method Room Air 09/12/25 07:49 BMI result Body Mass Index 15.7 Const: Other: General: No acute distress Head: Laceration and hematoma Cardiovascular: ?RRR, no murmurs, rubbing, gallops Respiratory: CTABL, no wheeze, rales, rhonchi Gastrointestinal: Soft, non distended, non tender, non guarding Extremities: No edema, upper and lower extremities contractures Neuro: Moves all extremities spontaneously, no dysarthria, speech is nonsensical Skin: Sacral decubitus wound. Objective Data Active Medications Lactated Ringer's (Lr) 1,000 mls @ 75 mls/hr IVCONT .[id number] [facility] Stop: 09/12/25 14:19 Last Admin: 09/12/25 01:44 Dose: 75 mls/hr Documented By: MULUGETA Ceftriaxone Sodium 1 gm/ (Sodium Chloride) 50 mls @ 100 mls/hr IV Q24H [facility] Acetaminophen (Ofirmev) 1,000 mg in 100 mls @ 400 mls/hr IV TID [facility] Last Admin: 09/12/25 08:29 Dose: 400 mls/hr Documented By: MANINDER Magnesium Hydroxide (Milk Of Magnesia 30 Ml Oral.Susp) 30 ml PO DAILY PRN PRN Reason: Constipation Ondansetron HCl (Ondansetron Hcl 4 Mg/2 Ml Vial) 4 mg IVPUSH Q8H PRN PRN Reason: Nausea and Vomiting Sodium Chloride (0.9 % Sodium Chloride Flush 3 Ml Syringe) 3 ml IVFLUSH QSHIFT [facility] Labs 09/12/25 06:47 09/12/25 06:47 Labs: Laboratory Results - last 24 hr 09/11/25 09/11/25 09/11/25 19:14 19:20 22:24 MCV 87.9 MCH 28.5 MCHC 32.4 RDW 13.5 Plt Count 248 D MPV 9.9 Immature Gran % (Auto) 0.3 Neut % (Auto) 72.6 Lymph % (Auto) 19.2 L [place] % (Auto) 5.1 Eos % (Auto) 2.5 Baso % (Auto) 0.3 Lymph # (Auto) 1.3 [place] # (Auto) 0.4 Eos # (Auto) 0.2 Baso # (Auto) 0.0 Abs Immat Gran (auto) 0.02 Absolute Neuts (auto) 5.0 Absolute Nucleated RBC 0.000 Nucleated RBC % (auto) 0.0 ESR 71 H Anion Gap 16 Estim Creat Clear Calc 25.7 Estimated GFR 52 POC Glucose 200 H Random Glucose 201 H Lactic Acid Calcium 9.7 D Total Creatine Kinase 67 Troponin I High Sens 20.2 H D C-Reactive Protein 2.39 H Urine Color Yellow Urine Appearance Turbid Urine pH 7.0 Ur Specific [place] 1.020 Urine Protein 300 (3+) H Urine Glucose (UA) Negative Urine Ketones Negative Urine Blood Small (1+) H Urine Nitrite Negative Ur Leukocyte Esterase Large (3+) H Urine RBC 11-20 H Urine WBC >50 H Ur Squamous Epith Cells 0-2 Urine Bacteria 2+ Hyaline Casts 0-2 09/12/25 09/12/25 09/12/25 06:41 06:47 07:26 MCV 88.3 MCH 28.9 MCHC 32.7 RDW 13.4 Plt Count 220 MPV 9.8 Immature Gran % (Auto) 0.4 Neut % (Auto) 75.0 H Lymph % (Auto) 14.4 L [place] % (Auto) 6.3 Eos % (Auto) 3.5 Baso % (Auto) 0.4 Lymph # (Auto) 0.8 L [place] # (Auto) 0.3 Eos # (Auto) 0.2 Baso # (Auto) 0.0 Abs Immat Gran (auto) 0.02 Absolute Neuts (auto) 4.1 Absolute Nucleated RBC 0.000 Nucleated RBC % (auto) 0.0 ESR Anion Gap 12 Estim Creat Clear Calc 34.5 Estimated GFR > 60 POC Glucose 145 H 135 H Random Glucose 139 H Lactic Acid 1.1 Calcium 8.8 D Total Creatine Kinase Troponin I High Sens C-Reactive Protein Urine Color Urine Appearance Urine pH Ur Specific [place] Urine Protein Urine Glucose (UA) Urine Ketones Urine Blood Urine Nitrite Ur Leukocyte Esterase Urine RBC Urine WBC Ur Squamous Epith Cells Urine Bacteria Hyaline Casts Assessment and Plan (1) Depression: Status: Acute (2) Type 2 diabetes mellitus: Status: Acute (3) Urinary tract infection: Status: Acute Plan 79 yo F resident of [facility] with Alzheimer dementia, depression, DM2, AF on apixaban, recurrent falls, HTN, CKD, GARY, and Parkinsonism admitted after unwitnessed fall, Unwitnessed fall out of bed resulting in a head laceration and hematoma on anticoagulation likely She has had multiple episodes like this in the past and is quite demented there is no reason to believe that arrhythmia played a role here PT eval tomorrow UTI Ceftriaxone follow cultures Severe multilevel degenerative changes of the lumbar spine with low clinical suspicion for discitis or osteomyelitis, as the patient is afebrile, no observed behaviors suggestive of discomfort when palpating the vertebra. -If clinical concern persists, MRI of the lumbar spine may be considered -Inflammatory markers show ESR 71 mm/hr, which is only mildly elevated when age- adjusted (expected ?45.5), and CRP 2.39 mg/L, which is well below levels typically associated with bacterial infection in older adults; studies suggest CRP >=0 mg/L is a more reasonable threshold for bacterial infection in this population, Major neurocognitive disorder due to Alzheimer's disease Chronic oral phase dysphagia -please obtain pre-hospital cognition from the patient's care partners to establish a baseline -aspiration precaution -NPO, pending a speech and language pathologist evaluation. Reassess the need for continuing fingersticks q.6 hours with the initiation of a diet -supportive care -IV fluids Chronic medical conditions: atrial fibrillation, chronic kidney disease, Parkinson disease, hypertension, GERD, depression -Medication reconciliation pending. Use of anticoagulation to be discussed with HCP, she's at high risk of serious injury and at this point risks outweight benefit Incidental finds on imagin.3 cm nonspecific hyperdensity adjacent to the vaginal cuff, pelvic nonurgent ultrasound was recommend. Kidneys: No hydronephrosis. Punctate nonobstructing right renal stones. Quality Metrics VTE prophylaxis: Mechanical: SCD Chemoprophylaxis: Holding Eliquis secondary to unwitnessed fall with a head trauma resulting in a head laceration and hematoma Goals of Care Healthcare proxy/service support representative: paul Castaneda Life sustaining treatment preference: DNR, invasive intubation and ventilation Quality Stroke Does the patient have a stroke diagnosis?: No VTE Prior VTE?: No VTE Risk Level:: Medical - moderate - high VTE Device Contraindication: N/A - Device Ordered VTE Drug Contraindication: Treatment Not Tolerated
--- NOTE | 2025-09-12 10:10 | PHA.MEDREC ---
Pharmacy Consult ? Medication Reconciliation Pharmacy has completed the medication reconciliation, used medication list from [facility] [phone] ([facility]) and also spoke to nurse Anish who confirmed Humalog is given twice a day before meals per sliding scale and Lantus is given as 8 units at bedtime.
--- NOTE | 2025-09-12 11:18 | MHC.SL.SWA ---
Speech Pathologist Impression: Risk of Aspiration, Mild Oropharyngeal Dysphagia Risk of Aspiration Due to: Underlying neuro conditions, reduced cognition Dysphasia Diet Status: Start on NDD1/THIN (Baseline diet) Liquid Consistency and Strategies for Safe Swallow: Liquid Intake Recommendation: Thin Liquid Intake Strategies: Via Teaspoon Solid Food Consistency: Dietary Recommendations: Pureed (NDD1) Additional Modifications to Solid Foods: Recommend UPGRADE from NPO, start on PUREED (NDD1) solids and THIN liquids, pills CRUSHED in PUREE. Patient will need 1:1 assistance feeding. Per staff at [facility], this is patient's baseline diet. She presents with mild oropharyngeal dysphagia, in the setting of Alzheimer's disease and Parkinson's disease. Patient w/ discoordinated oral phase, with tongue pumping behavior and weak labial seal. Good oral clearance and no overt s/s of aspiration. Recommend feeding strategies to maximize safety: give small bites, check oral cavity between bites for clearance, liquids by teaspoon, upright 90 degree position during PO intake and for at least 30 min afterwards. Oral Medication Intake: Crushed with Puree Please contact the pharmacy regarding appropriate crushable or liquid drug formulations that are available whenever modified delivery is recommended. Supervision While Eating and Drinking for Safe Swallow: Total Assistance (1:1) Recommendation for Speech: Inpatient Speech Therapy Comment: COMPLAINT EVALUATION OFFICER to f/u 2x to monitor tolerance of baseline diet Frequency/Duration: 2 f/u Date Range for Service Req: Timeline to reassess: [employer] Ticket Sales Clinican/Clinical Fellow: No Supervisory Statement: I have reviewed and agree with the student/clinical fellow's documentation: N/A Speech Language Pathologist: Yesenia Matias M.A., CCC-COMPLAINT EVALUATION OFFICER
[2025-09-12 12:00] LABS: Glucose, Whole Blood 171 mg/dL (60-115)
[2025-09-12] MEDS: Metoprolol Succinate ER 50 MG TAB.ER.24H PO (13:05)
[2025-09-12] MEDS: traZODone HCL 25 MG HALFTAB PO ×2 (13:05→21:13)
[2025-09-12] MEDS: 0.9 % Sodium Chloride Flush 3 ML SYRINGE IVFLUSH ×2 (13:05→16:53)
[2025-09-12 16:18] LABS: Glucose, Whole Blood 283 mg/dL (60-115)
[2025-09-12] MEDS: Artificial Tears 15 ML DROPS 1 DROP EYE-BOTH (17:05)
[2025-09-12] MEDS: Milk of Magnesia 30 ML ORAL.SUSP PO (18:27)
[2025-09-12 20:54] LABS: Glucose, Whole Blood 199 mg/dL (60-115)
[2025-09-12] MEDS: Insulin Glargine,Hum.rec.anlog 100 UNIT/ML 10 ML VIAL SUBCUT (21:12)
--- NOTE | 2025-09-12 22:50 | PC.NURSE ---
RN notified that sister Mamie called for update. RN attempted to call sister, no answer call went straight to voicemail.
[2025-09-13] VITALS (7 sets, daily range): BP systolic 97–135; BP diastolic 52–78; PULSE 67–97; RESP 16–18; TEMP 36.3–37.2; O2SAT 98; BMI 15.7; BMI 17.9
[2025-09-13] MEDS: 0.9 % Sodium Chloride Flush 3 ML SYRINGE IVFLUSH ×4 (00:54→20:39)
[2025-09-13] MEDS: Artificial Tears 15 ML DROPS 1 DROP EYE-BOTH (06:01)
[2025-09-13 07:30] LABS: Glucose, Whole Blood 166 mg/dL (60-115)
[2025-09-13] MEDS: traZODone HCL 25 MG HALFTAB PO ×2 (08:54→20:39)
[2025-09-13] MEDS: Metoprolol Succinate ER 50 MG TAB.ER.24H PO (08:54)
--- NOTE | 2025-09-13 09:41 | P.PNIM_ITS ---
Subjective Subjective Date of Service: 09/13/25 Interval History: She's demented and not saying much urine growing GNR Physical Exam 2 Vital Signs: Vital Signs: Last Vital Signs Temp 98.2 F 09/13/25 07:23 Pulse 92 09/13/25 08:54 Resp 16 09/13/25 07:23 BP 97/52 L 09/13/25 08:54 Pulse Ox 98 09/13/25 07:23 O2 Del Method Room Air 09/13/25 07:23 BMI result Body Mass Index 15.7 Const: Other: General: No acute distress Head: Laceration and hematoma Cardiovascular: ?RRR, no murmurs, rubbing, gallops Respiratory: CTABL, no wheeze, rales, rhonchi Gastrointestinal: Soft, non distended, non tender, non guarding Extremities: No edema, upper and lower extremities contractures Neuro: Moves all extremities spontaneously, no dysarthria, speech is nonsensical Skin: Sacral decubitus wound. Objective Data Active Medications Acetaminophen (Acetaminophen 325 Mg Tablet) 650 mg PO Q6H PRN PRN Reason: Pain, Mild (Pain Scale 1-3) Artificial Tears (Artificial Tears 15 Ml Drops) 1 drop EYE-BOTH BID@0600,1800 [facility] Last Admin: 09/13/25 06:01 Dose: 1 drop Documented By: KARTHIK Carbidopa/Levodopa (Carbidopa/Levodopa 25/100 Tablet) 1 tab PO TID [facility] Last Admin: 09/13/25 08:54 Dose: 1 tab Documented By: BUFFY Dextrose (Dextrose 50 % 25 Gm/50 Ml Syringe) 25 gm IVPUSH Q15M PRN; Protocol PRN Reason: per Hypoglycemia Standing Ord. Docusate Sodium (Docusate Sodium 100 Mg Capsule) 100 mg PO DAILY [facility] Last Admin: 09/12/25 13:05 Dose: 100 mg Documented By: MANINDER Fluticasone Propionate (Fluticasone Propionate Nasal 16 Gm [place]) 1 spray NOSTRIL-B BID [facility] Last Admin: 09/12/25 21:00 Dose: Not Given Documented By: KARTHIK Non-Admin Reason: Med Not Available Gabapentin (Gabapentin 100 Mg Capsule) 100 mg PO BID [facility] Last Admin: 09/13/25 08:54 Dose: 100 mg Documented By: BUFFY Glucose (Glucose Gel 15 Gm Gel..Gram.) 15 gm PO Q15M PRN; Protocol PRN Reason: per Hypoglycemia Standing Ord. Ceftriaxone Sodium 1 gm/ (Sodium Chloride) 50 mls @ 100 mls/hr IV Q24H [facility] Last Infusion: 09/13/25 01:30 Dose: Infused Documented By: KARTHIK Insulin Glargine (Insulin Glargine,Hum.Rec.Anlog 100 Unit/Ml 10 Ml Vial) 5 unit SUBCUT BEDTIME [facility] Last Admin: 09/12/25 21:12 Dose: 5 unit Documented By: KARTHIK Insulin Human Lispro (Insulin Lispro 100 Unit/Ml 3 Ml Vial) 0 unit SUBCUT QIDACHS [facility]; Protocol Last Admin: 09/13/25 08:53 Dose: 2 unit Documented By: BUFFY Loratadine (Loratadine 10 Mg Tablet) 10 mg PO DAILY [facility] Last Admin: 09/13/25 08:54 Dose: 10 mg Documented By: BUFFY Magnesium Hydroxide (Milk Of Magnesia 30 Ml Oral.Susp) 30 ml PO DAILY PRN PRN Reason: Constipation Last Admin: 09/12/25 18:27 Dose: 30 ml Documented By: MANINDER Metoprolol Succinate (Metoprolol Succinate Er 50 Mg Tab.Er.24h) 50 mg PO DAILY [facility]; Protocol Last Admin: 09/13/25 08:54 Dose: 50 mg Documented By: BUFFY Mirtazapine (Mirtazapine 15 Mg Tablet) 15 mg PO BEDTIME [facility] Last Admin: 09/12/25 21:13 Dose: 15 mg Documented By: KARTHIK Mupirocin (Mupirocin 2 % Oint 22 Gm Tube) 1 appl TOPICAL DAILY [facility]; Protocol Omeprazole (Omeprazole 20 Mg Capsule.Dr) 20 mg PO BID@0630,1630 [facility] Last Admin: 09/13/25 06:01 Dose: 20 mg Documented By: KARTHIK Ondansetron HCl (Ondansetron Hcl 4 Mg/2 Ml Vial) 4 mg IVPUSH Q8H PRN PRN Reason: Nausea and Vomiting Polyethylene Glycol (Polyethylene Glycol 3350 17 Gm Powd.Pack) 17 gm PO DAILY PRN PRN Reason: Constipation Senna (Sennosides 8.6 Mg Tablet) 17.2 mg PO DAILY PRN PRN Reason: Constipation Sodium Chloride (0.9 % Sodium Chloride Flush 3 Ml Syringe) 3 ml IVFLUSH QSHIFT [facility] Last Admin: 09/13/25 08:58 Dose: 3 ml Documented By: BUFFY Tramadol HCl (Tramadol Hcl 50 Mg Tablet) 25 mg PO TID PRN PRN Reason: Pain, Moderate(Pain Scale 4-6) Trazodone HCl (Trazodone Hcl 25 Mg Halftab) 25 mg PO BID [facility] Last Admin: 09/13/25 08:54 Dose: 25 mg Documented By: BUFFY Labs 09/12/25 06:47 09/12/25 06:47 Labs: Laboratory Results - last 24 hr 09/12/25 09/12/25 09/12/25 11:35 16:15 20:45 POC Glucose 171 H 283 H 199 H 09/13/25 07:25 POC Glucose 166 H Microbiology Microbiology Results: Microbiology 09/11/25 22:24 Urine Culture - Preliminary Urine clean catch - Clean Catch Midstream Gram negative ivelisse 09/12/25 06:47 Blood Culture - Preliminary Blood - Venous No growth after 24 hours. 09/11/25 22:54 Blood Culture - Preliminary Blood - Venous No growth after 24 hours. Assessment and Plan (1) Depression: Status: Acute (2) Type 2 diabetes mellitus: Status: Acute (3) Urinary tract infection: Status: Acute Plan 79 yo F resident of [facility] center with Alzheimer dementia, depression, DM2, AF on apixaban, recurrent falls, HTN, CKD, GARY, and Parkinsonism admitted after unwitnessed fall, Unwitnessed fall out of bed resulting in a head laceration and hematoma on anticoagulation likely She has had multiple episodes like this in the past and is quite demented there is no reason to believe that arrhythmia played a role here PT eval UTI Ceftriaxone follow cultures, so far gram negative ivelisse but no sensitivity Severe multilevel degenerative changes of the lumbar spine with low clinical suspicion for discitis or osteomyelitis, as the patient is afebrile, no observed behaviors suggestive of discomfort when palpating the vertebra. -If clinical concern persists, MRI of the lumbar spine may be considered -Inflammatory markers show ESR 71 mm/hr, which is only mildly elevated when age- adjusted (expected ?45.5), and CRP 2.39 mg/L, which is well below levels typically associated with bacterial infection in older adults; studies suggest CRP >=0 mg/L is a more reasonable threshold for bacterial infection in this population, Major neurocognitive disorder due to Alzheimer's disease Chronic oral phase dysphagia -please obtain pre-hospital cognition from the patient's care partners to establish a baseline -aspiration precaution -NPO, pending a speech and language pathologist evaluation. Reassess the need for continuing fingersticks q.6 hours with the initiation of a diet -supportive care -IV fluids Chronic medical conditions: atrial fibrillation, chronic kidney disease, Parkinson disease, hypertension, GERD, depression -Medication reconciliation pending. Use of anticoagulation to be discussed with HCP, she's at high risk of serious injury and at this point risks outweight benefit Incidental finds on imagin.3 cm nonspecific hyperdensity adjacent to the vaginal cuff, pelvic nonurgent ultrasound was recommend. Kidneys: No hydronephrosis. Punctate nonobstructing right renal stones. Quality Metrics VTE prophylaxis: Mechanical: SCD Chemoprophylaxis: Holding Eliquis secondary to unwitnessed fall with a head trauma resulting in a head laceration and hematoma Goals of Care Healthcare proxy/sales representative malt liquors: paul Castaneda Life sustaining treatment preference: DNR, invasive intubation and ventilation Quality Stroke Does the patient have a stroke diagnosis?: No VTE Prior VTE?: No VTE Risk Level:: Medical - moderate - high VTE Device Contraindication: N/A - Device Ordered VTE Drug Contraindication: Treatment Not Tolerated
[2025-09-13 11:04] LABS: Glucose, Whole Blood 163 mg/dL (60-115)
--- NOTE | 2025-09-13 11:20 | MHC.CLN ---
PT IS MODERATELY MALNOURISHED-QUALIFIES FOR NON-SEVERE IN CONTEXT OF CHRONIC ILLNESS PT WITH MILDLY DEPLETED SUBCUTANEOUS FAT AND MUSCLE MASS WITH 16% SIGNIFICANT WT LOSS X 9 MONTHS DIET RX: PUREED RECOMMEND ADDING ENSURE BID TO PROVIDE 700KCALS, 40G PROTEIN MONITOR PO INTAKE AND ENCOURAGE SUPPLEMENTS SEE FULL ASSESSMENT
--- NOTE | 2025-09-13 13:35 | MHC.CM.PN ---
Pt. not medically cleared to DC, she is a LTC resident of [facility], will return there at [place], SNF has been updated.
[2025-09-13 15:47] LABS: Glucose, Whole Blood 185 mg/dL (60-115)
--- NOTE | 2025-09-13 15:49 | HO.WOUND ---
Addendum entered by Dana Todd RN 09/13/25 16:02: TT to provider regarding wound presence to Sacrum. Original Note: Wound Consult: Initial 79yr old?female admitted to [facility] on 09/11/25 22:45- See progress notes and H&P for detailed history.? Wound consult placed for Coccyx.? Patient was nonverbal while at bedside patient s sister was at bedside and reports this is her baseline at times. She reports she was aware of the wound from the prior facility. 09/13/25 Sacrum Etiology: Deep Tissue Injury ??Present on Admission Measurements: 4.5cm x 4cm x 0.2cm Wound Bed: adherent yellow slough with red moist wound bed dark nonblanchable purple tissue Drainage / Odor: Funez yellow drainage on dressing Edges: ? irregular and macerated Radha wound: scar tissue and prior injury noted ? No Induration, Fluctuance or Warmth noted Pain: none noted at this time Goals of Treatment: ? Off load pressure and Durafiber and Foam dressing Bilateral Heels assessed for intact blanchable redness - preventaitve foams in place. Left Great Toe MTP joint with intact blanchable redness noted - foam dressing in place Right lateral Foot - with intact blanchable redness noted - foam dressing in place Perineal area noted for MASD - Hyperpigmented dry desquamation noted - cleansed and barrier cream applied. Forehead - s/p fall at outside facility - small bruise with abration vs laceration - not open at this time - dry stable scab noted may leave AUTOMATIC TYPEWRITER INSPECTOR at this time. Recommendations: 1. Turn and Reposition every 2 hours and as needed for patient comfort.? Use pillows or wedges to support off loading positions. 2. Off Load all bony prominences with use of pillows and heel boots if needed.? Apply Preventative foams where needed. ? 3. Monitor for incontinence and moisture control, use barrier creams when needed for prevention and treatment. 4. Provide adequate and supplemental nutrition.? 5. Continue low air loss mattress. 6. When applicable maintain blood glucose levels per Providers order. Sacrum - Off Load Pressure with Q2 hr turns and use of pillows - Cleanse with NS moist gauze, pat dry. ?Apply thin layer of Triad to periwound. Apply Durafiber AG to wound bed, cover with foam dressing to aid in off loading and protection from friction. Change every other day and PRN. Bilateral Heels and Medial and Later aides of feet - Elevate heels off of bed surface with pillows.? Float heels off of pillows.? Apply skin prep allow to dry.? Apply heel foam dressings, peel back and assess Q shift and change every 3 days and PRN. Perineal - Cleanse with PH balance spray or wipes, pat dry. ?Apply thin layer of barrier cream to affected area.? Apply twice daily and Reapply thin layer PRN after each episode of incontinence. Re-consult wound care Nurse for wound deterioration or wound changes.
--- NOTE | 2025-09-13 16:37 | MHC.SL.SWA ---
Speech Pathologist Impression: Risk of Aspiration, Oropharyngeal Dypshagia Risk of Aspiration Due to: Reduced Cognition/Neuro Conditions, Underlying Alzheimer's, PD Dysphasia Diet Status: No Change Liquid Consistency and Strategies for Safe Swallow: Liquid Intake Recommendation: Thin Liquid Intake Strategies: Small Sips Solid Food Consistency: Dietary Recommendations: Pureed (NDD1) Additional Modifications to Solid Foods: Patient will need 1:1 assistance feeding. Per staff at [facility], this is patient's baseline diet. She presents with mild oropharyngeal dysphagia, in the setting of Alzheimer's disease and Parkinson's disease. Patient w/ discoordinated oral phase, with tongue pumping behavior and weak labial seal. Good oral clearance and no overt s/s of aspiration. Recommend feeding strategies to maximize safety: give small bites, check oral cavity between bites for clearance, upright 90 degree position during PO intake and for at least 30 min afterwards. SNACK BAR ATTENDANT to f/u 1x to ensure tolerance. Oral Medication Intake: Crushed with Puree Please contact the pharmacy regarding appropriate crushable or liquid drug formulations that are available whenever modified delivery is recommended. Compensatory Strategies and Precautions to be Taken for Safe Swallow: Sitting Upright (90 deg) Small Bites and Sips Alternate Liquids/Solids Rate of Ingestion Change Oral Check Supervision While Eating and Drinking for Safe Swallow: Total Assistance (1:1) Swallowing Recommended Treatments: Compens. Strategy Educat. Recommendation for Speech: 1 f/u Pipeline Technician Clinican/Clinical Fellow: No Supervisory Statement: I have reviewed and agree with the student/clinical fellow's documentation: N/A Speech Language Pathologist: Yesenia Matias M.A., [facility]-SNACK BAR ATTENDANT
[2025-09-13 20:37] LABS: Glucose, Whole Blood 111 mg/dL (60-115)
[2025-09-13] MEDS: Insulin Glargine,Hum.rec.anlog 100 UNIT/ML 10 ML VIAL SUBCUT (21:32)
[2025-09-14] VITALS (7 sets, daily range): BP systolic 100–156; BP diastolic 51–89; PULSE 63–123; RESP 12–18; TEMP 36.2–37.7; O2SAT 92–100; BMI 17.9
[2025-09-14 07:15] LABS: Glucose, Whole Blood 158 mg/dL (60-115)
[2025-09-14] MEDS: 0.9 % Sodium Chloride Flush 3 ML SYRINGE IVFLUSH ×3 (09:06→21:16)
[2025-09-14 10:14] LABS: MANUAL DIFF FLAG NO
[2025-09-14 10:16] LABS: Hematocrit 32.3 % (37.0-47.0); Hemoglobin 10.2 g/dl (12.0-16.0); Imm Gran Abs Auto 0.03 X10*3/uL (0.00-0.03); Imm Gran Pct Auto 0.4 % (0.0-0.4); Lymphocytes Absolute Auto 1.0 X10*3/uL (1.2-4.9); Mean Corpuscular HGB Conc 31.6 g/dl (31.0-35.0); Mean Corpuscular Hemoglobin 28.7 pg (27.0-33.0); Mean Corpuscular Volume 90.7 fL (80.0-98.0); NRBC Abs Auto 0.000 X10*3/uL (0.0-0.012); NRBC Pct Auto 0.0 /100WBC (0.0-0.2); Platelet Count 208 X10*3/uL (160-400); Red Blood Count 3.56 X10*6/uL (4.20-5.50); White Blood Count 8.3 X10*3/uL (4.8-10.8)
[2025-09-14 10:38] LABS: Alanine Aminotransferase < 6 U/L (0-31); Albumin Level 3.0 g/dL (3.5-5.0); Alkaline Phosphatase 64 U/L (39-117); Anion Gap 12 (12-20); Aspartate Amino Transferase 56 U/L (5-31); Blood Urea Nitrogen 28 mg/dL (9-16); Calcium 9.0 mg/dL (8.4-10.2); Carbon Dioxide 25 mmol/L (22-29); Chloride 109 mmol/L (96-108); Creatinine Clr Calc Pharmacy 20.1; Estimated Glomerular Filt Rate 34; Potassium 3.4 mmol/L (3.3-5.1); Sodium 143 mmol/L (135-145); Total Protein 6.5 g/dL (6.5-8.0)
--- NOTE | 2025-09-14 11:15 | HO.PM.IMPN ---
Subjective Subjective Date of Service: 09/14/25 Interval History: Sleepy with minimal responsiveness this morning. Minimally responsive to sternal rub Blood work obtained, revealing elevated creatinine, however no other features or concerning findings CT brain ordered for further evaluation - given her recent fall Vital signs stable. Patient is unable to contribute meaningfully to historical portion of evaluation today other than ?I feel sick - she is unable to elaborate further Review of Systems Review of Systems: Yes Unobtainable due to mental condition and Unobtainable due to mental status Physical Exam Exam: Exam: General: A&O x3, oriented to time place person and situation, comfortable, no pain Cardiac: S1, S2 auscultated with no S3/4, no MRG. Well perfused. Respiratory: Reduced inspiratory and expiratory breath sounds bilaterally, without crepitations crackles or wheezes; no peripheral or central cyanosis GI/ : No abdominal pain on palpation, no masses or distentions. MSK: Reduced muscular bulk throughout upper and lower extremities bilaterally; significant muscular atrophy; temporal wasting noted Neurological: Normal neurological examination on overview, without obvious CN II-XII abnormalities. Vital Signs: Vital Signs: Last Vital Signs Temp 98.8 F 09/14/25 09:45 Pulse 67 09/14/25 09:45 Resp 12 09/14/25 09:45 BP 101/51 L 09/14/25 09:45 Pulse Ox 99 09/14/25 09:45 O2 Del Method Room Air 09/14/25 09:45 BMI result Body Mass Index 17.9 Objective Data Active Medications Acetaminophen (Acetaminophen 325 Mg Tablet) 650 mg PO Q6H PRN PRN Reason: Pain, Mild (Pain Scale 1-3) Artificial Tears (Artificial Tears 15 Ml Drops) 1 drop EYE-BOTH BID@0600,1800 [facility] Last Admin: 09/14/25 06:13 Dose: Not Given Documented By: MULUGETA Non-Admin Reason: Med Not Available Carbidopa/Levodopa (Carbidopa/Levodopa 25/100 Tablet) 1 tab PO TID [facility] Last Admin: 09/14/25 10:15 Dose: Not Given Documented By: CHRYSTAL Non-Admin Reason: unable to give too lethargic Dextrose (Dextrose 50 % 25 Gm/50 Ml Syringe) 25 gm IVPUSH Q15M PRN; Protocol PRN Reason: per Hypoglycemia Standing Ord. Docusate Sodium (Docusate Sodium 100 Mg/10 Ml Liquid) 100 mg PO DAILY [facility] Last Admin: 09/14/25 10:15 Dose: Not Given Documented By: CHRYSTAL Non-Admin Reason: unable to give too lethargic Fluticasone Propionate (Fluticasone Propionate Nasal 16 Gm [place]) 1 spray NOSTRIL-B BID [facility] Last Admin: 09/14/25 09:07 Dose: Not Given Documented By: CHRYSTAL Non-Admin Reason: unable to tolerate Gabapentin (Gabapentin 100 Mg Capsule) 100 mg PO BID [facility] Last Admin: 09/14/25 10:15 Dose: Not Given Documented By: CHRYSTAL Non-Admin Reason: unable to give too lethargic Glucose (Glucose Gel 15 Gm Gel..Gram.) 15 gm PO Q15M PRN; Protocol PRN Reason: per Hypoglycemia Standing Ord. Ceftriaxone Sodium 1 gm/ (Sodium Chloride) 50 mls @ 100 mls/hr IV Q24H [facility] Last Infusion: 09/13/25 23:52 Dose: Infused Documented By: MULUGETA Insulin Glargine (Insulin Glargine,Hum.Rec.Anlog 100 Unit/Ml 10 Ml Vial) 5 unit SUBCUT BEDTIME [facility] Last Admin: 09/13/25 21:32 Dose: 5 unit Documented By: MULUGETA Insulin Human Lispro (Insulin Lispro 100 Unit/Ml 3 Ml Vial) 0 unit SUBCUT QIDACHS [facility]; Protocol Last Admin: 09/14/25 09:05 Dose: Not Given Documented By: CHRYSTAL Non-Admin Reason: pt not eating Loratadine (Loratadine 10 Mg Tablet) 10 mg PO DAILY [facility] Last Admin: 09/14/25 10:15 Dose: Not Given Documented By: CHRYSTAL Non-Admin Reason: unable to give too lethargic Magnesium Hydroxide (Milk Of Magnesia 30 Ml Oral.Susp) 30 ml PO DAILY PRN PRN Reason: Constipation Last Admin: 09/12/25 18:27 Dose: 30 ml Documented By: MANINDER Metoprolol Succinate (Metoprolol Succinate Er 50 Mg Tab.Er.24h) 50 mg PO DAILY [facility]; Protocol Last Admin: 09/14/25 10:15 Dose: Not Given Documented By: CHRYSTAL Non-Admin Reason: unable to give too lethargic Mirtazapine (Mirtazapine 15 Mg Tablet) 15 mg PO BEDTIME [facility] Last Admin: 09/13/25 20:39 Dose: 15 mg Documented By: MULUGETA Mupirocin (Mupirocin 2 % Oint 22 Gm Tube) 1 appl TOPICAL DAILY [facility]; Protocol Last Admin: 09/14/25 09:06 Dose: 1 appl Documented By: CHRYSTAL Omeprazole (Omeprazole 20 Mg Capsule.Dr) 20 mg PO BID@0630,1630 [facility] Last Admin: 09/14/25 06:16 Dose: 20 mg Documented By: MULUGETA Ondansetron HCl (Ondansetron Hcl 4 Mg/2 Ml Vial) 4 mg IVPUSH Q8H PRN PRN Reason: Nausea and Vomiting Polyethylene Glycol (Polyethylene Glycol 3350 17 Gm Powd.Pack) 17 gm PO DAILY PRN PRN Reason: Constipation Senna (Sennosides 8.6 Mg Tablet) 17.2 mg PO DAILY PRN PRN Reason: Constipation Sodium Chloride (0.9 % Sodium Chloride Flush 3 Ml Syringe) 3 ml IVFLUSH QSHIFT [facility] Last Admin: 09/14/25 09:06 Dose: 3 ml Documented By: CHRYSTAL Tramadol HCl (Tramadol Hcl 50 Mg Tablet) 25 mg PO TID PRN PRN Reason: Pain, Moderate(Pain Scale 4-6) Trazodone HCl (Trazodone Hcl 25 Mg Halftab) 25 mg PO BID [facility] Last Admin: 09/14/25 10:16 Dose: Not Given Documented By: CHRYSTAL Non-Admin Reason: unable to give too lethargic Labs 09/14/25 10:04 09/14/25 10:04 Labs: Laboratory Results - last 24 hr 09/13/25 09/13/25 09/14/25 15:44 20:26 07:11 MCV MCH MCHC RDW Plt Count MPV Immature Gran % (Auto) Neut % (Auto) Lymph % (Auto) [place] % (Auto) Eos % (Auto) Baso % (Auto) Lymph # (Auto) [place] # (Auto) Eos # (Auto) Baso # (Auto) Abs Immat Gran (auto) Absolute Neuts (auto) Absolute Nucleated RBC Nucleated RBC % (auto) Anion Gap Estim Creat Clear Calc Estimated GFR POC Glucose 185 H 111 158 H Random Glucose Calcium Total Bilirubin AST ALT Alkaline Phosphatase Total Protein Albumin 09/14/25 10:04 MCV 90.7 MCH 28.7 MCHC 31.6 RDW 13.9 Plt Count 208 MPV 9.9 Immature Gran % (Auto) 0.4 Neut % (Auto) 76.5 H Lymph % (Auto) 11.5 L [place] % (Auto) 7.7 Eos % (Auto) 3.4 Baso % (Auto) 0.5 Lymph # (Auto) 1.0 L [place] # (Auto) 0.6 Eos # (Auto) 0.3 Baso # (Auto) 0.0 Abs Immat Gran (auto) 0.03 Absolute Neuts (auto) 6.4 Absolute Nucleated RBC 0.000 Nucleated RBC % (auto) 0.0 Anion Gap 12 Estim Creat Clear Calc 20.1 Estimated GFR 34 POC Glucose Random Glucose 146 H Calcium 9.0 Total Bilirubin 0.3 AST 56 H ALT < 6 Alkaline Phosphatase 64 Total Protein 6.5 Albumin 3.0 L Microbiology Microbiology Results: Microbiology 09/12/25 06:47 Blood Culture - Preliminary Blood - Venous No growth after 48 hours. 09/11/25 22:24 Urine Culture - Final Urine clean catch - Clean Catch Midstream Proteus mirabilis 09/11/25 22:54 Blood Culture - Preliminary Blood - Venous No growth after 48 hours. Assessment and Plan (1) Depression: Status: Acute (2) Type 2 diabetes mellitus: Status: Acute (3) GERD (gastroesophageal reflux disease): Status: Acute (4) Hypokalemia: Status: Acute (5) Major neurocognitive disorder: Status: Acute (6) Sarcopenia: Status: Acute (7) Parkinson disease: Status: Acute Plan 79 yo F resident of [facility] center with Alzheimer dementia, depression, DM2, AF on apixaban, recurrent falls, HTN, CKD, GARY, and Parkinsonism admitted after unwitnessed fall. 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 -If clinical concern persists, MRI of the lumbar spine may be considered -Inflammatory markers show ESR 71 mm/hr, which is only mildly elevated when age-adjusted (expected ?45.5), and CRP 2.39 mg/L, which is well below levels typically associated with bacterial infection in older adults; studies suggest CRP >=0 mg/L is a more reasonable threshold for bacterial infection in this population, Major neurocognitive disorder due to Alzheimer's disease Chronic oral phase dysphagia VALIDATION CONSULTANT evaluated patient with clearance regarding diet. Need to obtain pre-hospital cognition from the patient's care partners to establish a baseline -aspiration precaution -Reassess the need for continuing fingersticks q.6 hours with the initiation of a diet -supportive care -IV fluids Chronic medical conditions: atrial fibrillation, chronic kidney disease, Parkinson disease, hypertension, GERD, depression -Medication reconciliation complete. Use of anticoagulation to be discussed with HCP, she's at high risk of serious injury and at this point risks outweight benefit. Incidental finds on imagin.3 cm nonspecific hyperdensity adjacent to the vaginal cuff, pelvic nonurgent ultrasound was recommend. Kidneys: No hydronephrosis. Punctate nonobstructing right renal stones. QUALITY METRICS - VTE: SCDs-holding Eliquis 2/2 unwitnessed fall with head trauma - CODE STATUS: DNR / invasive intubation and ventilation - DIET: Regular diet - DISPOSITION: Altered mental status with reduced awareness Healthcare proxy/human resources representative: paul Castaneda Total time managing care of this patient today: 45 minutes. Quality Stroke Does the patient have a stroke diagnosis?: No VTE Prior VTE?: No VTE Risk Level:: Medical - moderate - high VTE Device Contraindication: N/A - Device Ordered VTE Drug Contraindication: Treatment Not Tolerated
[2025-09-14 11:28] LABS: Glucose, Whole Blood 143 mg/dL (60-115)
--- NOTE | 2025-09-14 13:52 | MHC.SL.SWA ---
Speech Pathologist Impression: Mild oorpharyngeal dysphagia/WFL for current consistencies Risk of Aspiration Due to: Reduced cogntion/hx of Alzheimer's and PD Dysphasia Diet Status: Recommend CONTINUE NDD1 (puree), THIN liquids Liquid Consistency and Strategies for Safe Swallow: Liquid Intake Recommendation: Thin Liquid Intake Strategies: Small Sips Solid Food Consistency: Dietary Recommendations: Pureed (NDD1) Additional Modifications to Solid Foods: Patient will need 1:1 assistance feeding. [place] [facility] [place]'s baseline diet. She presents with mild oropharyngeal dysphagia, in the setting of Alzheimer's disease and Parkinson's disease. Patient w/ discoordinated oral phase, with tongue pumping behavior and weak labial seal. Good oral clearance and no overt s/s of aspiration. Recommend feeding strategies to maximize safety: give small bites, check oral cavity between bites for clearance, upright 90 degree position during PO intake and for at least 30 min afterwards. Oral Medication Intake: Crushed with Puree Please contact the pharmacy regarding appropriate crushable or liquid drug formulations that are available whenever modified delivery is recommended. Compensatory Strategies and Precautions to be Taken for Safe Swallow: Sitting Upright (90 deg) Small Bites and Sips Alternate Liquids/Solids Rate of Ingestion Change Oral Check Supervision While Eating and Drinking for Safe Swallow: Total Assistance (1:1) Foods to Avoid: Swallowing Recommended Treatments: Compens. Strategy Educat. Recommendation for Speech: DISCHARGE Comment: Recommend PUREED (NDD1) solids and THIN liquids, pills CRUSHED in PUREE. Patient will need 1:1 assistance feeding. Per staff at [facility] [place], this is patient's baseline diet. She presents with mild oropharyngeal dysphagia, in the setting of Alzheimer's disease and Parkinson's disease. Patient w/ discoordinated oral phase, with tongue pumping behavior and weak labial seal. Good oral clearance and no overt s/s of aspiration. Recommend feeding strategies to maximize safety: give small bites, check oral cavity between bites for clearance, liquids by teaspoon, upright 90 degree position during PO intake and for at least 30 min afterwards. Patient tolerating current diet across multiple dysphagia follow-ups. Patient at baseline, IP COUNSEL at this level of care no longer warranted. MD and RN notified of discharge via secure chat and encouraged to re-consult if needed. Frequency/Duration: Date Range for Service Req: Timeline to reassess: Branch Banker Clinican/Clinical Fellow: No Supervisory Statement: I have reviewed and agree with the student/clinical fellow's documentation: N/A Speech Language Pathologist: Lila Sumner M.A., CCC-IP COUNSEL
[2025-09-14] MEDS: Artificial Tears 15 ML DROPS 1 DROP EYE-BOTH (16:05)
[2025-09-14] MEDS: Lactated Ringers 1,000 ML 100 ML IVCONT (16:05)
[2025-09-14 16:38] LABS: Glucose, Whole Blood 324 mg/dL (60-115)
[2025-09-14 19:54] LABS: Glucose, Whole Blood 198 mg/dL (60-115)
[2025-09-14] MEDS: Insulin Glargine,Hum.rec.anlog 100 UNIT/ML 10 ML VIAL SUBCUT (21:15)
[2025-09-14] MEDS: traZODone HCL 25 MG HALFTAB PO (21:15)
[2025-09-15] MEDS: Lactated Ringers 1,000 ML 100 ML IVCONT ×3 (02:37→21:48)
[2025-09-15 03:07] VITALS: BP 143/56; PULSE 103; RESP 18; TEMP 36.6; O2SAT 100
[2025-09-15] MEDS: Artificial Tears 15 ML DROPS 1 DROP EYE-BOTH (05:36)
[2025-09-15 08:00] VITALS: BP 148/72; PULSE 93; RESP 16; TEMP 36.8; O2SAT 98
[2025-09-15 08:01] LABS: Glucose, Whole Blood 121 mg/dL (60-115)
[2025-09-15 08:08] VITALS: BP 143/56; PULSE 103
[2025-09-15] MEDS: 0.9 % Sodium Chloride Flush 3 ML SYRINGE IVFLUSH (08:08)
[2025-09-15] MEDS: Metoprolol Succinate ER 50 MG TAB.ER.24H PO (08:08)
[2025-09-15] MEDS: traZODone HCL 25 MG HALFTAB PO ×2 (08:08→21:45)
[2025-09-15 09:10] LABS: Anion Gap 12 (12-20); Blood Urea Nitrogen 16 mg/dL (9-16); Calcium 8.7 mg/dL (8.4-10.2); Carbon Dioxide 24 mmol/L (22-29); Chloride 110 mmol/L (96-108); Creatinine Clr Calc Pharmacy 30.9; Estimated Glomerular Filt Rate 55; Potassium 2.9 mmol/L (3.3-5.1); Sodium 143 mmol/L (135-145)
[2025-09-15] MEDS: Potassium Chloride/H20 10 MEQ/100 ML PIGGYBACK 100 MEQ IV ×4 (09:34→12:29)
[2025-09-15 09:44] VITALS: BP 127/77; PULSE 100; RESP 16; TEMP 37.1; O2SAT 100
--- NOTE | 2025-09-15 10:40 | HO.PM.IMPN ---
Subjective Subjective Date of Service: 09/15/25 Interval History: more communicative and engaging today. denies new symptoms or complaints Review of Systems Review of Systems: Yes Unobtainable due to mental condition and Unobtainable due to mental status Physical Exam Vital Signs: Vital Signs: Last Vital Signs Temp 98.7 F 09/15/25 09:44 Pulse 100 09/15/25 09:44 Resp 16 09/15/25 09:44 BP 127/77 09/15/25 09:44 Pulse Ox 100 09/15/25 09:44 O2 Del Method Room Air 09/15/25 09:44 BMI result Body Mass Index 17.9 Objective Data Active Medications Acetaminophen (Acetaminophen 325 Mg Tablet) 650 mg PO Q6H PRN PRN Reason: Pain, Mild (Pain Scale 1-3) Last Admin: 09/14/25 13:14 Dose: 650 mg Documented By: CHRYSTAL Artificial Tears (Artificial Tears 15 Ml Drops) 1 drop EYE-BOTH BID@0600,1800 [facility] Last Admin: 09/15/25 05:36 Dose: 1 drop Documented By: KAISER Carbidopa/Levodopa (Carbidopa/Levodopa 25/100 Tablet) 1 tab PO TID [facility] Last Admin: 09/15/25 08:08 Dose: 1 tab Documented By: CARMEN Dextrose (Dextrose 50 % 25 Gm/50 Ml Syringe) 25 gm IVPUSH Q15M PRN; Protocol PRN Reason: per Hypoglycemia Standing Ord. Docusate Sodium (Docusate Sodium 100 Mg/10 Ml Liquid) 100 mg PO DAILY [facility] Last Admin: 09/15/25 08:08 Dose: 100 mg Documented By: CARMEN Fluticasone Propionate (Fluticasone Propionate Nasal 16 Gm [place]) 1 spray NOSTRIL-B BID [facility] Last Admin: 09/15/25 08:09 Dose: 1 spray Documented By: CARMEN Gabapentin (Gabapentin 100 Mg Capsule) 100 mg PO BID [facility] Last Admin: 09/15/25 08:08 Dose: 100 mg Documented By: CARMEN Glucose (Glucose Gel 15 Gm Gel..Gram.) 15 gm PO Q15M PRN; Protocol PRN Reason: per Hypoglycemia Standing Ord. Ceftriaxone Sodium 1 gm/ (Sodium Chloride) 50 mls @ 100 mls/hr IV Q24H [facility] Last Infusion: 09/15/25 02:18 Dose: Infused Documented By: KAISER Lactated Ringer's (Lr) 1,000 mls @ 100 mls/hr IVCONT .Q10H [facility] Last Admin: 09/15/25 02:37 Dose: 100 mls/hr Documented By: KAISER Potassium Chloride (Potassium Chloride/H20) 10 meq in 100 mls @ 100 mls/hr IV Q1H [facility] Stop: 09/15/25 13:29 Last Admin: 09/15/25 10:34 Dose: 100 mls/hr Documented By: MELINDA Insulin Glargine (Insulin Glargine,Hum.Rec.Anlog 100 Unit/Ml 10 Ml Vial) 5 unit SUBCUT BEDTIME [facility] Last Admin: 09/14/25 21:15 Dose: 5 unit Documented By: KAISER Insulin Human Lispro (Insulin Lispro 100 Unit/Ml 3 Ml Vial) 0 unit SUBCUT QIDACHS [facility]; Protocol Last Admin: 09/15/25 08:09 Dose: Not Given Documented By: CARMEN Non-Admin Reason: No Insulin Coverage Loratadine (Loratadine 10 Mg Tablet) 10 mg PO DAILY [facility] Last Admin: 09/15/25 08:08 Dose: 10 mg Documented By: CARMEN Magnesium Hydroxide (Milk Of Magnesia 30 Ml Oral.Susp) 30 ml PO DAILY PRN PRN Reason: Constipation Last Admin: 09/12/25 18:27 Dose: 30 ml Documented By: MANINDER Metoprolol Succinate (Metoprolol Succinate Er 50 Mg Tab.Er.24h) 50 mg PO DAILY [facility]; Protocol Last Admin: 09/15/25 08:08 Dose: 50 mg Documented By: CARMEN Mirtazapine (Mirtazapine 15 Mg Tablet) 15 mg PO BEDTIME [facility] Last Admin: 09/14/25 21:15 Dose: 15 mg Documented By: KAISER Mupirocin (Mupirocin 2 % Oint 22 Gm Tube) 1 appl TOPICAL DAILY [facility]; Protocol Last Admin: 09/15/25 08:09 Dose: 1 appl Documented By: CARMEN Omeprazole (Omeprazole 20 Mg Capsule.) 20 mg PO BID@0630,1630 [facility] Last Admin: 09/15/25 05:36 Dose: 20 mg Documented By: KAISER Ondansetron HCl (Ondansetron Hcl 4 Mg/2 Ml Vial) 4 mg IVPUSH Q8H PRN PRN Reason: Nausea and Vomiting Polyethylene Glycol (Polyethylene Glycol 3350 17 Gm Powd.Pack) 17 gm PO DAILY PRN PRN Reason: Constipation Senna (Sennosides 8.6 Mg Tablet) 17.2 mg PO DAILY PRN PRN Reason: Constipation Sodium Chloride (0.9 % Sodium Chloride Flush 3 Ml Syringe) 3 ml IVFLUSH QSHIFT [facility] Last Admin: 09/15/25 08:08 Dose: 3 ml Documented By: CARMEN Tramadol HCl (Tramadol Hcl 50 Mg Tablet) 25 mg PO TID PRN PRN Reason: Pain, Moderate(Pain Scale 4-6) Last Admin: 09/14/25 17:06 Dose: 25 mg Documented By: CHRYSTAL Trazodone HCl (Trazodone Hcl 25 Mg Halftab) 25 mg PO BID [facility] Last Admin: 09/15/25 08:08 Dose: 25 mg Documented By: CARMEN Labs 09/14/25 10:04 09/15/25 08:23 Labs: Laboratory Results - last 24 hr 09/14/25 09/14/25 09/14/25 11:24 16:34 19:20 Hold Purple Top Anion Gap Estim Creat Clear Calc Estimated GFR POC Glucose 143 H 324 H 198 H Random Glucose Calcium Ur Random Sodium Urine Creatinine 09/15/25 09/15/25 09/15/25 07:55 07:57 08:23 Hold Purple Top SEE NOTE Anion Gap 12 Estim Creat Clear Calc 30.9 Estimated GFR 55 POC Glucose 121 H Random Glucose 128 H Calcium 8.7 Ur Random Sodium 94.0 Urine Creatinine 46.80 Microbiology Microbiology Results: Microbiology 09/12/25 06:47 Blood Culture - Preliminary Blood - Venous No growth after 48 hours. 09/11/25 22:24 Urine Culture - Final Urine clean catch - Clean Catch Midstream Proteus mirabilis Assessment and Plan (1) Type 2 diabetes mellitus: Status: Acute (2) Depression: Status: Acute (3) GERD (gastroesophageal reflux disease): Status: Acute (4) Hypokalemia: Status: Acute (5) Sarcopenia: Status: Acute (6) Parkinson disease: Status: Acute (7) Major neurocognitive disorder: Status: Acute Plan 79-year-old female?resident of [facility] with advanced Alzheimer dementia, Parkinsonism, atrial fibrillation on apixaban, CKD, DM2, severe frailty/sarcopenia, and recurrent falls, admitted after an?unwitnessed fall with head strike while anticoagulated, complicated by?UTI, acute encephalopathy, and ULISES, now with?improving renal function but ongoing electrolyte derangements, currently monitored on telemetry. Acute Encephalopathy / Altered Mental Status Presented with minimal responsiveness prompting CT head and metabolic evaluation. Likely multifactorial in the setting of infection, ULISES, dehydration, and baseline severe neurocognitive disorder. CT head without acute intracranial process.? Plan: Continue close neurologic monitoring. Treat underlying precipitants (UTI, ULISES, electrolyte abnormalities). Avoid sedating medications where possible. Maintain delirium precautions. Reassess mental status daily and compare to facility baseline via HCP. Acute Kidney Injury (improving) Creatinine peaked at ?1.4?1.5, now improved to?1.0?with IV fluids; likely prerenal from poor intake and infection.? Baseline 0.7 Plan: Continue judicious IV fluids to maintain euvolemia. Daily BMP to monitor renal function. Avoid nephrotoxins. Dose-adjust renally cleared medications as needed. Hypokalemia Potassium?2.9, likely multifactorial (poor intake, renal losses).? Plan: IV potassium chloride?10 mEq IV q1h x4. Repeat BMP at?3 PM?to reassess potassium and renal function. Continue telemetry while repleting. Replete magnesium if low to facilitate potassium correction. Urinary Tract Infection Urine culture growing?Proteus mirabilis; blood cultures negative to date. No evidence of septic shock.? Plan: Continue?ceftriaxone. Adjust antibiotics based on finalized sensitivities. Monitor for clinical improvement and resolution of leukocyturia/AMS. Unwitnessed Fall with Head Strike Fall out of bed with scalp laceration/hematoma while on apixaban. Initial CT head limited by motion artifact; no clear acute bleed.? Plan: Repeat?CT head without contrast?given anticoagulation and change in mental status. Maintain fall precautions. Physical therapy evaluation when clinically appropriate. Continue to hold anticoagulation pending risk?benefit discussion. Atrial Fibrillation Chronic AF previously on apixaban; currently held due to fall with head trauma.? Plan: Continue to hold apixaban. Discuss long-term anticoagulation risks vs benefits with HCP given recurrent falls and advanced dementia. Rate control as needed; monitor on telemetry. Type 2 Diabetes Mellitus Hyperglycemia during admission; limited PO intake.? Plan: Continue basal insulin and correctional insulin as ordered. Fingersticks per protocol; reassess frequency once diet stabilized. Avoid hypoglycemia given frailty and AMS. Parkinson Disease Home carbidopa/levodopa intermittently held due to lethargy.? Plan: Resume dopaminergic therapy as mental status and swallowing permit. Monitor for rigidity or worsening mobility. Severe Frailty / Sarcopenia / Malnutrition BMI 17.9 with temporal wasting and poor intake.? Plan: Nutritional support as tolerated. Assist with feeding. Monitor weights and intake. [id number] aligned approach given overall prognosis. Chronic Neurocognitive Disorder with Dysphagia Advanced Alzheimer dementia with known oral phase dysphagia.? Plan: Aspiration precautions. Diet per EXPLOSIVE ORDNANCE DISPOSAL SPECIALIST recommendations. Supportive care focused on comfort and safety. QUALITY METRICS VTE:?SCDs; anticoagulation held due to fall with head trauma CODE STATUS:?DNR / OK for invasive intubation and ventilation DIET:?as per EXPLOSIVE ORDNANCE DISPOSAL SPECIALIST reccs TELEMETRY:?On telemetry for hypokalemia and AF HURST:?none LINES:?Peripheral IV DISPOSITION:?Inpatient for electrolyte repletion and AMS monitoring Total time managing care of this patient today: 45 minutes. Quality Stroke Does the patient have a stroke diagnosis?: No VTE Prior VTE?: No VTE Risk Level:: Medical - moderate - high VTE Device Contraindication: N/A - Device Ordered VTE Drug Contraindication: Treatment Not Tolerated
[2025-09-15 11:23] LABS: Glucose, Whole Blood 204 mg/dL (60-115)
--- NOTE | 2025-09-15 14:45 | MHC.CLN ---
F/U DIET RX: PUREED. ENSURE BID TO PROVIDE 700KCALS, 40G PROTEIN. SKIN WITH DTI TO SACRUM. SUPPLEMENT TO PROMOTE WOUND HEALING AND NUTRITIONAL INTAKE. PO VARIABLE, 25-100%. MONITOR PO INTAKE AND ENCOURAGE SUPPLEMENTS.
[2025-09-15 16:00] VITALS: BP 115/58; PULSE 75; RESP 18; TEMP 36.6; O2SAT 97
[2025-09-15 16:41] LABS: Glucose, Whole Blood 160 mg/dL (60-115)
[2025-09-15 17:39] LABS: Anion Gap 13 (12-20); Blood Urea Nitrogen 18 mg/dL (9-16); Calcium 8.6 mg/dL (8.4-10.2); Carbon Dioxide 22 mmol/L (22-29); Chloride 112 mmol/L (96-108); Creatinine Clr Calc Pharmacy 30.5; Estimated Glomerular Filt Rate 54; Magnesium 2.0 mg/dL (1.6-2.6); Potassium 4.0 mmol/L (3.3-5.1); Sodium 143 mmol/L (135-145)
[2025-09-15 20:00] VITALS: BP 163/76; PULSE 79; RESP 19; TEMP 37.2; O2SAT 100
[2025-09-15 20:46] LABS: Glucose, Whole Blood 195 mg/dL (60-115)
[2025-09-15] MEDS: Insulin Glargine,Hum.rec.anlog 100 UNIT/ML 10 ML VIAL SUBCUT (21:46)
[2025-09-16 03:32] VITALS: BP 111/63; PULSE 66; RESP 20; TEMP 37.2; O2SAT 99
[2025-09-16 06:00] VITALS: BMI 17.9
[2025-09-16] MEDS: Artificial Tears 15 ML DROPS 1 DROP EYE-BOTH ×2 (06:17→17:01)
[2025-09-16 07:53] VITALS: BP 140/65; PULSE 72; RESP 18; TEMP 36.5; O2SAT 98
[2025-09-16] MEDS: Lactated Ringers 1,000 ML 100 ML IVCONT (07:57)
[2025-09-16 07:59] LABS: Glucose, Whole Blood 146 mg/dL (60-115)
[2025-09-16] MEDS: Metoprolol Succinate ER 50 MG TAB.ER.24H PO (08:07)
[2025-09-16] MEDS: traZODone HCL 25 MG HALFTAB PO ×2 (08:07→22:12)
[2025-09-16 08:49] LABS: Anion Gap 11 (12-20); Blood Urea Nitrogen 14 mg/dL (9-16); Calcium 8.5 mg/dL (8.4-10.2); Carbon Dioxide 24 mmol/L (22-29); Chloride 113 mmol/L (96-108); Creatinine Clr Calc Pharmacy 34.4; Estimated Glomerular Filt Rate > 60; Potassium 3.6 mmol/L (3.3-5.1); Sodium 144 mmol/L (135-145)
--- NOTE | 2025-09-16 10:54 | P.PNIM_ITS ---
Subjective Subjective Date of Service: 09/16/25 Interval History: no new issues or complaints today the patient is fatigued and tired sleeping in bed pending lab work to clarify hypokalemia/ ULISES poor po intake overall Review of Systems Review of Systems: Yes Unobtainable due to mental condition and Unobtainable due to mental status Physical Exam 2 Exam: Exam: PHYSICAL EXAM General: comfortable, no pain Cardiac: S1, S2 auscultated with no S3/4, no MRG. Well perfused. Respiratory: Reduced inspiratory and expiratory breath sounds bilaterally, without crepitations crackles or wheezes; no peripheral or central cyanosis GI/ : No abdominal pain on palpation, no masses or distentions. MSK: Reduced muscular bulk throughout upper and lower extremities bilaterally; significant muscular atrophy; temporal wasting noted Neurological: contractions of the LUE and LLE Vital Signs: Vital Signs: Last Vital Signs Temp 97.7 F 09/16/25 07:53 Pulse 72 09/16/25 07:53 Resp 18 09/16/25 07:53 BP 140/65 H 09/16/25 07:53 Pulse Ox 98 09/16/25 07:53 O2 Del Method Room Air 09/16/25 07:53 BMI result Body Mass Index 17.9 Objective Data Active Medications Acetaminophen (Acetaminophen 325 Mg Tablet) 650 mg PO Q6H PRN PRN Reason: Pain, Mild (Pain Scale 1-3) Last Admin: 09/14/25 13:14 Dose: 650 mg Documented By: CHRYSTAL Artificial Tears (Artificial Tears 15 Ml Drops) 1 drop EYE-BOTH BID@0600,1800 [facility] Last Admin: 09/16/25 06:17 Dose: 1 drop Documented By: CIRA Carbidopa/Levodopa (Carbidopa/Levodopa 25/100 Tablet) 1 tab PO TID [facility] Last Admin: 09/16/25 08:07 Dose: 1 tab Documented By: JAVIER Dextrose (Dextrose 50 % 25 Gm/50 Ml Syringe) 25 gm IVPUSH Q15M PRN; Protocol PRN Reason: per Hypoglycemia Standing Ord. Docusate Sodium (Docusate Sodium 100 Mg/10 Ml Liquid) 100 mg PO DAILY [facility] Last Admin: 09/16/25 08:07 Dose: 100 mg Documented By: JAVIER Fluticasone Propionate (Fluticasone Propionate Nasal 16 Gm [place]) 1 spray NOSTRIL-B BID [facility] Last Admin: 09/16/25 08:11 Dose: 1 spray Documented By: JAVIER Gabapentin (Gabapentin 100 Mg Capsule) 100 mg PO BID [facility] Last Admin: 09/16/25 08:07 Dose: 100 mg Documented By: JAVIER Glucose (Glucose Gel 15 Gm Gel..Gram.) 15 gm PO Q15M PRN; Protocol PRN Reason: per Hypoglycemia Standing Ord. Ceftriaxone Sodium 1 gm/ (Sodium Chloride) 50 mls @ 100 mls/hr IV Q24H [facility] Last Infusion: 09/15/25 22:55 Dose: Infused Documented By: BENJAMIN Lactated Ringer's (Lr) 1,000 mls @ 100 mls/hr IVCONT .Q10H [facility] Last Admin: 09/16/25 07:57 Dose: 100 mls/hr Documented By: JAVIER Insulin Glargine (Insulin Glargine,Hum.Rec.Anlog 100 Unit/Ml 10 Ml Vial) 5 unit SUBCUT BEDTIME [facility] Last Admin: 09/15/25 21:46 Dose: 5 unit Documented By: BENJAMIN Insulin Human Lispro (Insulin Lispro 100 Unit/Ml 3 Ml Vial) 0 unit SUBCUT QIDACHS [facility]; Protocol Last Admin: 09/16/25 07:58 Dose: Not Given Documented By: JAVIER Non-Admin Reason: No Insulin Coverage Loratadine (Loratadine 10 Mg Tablet) 10 mg PO DAILY [facility] Last Admin: 09/16/25 08:07 Dose: 10 mg Documented By: JAVIER Magnesium Hydroxide (Milk Of Magnesia 30 Ml Oral.Susp) 30 ml PO DAILY PRN PRN Reason: Constipation Last Admin: 09/12/25 18:27 Dose: 30 ml Documented By: MANINDER Metoprolol Succinate (Metoprolol Succinate Er 50 Mg Tab.Er.24h) 50 mg PO DAILY [facility]; Protocol Last Admin: 09/16/25 08:07 Dose: 50 mg Documented By: JAVIER Mirtazapine (Mirtazapine 15 Mg Tablet) 15 mg PO BEDTIME [facility] Last Admin: 09/15/25 21:46 Dose: 15 mg Documented By: BENJAMIN Mupirocin (Mupirocin 2 % Oint 22 Gm Tube) 1 appl TOPICAL DAILY [facility]; Protocol Last Admin: 09/16/25 08:12 Dose: 1 appl Documented By: JAVIER Omeprazole (Omeprazole 20 Mg Capsule.Dr) 20 mg PO BID@0630,1630 [facility] Last Admin: 09/16/25 06:16 Dose: Not Given Documented By: CIRA Non-Admin Reason: speech rec crush in puree Ondansetron HCl (Ondansetron Hcl 4 Mg/2 Ml Vial) 4 mg IVPUSH Q8H PRN PRN Reason: Nausea and Vomiting Polyethylene Glycol (Polyethylene Glycol 3350 17 Gm Powd.Pack) 17 gm PO DAILY PRN PRN Reason: Constipation Senna (Sennosides 8.6 Mg Tablet) 17.2 mg PO DAILY PRN PRN Reason: Constipation Sodium Chloride (0.9 % Sodium Chloride Flush 3 Ml Syringe) 3 ml IVFLUSH QSHIFT [facility] Last Admin: 09/16/25 08:11 Dose: Not Given Documented By: JAVIER Non-Admin Reason: IV Running Tramadol HCl (Tramadol Hcl 50 Mg Tablet) 25 mg PO TID PRN PRN Reason: Pain, Moderate(Pain Scale 4-6) Last Admin: 09/16/25 10:20 Dose: 25 mg Documented By: JAVIER Trazodone HCl (Trazodone Hcl 25 Mg Halftab) 25 mg PO BID [facility] Last Admin: 09/16/25 08:07 Dose: 25 mg Documented By: JAVIER Labs 09/14/25 10:04 09/16/25 08:19 Labs: Laboratory Results - last 24 hr 09/15/25 09/15/25 09/15/25 11:08 16:37 16:55 Anion Gap 13 Estim Creat Clear Calc 30.5 Estimated GFR 54 POC Glucose 204 H 160 H Random Glucose 196 H Calcium 8.6 Magnesium 2.0 09/15/25 09/16/25 09/16/25 20:30 07:55 08:19 Anion Gap 11 L Estim Creat Clear Calc 34.4 Estimated GFR > 60 POC Glucose 195 H 146 H Random Glucose 150 H Calcium 8.5 Magnesium Assessment and Plan (1) Depression: Status: Acute (2) Type 2 diabetes mellitus: Status: Acute (3) GERD (gastroesophageal reflux disease): Status: Acute (4) Hypokalemia: Status: Acute (5) Urinary tract infection: Status: Acute (6) Sarcopenia: Status: Acute (7) Major neurocognitive disorder: Status: Acute (8) Parkinson disease: Status: Acute Plan 79-year-old female?resident of [facility] with advanced Alzheimer dementia, Parkinsonism, atrial fibrillation on apixaban, CKD, DM2, severe frailty/sarcopenia, and recurrent falls, admitted after an?unwitnessed fall with head strike while anticoagulated, complicated by?UTI, acute encephalopathy, and ULISES, now with?improving renal function but ongoing electrolyte derangements, currently monitored on telemetry. Acute Encephalopathy / Altered Mental Status Presented with minimal responsiveness prompting CT head and metabolic evaluation. Likely multifactorial in the setting of infection, ULISES, dehydration, and baseline severe neurocognitive disorder. CT head without acute intracranial process.? Plan: * Continue close neurologic monitoring. * Treat underlying precipitants (UTI, ULISES, electrolyte abnormalities). * Avoid sedating medications where possible. * Maintain delirium precautions. * Reassess mental status daily and compare to facility baseline via HCP. Acute Kidney Injury (improving) Creatinine peaked at 1.4?1.5, now improved to?1.0?with IV fluids; likely prerenal from poor intake and infection.? Baseline 0.7 Plan: * Continue judicious IV fluids to maintain euvolemia. * Daily BMP to monitor renal function. * Avoid nephrotoxins. * Dose-adjust renally cleared medications as needed. Hypokalemia Potassium?2.9, likely multifactorial (poor intake, renal losses).? Pending repeat labs Plan: * Continue telemetry while repleting. * Replete magnesium if low to facilitate potassium correction. Urinary Tract Infection Urine culture growing?Proteus mirabilis; blood cultures negative to date. No evidence of septic shock.? Plan: * Continue?ceftriaxone. * Adjust antibiotics based on finalized sensitivities. * Monitor for clinical improvement and resolution of leukocyturia/AMS. Unwitnessed Fall with Head Strike Fall out of bed with scalp laceration/hematoma while on apixaban. Initial CT head limited by motion artifact; no clear acute bleed.? Plan: * Repeat?CT head without contrast?given anticoagulation and change in mental status. * Maintain fall precautions. * Physical therapy evaluation when clinically appropriate. * Continue to hold anticoagulation pending risk?benefit discussion. Atrial Fibrillation Chronic AF previously on apixaban; currently held due to fall with head trauma.? Plan: * Continue to hold apixaban. * Discuss long-term anticoagulation risks vs benefits with HCP given recurrent falls and advanced dementia. * Rate control as needed; monitor on telemetry. Type 2 Diabetes Mellitus Hyperglycemia during admission; limited PO intake.? Plan: * Continue basal insulin and correctional insulin as ordered. * Fingersticks per protocol; reassess frequency once diet stabilized. * Avoid hypoglycemia given frailty and AMS. Parkinson Disease Home carbidopa/levodopa intermittently held due to lethargy.? Plan: * Resume dopaminergic therapy as mental status and swallowing permit. * Monitor for rigidity or worsening mobility. Severe Frailty / Sarcopenia / Malnutrition BMI 17.9 with temporal wasting and poor intake.? Plan: * Nutritional support as tolerated. * Assist with feeding. * Monitor weights and intake. * [id number] aligned approach given overall prognosis. Chronic Neurocognitive Disorder with Dysphagia Advanced Alzheimer dementia with known oral phase dysphagia.? Plan: * Aspiration precautions. * Diet per ELECTROLYTIC DE SCALER recommendations. * Supportive care focused on comfort and safety. QUALITY METRICS * VTE:?SCDs; anticoagulation held due to fall with head trauma * CODE STATUS:?DNR / OK for invasive intubation and ventilation * DIET:?as per ELECTROLYTIC DE SCALER reccs * TELEMETRY:?On telemetry for hypokalemia and AF * HURST:?none * LINES:?Peripheral IV * DISPOSITION:?Inpatient for electrolyte repletion and AMS monitoring Total time managing care of this patient today: 35 minutes. Quality Stroke Does the patient have a stroke diagnosis?: No VTE Prior VTE?: No VTE Risk Level:: Medical - moderate - high VTE Device Contraindication: N/A - Device Ordered VTE Drug Contraindication: Treatment Not Tolerated
[2025-09-16 11:48] LABS: Glucose, Whole Blood 216 mg/dL (60-115)
[2025-09-16 15:18] VITALS: BP 140/74; PULSE 81; RESP 18; TEMP 36.6; O2SAT 99
[2025-09-16 16:06] LABS: Glucose, Whole Blood 254 mg/dL (60-115)
[2025-09-16 19:49] VITALS: BP 134/63; PULSE 82; RESP 18; TEMP 36.9; O2SAT 98
[2025-09-16 20:50] LABS: Glucose, Whole Blood 139 mg/dL (60-115)
[2025-09-16] MEDS: 0.9 % Sodium Chloride Flush 3 ML SYRINGE IVFLUSH (22:13)
[2025-09-16] MEDS: Insulin Glargine,Hum.rec.anlog 100 UNIT/ML 10 ML VIAL SUBCUT (22:13)
[2025-09-17 04:00] VITALS: BP 139/68; PULSE 72; RESP 16; TEMP 36.6; O2SAT 96
--- NOTE | 2025-09-17 04:09 | PC.NURSE ---
0345 [facility] surgical patient with Telemetry observation reviewed by Steffen Hinojosa RN and environmental monitoring specialist Edenilson. Patient heart rhythm flipped into AFlutter 2:1 then 3:1 and Afib controlled rate in 80's-90. Deyanira Bates Primary RN notified via [place] text with RN confirming receiving images of rhythm to provide follow up and assessment of patient.
--- NOTE | 2025-09-17 04:24 | PC.NURSE ---
Pt seen on bed alert, mumbled words randomly, gazed at when name called, unable to verbalized needs, arms stiff, both legs contracted, repositioned Q2 on bed, foam dressing noted on saraum and heels, right foot, meds crushed with applesauce tolerated, SR on he 70s AT 0400, CMT reported pt converted to AFlutter 90s, rest of vitals WNL, pt asleep on bed, Heather A., notified, am labs ordered.
[2025-09-17] MEDS: Artificial Tears 15 ML DROPS 1 DROP EYE-BOTH (05:41)
[2025-09-17 06:00] VITALS: BMI 18.4
[2025-09-17 06:44] LABS: MANUAL DIFF FLAG NO
[2025-09-17 06:53] LABS: Hematocrit 29.1 % (37.0-47.0); Hemoglobin 9.1 g/dl (12.0-16.0); Imm Gran Abs Auto 0.03 X10*3/uL (0.00-0.03); Imm Gran Pct Auto 0.4 % (0.0-0.4); Lymphocytes Absolute Auto 1.7 X10*3/uL (1.2-4.9); Mean Corpuscular HGB Conc 31.3 g/dl (31.0-35.0); Mean Corpuscular Hemoglobin 28.4 pg (27.0-33.0); Mean Corpuscular Volume 90.9 fL (80.0-98.0); NRBC Abs Auto 0.000 X10*3/uL (0.0-0.012); NRBC Pct Auto 0.0 /100WBC (0.0-0.2); Platelet Count 176 X10*3/uL (160-400); Red Blood Count 3.20 X10*6/uL (4.20-5.50); White Blood Count 7.1 X10*3/uL (4.8-10.8)
[2025-09-17 07:22] LABS: Magnesium 1.8 mg/dL (1.6-2.6)
[2025-09-17 07:25] LABS: Alanine Aminotransferase 9 U/L (0-31); Albumin Level 2.8 g/dL (3.5-5.0); Alkaline Phosphatase 106 U/L (39-117); Anion Gap 11 (12-20); Aspartate Amino Transferase 47 U/L (5-31); Blood Urea Nitrogen 12 mg/dL (9-16); Calcium 8.7 mg/dL (8.4-10.2); Carbon Dioxide 24 mmol/L (22-29); Chloride 111 mmol/L (96-108); Creatinine Clr Calc Pharmacy 34.5; Estimated Glomerular Filt Rate > 60; Potassium 3.3 mmol/L (3.3-5.1); Sodium 143 mmol/L (135-145); Total Protein 6.2 g/dL (6.5-8.0)
[2025-09-17 08:00] VITALS: BP 131/67; PULSE 100; RESP 18; TEMP 37.3; O2SAT 98
[2025-09-17] MEDS: 0.9 % Sodium Chloride Flush 3 ML SYRINGE IVFLUSH (08:21)
[2025-09-17] MEDS: traZODone HCL 25 MG HALFTAB PO (08:21)
[2025-09-17] MEDS: Metoprolol Succinate ER 50 MG TAB.ER.24H PO (08:21)
[2025-09-17 08:26] LABS: Glucose, Whole Blood 137 mg/dL (60-115)
[2025-09-17 11:45] LABS: Glucose, Whole Blood 241 mg/dL (60-115)
--- NOTE | 2025-09-17 11:52 | MHC.CM.PN ---
PT RETUNING TO [facility] TODAY AT 2;30
--- NOTE | 2025-09-17 12:08 | MHC.CM.PN ---
pts sister karri antoine notified of dc as well as pts guardian fidelia trejo,an [phone]
--- NOTE | 2025-09-17 12:11 | P.DS_ITS ---
DS: Providers Provider Date of admission: 09/14/25 15:33 Date of discharge: 09/17/25 Primary care physician: Evens Stubbs MD Consults: 09/13/25 10:55 Consult to Wound Care Routine Consulting Provider: [facility] Reason for consultation: ? Stage 2 coccyx DS: Diagnosis Discharge Diagnosis (1) Depression: Status: Acute (2) Type 2 diabetes mellitus: Status: Acute (3) GERD (gastroesophageal reflux disease): Status: Acute (4) Hypokalemia: Status: Acute (5) Urinary tract infection: Status: Acute (6) Sarcopenia: Status: Acute (7) Major neurocognitive disorder: Status: Acute (8) Parkinson disease: Status: Acute DS: Summary Hospital Course Hospital Course: 79-year-old female?resident of [facility] with advanced Alzheimer dementia, Parkinsonism, atrial fibrillation previously on apixaban, CKD, DM2, severe frailty/sarcopenia, and recurrent falls, admitted after an?unwitnessed fall with head strike while anticoagulated, complicated by?UTI, acute encephalopathy, ULISES, and electrolyte abnormalities, now with?resolution of ULISES and electrolyte derangements, improved mental status to baseline,?tolerating PO intake, and medically stable for discharge back to facility. Acute Encephalopathy / Altered Mental Status (resolved) Multifactorial encephalopathy in the setting of infection, dehydration, ULISES, and baseline advanced neurocognitive disorder. CT head without acute intracranial pathology. Mental status improved and returned to baseline per facility/HCP.? Plan: * No further inpatient neurologic workup indicated. * Maintain delirium precautions at facility. * Avoid sedating medications where possible. * Return to familiar environment for cognitive stability. Acute Kidney Injury (resolved) Prerenal ULISES from poor intake and infection. Creatinine improved to baseline with IV fluids.? Plan: * Resume baseline hydration. * Encourage oral intake. * Avoid nephrotoxins. * Outpatient BMP as clinically indicated. Hypokalemia / Electrolyte Abnormalities (resolved) Hypokalemia, hypomagnesemia, and other mild electrolyte derangements during hospitalization, now corrected.? Plan: * No further inpatient repletion required. * Monitor electrolytes outpatient as clinically indicated. * Encourage adequate nutrition and hydration. Urinary Tract Infection Urine culture grew?Proteus mirabilis; treated with IV ceftriaxone with clinical improvement. Blood cultures negative.? Plan: * Transition to oral antibiotics * Monitor for recurrence of urinary symptoms or AMS. * Routine outpatient follow-up. Unwitnessed Fall with Head Strike Fall with scalp hematoma/laceration while on apixaban. Serial neurologic exams and imaging without evidence of acute intracranial hemorrhage.? Plan: * Maintain strict fall precautions at facility. * Assist with transfers and ambulation. * PT/OT at facility as appropriate. Atrial Fibrillation Chronic AF previously on apixaban. Anticoagulation held due to high fall risk and head trauma.? Plan: * Continue to?hold anticoagulation. * Long-term anticoagulation risk/benefit to be revisited with HCP in outpatient setting. * Rate control medications as tolerated. Type 2 Diabetes Mellitus Hyperglycemia during acute illness; now eating and drinking well.? Plan: * Resume baseline diabetic regimen as tolerated. * Avoid hypoglycemia given frailty. * Routine glucose monitoring per facility protocol. Parkinson Disease Chronic Parkinsonism; carbidopa/levodopa resumed once mental status and swallowing improved.? Plan: * Continue home dopaminergic therapy. * Monitor for rigidity, mobility decline, or aspiration risk. Severe Frailty / Sarcopenia / Malnutrition BMI 17.9 with temporal wasting; PO intake improved prior to discharge.? Plan: * Encourage assisted feeding. * Nutritional supplementation as tolerated. * Weight monitoring at facility. Chronic Neurocognitive Disorder with Dysphagia Advanced Alzheimer dementia with known oral phase dysphagia.? Plan: * Aspiration precautions. * Diet per GENERAL ASSIGNMENT REPORTER recommendations. * Comfort-focused supportive care. Status at Discharge Functional status at discharge: bed bound Overall status at discharge: patient is progressing back to baseline Time Attestation Total time managing care of this patient today: 45 mintues. Discharge Coordination Time (in mins): 45 Quality: Safe Use of Opioids Does Pt have an Active Cancer Diagnosis on the Problem List?: No Quality: Stroke Does the patient have a stroke diagnosis?: No Physical Exam Exam: Exam: General:?Comfortable, no acute distress, resting in bed. Cardiac:?S1 and S2 auscultated, regular rate and rhythm, no murmurs, rubs, or gallops. Well perfused. Respiratory:?Reduced inspiratory and expiratory breath sounds bilaterally without wheezes, crackles, or rales. No peripheral or central cyanosis. GI/:?Abdomen soft, non-distended, non-tender to palpation. No guarding or rebound. MSK:?Reduced muscular bulk throughout upper and lower extremities bilaterally with significant sarcopenia and temporal wasting. No acute deformities. Neurological:?Awake, alert to self, mental status at baseline for advanced ann ntia. Moves all extremities spontaneously. Baseline contractures of the left upper and lower extremities. No focal neurologic deficits appreciated. Skin:?Scalp laceration healing without signs of infection. Sacral area without acute skin breakdown. Vital Signs: Vital Signs: Last Vital Signs Temp 99.1 F 09/17/25 08:00 Pulse 100 09/17/25 08:00 Resp 18 09/17/25 08:00 BP 131/67 09/17/25 08:00 Pulse Ox 98 09/17/25 08:00 O2 Del Method Room Air 09/17/25 08:00 BMI result Body Mass Index 18.4 DS: Data Data Completed and Pending Labs on day of discharge: Laboratory Results - last 24 hr 09/16/25 09/16/25 09/17/25 16:00 20:24 05:55 WBC 7.1 RBC 3.20 L Hgb 9.1 L Hct 29.1 L MCV 90.9 MCH 28.4 MCHC 31.3 RDW 13.7 Plt Count 176 MPV 11.4 Immature Gran % (Auto) 0.4 Neut % (Auto) 62.5 Lymph % (Auto) 24.2 Reynolds % (Auto) 8.2 Eos % (Auto) 4.1 H Baso % (Auto) 0.6 Lymph # (Auto) 1.7 Reynolds # (Auto) 0.6 Eos # (Auto) 0.3 Baso # (Auto) 0.0 Abs Immat Gran (auto) 0.03 Absolute Neuts (auto) 4.4 Absolute Nucleated RBC 0.000 Nucleated RBC % (auto) 0.0 Sodium 143 Potassium 3.3 Chloride 111 H Carbon Dioxide 24 Anion Gap 11 L BUN 12 Creatinine 0.89 Estim Creat Clear Calc 34.5 Estimated GFR > 60 POC Glucose 254 H 139 H Random Glucose 116 H Calcium 8.7 Magnesium 1.8 Total Bilirubin 0.4 AST 47 H ALT 9 Alkaline Phosphatase 106 Total Protein 6.2 L Albumin 2.8 L TSH 0.88 09/17/25 09/17/25 07:49 11:36 WBC RBC Hgb Hct MCV MCH MCHC RDW Plt Count MPV Immature Gran % (Auto) Neut % (Auto) Lymph % (Auto) Reynolds % (Auto) Eos % (Auto) Baso % (Auto) Lymph # (Auto) Reynolds # (Auto) Eos # (Auto) Baso # (Auto) Abs Immat Gran (auto) Absolute Neuts (auto) Absolute Nucleated RBC Nucleated RBC % (auto) Sodium Potassium Chloride Carbon Dioxide Anion Gap BUN Creatinine Estim Creat Clear Calc Estimated GFR POC Glucose 137 H 241 H Random Glucose Calcium Magnesium Total Bilirubin AST ALT Alkaline Phosphatase Total Protein Albumin TSH Discharge Plan Discharge Anticipated Discharge Date/Time: 09/17/25 12:14 Patient Disposition: Xfer [facility] Discharge Diagnosis: Acute UTI, encephalopathy, ULISES and electrolyte abnormalities [facility] [Other] - 1 Week Physician,Nonstaff [Physician, Medical] - 1 Week Discharge Medications: New cephalexin 500 mg capsule 500 mg PO BID Qty: 3 0RF Continued tramadol 50 mg Tablet 25 mg PO TID Qty: 1 0RF acetaminophen 500 mg Tablet 500 mg PO BID docusate sodium [Colace] 100 mg Capsule 100 mg PO DAILY gabapentin 100 mg Capsule 100 mg PO BID carbidopa-levodopa [Sinemet] 25-100 mg Tablet 1 tab PO TID fluticasone propionate 50 mcg/actuation [place],Suspension 1 spray INTRANASAL BID Rx Instructions: administer into each nostril Eliquis 2.5 mg Tablet 2.5 mg PO BID metformin 500 mg Tablet 500 mg PO BID trazodone 50 mg Tablet 25 mg PO BID omeprazole 20 mg Capsule,Delayed Release(Dr/Ec) 20 mg PO BID@0630,1630 mirtazapine 15 mg Tablet 15 mg PO BEDTIME metoprolol succinate 25 mg Tablet Extended Release 24 Hr 50 mg PO DAILY loratadine 10 mg Tablet 10 mg PO DAILY sennosides [senna] 8.6 mg Tablet 17.2 mg PO DAILY PRN (Reason: Constipation) Rx Instructions: GIVE IF NO BOWEL MOVEMENT IN 3 DAYS AND MIRALAX INEFFECTIVE insulin glargine [Lantus U-100 Insulin] 100 unit/mL Solution 8 unit SUBCUT BEDTIME carboxymethylcellulose sodium [Refresh Tears] 0.5 % Drops 1 drp OPHTHALMIC (EYE) BID@0600,1800 mupirocin 2 % Ointment 1 appl TOPICAL DAILY insulin lispro [Humalog U-100 Insulin] 100 unit/mL Solution 1 sliding scale dose SUBCUT BIDAC PRN (Reason: Hypoglycemia) Protocol: Insulin Correction Scale Less than or equal to 110 ---- Give (units): 0 111 to 150 Give (units): 0 151 to 200 Give (units): 0 201 to 250 Give (units): 2 251 to 300 Give (units): 4 301 to 350 Give (units): 6 Greater than 350 Give (units): 8 Call MD if Blood Glucose > : 450 polyethylene glycol 3350 [Miralax] 17 gram/dose Powder 17 g PO DAILY PRN (Reason: Constipation) Rx Instructions: GIVE IF NO BOWEL MOVEMENT IN 3 DAYS Discharge Orders: Discharge Order (Routine); Ordered 09/17/25 Ordered By: Spike Mcclure Diet: Advance to usual diet Activity on Discharge: As tolerated Stand Alone Forms: Patient Portal Discharge page Print Language: Unable To Collect Care Plan Goals: As above Health Concerns: As above Plan of Treatment: As above Assessment: Hemodynamically stable for discharge, with returned to neurocognitive baseline
--- NOTE | 2025-09-17 15:10 | PC.NURSE ---
Tele removed, Iv removed. Pt discharged to [facility] via EMS. Report called to receiving facility
--- NOTE | 2025-10-02 14:26 | P.CDIM_ITS ---
PROVIDER RESPONSE TEXT: To clarify, the appropriate diagnosis supported by the clinical indicators: Severe QUERY TEXT: PHYSICIAN'S DOCUMENTATION REQUEST Date of Query: 10/01/2025 01:05 PM EST Patient Name: Gillian Ash Admit Date: 09/14/2025 Dear Spike Mcclure MD, A review of the medical record indicates additional documentation may be needed. Please review below and update the documentation accordingly. Documentation includes the diagnosis of malnutrition. Additional clinical indicators from the record include: BMI 17.9 temporal wasting feeding assist, supplement , monitor weight If possible, please provide additional specificity regarding the severity of the malnutrition using the above information: Mild Moderate Severe Other (explain) Clinically unable to determine (explain) Thank you, Leslie Garza RN Use of terms such as suspected, likely, concern for, or probable (associated with a specific diagnosis that is being evaluated, monitored, or treated as if it exists) are acceptable and can be coded in the inpatient setting, when documented at the time of discharge. Please use your independent medical judgment in providing your response. THIS QUERY IS PART OF THE PERMANENT MEDICAL RECORD
== END 2025-09-17 15:11 | disposition skilled nursing facility (03) | DRG 689 ==
LOC: HO.ED 21:23 → HO.EDOVER 22:50 → HO.IMC 23:10 → HO.S3 09-15 09:09
PROVIDERS: Internal Medicine; Nurse Practitioner Family; Admitting Provider Family Medicine; Emergency Provider Emergency Medicine Emergency Medical Services; PCP Hospitalist; Visit Provider Hospitalist
DX: N39.0 Urinary tract infection, site not specified (principal); E43 Unspecified severe protein-calorie malnutrition; G93.49 Other encephalopathy; N17.9 Acute kidney failure, unspecified; I48.20 Chronic atrial fibrillation, unspecified; Z68.1 Body mass index [BMI] 19.9 or less, adult; G30.9 Alzheimer's disease, unspecified; F02.80 Dementia in other diseases classified elsewhere, unspecified severity, without behavioral disturbance, psychotic disturbance, mood disturbance, and anxiety; I48.0 Paroxysmal atrial fibrillation; W06.XXXA Fall from bed, initial encounter; R13.11 Dysphagia, oral phase; G20.A1 Parkinson's disease without dyskinesia, without mention of fluctuations; N20.0 Calculus of kidney; I12.9 Hypertensive chronic kidney disease with stage 1 through stage 4 chronic kidney disease, or unspecified chronic kidney disease; Z66 Do not resuscitate; E86.0 Dehydration; E87.6 Hypokalemia; N18.9 Chronic kidney disease, unspecified; E11.22 Type 2 diabetes mellitus with diabetic chronic kidney disease; M62.84 Sarcopenia; B96.4 Proteus (mirabilis) (morganii) as the cause of diseases classified elsewhere; M51.369 Other intervertebral disc degeneration, lumbar region without mention of lumbar back pain or lower extremity pain; Z79.4 Long term (current) use of insulin; Z79.01 Long term (current) use of anticoagulants; Z79.84 Long term (current) use of oral hypoglycemic drugs; Z79.899 Other long term (current) drug therapy
CPT/HCPCS: 36415; 70450; 71250; 72125; 74176; 80048; 80053; 81001; 82550; 82570; 82947; 83605; 83735; 84300; 84443; 84484; 85025; 85652; 86140; 87040; 87086; 87088; 87186; 92526; 92610; 93005; 99285; J0131; J0696; J3480; J7120

== ENCOUNTER → 2025-09-11 18:53 | Outpatient (BNV) | payer MEDICARE, SELFPAY | PROVIDERS: Emergency Provider Emergency Medicine Emergency Medical Services; Visit Provider Student in an Organized Health Care Education/Training Program | DX: M51.369 Other intervertebral disc degeneration, lumbar region without mention of lumbar back pain or lower extremity pain (principal); S09.90XA Unspecified injury of head, initial encounter; R41.82 Altered mental status, unspecified; Z04.3 Encounter for examination and observation following other accident | CPT/HCPCS: 70450; 71250; 72125; 74176 ==

== ENCOUNTER → 2025-09-11 19:01 | Outpatient (BNV) | payer MEDICARE, SELFPAY | PROVIDERS: Admitting Provider Family Medicine; Emergency Provider Emergency Medicine Emergency Medical Services; Visit Provider Internal Medicine Cardiovascular Disease | DX: Z04.3 Encounter for examination and observation following other accident (principal) | CPT/HCPCS: 93010 ==

== ENCOUNTER → 2025-09-11 22:45 | Outpatient (BNV) | payer MEDICARE, SELFPAY | PROVIDERS: Admitting Provider Family Medicine; Emergency Provider Emergency Medicine Emergency Medical Services; Visit Provider Family Medicine | DX: F32.A Depression, unspecified (principal); E11.9 Type 2 diabetes mellitus without complications; N39.0 Urinary tract infection, site not specified | CPT/HCPCS: 99232 ==

== ENCOUNTER → 2025-09-14 14:50 | Outpatient (BNV) | payer MEDICARE, SELFPAY | PROVIDERS: Admitting Provider Family Medicine; Emergency Provider Emergency Medicine Emergency Medical Services; PCP Hospitalist; Visit Provider Radiology Diagnostic Radiology | DX: S09.90XA Unspecified injury of head, initial encounter (principal); I63.311 Cerebral infarction due to thrombosis of right middle cerebral artery; Z04.3 Encounter for examination and observation following other accident | CPT/HCPCS: 70450 ==